=== PATIENT | female | born 1970 | race Caucasian/White ===

== ENCOUNTER 2022-03-24 10:03 | Inpatient (IN) ==
[2022-03-24] MEDS ORDERED: VANCOMYCIN 1,000 MG in 0.9 % SODIUM CHLORIDE 250 ML IV ONE (10:34)
[2022-03-24] MEDS ORDERED: 0.9 % SODIUM CHLORIDE 1,000 ML IV ONE ×3 (10:34→16:10)
--- NOTE | 2022-03-24 10:44 | Emergency Department Note ---
Skin/Abscess/FB HPI General Chief complaint: Skin/Abscess/Rash Stated complaint: Right Hand Swelling Time Seen by Provider: 03/24/22 10:27 Source: patient Mode of arrival: wheelchair Limitations: no limitations History of Present Illness HPI Narrative: Narrative: 51-year-old female presents chief complaint of redness swelling and pain to her right hand that may have started yesterday may have started before that patient did states she did hit her right hand yesterday but now has redness swelling starts in her right hand and goes up into her left forearm and elbow. Patient denies any history of IV drug abuse. Denies any fevers or chills. Patient does have a history of anxiety and does admit to palpitations and chest pain. Patient states she was taken off Klonopin over a month ago which she was on for years. Patient is very fidgety in the room. Denies any trauma to her elbow. The pain and swelling is diffuse in her right hand is worse whenever she moves it. Related Data Home Medications Medication Instructions Recorded Confirmed benztropine 1 mg tablet 1 mg PO BID 11/04/20 03/04/22 hydroxyzine pamoate 50 mg capsule 50 mg PO TID PRN 03/03/22 03/03/22 naproxen 500 mg tablet 1 tab PO BID 03/03/22 03/03/22 levetiracetam 500 mg tablet See Rx Instructions .ROUTE .COMPLEX 03/04/22 03/04/22 venlafaxine 75 mg tablet 75 mg PO TID 03/04/22 03/04/22 ziprasidone HCl 80 mg capsule 2 cap PO HS 03/04/22 03/04/22 Previous Rx's Medication Instructions Recorded clonazepam 0.5 mg tablet (Klonopin) 0.5 mg PO BID PRN #10 tab 03/09/22 Allergies Allergy/AdvReac Type Severity Reaction Status Date / Time Sulfa (Sulfonamide Allergy Mild Rash Verified 03/07/22 07:59 Antibiotics) carbamazepine Allergy Unknown unknown Verified 03/07/22 07:59 Review of Systems ROS ROS Narrative: Narrative: All systems ED: reviewed and negative except as stated. Constitutional: Denies fever, chills or sweats Eyes: Denies vision change ENT ED: Denies throat pain or congestion Cardiovascular: Reports as per HPI, chest pain and palpitations Respiratory: Denies shortness of breath or cough Gastrointestinal: Denies abdominal pain, vomiting or diarrhea Musculoskeletal: Reports as per HPI Integumentary: Reports as per HPI Neurological: Denies headache or dizziness Psychiatric: Reports anxiety; Denies suicidal thoughts or homicidal thoughts Endocrine: Denies polydipsia or polyuria Hematological/Lymphatic: Denies easy bleeding or easy bruising REPLACED BY [facility] Narrative Patient History Narrative: Narrative: Medical/Surgical/Family History All Active Problems (Updated 03/24/22 @ 13:55 by Jim Riley MD) Seizures (Chronic) Mental health disorder (Chronic) Auditory hallucinations (Chronic) Tobacco dependence in remission (Chronic) History of intravenous drug use in remission (Chronic) Chronic left shoulder pain (Chronic) Metatarsal stress fracture of left foot (Chronic) Contusion of arm, left (Acute) Cervical strain, acute (Acute) Closed fracture nasal bone (Acute) Polysubstance (excluding opioids) dependence (Acute) Alcohol intoxication (Acute) Acute hypokalemia (Acute) Acute dehydration (Acute) Hypothermia (Acute) Head injury (Acute) Contusion of elbow, right (Acute) Sepsis (Acute) Cellulitis of neck (Acute) Cellulitis of finger of right hand (Acute) Severe sepsis with septic shock (Acute) Hypokalemia (Acute) History of incarceration (Chronic) Poor historian (Acute) Medical History Auditory hallucinations Chronic left shoulder pain History of incarceration ~7 years History of intravenous drug use in remission Patient endorses cessation around 2007 Mental health disorder Unspecified, ?Schizophrenia Metatarsal stress fracture of left foot Poor historian Seizures Tobacco dependence in remission Quit 02/2021, 1 pack/day Surgical History History of bladder surgery Bladder sling History of nasal surgery x 2 History of shoulder surgery History of surgery on wrist Both wrists Family History Uncle Cancer Aunt Cancer Social History Smoking Status: Current some day smoker Alcohol Intake Frequency: former alcohol drinker Substance Use: former substance user Exam Narrative Narrative: Narrative: Vital Signs reviewed. Constitutional: Patient is awake alert fidgeting Head: Normocephalic, atraumatic Eyes: PERRLA, EOMI, no conjunctivitis Ear: Normal canals and TM's Oropharynx: moist oral mucosa, no edema, no erythema, no exudate Neck: Supple, no lymphadenopathy, no JVD Lungs: Breathing unlabored, lungs clear Cardiac: Tachycardic, regular rhythm normal distal pulses, GI: Soft nontender nondistended no guarding no rebound Musculoskeletal: The right hand is diffusely swollen erythematous warm to the touch on the dorsum of the hand, there is erythema that extends proximally up into the right forearm at the proximal right elbow, she also has 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 Back: no CVA or midline tenderness Neuro: Awake alert, cranial nerves II through XII grossly intact, no focal motor or sensory deficits Psychiatric: Appears anxious Skin: Warm dry no rash, cap refill less than 2 seconds General Limitations: no limitations Course Reevaluation(s) Reevaluation #1: Sepsis exam done after bolus of IV fluids and IV antibiotics. All ED findings discussed with patient including plan for and recommendation for admission. Time: 13:23 Vital Signs Vital signs: Vital Signs Temperature 96.1 F L 03/24/22 10:04 Pulse Rate 155 H 03/24/22 10:04 Respiratory Rate 22 03/24/22 10:04 Blood Pressure 142/70 03/24/22 10:04 Pulse Oximetry (%) 95 03/24/22 10:04 Temperature 103 F H 03/24/22 12:46 Pulse Rate 132 H 03/24/22 13:32 Respiratory Rate 16 03/24/22 13:32 Blood Pressure 97/59 03/24/22 13:32 Pulse Oximetry (%) 95 03/24/22 13:32 [facility] MDM Narrative Medical decision making narrative: Narrative: 51-year-old female presents with pain swelling redness to right hand and right elbow. Patient recalled some trauma with her right hand yesterday but states the redness and swelling may have been there previous to the injury. Patient is tachycardic tachypneic. SIRS present and sepsis alert triggered. Lactic acid blood cultures obtained. Patient given empiric IV vancomycin for cellulitis. Patient is also very anxious patient does have a history of IV drug abuse denies any recent drug abuse. Patient is very fidgety. Patient also states she has been taken off her Klonopin over a month ago and has not been on it since then. Differential Diagnosis Differential Diagnosis: Cellulitis, traumatic injury, sepsis, Lab Data Result diagrams: 03/24/22 11:10 03/24/22 11:10 Labs: Lab Results 03/24/22 03/24/22 03/24/22 Range/Units 11:10 11:10 11:10 WBC 2.0 L (4.5-11.0) K/mcL RBC 3.65 (3.59-5.38) M/mcL Hgb 11.7 (11.2-15.7) g/dL Hct 33.7 L (34.1-44.9) % MCV 92.3 (80.0-100.0) fL MCH 32.1 (26.0-34.0) pg MCHC 34.7 (31.0-36.0) g/dL RDW 15.1 H (11.5-14.5) % Plt Count 50 L (140-440) K/mcL MPV 10.7 H (7.4-10.4) fL Seg Neutrophils % 55 (38-78) % Band Neutrophils % 29 H (0-10) % Lymphocytes % 8 L (15-49) % Monocytes % (Manual) 7 (1-12) % Metamyelocytes % 1 % Nucleated RBCs 6 H (0-0) % WBC Morphology Abnormal A (Normal) Dohle Bodies Few A (None Seen) Platelet Estimate Markedly decreased A (Normal) RBC Morphology Abnormal A (Normal) Polychromasia 1+ A (None Seen) Anisocytosis 1+ A (None Seen) ESR 51 H (0-30) mm/hr VBG Lactic Acid 5.3 H* (0.5-2.0) mmol/L Sodium 130 L (133-145) mmol/L Potassium 2.6 L* (3.3-5.1) mmol/L Chloride 96 (96-108) mmol/L Carbon Dioxide 19 L (22-30) mmol/L Anion Gap 15.0 (8.0-16.0) BUN 10 (6-20) mg/dL Creatinine 0.8 (0.6-1.1) mg/dL GFR Calculation 86 Glucose 124 H (70-105) mg/dL Calcium 8.8 (8.6-10.4) mg/dL Total Bilirubin 2.0 H (0.1-1.0) mg/dL AST 84 H (<32) U/L ALT 41 H (<40) U/L Alkaline Phosphatase 173 H (39-117) U/L Troponin T < 0.01 (<0.03) ng/mL C-Reactive Protein 14.40 H (0.03-0.80) mg/dL Total Protein 7.6 (5.9-8.4) gm/dL Albumin 2.9 L (3.2-5.2) gm/dL Globulin 4.7 H (2.2-3.7) gm/dL Albumin/Globulin Ratio 0.6 L (1.0-2.3) Ethyl Alcohol (<0.010) gm/dL 03/24/22 Range/Units 11:20 WBC (4.5-11.0) K/mcL RBC (3.59-5.38) M/mcL Hgb (11.2-15.7) g/dL Hct (34.1-44.9) % MCV (80.0-100.0) fL MCH (26.0-34.0) pg MCHC (31.0-36.0) g/dL RDW (11.5-14.5) % Plt Count (140-440) K/mcL MPV (7.4-10.4) fL Seg Neutrophils % (38-78) % Band Neutrophils % (0-10) % Lymphocytes % (15-49) % Monocytes % (Manual) (1-12) % Metamyelocytes % % Nucleated RBCs (0-0) % WBC Morphology (Normal) Dohle Bodies (None Seen) Platelet Estimate (Normal) RBC Morphology (Normal) Polychromasia (None Seen) Anisocytosis (None Seen) ESR (0-30) mm/hr VBG Lactic Acid (0.5-2.0) mmol/L Sodium (133-145) mmol/L Potassium (3.3-5.1) mmol/L Chloride (96-108) mmol/L Carbon Dioxide (22-30) mmol/L Anion Gap (8.0-16.0) BUN (6-20) mg/dL Creatinine (0.6-1.1) mg/dL GFR Calculation Glucose (70-105) mg/dL Calcium (8.6-10.4) mg/dL Total Bilirubin (0.1-1.0) mg/dL AST (<32) U/L ALT (<40) U/L Alkaline Phosphatase (39-117) U/L Troponin T (<0.03) ng/mL C-Reactive Protein (0.03-0.80) mg/dL Total Protein (5.9-8.4) gm/dL Albumin (3.2-5.2) gm/dL Globulin (2.2-3.7) gm/dL Albumin/Globulin Ratio (1.0-2.3) Ethyl Alcohol < 0.010 (<0.010) gm/dL EKG Data EKG #1: EKG attestation: Yes I reviewed and interpreted this EKG. and Yes There are no EKG findings of acute coronary syndrome EKG results narrative: EKG performed at 1044 shows sinus tachycardia rate of 141 with significant baseline artifact this patient has tremors, normal axis infrequent PVC no acute ST changes CC TIME Critical Care Time Critical Care Time: Yes Total Critical Care Time: 35 Attestation: 35 minutes critical care performed including history physical evaluation and review of results imaging initiating therapy IV antibiotics fluids and discuss ing case with the mental hygiene consultant. Discharge Plan Patient/Caregiver Discharge Instructions Pt seen by SANDWICH COUNTER ATTENDANT/PA only: No Clinical Impression: Cellulitis of finger of right hand, Severe sepsis with septic shock, Hypokalemia Patient Disposition: Xfer As Inpt ([facility]) Condition: Fair Follow up with: Sascha Castrejon ARNP [Primary Care Provider] - Prescriptions: No Action benztropine 1 mg tablet 1 mg PO BID 0RF hydroxyzine pamoate 50 mg Capsule 50 mg PO TID PRN (Reason: Anxiety) 0RF naproxen 500 mg tablet 1 tab PO BID 0RF venlafaxine 75 mg Tablet 75 mg PO TID 0RF levetiracetam 500 mg Tablet See Rx Instructions .ROUTE .COMPLEX 0RF Rx Instructions: take 1 tablet PO QAM, 1.5 tablets po HS ziprasidone HCl 80 mg capsule 2 cap PO HS 0RF clonazepam [Klonopin] 0.5 mg tablet 0.5 mg PO BID PRN (Reason: anxiety) Qty: 10 0RF
[2022-03-24] MEDS ORDERED: ACETAMINOPHEN 500 MG TABLET PO ONE (11:23)
--- NOTE | 2022-03-24 11:26 | XRay Report ---
HISTORY: Pain and swelling FINDINGS: The lungs are clear and normally expanded. The heart size, mediastinum and alonzo are normal. There are couple old healed posterolateral rib fractures in the mid thorax bilaterally. In the left axilla there are multiple high attenuation well-circumscribed nodules measuring up to 3.2 cm in size. These were present on the recent chest CT performed on 03/05/22 and appeared to be located within the joint capsule IMPRESSION: No acute abnormality Interpreted and Authenticated by: Freedom Medina 03/24/22
--- NOTE | 2022-03-24 11:27 | XRay Report ---
HISTORY: Pain, erythema and swelling in the right hand FINDINGS: There is moderate soft tissue swelling dorsal to the metacarpals. There is no gas or foreign body in the soft tissues. The underlying bones are normal without evidence of osteomyelitis. There is no fracture or dislocation. Impression: soft tissue swelling along the dorsal side of the hand which is probably due to cellulitis Interpreted and Authenticated by: Freedom Medina 03/24/22
--- NOTE | 2022-03-24 11:28 | XRay Report ---
HISTORY: Right elbow pain and swelling FINDINGS: No fracture, dislocation or inflammatory change are present. Joint spaces are normal in width. There is no spur formation or joint effusion. No foreign body is present. There has been no change since 10/29/21. IMPRESSION: Normal exam Interpreted and Authenticated by: Freedom Medina 03/24/22
[2022-03-24 12:20] LABS: Hematocrit 33.7 % (34.1-44.9); Hemoglobin 11.7 g/dL (11.2-15.7); Mean Cell Volume 92.3 fL (80.0-100.0); Mean Corpuscular HGB Conc 34.7 g/dL (31.0-36.0); Mean Platelet Volume 10.7 fL (7.4-10.4); Platelet Count 50 K/mcL (140-440); RBC 3.65 M/mcL (3.59-5.38); Red Cell Distribution Width 15.1 % (11.5-14.5)
[2022-03-24 12:23] LABS: Alcohol, Blood < 10.0 mg/dL; Alcohol,Blood < 0.010 gm/dL (<0.010)
[2022-03-24] MEDS ORDERED: 0.9 % SODIUM CHLORIDE 1,915 ML IV ONE (12:35)
[2022-03-24] MEDS ORDERED: 0.9 % SODIUM CHLORIDE 500 ML IV ONE (12:39)
[2022-03-24 12:40] LABS: ALT/SGPT 41 U/L (<40); AST/SGOT 84 U/L (<32); Albumin 2.9 gm/dL (3.2-5.2); Albumin/Globulin Ratio 0.6 (1.0-2.3); Alkaline Phosphatase 173 U/L (39-117); Blood Urea Nitrogen 10 mg/dL (6-20); Calcium 8.8 mg/dL (8.6-10.4); Carbon Dioxide 19 mmol/L (22-30); Chloride 96 mmol/L (96-108); Globulin 4.7 gm/dL (2.2-3.7); Glomerular Filtration Rate 86; Glucose 124 mg/dL (70-105)
[2022-03-24] MEDS ORDERED: POTASSIUM CHLORIDE 20 MEQ TABLET PO ONE (12:47)
[2022-03-24] MEDS ORDERED: LORazepam 2 MG/ML VIAL IV ONE (12:48)
[2022-03-24 13:00] LABS: Erythrocyte Sedimentation Rate 51 mm/hr (0-30)
[2022-03-24] MEDS ORDERED: ONDANSETRON 4 MG/2 ML VIAL IV ONE (13:01)
[2022-03-24 13:44] LABS: Anisocytosis 1+ (None Seen); Band Neutrophils % 29 % (0-10); Dohle Bodies FEW (None Seen); Lymphocytes % 8 % (15-49); Metamyelocytes % 1 %; Monocytes % (Manual) 7 % (1-12); Nucleated Red Blood Cells 6 % (0-0); Platelet Estimate MARKEDLY DECREASED (Normal); Polychromasia 1+ (None Seen); RBC Morphology ABNORMAL (Normal); Segmented Neutrophils % 55 % (38-78)
[2022-03-24] MEDS ORDERED: KETOROLAC 30 MG/ML VIAL IV ONE (14:02)
--- NOTE | 2022-03-24 14:12 | Internal Med History&Physical ---
HPI History of Present Illness Patient information: Note initiated : 03/24/22 at 1:59 pm Service Date, if different from initiated Date: [] Patient: Anay Ramírez a 51 y/o F admitted on for Right Hand Swelling. Chief Complaint: [] History of present illness: Ms. Ramírez is a 51 year old F Presents the ED with right hand swelling redness and tenderness. She says she hit her hand on a countertop last night and that it has gotten increasingly red swollen and tender since then. Patient has a history of methamphetamine use she says she smokes it and denies IV use. She was here in early February for cellulitis of the left neck and had to some alcohol withdrawal symptoms at that time found to have cirrhosis with sequelae of thrombocytopenia and leukopenia. She says since she was discharged she has not used any methamphetamine but when I pressed her in regards to her use explaining how important was that I know what she used and when, then she finally stated she last used on Sunday. I suspect she is used more recently given her current presentation. She seems a bit agitated and is extremely fidgety. She has bloodshot eyes. Also of note I impressed upon her the need to stop alcohol upon last admission but she says she still using it in the form of beers 2-4 a day but she denies using it every day. She has not followed up with gastroenterology yet given the referral placed for cirrhosis. And has not seen Dr. Jones yet for substance abuse. she has headache and has some nausea but no vomiting. Denies fever chills chest pain stomach pain. Says she has a little bit of diarrhea this morning. In the ED she was tachycardic although she is has baseline tachycardia but it was elevated above baseline. She had a fever 103. Lactate of 5 and elevated CRP. She had AST to ALT ratio of 2:1. Leukopenia but better than last admission. She had a hand and elbow x-rays that show cellulitis of the dorsum of the right hand but no evidence of abscess. Blood cultures obtained. She received 30 mils per cake of IV fluid bolusing for sepsis presentation. Vancomycin ordered in the ED. Review of Systems: Pertinent positives as above. Denies fever/chills/vomiting/chest or abdominal pain/cough/dyspnea. 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 remission (Chronic) Chronic left shoulder pain (Chronic) Metatarsal stress fracture of left foot (Chronic) Contusion of arm, left (Acute) Cervical strain, acute (Acute) Closed fracture nasal bone (Acute) Polysubstance (excluding opioids) dependence (Acute) Alcohol intoxication (Acute) Acute hypokalemia (Acute) Acute dehydration (Acute) Hypothermia (Acute) Head injury (Acute) Contusion of elbow, right (Acute) Sepsis (Acute) Cellulitis of neck (Acute) Cellulitis of finger of right hand (Acute) Severe sepsis with septic shock (Acute) Hypokalemia (Acute) History of incarceration (Chronic) Poor historian (Acute) Medical History Auditory hallucinations Chronic left shoulder pain History of incarceration ~7 years History of intravenous drug use in remission Patient endorses cessation around 2007 Mental health disorder Unspecified, ?Schizophrenia Metatarsal stress fracture of left foot Poor historian Seizures Tobacco dependence in remission Quit 02/2021, 1 pack/day Surgical History History of bladder surgery Bladder sling History of nasal surgery x 2 History of shoulder surgery History of surgery on wrist Both wrists Family History Uncle Cancer Aunt Cancer Social History (Updated 03/31/21 @ 11:04 by Pinky Hasnen RN) marital status: single smoking status: Former smoker quit date: 02/28/21 alcohol intake frequency: former alcohol drinker substance use type: former substance user MEDS/ALLERGIES Home Medications and Allergies Home Medications Medication Instructions Recorded Confirmed Type benztropine 1 mg tablet 1 mg PO BID 11/04/20 03/24/22 History levetiracetam 500 mg tablet See Rx Instructions .ROUTE .COMPLEX 03/04/22 03/24/22 History venlafaxine 75 mg tablet 75 mg PO TID 03/04/22 03/24/22 History ziprasidone HCl 80 mg capsule 2 cap PO HS 03/04/22 03/24/22 History clonazepam 0.5 mg tablet (Klonopin) 1 mg PO DAILY PRN 03/24/22 03/24/22 History lactulose 10 gram/15 mL oral 15 ml PO TID 03/24/22 03/24/22 History solution meloxicam 15 mg tablet 15 mg PO QDAY 03/24/22 03/24/22 History spironolactone 100 mg tablet 100 mg PO QAM 03/24/22 03/24/22 History Allergies Allergy/AdvReac Type Severity Reaction Status Date / Time Sulfa (Sulfonamide Allergy Mild Rash Verified 03/07/22 07:59 Antibiotics) carbamazepine Allergy Unknown unknown Verified 03/07/22 07:59 EXAM Constitutional Vitals: Temp Pulse Resp BP Pulse Ox 103 F H 132 H 25 H 100/56 94 03/24/22 12:46 03/24/22 13:46 03/24/22 13:46 03/24/22 13:46 03/24/22 13:46 Exam: General: Alert, agitated and fidgety Eyes/N/T: EOMI, PERRL, dryMM Head/Neck: neck supple, normocephalic atraumatic CV: Tacky but regular, No murmurs, normal s1/s2 Pulm: Clear b/l, no wheezing/rhonchi/rales Abd: soft, nontender, +BS x4 Ext: no clubbing/cyanosis/edema of LE. Right hand dorsum erythematous/tender to touch/edematous, exends past wrist Neuro: Alert, no focal deficits, moves all extremities, CN 2-12 grossly intact, sensations intact b/l upper/lower Skin: warm/dry DATA Data Completed and Pending Labs: Labs from last 24 hours 03/24/22 03/24/22 03/24/22 11:20 11:10 11:10 WBC RBC Hgb Hct MCV MCH MCHC RDW Plt Count MPV Seg Neutrophils % Band Neutrophils % Lymphocytes % Monocytes % (Manual) Metamyelocytes % Nucleated RBCs WBC Morphology Dohle Bodies Platelet Estimate RBC Morphology Polychromasia Anisocytosis ESR VBG Lactic Acid 5.3 H* Sodium 130 L Potassium 2.6 L* Chloride 96 Carbon Dioxide 19 L Anion Gap 15.0 BUN 10 Creatinine 0.8 GFR Calculation 86 Glucose 124 H Calcium 8.8 Total Bilirubin 2.0 H AST 84 H ALT 41 H Alkaline Phosphatase 173 H Troponin T < 0.01 C-Reactive Protein 14.40 H Total Protein 7.6 Albumin 2.9 L Globulin 4.7 H Albumin/Globulin Ratio 0.6 L Ethyl Alcohol < 0.010 03/24/22 11:10 WBC 2.0 L RBC 3.65 Hgb 11.7 Hct 33.7 L MCV 92.3 MCH 32.1 MCHC 34.7 RDW 15.1 H Plt Count 50 L MPV 10.7 H Seg Neutrophils % 55 Band Neutrophils % 29 H Lymphocytes % 8 L Monocytes % (Manual) 7 Metamyelocytes % 1 Nucleated RBCs 6 H WBC Morphology Abnormal A Dohle Bodies Few A Platelet Estimate Markedly decreased A RBC Morphology Abnormal A Polychromasia 1+ A Anisocytosis 1+ A ESR 51 H VBG Lactic Acid Sodium Potassium Chloride Carbon Dioxide Anion Gap BUN Creatinine GFR Calculation Glucose Calcium Total Bilirubin AST ALT Alkaline Phosphatase Troponin T C-Reactive Protein Total Protein Albumin Globulin Albumin/Globulin Ratio Ethyl Alcohol A/P Narrative A/P Narrative: A: #Sepsis: 2/2 Right hand/wrist cellulitis - #Right Hand/Wrist Cellulitis: no abscess noted on xray #Alcohol abuse: #Cirrhosis, etoh related: based on imaging and labs and etoh history, has not followed up yet with GI #Thrombocytopenia, Acute on chronic /hyperbilirubinemia /hypoalbuminemia: 2/2 above #Leukopenia: 2/2 above -ANC #Alcoholic hepatitis: #Anemia, Chronic normocytic: #h/o Schizophrenia & Anxiety: on klonopin #h/o Seizure disorder: #h/o substance use disorder with Methamphetamine: denies IV, state she smokes it -suspect recent use given behavior on presentation #Hypokalemia/hypomagnesemia/Hyponatremia: replace #Hep C Ab(+) but quant RNA negative: no current infection #Transaminitis: Plan: -Vanc/Rocephin, pending BC, mrsa screen -IVF, f/u lactate -monitor cbc/ANC -CIWA, vitamins, benzo -Replace electrolytes as needed -obtain pt/inr for Discr fxn score -Home medication reconciliation -Continue home Keppra, ziprasidone, venlafaxine -f/u with GI for cirrhosis -Alcohol cessation counseling, referral to see Dr. Jones -ppx: SCD for thrombocytopenia, may use chemical if plts stable >50k Time Spent With Patient Time: Total time spent is greater than 50% in coordination of care (as documented) at patient's floor/unit and/or counseling patient: Total time spent with greater than 50% in coordination of care (as documented) at patient's floor/unit and/or counseling patient:: 50 - 70 minutes
[2022-03-24] MEDS ORDERED: 0.9 % SODIUM CHLORIDE 1,000 ML IV SCH (14:45)
[2022-03-24] MEDS: MAGNESIUM SULFATE 24.36 MEQ in DEXTROSE 5% IN WATER 50 ML IV ONE ×3 (15:43→17:30)
[2022-03-24 15:44] LABS: INR 1.7 (0.9-1.1); Prothrombin Time 20.3 sec (11.9-14.5)
[2022-03-24] MEDS ORDERED: VANCOMYCIN PER PHARMACY IV SCH (16:10)
[2022-03-24] MEDS ORDERED: METOCLOPRAMIDE 10 MG/2 ML VIAL IV PRN (16:10)
[2022-03-24] MEDS ORDERED: POTASSIUM CHLORIDE 40 MEQ in DEXTROSE 5% IN WATER 500 ML IV PRN (16:10)
[2022-03-24] MEDS ORDERED: chlordiazePOXIDE 25 MG CAPSULE PO PRN (16:10)
[2022-03-24] MEDS ORDERED: ONDANSETRON 4 MG/2 ML VIAL IV PRN (16:10)
[2022-03-24] MEDS ORDERED: POTASSIUM CHLORIDE 20 MEQ TABLET PO PRN ×2 (16:10)
[2022-03-24] MEDS ORDERED: IPRATROPIUM/ALBUTEROL 3 ML AMPUL.NEB NEB PRN (16:10)
[2022-03-24] MEDS ORDERED: THIAMINE 100 MG TABLET PO SCH (16:10)
[2022-03-24] MEDS ORDERED: POTASSIUM CHLORIDE 40 MEQ in DEXTROSE 5% IN WATER 500 ML IV ONE (16:10)
[2022-03-24] MEDS ORDERED: SENNOSIDES 1 TABLET PO PRN (16:10)
[2022-03-24] MEDS ORDERED: POLYETHYLENE GLYCOL 3350 17 GM PACKET PO PRN (16:10)
[2022-03-24] MEDS: FOLIC ACID 1 MG TABLET PO SCH (16:35)
[2022-03-24] MEDS: MULTIVIT,THER IRON,CA,FA & MIN 1 TABLET PO SCH (16:35)
[2022-03-24 16:42] LABS: Amphetamine Screen,Urine Suspect positive; Appearance,Urine HAZY (Clear); Barbiturate Screen,Urine Suspect positive; Benzodiazepines Screen,Urine None detected; Bilirubin,Urine Negative (Negative); Cannabinoid Screen,Urine None detected; Cocaine Screen,Urine None detected; Color,Urine AMBER; Culture Indicated,Urine yes; Glucose,Urine (UA) Negative (Negative); Ketones,Urine Negative (Negative); Leukocyte Esterase,Urine Negative /uL (Negative); Mucus,Urine FEW /hpf; Nitrate,Urine Negative (Negative); Opiate Screen,Urine None detected; Oxycodone, Urine Screen None detected; Phencyclidine Screen,Urine None detected; Protein,Urine 100 mg/dL (Negative); Specific Gravity,Urine 1.016 (1.000-1.035); Urine Blood >=1.0 mg/dL (Negative); Urine RBC > 182 /hpf (0-1); Urine Squamous Epithelial Cell 2 /hpf (0-4); Urine WBC 17 /hpf (0-4)
[2022-03-24] MEDS: prednisoLONE 15 MG/5 ML ORAL SOL PO SCH (16:46)
[2022-03-24] MEDS ORDERED: LACTATED RINGERS 1,000 ML IV ONE (16:53)
[2022-03-24] MEDS: cefTRIAXone 2 GM in DEXTROSE 5% IN WATER 50 ML IV SCH (16:55)
[2022-03-24] MEDS: LORazepam 2 MG/ML VIAL IV PRN ×3 (18:40→23:10)
[2022-03-24] MEDS: VANCOMYCIN 1,250 MG in 0.9 % SODIUM CHLORIDE 500 ML IV SCH (20:22)
[2022-03-24] MEDS: clonazePAM 0.5 MG TABLET PO PRN (20:36)
[2022-03-24] MEDS: DOCUSATE SODIUM 100 MG CAPSULE PO SCH (20:36)
[2022-03-24] MEDS: VENLAFAXINE 75 MG TABLET PO SCH (20:36)
[2022-03-24] MEDS: LACTULOSE 20 GM/30 ML ORAL.SOL PO SCH (20:37)
[2022-03-24] MEDS: 0.9 % SODIUM CHLORIDE 10 ML SYRINGE IV SCH ×2 (20:37→22:14)
[2022-03-24] MEDS ORDERED: levETIRAcetam 500 MG TABLET PO SCH (21:00)
[2022-03-24] MEDS ORDERED: BENZTROPINE 1 MG TABLET PO SCH (21:00)
[2022-03-24] MEDS ORDERED: LACTATED RINGERS 1,000 ML IV SCH (21:15)
[2022-03-25] MEDS: LORazepam 2 MG/ML VIAL IV PRN ×5 (01:13→22:00)
[2022-03-25] MEDS: ACETAMINOPHEN 650 MG/65 ML BAG IV PRN ×2 (04:00→15:32)
[2022-03-25] MEDS ORDERED: ACETAMINOPHEN 1,000 MG/100 ML BAG IV ONE (04:04)
[2022-03-25] MEDS: 0.9 % SODIUM CHLORIDE 10 ML SYRINGE IV SCH ×7 (04:54→22:01)
[2022-03-25 06:53] LABS: Hematocrit 34.1 % (34.1-44.9); Hemoglobin 10.9 g/dL (11.2-15.7); Mean Cell Volume 100.6 fL (80.0-100.0); Mean Platelet Volume 10.4 fL (7.4-10.4); Platelet Count 35 K/mcL (140-440); RBC 3.39 M/mcL (3.59-5.38); Red Cell Distribution Width 16.5 % (11.5-14.5); WBC 2.9 K/mcL (4.5-11.0)
[2022-03-25 07:36] LABS: Anisocytosis 1+ (None Seen); Band Neutrophils % 24 % (0-10); Lymphocytes % 3 % (15-49); Metamyelocytes % 2 %; Platelet Estimate MARKEDLY DECREASED (Normal); RBC Morphology ABNORMAL (Normal); Segmented Neutrophils % 71 % (38-78)
--- NOTE | 2022-03-25 07:38 | Internal Med Progress Note ---
SUBJECTIVE Subjective Patient information: Note initiated : 03/25/22 at 7:29 am Service Date, if different from initiated Date: [] Patient: Anay Ramírez a 51 y/o F admitted on 03/24/22 for Right Hand Swelling. Chief Complaint: [] Interval history: History of present illness: Ms. Ramírez is a 51 year old F Presents the ED with right hand swelling redness and tenderness. She says she hit her hand on a countertop last night and that it has gotten increasingly red swollen and tender since then. Patient has a history of methamphetamine use she says she smokes it and denies IV use. She was here in early February for cellulitis of the left neck and had to some alcohol withdrawal symptoms at that time found to have cirrhosis with sequelae of thrombocytopenia and leukopenia. She says since she was discharged she has not used any methamphetamine but when I pressed her in regards to her use explaining how important was that I know what she used and when, then she finally stated she last used on Sunday. I suspect she is used more recently given her current presentation. She seems a bit agitated and is extremely fidgety. She has bloodshot eyes. Also of note I impressed upon her the need to stop alcohol upon last admission but she says she still using it in the form of beers 2-4 a day but she denies using it every day. She has not followed up with gastroenterology yet given the referral placed for cirrhosis. And has not seen Dr. Jones yet for substance abuse. she has headache and has some nausea but no vomiting. Denies fever chills chest pain stomach pain. Says she has a little bit of diarrhea this morning. In the ED she was tachycardic although she is has baseline tachycardia but it was elevated above baseline. She had a fever 103. Lactate of 5 and elevated CRP. She had AST to ALT ratio of 2:1. Leukopenia but better than last admission. She had a hand and elbow x-rays that show cellulitis of the dorsum of the right hand but no evidence of abscess. Blood cultures obtained. She received 30 mils per cake of IV fluid bolusing for sepsis presentation. Vancomycin ordered in the ED. Severe alcoholic hepatitis as defined by increased hepatitis discriminant function score greater than 32. prednisolone 40mg daily started for 28 days followed by 16-day taper. Severe alcoholic hepatitis as defined by increased hepatitis discriminant function score greater than 32. prednisolone 40mg daily started for 28 days followed by 16-day taper. 03/25 Patient condition worsen increased altered mental status and vitals including tachycardia and fever. Suspected to be in alcohol withdrawal delirium tremens. Increased oxygen needs and tachypnea, suspect aspiration althought pt did receive fluid resuscitation on presentation. Initially concern for likely methamphetamine intoxication. Transferred to ICU on monitor vitals closely. Monitor urine output closely. Follow-up lactates still elevated and secondary to liver failure. Has cough. Required heavy doses of Ativan last night. 4 out of 4 blood culture bottles with gram-positive cocci in chains. Platelets low. Review of Systems: Unable to gather given patient's altered mental status Constitutional Vitals: Vital Signs Temp Pulse Resp BP Pulse Ox 100.2 F H 113 H 22 106/79 89 L 03/25/22 06:01 03/25/22 06:01 03/25/22 06:01 03/25/22 06:01 03/25/22 06:01 Period Temp Pulse Resp BP Sys/Villa Pulse Ox Last 24 Hr 96.1 F-103 F 110-155 14-39 84-142/50-98 86-99 Intake and Output 03/24/22 03/25/22 03/25/22 21:59 05:59 13:59 Intake Total 1050 3096 Output Total 300 700 Balance 750 2396 Weight 79.379 kg Intake & Output: Intake & Output 03/24/22 03/25/22 03/25/22 21:59 05:59 13:59 Intake Total 1050 3096 Output Total 300 700 Balance 750 2396 Weight 79.379 kg Intake: IV 1050 3076 Sodium Chloride 0.9% 1,000 ml @ 2000 100 mls/hr IV .Q10H ONE Rx#: [id number] Lactated Ringers 1,000 ml @ 300 1000 500 mls/hr IV .Q3H20M [facility] Rx#: [id number] Magnesium Sulfate 24.36 Meq In 56 Dextrose 5% in Water 50 ml @ 28 mls/hr IV ONCE ONE Rx#: [id number] Potassium Chloride 40 Meq In 520 Dextrose 5% in Water 500 ml @ 130 mls/hr IV ONCE ONE Rx#: [id number] Rocephin 2 gm In Dextrose 5% in 50 Water 50 ml @ 100 mls/hr IV DAILY [facility] Rx#:[id number] Oral 20 Output: Urine Catheter Amount 300 700 Other: Urine Appearance Clear Clear Uretheral ([place]) Clear Clear Urine Color Dark Heide Dark Yellow Blood Tinged Uretheral ([place]) Dark Heide Dark Heide Blood Tinged Exam: General: drowsy, restless Eyes/N/T: EOMI, Head/Neck: neck supple, CV: Tacky but regular, No murmurs, Pulm: expiratory rhonchi b/l, no wheezing/rhonchi/rales Abd: soft, nontender, +BS x4 Ext: no clubbing/cyanosis/edema of LE. Right hand dorsum erythematous/tender to touch/edematous, exends past wrist Neuro: Drowsy partially awakens, seems to attempt to verbalize to questions but unable to understand, no focal deficits, moves all extremities, Skin: warm/dry OBJ DATA Labs CBC & Chem 7: 03/25/22 05:28 03/25/22 08:09 Labs: Abnormal Lab Results 03/25/22 03/25/22 03/24/22 05:28 05:28 19:54 WBC 2.9 L RBC 3.39 L Hgb 10.9 L Hct MCV 100.6 H RDW 16.5 H Plt Count 35 L* MPV Band Neutrophils % Lymphocytes % Nucleated RBCs WBC Morphology Dohle Bodies Platelet Estimate RBC Morphology Polychromasia Anisocytosis ESR PT INR VBG Lactic Acid 3.9 H* 4.5 H* Sodium Potassium Carbon Dioxide Glucose Magnesium Total Bilirubin AST ALT Alkaline Phosphatase C-Reactive Protein Albumin Globulin Albumin/Globulin Ratio Procalcitonin Urine Appearance Urine Protein Urine Occult Blood Urine Urobilinogen Urine RBC Urine WBC Urine Mucus Ur Barbiturates Screen Ur Amphetamines Screen 03/24/22 03/24/22 03/24/22 15:34 15:34 14:40 WBC RBC Hgb Hct MCV RDW Plt Count MPV Band Neutrophils % Lymphocytes % Nucleated RBCs WBC Morphology Dohle Bodies Platelet Estimate RBC Morphology Polychromasia Anisocytosis ESR PT INR VBG Lactic Acid 4.1 H* Sodium Potassium Carbon Dioxide Glucose Magnesium Total Bilirubin AST ALT Alkaline Phosphatase C-Reactive Protein Albumin Globulin Albumin/Globulin Ratio Procalcitonin Urine Appearance Hazy A Urine Protein 100 A Urine Occult Blood >=1.0 A Urine Urobilinogen 4.0 A Urine RBC > 182 H Urine WBC 17 H Urine Mucus Few A Ur Barbiturates Screen Suspect positive A Ur Amphetamines Screen Suspect positive A 03/24/22 03/24/22 03/24/22 11:10 11:10 11:10 WBC RBC Hgb Hct MCV RDW Plt Count MPV Band Neutrophils % Lymphocytes % Nucleated RBCs WBC Morphology Dohle Bodies Platelet Estimate RBC Morphology Polychromasia Anisocytosis ESR PT 20.3 H INR 1.7 H VBG Lactic Acid Sodium Potassium Carbon Dioxide Glucose Magnesium 1.2 L Total Bilirubin AST ALT Alkaline Phosphatase C-Reactive Protein Albumin Globulin Albumin/Globulin Ratio Procalcitonin 1.37 H Urine Appearance Urine Protein Urine Occult Blood Urine Urobilinogen Urine RBC Urine WBC Urine Mucus Ur Barbiturates Screen Ur Amphetamines Screen 03/24/22 03/24/22 11:10 11:10 WBC 2.0 L RBC Hgb Hct 33.7 L MCV RDW 15.1 H Plt Count 50 L MPV 10.7 H Band Neutrophils % 29 H Lymphocytes % 8 L Nucleated RBCs 6 H WBC Morphology Abnormal A Dohle Bodies Few A Platelet Estimate Markedly decreased A RBC Morphology Abnormal A Polychromasia 1+ A Anisocytosis 1+ A ESR 51 H PT INR VBG Lactic Acid 5.3 H* Sodium 130 L Potassium 2.6 L* Carbon Dioxide 19 L Glucose 124 H Magnesium Total Bilirubin 2.0 H AST 84 H ALT 41 H Alkaline Phosphatase 173 H C-Reactive Protein 14.40 H Albumin 2.9 L Globulin 4.7 H Albumin/Globulin Ratio 0.6 L Procalcitonin Urine Appearance Urine Protein Urine Occult Blood Urine Urobilinogen Urine RBC Urine WBC Urine Mucus Ur Barbiturates Screen Ur Amphetamines Screen Meds: Medications Acetaminophen (Acetaminophen 325 Mg Tablet) 650 mg PO Q6HP PRN; Protocol PRN Reason: Per Pain Protocol/Fever > 101 Hydrocodone Bitart/Acetaminophen (Hydrocodone/Apap 5/325mg Tablet) 1 tab PO Q4HP PRN PRN Reason: PAIN LEVEL 3-6 Albuterol/Ipratropium (Ipratropium/Albuterol 3 Ml Ampul.Neb) 3 ml NEB Q4HP PRN PRN Reason: Shortness Of Breath Benztropine Mesylate (Benztropine 1 Mg Tablet) 1 mg PO BID KHUSHBU Last Admin: 03/24/22 20:35 Dose: 1 mg Documented by: Chlordiazepoxide HCl (Chlordiazepoxide 25 Mg Capsule) 50 mg PO Q4HP PRN PRN Reason: Alcohol Withdrawal Clonazepam (Clonazepam 0.5 Mg Tablet) 1 mg PO DAILYP PRN PRN Reason: Anxiety Last Admin: 03/24/22 20:36 Dose: 1 mg Documented by: Docusate Sodium (Docusate Sodium 100 Mg Capsule) 100 mg PO BID KHUSHBU Last Admin: 03/24/22 20:36 Dose: 100 mg Documented by: Folic Acid (Folic Acid 1 Mg Tablet) 1 mg PO DAILY [facility] Last Admin: 03/24/22 16:35 Dose: 1 mg Documented by: Potassium Chloride 40 meq/ (Dextrose) 520 mls @ 130 mls/hr IV UD PRN PRN Reason: Potassium < 3 Magnesium Sulfate (Magnesium Sulfate) 2 gm in 50 mls @ 50 mls/hr IV UD PRN PRN Reason: Magnesium </= 1.6 Ceftriaxone Sodium 2 gm/ (Dextrose) 50 mls @ 100 mls/hr IV DAILY [facility]; Protocol Last Infusion: 03/24/22 17:25 Dose: Infused Documented by: Vancomycin HCl 1,250 mg/ (Sodium Chloride) 500 mls @ 333.3 mls/hr IV Q12H KHUSHBU Last Admin: 03/24/22 20:22 Dose: 250 mls/hr Documented by: Acetaminophen (Ofirmev) 650 mg in 65 mls @ 130 mls/hr IV Q6HP PRN; Protocol PRN Reason: PAIN/FEVER > 101 Last Admin: 03/25/22 04:00 Dose: 130 mls/hr Documented by: Iron Carb/Multivit/[place]/Folic Acid (Multivit,Ther Iron,Ca,Fa & Min 1 Tablet) 1 tab PO DAILY [facility] Last Admin: 03/24/22 16:35 Dose: 1 tab Documented by: Lactulose (Lactulose 20 Gm/30 Ml Oral.Lilia) 10 gm PO TID [facility] Last Admin: 03/24/22 20:37 Dose: 10 gm Documented by: Levetiracetam (Levetiracetam 500 Mg Tablet) 500 mg PO DAILY [facility] Levetiracetam (Levetiracetam 500 Mg Tablet) 750 mg PO HS [facility] Last Admin: 03/24/22 20:36 Dose: 750 mg Documented by: Lorazepam (Lorazepam 2 Mg/Ml Vial) 0.5 mg IV Q2-4HP PRN PRN Reason: ANXIETY/SEDATION Lorazepam (Lorazepam 2 Mg/Ml Vial) 0 mg IV Q4HP PRN; Protocol PRN Reason: Alcohol Withdrawal Last Admin: 03/25/22 04:52 Dose: 2 mg Documented by: Metoclopramide HCl (Metoclopramide 10 Mg/2 Ml Vial) 10 mg IV Q6HP PRN PRN Reason: Nausea And Vomiting Ziprasidone Hcl 80 (Mg Capsule) 1 dose PO HS [facility] Last Admin: 03/24/22 20:36 Dose: 1 dose Documented by: Non-Formulary Medication (Benztropine) 1 tab PO BID K[facility]BU Ondansetron HCl (Ondansetron 4 Mg/2 Ml Vial) 4 mg IV Q4HP PRN PRN Reason: Nausea And Vomiting Polyethylene Glycol (Polyethylene Glycol 3350 17 Gm Packet) 17 gm PO DAILYP PRN PRN Reason: Constipation Potassium Chloride (Potassium Chloride 20 Meq Tablet) 40 meq PO UD PRN PRN Reason: Potssium is 3-3.5 Potassium Chloride (Potassium Chloride 20 Meq Tablet) 40 meq PO UD PRN PRN Reason: Potassium < 3 Prednisone (Prednisolone 15 Mg/5 Ml Oral Lilia) 40 mg PO DAILY [facility] Last Admin: 03/24/22 16:46 Dose: 40 mg Documented by: Senna (Sennosides 1 Tablet) 2 tab PO DAILYP PRN PRN Reason: Constipation Sodium Chloride (0.9 % Sodium Chloride 10 Ml Syringe) 10 ml IV Q8 [facility] Last Admin: 03/25/22 04:54 Dose: 10 ml Documented by: Sodium Chloride (0.9 % Sodium Chloride 10 Ml Syringe) 10 ml IV Q8 [facility] Last Admin: 03/25/22 04:54 Dose: Not Given Documented by: Thiamine HCl (Thiamine 100 Mg Tablet) 100 mg PO QDAY [facility] Last Admin: 03/24/22 16:35 Dose: 100 mg Documented by: Vancomycin HCl (Vancomycin Per Pharmacy) 1 order IV UD [facility]; Protocol Venlafaxine HCl (Venlafaxine 75 Mg Tablet) 75 mg PO TID [facility] Last Admin: 03/24/22 20:36 Dose: 75 mg Documented by: A/P Narrative A/P Narrative: A: #Severe Sepsis: 2/2 Right hand/wrist cellulitis -elevated lactic acidosis persistent compounded by liver failure #Right Hand/Wrist Cellulitis: no abscess noted on xray #Bacteremia(Sterp Pyogenes 4/4 bottles): -echo #UTI: #Alcohol abuse withdrawal DT's: #Acute hypoxic respiratory failure: 2/2 aspiration or possible volume overload from initial fluid resuscitation, suspect aspiration -On 2-3L NC #Cirrhosis, etoh related: based on imaging and labs and etoh history, has not fo llowed up yet with GI #Coagulopathy: 2/2 above #Thrombocytopenia, Acute on chronic /hyperbilirubinemia /hypoalbuminemia: 2/2 above #Leukopenia: 2/2 above -ANC 2755 #Severe Alcoholic hepatitis: hepatitis discriminant function score greater than 32 #Anemia, Chronic normocytic: #h/o Schizophrenia & Anxiety: on klonopin #h/o Seizure disorder: on keppra #h/o substance use disorder with Methamphetamine: denies IV, state she smokes it -suspect recent use given behavior on presentation and UDS (+) for Amphetamine #Hypokalemia/hypomagnesemia/Hyponatremia: improved, replace prn #Critically Ill/guarded prognonsis: -ANVIK II = , est mortality % Plan: -transfer to ICU -CT to r/o nec fasc given strep pyogenes and lactic acidosis and clinial status -Vanc/Rocephin/start clinda, pending serial BC's, mrsa screen -IVF, f/u lactate -monitor cbc/ANC -cxr and echo pending -CIWA, vitamins, benzo -Replace electrolytes -prednisolone 40mg daily started for 28 days followed by 16-day taper -Continue home Keppra, ziprasidone, venlafaxine, hold benztropine for AE profile in current setting -f/u with GI for cirrhosis -Alcohol/substance use cessation counseling, referral to see Dr. Jones -ppx: SCD for thrombocytopenia, may use chemical if plts stable >50k Time Spent With Patient Time: Total time spent is greater than 50% in coordination of care (as documented) at patient's floor/unit and/or counseling patient: Total time spent with greater than 50% in coordination of care (as documented) at patient's floor/unit and/or counseling patient:: 35 - 50 minutes Critical Care Time: Yes Total Critical Care Time: 30
[2022-03-25] MEDS ORDERED: levETIRAcetam 500 MG TABLET PO SCH (09:00)
[2022-03-25] MEDS ORDERED: BENZTROPINE 1 MG TABLET PO SCH (09:00)
[2022-03-25] MEDS: THIAMINE 100 MG in 0.9 % SODIUM CHLORIDE 50 ML IV SCH (09:01)
[2022-03-25] MEDS: cefTRIAXone 2 GM in DEXTROSE 5% IN WATER 50 ML IV SCH (09:01)
--- NOTE | 2022-03-25 09:07 | XRay Report ---
HISTORY: Hypoxia FINDINGS: Severe diffuse alveolar infiltrates have developed in both lungs. This is a new finding since 03/24/22. There is no pleural effusion. The heart size remains normal. The mediastinum and alonzo are obscured by the consolidated lung parenchyma. There is relative sparing of the periphery. IMPRESSION: Severe bilateral alveolar infiltrates which could be due to edema, pneumonia, drug reaction or aspiration Interpreted and Authenticated by: Freedom Medina 03/25/22
[2022-03-25] MEDS: MULTIVIT,THER IRON,CA,FA & MIN 1 TABLET PO SCH (09:10)
[2022-03-25] MEDS: VENLAFAXINE 75 MG TABLET PO SCH ×3 (09:10→20:22)
[2022-03-25] MEDS: DOCUSATE SODIUM 100 MG CAPSULE PO SCH ×2 (09:10→20:22)
[2022-03-25] MEDS: prednisoLONE 15 MG/5 ML ORAL SOL PO SCH (09:10)
[2022-03-25] MEDS: FOLIC ACID 1 MG TABLET PO SCH (09:10)
[2022-03-25] MEDS: LACTULOSE 20 GM/30 ML ORAL.SOL PO SCH ×3 (09:10→20:23)
[2022-03-25 09:48] LABS: ALT/SGPT 43 U/L (<40); AST/SGOT 140 U/L (<32); Albumin 2.1 gm/dL (3.2-5.2); Albumin/Globulin Ratio 0.5 (1.0-2.3); Alkaline Phosphatase 72 U/L (39-117); Bilirubin,Direct 1.7 mg/dL (<0.3); Bilirubin,Total 2.1 mg/dL (0.1-1.0); Blood Urea Nitrogen 13 mg/dL (6-20); Calcium 7.8 mg/dL (8.6-10.4); Carbon Dioxide 16 mmol/L (22-30); Chloride 106 mmol/L (96-108); Globulin 4.3 gm/dL (2.2-3.7); Glomerular Filtration Rate 101; Glucose 76 mg/dL (70-105); Lactate Dehydrogenase 514 U/L (135-225); Phosphorous 2.4 mg/dL (2.5-4.5); Triglycerides 107 mg/dL (<150); Uric Acid 3.2 mg/dL (2.5-8.0)
[2022-03-25] MEDS: VANCOMYCIN 1,250 MG in 0.9 % SODIUM CHLORIDE 500 ML IV SCH ×2 (10:12→20:25)
[2022-03-25] MEDS: methylPREDNISolone SOD SUCC 40 MG/ML VIAL IV SCH (12:18)
[2022-03-25] MEDS ORDERED: ONDANSETRON 4 MG/2 ML VIAL IV ONE (13:20)
[2022-03-25] MEDS ORDERED: fentaNYL 100 MCG/2 ML VIAL IV ONE (13:23)
[2022-03-25] MEDS ORDERED: MIDAZOLAM 2 MG/2 ML VIAL IV ONE ×4 (13:34→13:40)
[2022-03-25] MEDS: 0.9 % SODIUM CHLORIDE 250 ML IV SCH ×2 (13:46→19:36)
[2022-03-25] MEDS ORDERED: ROCURONIUM 10 MG/ML ML IV ONE ×2 (13:46→14:27)
[2022-03-25] MEDS: PROPOFOL 1,000 MG in PREMIX 1 BAG IV SCH (13:46)
[2022-03-25] MEDS ORDERED: PROPOFOL 1,000 MG in PREMIX 1 BAG IV SCH (14:00)
[2022-03-25] MEDS ORDERED: MIDAZOLAM 5 MG/5 ML VIAL IV ONE (14:27)
--- NOTE | 2022-03-25 14:32 | Event Note ---
Event Note Event Note: I was called by the ICU nurse to the patient bedside has appeared that she was not protecting her airway and had increased oxygenation needs. Altered mental state given alcohol withdrawal and required sedation to suppress. ABG with extremely low PaO2. Given the inability to protect airway patient necessitated to endotracheal intubation. Extra critical care time in excess of 30 minutes not counting time required for intubation and central line placement.
[2022-03-25] MEDS: levETIRAcetam 500 MG in 0.9 % SODIUM CHLORIDE 100 ML IV SCH (14:37)
--- NOTE | 2022-03-25 14:42 | Procedure Note ---
PROC Intubation Time out performed: Yes Date of Procedure: 03/25/22 Sedative: other ETT: ETCO2 Laryngoscope: 3 Assist device used: glide ET tube size: 7.5 Tube secured location: teeth Tube placement confirmation: visualized tube passing through cords # of Attempts: 1 Additional comments: patient did become agitated after successful intubation and did bite tongue or lip.
[2022-03-25] MEDS: CLINDAMYCIN 600 MG in DEXTROSE 5% IN WATER 50 ML IV SCH ×2 (15:10→21:13)
--- NOTE | 2022-03-25 15:50 | XRay Report ---
HISTORY: History intubated, central line placement FINDINGS: An endotracheal tube is been inserted. The tip is at the top of the head of the clavicles, 5.7 cm above the slim. There is no widening in the mediastinum. A right internal jugular catheter has been inserted with the tip in the superior vena cava, above the right atrium. No pneumothorax or widening of the mediastinum are present. There are severe infiltrates throughout both lungs. There is increasing consolidation in the lung bases compared with the prior exam done at 8:12 AM on the same date. The heart size is normal. IMPRESSION: No complication following intubation and central line placement. Worsening infiltrates in both lungs ICU nurse was called with the results Interpreted and Authenticated by: Freedom Median 03/25/22
[2022-03-25] MEDS ORDERED: IOPAMIDOL 100 ML BOTTLE IV ONE (16:36)
--- NOTE | 2022-03-25 16:50 | Cat Scan Report ---
History: Drug abuser with cellulitis in the left forearm, evaluate for ectopic using fasciitis TECHNIQUE: Following injection of intravenous nonionic contrast the patient was imaged during the arterial phase from the distal humerus to the fingers. Sagittal coronal and axial images were created. The radiation exposure was limited using dose reduction technology. FINDINGS: There is cellulitis in the forearm, predominantly involving the distal half. There is no abscess or myositis. There is no gas or foreign body in the soft tissues. The radius and ulna are normal. There is no osteomyelitis. No fracture is present. The elbow and wrist appear normal without evidence of a septic joint. IMPRESSION: Cellulitis and no evidence of necrotizing fasciitis Interpreted and Authenticated by: Freedom Medina 03/25/22
--- NOTE | 2022-03-25 17:38 | XRay Report ---
HISTORY: Oral gastric tube insertion FINDINGS: The orogastric tube is in the proximal antrum of the stomach pointing towards the pylorus. The stomach is largely decompressed. There is dense consolidation in the left lower lobe with air bronchograms behind the left heart border. There are clips in the gallbladder fossa. IMPRESSION: oral gastric tube in the antrum of the stomach. ICU nursing was called with the results Interpreted and Authenticated by: Freedom Medina 03/25/22
[2022-03-25] MEDS: NOREPINEPHRINE BITARTRATE 8 MG in 0.9 % SODIUM CHLORIDE 242 ML IV SCH (19:33)
[2022-03-25] MEDS ORDERED: 0.9 % SODIUM CHLORIDE 10 ML SYRINGE IV PRN (19:38)
[2022-03-25] MEDS: fentaNYL 100 MCG/2 ML VIAL IV PRN (20:04)
[2022-03-25] MEDS: levETIRAcetam 750 MG in 0.9 % SODIUM CHLORIDE 100 ML IV SCH (20:25)
[2022-03-25] MEDS: CHLORHEXIDINE GLUCONATE 1 ML ORAL.SOL SWABMOUTH SCH (20:26)
[2022-03-25] MEDS: FAMOTIDINE/PF 20 MG/2 ML VIAL IV SCH (20:26)
[2022-03-25] MEDS ORDERED: CHLORHEXIDINE GLUCONATE 1 ML ORAL.SOL SWABMOUTH SCH (21:00)
--- NOTE | 2022-03-25 21:08 | Procedure Note ---
PROC Central Line Placement Right IJ: Consent obtained: verbal consent Date of Procedure: 03/25/22 Time out performed: Yes Patient placed on monitor/pulse ox: Yes MD prep: mask, sterile gown, sterile gloves and cap Central line prep: 2% Chlorhexidine scrub and large sterile drapes applied Ultrasound used for placement: Yes Central line lumen inserted: quad and 16 cm Post procedure: sutured in place, good blood return, all ports aspirated, flushed, capped and sterile dressing applied Post procedure x-ray: tip of catheter in good position Patient tolerated procedure: well Complications: none
[2022-03-25] MEDS ORDERED: POTASSIUM CHLORIDE 20 MEQ in 0.9 % SODIUM CHLORIDE 1,000 ML IV SCH (21:15)
--- NOTE | 2022-03-25 21:50 | EKG ---
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 Measurements Intervals [place] Rate: 141 P: 22 CA: 113 QRS: 46 QRSD: 97 T: 49 QT: 280 QTc: 429 Interpretive Statements SINUS OR ECTOPIC ATRIAL TACHYCARDIA Severe baseline artifact Electronically Signed On 03-25-2022 21:49:41 PDT by Inessa Becerar D.O. /store/[email or web address]/[id number]
[2022-03-25] MEDS: NACL 0.9% W/KCL 20MEQ 1,000 ML IV SCH (21:54)
[2022-03-26] MEDS: fentaNYL 100 MCG/2 ML VIAL IV PRN ×5 (03:45→19:31)
[2022-03-26] MEDS: 0.9 % SODIUM CHLORIDE 250 ML IV SCH ×4 (04:18→21:20)
[2022-03-26] MEDS: CLINDAMYCIN 600 MG in DEXTROSE 5% IN WATER 50 ML IV SCH ×3 (05:45→22:42)
[2022-03-26] MEDS: 0.9 % SODIUM CHLORIDE 10 ML SYRINGE IV SCH ×6 (05:45→21:27)
[2022-03-26 06:33] LABS: INR 1.7 (0.9-1.1); Prothrombin Time 20.3 sec (11.9-14.5)
[2022-03-26] MEDS: NOREPINEPHRINE BITARTRATE 8 MG in 0.9 % SODIUM CHLORIDE 242 ML IV SCH ×2 (06:40→18:36)
[2022-03-26 06:41] LABS: ALT/SGPT 52 U/L (<40); AST/SGOT 168 U/L (<32); Albumin 2.2 gm/dL (3.2-5.2); Albumin/Globulin Ratio 0.5 (1.0-2.3); Alkaline Phosphatase 79 U/L (39-117); Bilirubin,Direct 1.6 mg/dL (<0.3); Bilirubin,Total 2.6 mg/dL (0.1-1.0); Blood Urea Nitrogen 18 mg/dL (6-20); Calcium 7.9 mg/dL (8.6-10.4); Carbon Dioxide 17 mmol/L (22-30); Chloride 109 mmol/L (96-108); Globulin 4.1 gm/dL (2.2-3.7); Glomerular Filtration Rate 101; Glucose 95 mg/dL (70-105); Lactate Dehydrogenase 631 U/L (135-225); Triglycerides 214 mg/dL (<150); Uric Acid 3.3 mg/dL (2.5-8.0)
[2022-03-26 07:10] LABS: Hematocrit 37.1 % (34.1-44.9); Hemoglobin 12.7 g/dL (11.2-15.7); Mean Cell Volume 93.9 fL (80.0-100.0); Mean Corpuscular HGB Conc 34.2 g/dL (31.0-36.0); Platelet Count 25 K/mcL (140-440); RBC 3.95 M/mcL (3.59-5.38); Red Cell Distribution Width 16.7 % (11.5-14.5); WBC 3.1 K/mcL (4.5-11.0)
[2022-03-26] MEDS: LORazepam 2 MG/ML VIAL IV PRN ×2 (07:25→21:17)
[2022-03-26 07:28] LABS: Band Neutrophils % 22 % (0-10); Lymphocytes % 10 % (15-49); Monocytes % (Manual) 8 % (1-12); Platelet Estimate MARKEDLY DECREASED (Normal); RBC Morphology NORMAL (Normal); Segmented Neutrophils % 60 % (38-78)
[2022-03-26] MEDS: MULTIVIT,THER IRON,CA,FA & MIN 1 TABLET PO SCH (08:05)
[2022-03-26] MEDS: VENLAFAXINE 75 MG TABLET PO SCH ×3 (08:05→21:26)
[2022-03-26] MEDS: FOLIC ACID 1 MG TABLET PO SCH (08:05)
[2022-03-26] MEDS: LACTULOSE 20 GM/30 ML ORAL.SOL PO SCH ×3 (08:05→20:02)
[2022-03-26] MEDS: DOCUSATE SODIUM 100 MG CAPSULE PO SCH ×2 (08:05→21:25)
[2022-03-26] MEDS ORDERED: POTASSIUM PHOSPHATE 40 MEQ in DEXTROSE 5% IN WATER 500 ML IV ONE (08:27)
--- NOTE | 2022-03-26 08:32 | Internal Med Progress Note ---
SUBJECTIVE Subjective Patient information: Note initiated : 03/26/22 at 8:16 am Service Date, if different from initiated Date: [] Patient: Anay Ramírez a 51 y/o F admitted on 03/24/22 for Right Hand Swelling. Chief Complaint: [] Interval history: History of present illness: Ms. Ramírez is a 51 year old F Presents the ED with right hand swelling redness and tenderness. She says she hit her hand on a countertop last night and that it has gotten increasingly red swollen and tender since then. Patient has a history of methamphetamine use she says she smokes it and denies IV use. She was here in early February for cellulitis of the left neck and had to some alcohol withdrawal symptoms at that time found to have cirrhosis with sequelae of thrombocytopenia and leukopenia. She says since she was discharged she has not used any methamphetamine but when I pressed her in regards to her use explaining how important was that I know what she used and when, then she finally stated she last used on Sunday. I suspect she is used more recently given her current presentation. She seems a bit agitated and is extremely fidgety. She has bloodshot eyes. Also of note I impressed upon her the need to stop alcohol upon last admission but she says she still using it in the form of beers 2-4 a day but she denies using it every day. She has not followed up with gastroenterology yet given the referral placed for cirrhosis. And has not seen Dr. Jones yet for substance abuse. she has headache and has some nausea but no vomiting. Denies fever chills chest pain stomach pain. Says she has a little bit of diarrhea this morning. In the ED she was tachycardic although she is has baseline tachycardia but it was elevated above baseline. She had a fever 103. Lactate of 5 and elevated CRP. She had AST to ALT ratio of 2:1. Leukopenia but better than last admission. She had a hand and elbow x-rays that show cellulitis of the dorsum of the right hand but no evidence of abscess. Blood cultures obtained. She received 30 mils per cake of IV fluid bolusing for sepsis presentation. Vancomycin ordered in the ED. Severe alcoholic hepatitis as defined by increased hepatitis discriminant function score greater than 32. prednisolone 40mg daily started for 28 days followed by 16-day taper. Severe alcoholic hepatitis as defined by increased hepatitis discriminant function score greater than 32. prednisolone 40mg daily started for 28 days followed by 16-day taper. 03/25 Patient condition worsen increased altered mental status and vitals including tachycardia and fever. Suspected to be in alcohol withdrawal delirium tremens. Increased oxygen needs and tachypnea, suspect aspiration althought pt did receive fluid resuscitation on presentation. Initially concern for likely methamphetamine intoxication. Transferred to ICU on monitor vitals closely. Monitor urine output closely. Follow-up lactates still elevated and secondary to liver failure. Has cough. Required heavy doses of Ativan last night. 4 out of 4 blood culture bottles with gram-positive cocci in chains. Platelets low. Event Note: I was called by the ICU nurse to the patient bedside has appeared that she was not protecting her airway and had increased oxygenation needs. Altered mental state given alcohol withdrawal and required sedation to suppress. ABG with extremely low PaO2. Given the inability to protect airway patient necessitated to endotracheal intubation. 03/26 Patient required Levophed placement last night. Shock either related to sepsis or medications or likely both. Decreased vasopressor need this morning. Will obtain CVP monitoring. Compliance improved today. FiO2 requirement better. Patient still quite agitated and pulling at lines if sedation is weaned and peak pressures increase. Platelets low continue SCDs for DVT prophylaxis. INR 1.7. Lactic acidosis resolved. Phos is low. Transaminitis mildly worsened secondary to the events of yesterday and hypotension. Urine output fluctuating between d/c and poor. Not tachycardic anymore. NG output and hypoactive bowel sounds patient likely ileus. Review of Systems: Unable to gather as patient is sedated on the vent. Constitutional Vitals: Vital Signs Temp Pulse Resp BP Pulse Ox 99.0 F 73 24 H 109/82 97 03/26/22 08:01 03/26/22 08:01 03/26/22 08:01 03/26/22 08:01 03/26/22 08:01 Period Temp Pulse Resp BP Sys/Villa Pulse Ox Last 24 Hr 98.7 F-101.2 F 51-143 13-30 83-168/53-92 90-100 Intake and Output 03/25/22 03/26/22 03/26/22 21:59 05:59 13:59 Intake Total 897.5 235 387 Output Total 665 610 144 Balance 232.5 -375 243 Weight 83.189 kg Intake & Output: Intake & Output 03/25/22 03/26/22 03/26/22 21:59 05:59 13:59 Intake Total 897.5 235 387 Output Total 665 610 144 Balance 232.5 -375 243 Weight 83.189 kg Intake: IV 897.5 235 387 Sodium Chloride 0.9% 250 ml @ 235 246 20 mls/hr IV .[id number] [facility] Rx#: [id number] Cleocin 600 mg In Dextrose 5% 108 54 in Water 50 ml @ 100 mls/hr IV Q8H [facility] Rx#:[id number] Levophed 8 mg In Sodium 12 44 Chloride 0.9% 242 ml @ 10 MCG/ MIN 18.75 mls/hr IV Q14H [facility] Rx #:[id number] Diprivan 1,000 mg In Premix 1 43 Bag @ 5 MCG/KG/MIN 2.381 mls/hr IV .Q24H [facility] Rx#:[id number] Vancomycin 1,250 mg In Sodium 500 Chloride 0.9% 500 ml @ 333.3 mls/hr IV Q12H [facility] Rx#: [id number] Keppra 750 mg In Sodium 212.5 Chloride 0.9% 100 ml @ 200 mls/ hr IV QHS [facility] Rx#:[id number] Oral 0 Tube Feeding 0 0 Output: Gastric Drainage 100 Oral NG/OG 100 Urine Catheter Amount 665 510 144 Other: Urine Appearance Clear Clear Clear Uretheral ([place]) Clear Clear Urine Color Dark Yellow Light Heide Dark Yellow Uretheral ([place]) Dark [place] Dark Yellow Urine Odor Normal Normal Normal Exam: General: sedated on the vent, NAD Eyes/N/T: PERRL, Head/Neck: neck supple, CV: RRR, No murmurs, Pulm: minimal rhonchi b/l, no wheezing/rhonchi/rales Abd: soft, nontender, +BS x4 Ext: no clubbing/cyanosis/edema of LE. Right hand dorsum erythematous/tender to touch/edematous, exends past wrist Neuro: Unable to thoroughly evaluate given sedation and intubated. But patient does move extremities spontaneously. Does respond to touch and PERRL. Skin: warm/dry OBJ DATA Labs CBC & Chem 7: 03/26/22 05:08 03/26/22 05:08 Labs: Abnormal Lab Results 03/26/22 03/26/22 03/26/22 08:08 05:08 05:08 WBC RBC Hgb Hct MCV RDW Plt Count MPV Band Neutrophils % Lymphocytes % Nucleated RBCs WBC Morphology Dohle Bodies Platelet Estimate RBC Morphology Polychromasia Anisocytosis ESR PT INR POC pH 7.47 H POC pCO2 24.7 L POC pO2 79 L POC HCO3 18.0 L POC Total CO2 19.0 L POC ABG Base Excess -6.0 L VBG Lactic Acid Hgb O2 Saturation Sodium Potassium Chloride 109 H Carbon Dioxide 17 L Glucose Calcium 7.9 L Phosphorus 2.0 L Magnesium Total Bilirubin 2.6 H Direct Bilirubin 1.6 H GGT 136 H AST 168 H ALT 52 H Alkaline Phosphatase Lactate Dehydrogenase 631 H C-Reactive Protein NT-Pro-B Natriuret Pep 1783.0 H Albumin 2.2 L Globulin 4.1 H Albumin/Globulin Ratio 0.5 L Triglycerides 214 H Procalcitonin Urine Appearance Urine Protein Urine Occult Blood Urine Urobilinogen Urine RBC Urine WBC Urine Mucus Ur Barbiturates Screen Ur Amphetamines Screen 03/26/22 03/26/22 03/26/22 05:08 05:08 05:08 WBC 3.1 L RBC Hgb Hct MCV RDW 16.7 H Plt Count 25 L* MPV 13.0 H Band Neutrophils % 22 H Lymphocytes % 10 L Nucleated RBCs WBC Morphology Dohle Bodies Platelet Estimate Markedly decreased A RBC Morphology Polychromasia Anisocytosis ESR PT 20.3 H INR 1.7 H POC pH POC pCO2 POC pO2 POC HCO3 POC Total CO2 POC ABG Base Excess VBG Lactic Acid Hgb O2 Saturation Sodium Potassium Chloride Carbon Dioxide Glucose Calcium Phosphorus Magnesium Total Bilirubin Direct Bilirubin GGT AST ALT Alkaline Phosphatase Lactate Dehydrogenase C-Reactive Protein NT-Pro-B Natriuret Pep Albumin Globulin Albumin/Globulin Ratio Triglycerides Procalcitonin 2.73 H Urine Appearance Urine Protein Urine Occult Blood Urine Urobilinogen Urine RBC Urine WBC Urine Mucus Ur Barbiturates Screen Ur Amphetamines Screen 03/25/22 03/25/22 03/25/22 15:15 13:07 12:38 WBC RBC Hgb Hct MCV RDW Plt Count MPV Band Neutrophils % Lymphocytes % Nucleated RBCs WBC Morphology Dohle Bodies Platelet Estimate RBC Morphology Polychromasia Anisocytosis ESR PT INR POC pH 7.25 L POC pCO2 49.6 H 28.6 L POC pO2 107 H 43 L* POC HCO3 21.8 L 19.0 L POC Total CO2 20.0 L POC ABG Base Excess -5.0 L -5.0 L VBG Lactic Acid Hgb O2 Saturation 81.0 L Sodium Potassium Chloride Carbon Dioxide Glucose Calcium Phosphorus Magnesium Total Bilirubin Direct Bilirubin GGT AST ALT Alkaline Phosphatase Lactate Dehydrogenase C-Reactive Protein NT-Pro-B Natriuret Pep 4214.0 H Albumin Globulin Albumin/Globulin Ratio Triglycerides Procalcitonin Urine Appearance Urine Protein Urine Occult Blood Urine Urobilinogen Urine RBC Urine WBC Urine Mucus Ur Barbiturates Screen Ur Amphetamines Screen 03/25/22 03/25/22 03/25/22 08:09 08:09 05:28 WBC RBC Hgb Hct MCV RDW Plt Count MPV Band Neutrophils % Lymphocytes % Nucleated RBCs WBC Morphology Dohle Bodies Platelet Estimate RBC Morphology Polychromasia Anisocytosis ESR PT INR POC pH POC pCO2 POC pO2 POC HCO3 POC Total CO2 POC ABG Base Excess VBG Lactic Acid 3.9 H* Hgb O2 Saturation Sodium Potassium Chloride Carbon Dioxide 16 L Glucose Calcium 7.8 L Phosphorus 2.4 L Magnesium Total Bilirubin 2.1 H Direct Bilirubin 1.7 H GGT 124 H AST 140 H ALT 43 H Alkaline Phosphatase Lactate Dehydrogenase 514 H C-Reactive Protein NT-Pro-B Natriuret Pep Albumin 2.1 L Globulin 4.3 H Albumin/Globulin Ratio 0.5 L Triglycerides Procalcitonin 4.44 H Urine Appearance Urine Protein Urine Occult Blood Urine Urobilinogen Urine RBC Urine WBC Urine Mucus Ur Barbiturates Screen Ur Amphetamines Screen 03/25/22 03/24/22 03/24/22 05:28 19:54 15:34 WBC 2.9 L RBC 3.39 L Hgb 10.9 L Hct MCV 100.6 H RDW 16.5 H Plt Count 35 L* MPV Band Neutrophils % 24 H Lymphocytes % 3 L Nucleated RBCs WBC Morphology Dohle Bodies Platelet Estimate Markedly decreased A RBC Morphology Abnormal A Polychromasia Anisocytosis 1+ A ESR PT INR POC pH POC pCO2 POC pO2 POC HCO3 POC Total CO2 POC ABG Base Excess VBG Lactic Acid 4.5 H* Hgb O2 Saturation Sodium Potassium Chloride Carbon Dioxide Glucose Calcium Phosphorus Magnesium Total Bilirubin Direct Bilirubin GGT AST ALT Alkaline Phosphatase Lactate Dehydrogenase C-Reactive Protein NT-Pro-B Natriuret Pep Albumin Globulin Albumin/Globulin Ratio Triglycerides Procalcitonin Urine Appearance Hazy A Urine Protein 100 A Urine Occult Blood >=1.0 A Urine Urobilinogen 4.0 A Urine RBC > 182 H Urine WBC 17 H Urine Mucus Few A Ur Barbiturates Screen Ur Amphetamines Screen 03/24/22 03/24/22 03/24/22 15:34 14:40 11:10 WBC RBC Hgb Hct MCV RDW Plt Count MPV Band Neutrophils % Lymphocytes % Nucleated RBCs WBC Morphology Dohle Bodies Platelet Estimate RBC Morphology Polychromasia Anisocytosis ESR PT INR POC pH POC pCO2 POC pO2 POC HCO3 POC Total CO2 POC ABG Base Excess VBG Lactic Acid 4.1 H* Hgb O2 Saturation Sodium Potassium Chloride Carbon Dioxide Glucose Calcium Phosphorus Magnesium Total Bilirubin Direct Bilirubin GGT AST ALT Alkaline Phosphatase Lactate Dehydrogenase C-Reactive Protein NT-Pro-B Natriuret Pep Albumin Globulin Albumin/Globulin Ratio Triglycerides Procalcitonin 1.37 H Urine Appearance Urine Protein Urine Occult Blood Urine Urobilinogen Urine RBC Urine WBC Urine Mucus Ur Barbiturates Screen Suspect positive A Ur Amphetamines Screen Suspect positive A 03/24/22 03/24/22 03/24/22 11:10 11:10 11:10 WBC RBC Hgb Hct MCV RDW Plt Count MPV Band Neutrophils % Lymphocytes % Nucleated RBCs WBC Morphology Dohle Bodies Platelet Estimate RBC Morphology Polychromasia Anisocytosis ESR PT 20.3 H INR 1.7 H POC pH POC pCO2 POC pO2 POC HCO3 POC Total CO2 POC ABG Base Excess VBG Lactic Acid 5.3 H* Hgb O2 Saturation Sodium 130 L Potassium 2.6 L* Chloride Carbon Dioxide 19 L Glucose 124 H Calcium Phosphorus Magnesium 1.2 L Total Bilirubin 2.0 H Direct Bilirubin GGT AST 84 H ALT 41 H Alkaline Phosphatase 173 H Lactate Dehydrogenase C-Reactive Protein 14.40 H NT-Pro-B Natriuret Pep Albumin 2.9 L Globulin 4.7 H Albumin/Globulin Ratio 0.6 L Triglycerides Procalcitonin Urine Appearance Urine Protein Urine Occult Blood Urine Urobilinogen Urine RBC Urine WBC Urine Mucus Ur Barbiturates Screen Ur Amphetamines Screen 03/24/22 11:10 WBC 2.0 L RBC Hgb Hct 33.7 L MCV RDW 15.1 H Plt Count 50 L MPV 10.7 H Band Neutrophils % 29 H Lymphocytes % 8 L Nucleated RBCs 6 H WBC Morphology Abnormal A Dohle Bodies Few A Platelet Estimate Markedly decreased A RBC Morphology Abnormal A Polychromasia 1+ A Anisocytosis 1+ A ESR 51 H PT INR POC pH POC pCO2 POC pO2 POC HCO3 POC Total CO2 POC ABG Base Excess VBG Lactic Acid Hgb O2 Saturation Sodium Potassium Chloride Carbon Dioxide Glucose Calcium Phosphorus Magnesium Total Bilirubin Direct Bilirubin GGT AST ALT Alkaline Phosphatase Lactate Dehydrogenase C-Reactive Protein NT-Pro-B Natriuret Pep Albumin Globulin Albumin/Globulin Ratio Triglycerides Procalcitonin Urine Appearance Urine Protein Urine Occult Blood Urine Urobilinogen Urine RBC Urine WBC Urine Mucus Ur Barbiturates Screen Ur Amphetamines Screen Meds: Medications Acetaminophen (Acetaminophen 325 Mg Tablet) 650 mg PO Q6HP PRN; Protocol PRN Reason: Per Pain Protocol/Fever > 101 Hydrocodone Bitart/Acetaminophen (Hydrocodone/Apap 5/325mg Tablet) 1 tab PO Q4HP PRN PRN Reason: PAIN LEVEL 3-6 Albuterol/Ipratropium (Ipratropium/Albuterol 3 Ml Ampul.Neb) 3 ml NEB Q4HP PRN PRN Reason: Shortness Of Breath Chlordiazepoxide HCl (Chlordiazepoxide 25 Mg Capsule) 50 mg PO Q4HP PRN PRN Reason: Alcohol Withdrawal Chlorhexidine Gluconate (Chlorhexidine Gluconate 1 Ml Oral.Lilia) 15 ml SWABMOUTH BID [facility] Last Admin: 03/25/22 20:26 Dose: 15 ml Documented by: Clonazepam (Clonazepam 0.5 Mg Tablet) 1 mg PO DAILYP PRN PRN Reason: Anxiety Last Admin: 03/24/22 20:36 Dose: 1 mg Documented by: Docusate Sodium (Docusate Sodium 100 Mg Capsule) 100 mg PO BID [facility] Last Admin: 03/26/22 08:05 Dose: Not Given Documented by: Famotidine (Famotidine/Pf 20 Mg/2 Ml Vial) 20 mg IV Q12 [facility] Last Admin: 03/25/22 20:26 Dose: 20 mg Documented by: Fentanyl (Fentanyl 100 Mcg/2 Ml Vial) 25 mcg IV Q1HP PRN; Protocol PRN Reason: Per Pain Protocol Last Admin: 03/26/22 06:02 Dose: 25 mcg Documented by: Folic Acid (Folic Acid 1 Mg Tablet) 1 mg PO DAILY [facility] Last Admin: 03/26/22 08:05 Dose: Not Given Documented by: Potassium Chloride 40 meq/ (Dextrose) 520 mls @ 130 mls/hr IV UD PRN PRN Reason: Potassium < 3 Magnesium Sulfate (Magnesium Sulfate) 2 gm in 50 mls @ 50 mls/hr IV UD PRN PRN Reason: Magnesium </= 1.6 Ceftriaxone Sodium 2 gm/ (Dextrose) 50 mls @ 100 mls/hr IV DAILY [facility]; Protocol Last Infusion: 03/25/22 09:31 Dose: Infused Documented by: Vancomycin HCl 1,250 mg/ (Sodium Chloride) 500 mls @ 333.3 mls/hr IV Q12H [facility] Last Infusion: 03/25/22 21:58 Dose: Infused Documented by: Acetaminophen (Ofirmev) 650 mg in 65 mls @ 130 mls/hr IV Q6HP PRN; Protocol PRN Reason: PAIN/FEVER > 101 Last Infusion: 03/25/22 16:58 Dose: Infused Documented by: Thiamine HCl 100 mg/ Sodium (Chloride) 51 mls @ 50 mls/hr IV DAILY [facility] Stop: 03/27/22 10:02 Last Infusion: 03/25/22 10:03 Dose: Infused Documented by: Clindamycin Phosphate 600 mg/ (Dextrose) 54 mls @ 100 mls/hr IV Q8H [facility]; Protocol Last Infusion: 03/26/22 06:18 Dose: Infused Documented by: Levetiracetam 500 mg/ Sodium (Chloride) 105 mls @ 200 mls/hr IV DAILY [facility] Last Infusion: 03/25/22 15:09 Dose: Infused Documented by: Levetiracetam 750 mg/ Sodium (Chloride) 107.5 mls @ 200 mls/hr IV QHS [facility] Last Infusion: 03/25/22 21:58 Dose: Infused Documented by: Propofol 1,000 mg/ Premix 100 mls @ 2.381 mls/hr IV .Q24H [facility]; Protocol Last Titration: 03/26/22 07:26 Dose: 20 mcg/kg/min, 9.525 mls/hr Documented by: Norepinephrine Bitartrate 8 mg (/ Sodium Chloride) 250 mls @ 18.75 mls/hr IV Q14H [facility]; Protocol Last Titration: 03/26/22 07:56 Dose: 1.6 mcg/min, 3 mls/hr Documented by: Sodium Chloride (Sodium Chloride 0.9%) 250 mls @ 20 mls/hr IV .[id number] [facility] Last Admin: 03/26/22 04:18 Dose: 20 mls/hr Documented by: Sodium Chloride (Sodium Chloride 0.9%) 250 mls @ 20 mls/hr IV .[id number] [facility] Last Admin: 03/26/22 07:55 Dose: 20 mls/hr Documented by: Potassium Chloride/Sodium Chloride (Nacl 0.9% W/Kcl 20meq 1000ml) 1,000 mls @ 30 mls/hr IV .Q24H [facility] Last Admin: 03/25/22 21:54 Dose: 30 mls/hr Documented by: Iron Carb/Multivit/[place]/Folic Acid (Multivit,Ther Iron,Ca,Fa & Min 1 Tablet) 1 tab PO DAILY [facility] Last Admin: 03/26/22 08:05 Dose: Not Given Documented by: Lactulose (Lactulose 20 Gm/30 Ml Oral.Lilia) 10 gm PO TID [facility] Last Admin: 03/26/22 08:05 Dose: Not Given Documented by: Lorazepam (Lorazepam 2 Mg/Ml Vial) 0.5 mg IV Q2-4HP PRN PRN Reason: ANXIETY/SEDATION Last Admin: 03/26/22 07:25 Dose: 0.5 mg Documented by: Lorazepam (Lorazepam 2 Mg/Ml Vial) 0 mg IV Q4HP PRN; Protocol PRN Reason: Alcohol Withdrawal Last Admin: 03/25/22 12:10 Dose: 2 mg Documented by: Methylprednisolone Sodium Succinate (Methylprednisolone Sod Succ 40 Mg/Ml Vial) 40 mg IV DAILY [facility] Last Admin: 03/25/22 12:18 Dose: 40 mg Documented by: Metoclopramide HCl (Metoclopramide 10 Mg/2 Ml Vial) 10 mg IV Q6HP PRN PRN Reason: Nausea And Vomiting Ziprasidone Hcl 80 (Mg Capsule) 1 dose PO HS [facility] Last Admin: 03/25/22 20:22 Dose: Not Given Documented by: Ondansetron HCl (Ondansetron 4 Mg/2 Ml Vial) 4 mg IV Q4HP PRN PRN Reason: Nausea And Vomiting Polyethylene Glycol (Polyethylene Glycol 3350 17 Gm Packet) 17 gm PO DAILYP PRN PRN Reason: Constipation Potassium Chloride (Potassium Chloride 20 Meq Tablet) 40 meq PO UD PRN PRN Reason: Potssium is 3-3.5 Potassium Chloride (Potassium Chloride 20 Meq Tablet) 40 meq PO UD PRN PRN Reason: Potassium < 3 Senna (Sennosides 1 Tablet) 2 tab PO DAILYP PRN PRN Reason: Constipation Sodium Chloride (0.9 % Sodium Chloride 10 Ml Syringe) 10 ml IV Q8 [facility] Last Admin: 03/26/22 05:45 Dose: Not Given Documented by: Sodium Chloride (0.9 % Sodium Chloride 10 Ml Syringe) 10 ml IV Q12 [facility] Last Admin: 03/25/22 20:26 Dose: 10 ml Documented by: Sodium Chloride (0.9 % Sodium Chloride 10 Ml Syringe) 10 ml IV Q12 PRN PRN Reason: PRN Vancomycin HCl (Vancomycin Per Pharmacy) 1 order IV UD [facility]; Protocol Venlafaxine HCl (Venlafaxine 75 Mg Tablet) 75 mg PO TID [facility] Last Admin: 03/26/22 08:05 Dose: Not Given Documented by: A/P Narrative A/P Narrative: A: #Severe Sepsis: 2/2 Right hand/wrist cellulitis -lactic acidosis persistent compounded by liver failure now resolved #Right Hand/Wrist Cellulitis: no abscess noted on xray -No evidence of necrotizing fasciitis on further imaging #Bacteremia(Sterp Pyogenes 02/27 bottles): -echo no vegetations, good EF #UTI( ): #Shock: 2/2 sepsis vs medications, likely both -required levophed last night #Alcohol abuse withdrawal DT's: #Acute hypoxic respiratory failure: 2/2 aspiration or possible volume overload from initial fluid resuscitation, likely both -Mechanical Ventilation management, Intubated 03/25 #Possible Aspiration: -SC #Volume Overload: 2/2 fluid resuscitation on admit #Cirrhosis, etoh related: based on imaging and labs and etoh history, has not followed up yet with GI #Coagulopathy: 2/2 above #Thrombocytopenia, Acute on chronic /hyperbilirubinemia /hypoalbuminemia: 2/2 above #Leukopenia: 2/2 above, stable for now -ANC 2755 (03/25) #Severe Alcoholic hepatitis: hepatitis discriminant function score greater than 32 #Anemia, Chronic normocytic: #h/o Schizophrenia & Anxiety: on klonopin #h/o Seizure disorder: on keppra #h/o substance use disorder with Methamphetamine: denies IV, state she smokes it -suspect recent use given behavior on presentation and UDS (+) for Amphetamine #Hypokalemia/hypomagnesemia/Hyponatremia: improved, replace prn #Ileus: #Critically Ill/guarded prognonsis: -LOWER ELWHA II =24(03/25)= est mortality 40% Plan: -high [place] score -ICU -wean off vasopressors, trial albumin -monitor cvp -Vanc/Rocephin/started clinda for toxin inhibition, pending serial BC's, mrsa screen -IVF, meds via OGT -monitor cbc/ANC -cxr and echo pending -CIWA, vitamins, benzo -Replace electrolytes -prednisolone 40mg daily started for 28 days followed by 16-day taper -Continue home Keppra, ziprasidone, venlafaxine, hold benztropine for AE profile in current setting -TF's started -f/u with GI for cirrhosis -Alcohol/substance use cessation counseling, referral to see Dr. Jones -ppx: SCD for thrombocytopenia, may use chemical if plts stable >50k full code Time Spent With Patient Time: Total time spent is greater than 50% in coordination of care (as documented) at patient's floor/unit and/or counseling patient: Total time spent with greater than 50% in coordination of care (as documented) at patient's floor/unit and/or counseling patient:: 35 - 50 minutes Critical Care Time: Yes Total Critical Care Time: 30
[2022-03-26] MEDS: levETIRAcetam 500 MG in 0.9 % SODIUM CHLORIDE 100 ML IV SCH (09:06)
[2022-03-26] MEDS: cefTRIAXone 2 GM in DEXTROSE 5% IN WATER 50 ML IV SCH (09:06)
--- NOTE | 2022-03-26 09:17 | XRay Report ---
HISTORY: Intubated, follow-up pulmonary infiltrates FINDINGS: Severe infiltrates are present throughout both lungs. The greatest consolidation is in the left lower lobe. There may be a superimposed small left-sided pleural effusion. The heart size is within normal limits. Endotracheal tube, nasogastric tube and right internal jugular lines remain well-positioned. There is no pneumothorax. IMPRESSION: Severe infiltrates throughout both lungs, becoming worse in the left lower lobe Interpreted and Authenticated by: Freedom Medina 03/26/22
[2022-03-26] MEDS: methylPREDNISolone SOD SUCC 40 MG/ML VIAL IV SCH (09:20)
[2022-03-26] MEDS: FAMOTIDINE/PF 20 MG/2 ML VIAL IV SCH ×2 (09:20→21:17)
[2022-03-26] MEDS: CHLORHEXIDINE GLUCONATE 1 ML ORAL.SOL SWABMOUTH SCH ×2 (09:40→21:26)
[2022-03-26] MEDS: VANCOMYCIN 1,250 MG in 0.9 % SODIUM CHLORIDE 500 ML IV SCH ×2 (09:56→21:19)
[2022-03-26] MEDS ORDERED: ALBUMIN HUMAN 12.5 GM/50 ML BAG IV ONE (11:19)
[2022-03-26] MEDS: PROPOFOL 1,000 MG in PREMIX 1 BAG IV SCH ×2 (13:25→22:34)
[2022-03-26] MEDS ORDERED: FUROSEMIDE 40 MG/4 ML VIAL IV ONE (13:53)
[2022-03-26] MEDS: THIAMINE 100 MG in 0.9 % SODIUM CHLORIDE 50 ML IV SCH (13:55)
[2022-03-26] MEDS: levETIRAcetam 750 MG in 0.9 % SODIUM CHLORIDE 100 ML IV SCH (20:02)
[2022-03-26] MEDS: NACL 0.9% W/KCL 20MEQ 1,000 ML IV SCH (21:27)
[2022-03-26] MEDS: ACETAMINOPHEN 650 MG/65 ML BAG IV PRN (22:13)
[2022-03-27] MEDS: 0.9 % SODIUM CHLORIDE 250 ML IV SCH ×3 (02:47→16:31)
[2022-03-27] MEDS: NOREPINEPHRINE BITARTRATE 8 MG in 0.9 % SODIUM CHLORIDE 242 ML IV SCH ×3 (02:49→21:24)
[2022-03-27] MEDS: CLINDAMYCIN 600 MG in DEXTROSE 5% IN WATER 50 ML IV SCH ×3 (05:11→20:32)
[2022-03-27] MEDS: NACL 0.9% W/KCL 20MEQ 1,000 ML IV SCH (05:31)
[2022-03-27] MEDS: PROPOFOL 1,000 MG in PREMIX 1 BAG IV SCH (05:35)
[2022-03-27] MEDS: 0.9 % SODIUM CHLORIDE 10 ML SYRINGE IV SCH ×5 (06:04→20:34)
[2022-03-27 07:02] LABS: ALT/SGPT 46 U/L (<40); AST/SGOT 131 U/L (<32); Albumin 2.2 gm/dL (3.2-5.2); Albumin/Globulin Ratio 0.6 (1.0-2.3); Alkaline Phosphatase 122 U/L (39-117); Bilirubin,Direct 1.7 mg/dL (<0.3); Bilirubin,Total 2.1 mg/dL (0.1-1.0); Blood Urea Nitrogen 25 mg/dL (6-20); Calcium 8.5 mg/dL (8.6-10.4); Carbon Dioxide 18 mmol/L (22-30); Chloride 116 mmol/L (96-108); Globulin 3.8 gm/dL (2.2-3.7); Glomerular Filtration Rate 101; Glucose 125 mg/dL (70-105); Lactate Dehydrogenase 441 U/L (135-225); Phosphorous 1.5 mg/dL (2.5-4.5); Triglycerides 254 mg/dL (<150)
[2022-03-27] MEDS ORDERED: POTASSIUM PHOSPHATE 40 MEQ in DEXTROSE 5% IN WATER 500 ML IV ONE (07:55)
[2022-03-27] MEDS ORDERED: ALBUMIN HUMAN 12.5 GM/50 ML BAG IV ONE (07:56)
[2022-03-27] MEDS ORDERED: FUROSEMIDE 40 MG/4 ML VIAL IV ONE (07:56)
--- NOTE | 2022-03-27 08:00 | Internal Med Progress Note ---
SUBJECTIVE Subjective Patient information: Note initiated : 03/27/22 at 7:49 am Service Date, if different from initiated Date: [] Patient: Anay Ramírez a 51 y/o F admitted on 03/24/22 for Right Hand Swelling. Chief Complaint: [] Interval history: History of present illness: Ms. Ramírez is a 51 year old F Presents the ED with right hand swelling redness and tenderness. She says she hit her hand on a countertop last night and that it has gotten increasingly red swollen and tender since then. Patient has a history of methamphetamine use she says she smokes it and denies IV use. She was here in early February for cellulitis of the left neck and had to some alcohol withdrawal symptoms at that time found to have cirrhosis with sequelae of thrombocytopenia and leukopenia. She says since she was discharged she has not used any methamphetamine but when I pressed her in regards to her use explaining how important was that I know what she used and when, then she finally stated she last used on Sunday. I suspect she is used more recently given her current presentation. She seems a bit agitated and is extremely fidgety. She has bloodshot eyes. Also of note I impressed upon her the need to stop alcohol upon last admission but she says she still using it in the form of beers 2-4 a day but she denies using it every day. She has not followed up with gastroenterology yet given the referral placed for cirrhosis. And has not seen Dr. Jones yet for substance abuse. she has headache and has some nausea but no vomiting. Denies fever chills chest pain stomach pain. Says she has a little bit of diarrhea this morning. In the ED she was tachycardic although she is has baseline tachycardia but it was elevated above baseline. She had a fever 103. Lactate of 5 and elevated CRP. She had AST to ALT ratio of 2:1. Leukopenia but better than last admission. She had a hand and elbow x-rays that show cellulitis of the dorsum of the right hand but no evidence of abscess. Blood cultures obtained. She received 30 mils per cake of IV fluid bolusing for sepsis presentation. Vancomycin ordered in the ED. Severe alcoholic hepatitis as defined by increased hepatitis discriminant function score greater than 32. prednisolone 40mg daily started for 28 days followed by 16-day taper. Severe alcoholic hepatitis as defined by increased hepatitis discriminant function score greater than 32. prednisolone 40mg daily started for 28 days followed by 16-day taper. 03/25 Patient condition worsen increased altered mental status and vitals including tachycardia and fever. Suspected to be in alcohol withdrawal delirium tremens. Increased oxygen needs and tachypnea, suspect aspiration althought pt did receive fluid resuscitation on presentation. Initially concern for likely methamphetamine intoxication. Transferred to ICU on monitor vitals closely. Monitor urine output closely. Follow-up lactates still elevated and secondary to liver failure. Has cough. Required heavy doses of Ativan last night. 4 out of 4 blood culture bottles with gram-positive cocci in chains. Platelets low. Event Note: I was called by the ICU nurse to the patient bedside has appeared that she was not protecting her airway and had increased oxygenation needs. Altered mental state given alcohol withdrawal and required sedation to suppress. ABG with extremely low PaO2. Given the inability to protect airway patient necessitated to endotracheal intubation. 03/26 Patient required Levophed placement last night. Shock either related to sepsis or medications or likely both. Decreased vasopressor need this morning. Will obtain CVP monitoring. Compliance improved today. FiO2 requirement better. Patient still quite agitated and pulling at lines if sedation is weaned and peak pressures increase. Platelets low continue SCDs for DVT prophylaxis. INR 1.7. Lactic acidosis resolved. Phos is low. Transaminitis mildly worsened secondary to the events of yesterday and hypotension. Urine output fluctuating between d/c and poor. Not tachycardic anymore. NG output and hypoactive bowel sounds patient likely ileus. 03/27 Patient did not require any Levophed since yesterday. Patient on weaning events trial this moment. IV diuresis for volume overload. Elevated CVP. Reviewed other labs.. ABG with adequate parameters. Decreasing FiO2 requirement. Increased chloride likely from NS IV fluid, adjust. Hypophosphatemia replete. Tube feedings in place. Review of Systems: Unable to gather as patient is sedated on the vent. Constitutional Vitals: Vital Signs Temp Pulse Resp BP Pulse Ox 99.3 F H 76 23 H 112/76 95 03/27/22 07:00 03/26/22 21:21 03/27/22 07:00 03/27/22 07:00 03/27/22 07:00 Period Temp Pulse Resp BP Sys/Villa Pulse Ox Last 24 Hr 98.9 F-99.5 F 72-78 16-31 86-115/61-82 94-97 Intake and Output 03/26/22 03/27/22 03/27/22 21:59 05:59 13:59 Intake Total 529.5 2306 68 Output Total 1901 255 135 Balance -1371.5 2050 Weight 82.69 kg Intake & Output: Intake & Output 03/26/22 03/27/22 03/27/22 21:59 05:59 13:59 Intake Total 529.5 2306 68 Output Total 1901 255 135 Balance -1371.5 2050 Weight 82.69 kg Intake: IV 412.5 2052 68 Sodium Chloride 0.9% 250 ml @ 200 250 20 mls/hr IV .[id number] [facility] Rx#: [id number] Cleocin 600 mg In Dextrose 5% 54 54 54 in Water 50 ml @ 100 mls/hr IV Q8H [facility] Rx#:[id number] NaCl 0.9% W/KCl 20Meq 1000ML 1, 1000 000 ml @ 30 mls/hr IV .Q24H [facility] Rx#:[id number] Levophed 8 mg In Sodium 0 Chloride 0.9% 242 ml @ 10 MCG/ MIN 18.75 mls/hr IV Q14H [facility] Rx #:[id number] Diprivan 1,000 mg In Premix 1 184 14 Bag @ 5 MCG/KG/MIN 2.381 mls/hr IV .Q24H [facility] Rx#:[id number] Vitamin B1 100 mg In Sodium 51 Chloride 0.9% 50 ml @ 50 mls/hr IV DAILY [facility] Rx#:[id number] Vancomycin 1,250 mg In Sodium 500 Chloride 0.9% 500 ml @ 333.3 mls/hr IV Q12H [facility] Rx#: [id number] Keppra 750 mg In Sodium 107.5 Chloride 0.9% 100 ml @ 200 mls/ hr IV QHS [facility] Rx#:[id number] Tube Feeding 87 193 GI Tube Flush 30 60 Output: Urine Catheter Amount 1901 255 135 Other: Urine Appearance Clear Clear Uretheral ([place]) Clear Urine Color Dark Yellow Dark Yellow Uretheral ([place]) Bright Yellow Dark Yellow Urine Odor Normal Exam: General: sedated on the vent, NAD Eyes/N/T: PERRL, Head/Neck: neck supple, CV: RRR, No murmurs, Pulm: Mild rhonchi b/l, no wheezing/rhonchi/rales Abd: soft, nontender, +BS x4 Ext: no clubbing/cyanosis/edema of LE. Right hand dorsum erythematous/tender to touch/edematous, exends past wrist. Decreasing erythema Neuro: Unable to thoroughly evaluate given sedation and intubated. But patient does move extremities spontaneously. Does respond to touch and PERRL. Skin: warm/dry OBJ DATA Labs CBC & Chem 7: 03/26/22 05:08 03/27/22 05:28 Labs: Abnormal Lab Results 03/27/22 03/27/22 03/26/22 05:28 05:20 08:08 WBC RBC Hgb Hct MCV RDW Plt Count MPV Band Neutrophils % Lymphocytes % Nucleated RBCs WBC Morphology Dohle Bodies Platelet Estimate RBC Morphology Polychromasia Anisocytosis ESR PT INR POC pH 7.47 H POC pCO2 24.7 L POC pO2 79 L POC HCO3 18.0 L POC Total CO2 19.0 L POC ABG Base Excess -6.0 L VBG Lactic Acid Hgb O2 Saturation Sodium Potassium 3.2 L Chloride 116 H Carbon Dioxide 18 L BUN 25 H Glucose 125 H Calcium 8.5 L Phosphorus 1.5 L Magnesium 2.8 H Total Bilirubin 2.1 H Direct Bilirubin 1.7 H GGT 149 H AST 131 H ALT 46 H Alkaline Phosphatase 122 H Lactate Dehydrogenase 441 H C-Reactive Protein NT-Pro-B Natriuret Pep Albumin 2.2 L Globulin 3.8 H Albumin/Globulin Ratio 0.6 L Triglycerides 254 H Procalcitonin 2.14 H Urine Appearance Urine Protein Urine Occult Blood Urine Urobilinogen Urine RBC Urine WBC Urine Mucus Ur Barbiturates Screen Ur Amphetamines Screen 03/26/22 03/26/22 03/26/22 05:08 05:08 05:08 WBC RBC Hgb Hct MCV RDW Plt Count MPV Band Neutrophils % Lymphocytes % Nucleated RBCs WBC Morphology Dohle Bodies Platelet Estimate RBC Morphology Polychromasia Anisocytosis ESR PT INR POC pH POC pCO2 POC pO2 POC HCO3 POC Total CO2 POC ABG Base Excess VBG Lactic Acid Hgb O2 Saturation Sodium Potassium Chloride 109 H Carbon Dioxide 17 L BUN Glucose Calcium 7.9 L Phosphorus 2.0 L Magnesium Total Bilirubin 2.6 H Direct Bilirubin 1.6 H GGT 136 H AST 168 H ALT 52 H Alkaline Phosphatase Lactate Dehydrogenase 631 H C-Reactive Protein NT-Pro-B Natriuret Pep 1783.0 H Albumin 2.2 L Globulin 4.1 H Albumin/Globulin Ratio 0.5 L Triglycerides 214 H Procalcitonin 2.73 H Urine Appearance Urine Protein Urine Occult Blood Urine Urobilinogen Urine RBC Urine WBC Urine Mucus Ur Barbiturates Screen Ur Amphetamines Screen 03/26/22 03/26/22 03/25/22 05:08 05:08 15:15 WBC 3.1 L RBC Hgb Hct MCV RDW 16.7 H Plt Count 25 L* MPV 13.0 H Band Neutrophils % 22 H Lymphocytes % 10 L Nucleated RBCs WBC Morphology Dohle Bodies Platelet Estimate Markedly decreased A RBC Morphology Polychromasia Anisocytosis ESR PT 20.3 H INR 1.7 H POC pH 7.25 L POC pCO2 49.6 H POC pO2 107 H POC HCO3 21.8 L POC Total CO2 POC ABG Base Excess -5.0 L VBG Lactic Acid Hgb O2 Saturation Sodium Potassium Chloride Carbon Dioxide BUN Glucose Calcium Phosphorus Magnesium Total Bilirubin Direct Bilirubin GGT AST ALT Alkaline Phosphatase Lactate Dehydrogenase C-Reactive Protein NT-Pro-B Natriuret Pep Albumin Globulin Albumin/Globulin Ratio Triglycerides Procalcitonin Urine Appearance Urine Protein Urine Occult Blood Urine Urobilinogen Urine RBC Urine WBC Urine Mucus Ur Barbiturates Screen Ur Amphetamines Screen 03/25/22 03/25/22 03/25/22 13:07 12:38 08:09 WBC RBC Hgb Hct MCV RDW Plt Count MPV Band Neutrophils % Lymphocytes % Nucleated RBCs WBC Morphology Dohle Bodies Platelet Estimate RBC Morphology Polychromasia Anisocytosis ESR PT INR POC pH POC pCO2 28.6 L POC pO2 43 L* POC HCO3 19.0 L POC Total CO2 20.0 L POC ABG Base Excess -5.0 L VBG Lactic Acid Hgb O2 Saturation 81.0 L Sodium Potassium Chloride Carbon Dioxide BUN Glucose Calcium Phosphorus Magnesium Total Bilirubin Direct Bilirubin GGT AST ALT Alkaline Phosphatase Lactate Dehydrogenase C-Reactive Protein NT-Pro-B Natriuret Pep 4214.0 H Albumin Globulin Albumin/Globulin Ratio Triglycerides Procalcitonin 4.44 H Urine Appearance Urine Protein Urine Occult Blood Urine Urobilinogen Urine RBC Urine WBC Urine Mucus Ur Barbiturates Screen Ur Amphetamines Screen 03/25/22 03/25/22 03/25/22 08:09 05:28 05:28 WBC 2.9 L RBC 3.39 L Hgb 10.9 L Hct MCV 100.6 H RDW 16.5 H Plt Count 35 L* MPV Band Neutrophils % 24 H Lymphocytes % 3 L Nucleated RBCs WBC Morphology Dohle Bodies Platelet Estimate Markedly decreased A RBC Morphology Abnormal A Polychromasia Anisocytosis 1+ A ESR PT INR POC pH POC pCO2 POC pO2 POC HCO3 POC Total CO2 POC ABG Base Excess VBG Lactic Acid 3.9 H* Hgb O2 Saturation Sodium Potassium Chloride Carbon Dioxide 16 L BUN Glucose Calcium 7.8 L Phosphorus 2.4 L Magnesium Total Bilirubin 2.1 H Direct Bilirubin 1.7 H GGT 124 H AST 140 H ALT 43 H Alkaline Phosphatase Lactate Dehydrogenase 514 H C-Reactive Protein NT-Pro-B Natriuret Pep Albumin 2.1 L Globulin 4.3 H Albumin/Globulin Ratio 0.5 L Triglycerides Procalcitonin Urine Appearance Urine Protein Urine Occult Blood Urine Urobilinogen Urine RBC Urine WBC Urine Mucus Ur Barbiturates Screen Ur Amphetamines Screen 03/24/22 03/24/22 03/24/22 19:54 15:34 15:34 WBC RBC Hgb Hct MCV RDW Plt Count MPV Band Neutrophils % Lymphocytes % Nucleated RBCs WBC Morphology Dohle Bodies Platelet Estimate RBC Morphology Polychromasia Anisocytosis ESR PT INR POC pH POC pCO2 POC pO2 POC HCO3 POC Total CO2 POC ABG Base Excess VBG Lactic Acid 4.5 H* Hgb O2 Saturation Sodium Potassium Chloride Carbon Dioxide BUN Glucose Calcium Phosphorus Magnesium Total Bilirubin Direct Bilirubin GGT AST ALT Alkaline Phosphatase Lactate Dehydrogenase C-Reactive Protein NT-Pro-B Natriuret Pep Albumin Globulin Albumin/Globulin Ratio Triglycerides Procalcitonin Urine Appearance Hazy A Urine Protein 100 A Urine Occult Blood >=1.0 A Urine Urobilinogen 4.0 A Urine RBC > 182 H Urine WBC 17 H Urine Mucus Few A Ur Barbiturates Screen Suspect positive A Ur Amphetamines Screen Suspect positive A 03/24/22 03/24/22 03/24/22 14:40 11:10 11:10 WBC RBC Hgb Hct MCV RDW Plt Count MPV Band Neutrophils % Lymphocytes % Nucleated RBCs WBC Morphology Dohle Bodies Platelet Estimate RBC Morphology Polychromasia Anisocytosis ESR PT INR POC pH POC pCO2 POC pO2 POC HCO3 POC Total CO2 POC ABG Base Excess VBG Lactic Acid 4.1 H* Hgb O2 Saturation Sodium Potassium Chloride Carbon Dioxide BUN Glucose Calcium Phosphorus Magnesium 1.2 L Total Bilirubin Direct Bilirubin GGT AST ALT Alkaline Phosphatase Lactate Dehydrogenase C-Reactive Protein NT-Pro-B Natriuret Pep Albumin Globulin Albumin/Globulin Ratio Triglycerides Procalcitonin 1.37 H Urine Appearance Urine Protein Urine Occult Blood Urine Urobilinogen Urine RBC Urine WBC Urine Mucus Ur Barbiturates Screen Ur Amphetamines Screen 03/24/22 03/24/22 03/24/22 11:10 11:10 11:10 WBC 2.0 L RBC Hgb Hct 33.7 L MCV RDW 15.1 H Plt Count 50 L MPV 10.7 H Band Neutrophils % 29 H Lymphocytes % 8 L Nucleated RBCs 6 H WBC Morphology Abnormal A Dohle Bodies Few A Platelet Estimate Markedly decreased A RBC Morphology Abnormal A Polychromasia 1+ A Anisocytosis 1+ A ESR 51 H PT 20.3 H INR 1.7 H POC pH POC pCO2 POC pO2 POC HCO3 POC Total CO2 POC ABG Base Excess VBG Lactic Acid 5.3 H* Hgb O2 Saturation Sodium 130 L Potassium 2.6 L* Chloride Carbon Dioxide 19 L BUN Glucose 124 H Calcium Phosphorus Magnesium Total Bilirubin 2.0 H Direct Bilirubin GGT AST 84 H ALT 41 H Alkaline Phosphatase 173 H Lactate Dehydrogenase C-Reactive Protein 14.40 H NT-Pro-B Natriuret Pep Albumin 2.9 L Globulin 4.7 H Albumin/Globulin Ratio 0.6 L Triglycerides Procalcitonin Urine Appearance Urine Protein Urine Occult Blood Urine Urobilinogen Urine RBC Urine WBC Urine Mucus Ur Barbiturates Screen Ur Amphetamines Screen Meds: Medications Acetaminophen (Acetaminophen 325 Mg Tablet) 650 mg PO Q6HP PRN; Protocol PRN Reason: Per Pain Protocol/Fever > 101 Hydrocodone Bitart/Acetaminophen (Hydrocodone/Apap 5/325mg Tablet) 1 tab PO Q4HP PRN PRN Reason: PAIN LEVEL 3-6 Albuterol/Ipratropium (Ipratropium/Albuterol 3 Ml Ampul.Neb) 3 ml NEB Q4HP PRN PRN Reason: Shortness Of Breath Chlordiazepoxide HCl (Chlordiazepoxide 25 Mg Capsule) 50 mg PO Q4HP PRN PRN Reason: Alcohol Withdrawal Chlorhexidine Gluconate (Chlorhexidine Gluconate 1 Ml Oral.Lilia) 15 ml SWABMOUTH BID [facility] Last Admin: 03/26/22 21:26 Dose: 15 ml Documented by: Clonazepam (Clonazepam 0.5 Mg Tablet) 1 mg PO DAILYP PRN PRN Reason: Anxiety Last Admin: 03/24/22 20:36 Dose: 1 mg Documented by: Docusate Sodium (Docusate Sodium 100 Mg Capsule) 100 mg PO BID [facility] Last Admin: 03/26/22 21:25 Dose: Not Given Documented by: Famotidine (Famotidine/Pf 20 Mg/2 Ml Vial) 20 mg IV Q12 [facility] Last Admin: 03/26/22 21:17 Dose: 20 mg Documented by: Fentanyl (Fentanyl 100 Mcg/2 Ml Vial) 25 mcg IV Q1HP PRN; Protocol PRN Reason: Per Pain Protocol Last Admin: 03/26/22 19:31 Dose: 25 mcg Documented by: Folic Acid (Folic Acid 1 Mg Tablet) 1 mg PO DAILY [facility] Last Admin: 03/26/22 08:05 Dose: Not Given Documented by: Potassium Chloride 40 meq/ (Dextrose) 520 mls @ 130 mls/hr IV UD PRN PRN Reason: Potassium < 3 Magnesium Sulfate (Magnesium Sulfate) 2 gm in 50 mls @ 50 mls/hr IV UD PRN PRN Reason: Magnesium </= 1.6 Ceftriaxone Sodium 2 gm/ (Dextrose) 50 mls @ 100 mls/hr IV DAILY [facility]; Protocol Last Infusion: 03/26/22 09:36 Dose: Infused Documented by: Vancomycin HCl 1,250 mg/ (Sodium Chloride) 500 mls @ 333.3 mls/hr IV Q12H [facility] Last Infusion: 03/26/22 23:21 Dose: Infused Documented by: Acetaminophen (Ofirmev) 650 mg in 65 mls @ 130 mls/hr IV Q6HP PRN; Protocol PRN Reason: PAIN/FEVER > 101 Last Infusion: 03/26/22 22:59 Dose: Infused Documented by: Thiamine HCl 100 mg/ Sodium (Chloride) 51 mls @ 50 mls/hr IV DAILY [facility] Stop: 03/27/22 10:02 Last Infusion: 03/26/22 15:12 Dose: Infused Documented by: Clindamycin Phosphate 600 mg/ (Dextrose) 54 mls @ 100 mls/hr IV Q8H [facility]; Protocol Last Infusion: 03/27/22 06:03 Dose: Infused Documented by: Levetiracetam 500 mg/ Sodium (Chloride) 105 mls @ 200 mls/hr IV DAILY [facility] Last Infusion: 03/26/22 09:38 Dose: Infused Documented by: Levetiracetam 750 mg/ Sodium (Chloride) 107.5 mls @ 200 mls/hr IV QHS [facility] Last Infusion: 03/26/22 20:35 Dose: Infused Documented by: Propofol 1,000 mg/ Premix 100 mls @ 2.381 mls/hr IV .Q24H [facility]; Protocol Last Titration: 03/27/22 07:10 Dose: 10 mcg/kg/min, 4.763 mls/hr Documented by: Norepinephrine Bitartrate 8 mg (/ Sodium Chloride) 250 mls @ 18.75 mls/hr IV Q14H [facility]; Protocol Last Admin: 03/27/22 07:22 Dose: Not Given Documented by: Sodium Chloride (Sodium Chloride 0.9%) 250 mls @ 20 mls/hr IV .[id number] [facility] Last Admin: 03/27/22 02:47 Dose: 20 mls/hr Documented by: Sodium Chloride (Sodium Chloride 0.9%) 250 mls @ 20 mls/hr IV .[id number] [facility] Last Infusion: 03/26/22 22:36 Dose: Infused Documented by: Potassium Chloride/Sodium Chloride (Nacl 0.9% W/Kcl 20meq 1000ml) 1,000 mls @ 30 mls/hr IV .Q24H [facility] Last Admin: 03/27/22 05:31 Dose: 30 mls/hr Documented by: Iron Carb/Multivit/[place]/Folic Acid (Multivit,Ther Iron,Ca,Fa & Min 1 Tablet) 1 tab PO DAILY [facility] Last Admin: 03/26/22 08:05 Dose: Not Given Documented by: Lactulose (Lactulose 20 Gm/30 Ml Oral.Lilia) 10 gm PO TID [facility] Last Admin: 03/26/22 20:02 Dose: Not Given Documented by: Lorazepam (Lorazepam 2 Mg/Ml Vial) 0.5 mg IV Q2-4HP PRN PRN Reason: ANXIETY/SEDATION Last Admin: 03/26/22 21:17 Dose: 0.5 mg Documented by: Lorazepam (Lorazepam 2 Mg/Ml Vial) 0 mg IV Q4HP PRN; Protocol PRN Reason: Alcohol Withdrawal Last Admin: 03/25/22 12:10 Dose: 2 mg Documented by: Methylprednisolone Sodium Succinate (Methylprednisolone Sod Succ 40 Mg/Ml Vial) 40 mg IV DAILY [facility] Last Admin: 03/26/22 09:20 Dose: 40 mg Documented by: Metoclopramide HCl (Metoclopramide 10 Mg/2 Ml Vial) 10 mg IV Q6HP PRN PRN Reason: Nausea And Vomiting Ziprasidone Hcl 80 (Mg Capsule) 1 dose PO HS [facility] Last Admin: 03/26/22 21:26 Dose: Not Given Documented by: Ondansetron HCl (Ondansetron 4 Mg/2 Ml Vial) 4 mg IV Q4HP PRN PRN Reason: Nausea And Vomiting Polyethylene Glycol (Polyethylene Glycol 3350 17 Gm Packet) 17 gm PO DAILYP PRN PRN Reason: Constipation Potassium Chloride (Potassium Chloride 20 Meq Tablet) 40 meq PO UD PRN PRN Reason: Potssium is 3-3.5 Potassium Chloride (Potassium Chloride 20 Meq Tablet) 40 meq PO UD PRN PRN Reason: Potassium < 3 Senna (Sennosides 1 Tablet) 2 tab PO DAILYP PRN PRN Reason: Constipation Sodium Chloride (0.9 % Sodium Chloride 10 Ml Syringe) 10 ml IV Q8 [facility] Last Admin: 03/27/22 06:04 Dose: 10 ml Documented by: Sodium Chloride (0.9 % Sodium Chloride 10 Ml Syringe) 10 ml IV Q12 [facility] Last Admin: 03/26/22 21:27 Dose: Not Given Documented by: Sodium Chloride (0.9 % Sodium Chloride 10 Ml Syringe) 10 ml IV Q12 PRN PRN Reason: PRN Vancomycin HCl (Vancomycin Per Pharmacy) 1 order IV UD [facility]; Protocol Venlafaxine HCl (Venlafaxine 75 Mg Tablet) 75 mg PO TID [facility] Last Admin: 03/26/22 21:26 Dose: Not Given Documented by: A/P Narrative A/P Narrative: A: #Severe Sepsis: 2/2 Right hand/wrist cellulitis -lactic acidosis initially persistent compounded by liver failure now resolved, afebrile now #Right Hand/Wrist Cellulitis: no abscess noted on xray -No evidence of necrotizing fasciitis on further imaging #Bacteremia(Sterp Pyogenes 4/4 bottles): -echo no vegetations, good EF -f/u BC neg #Shock: 2/2 sepsis vs medications, likely both -off levophed yesterday #Alcohol abuse withdrawal DT's: #Acute hypoxic respiratory failure: 2/2 aspiration or possible volume overload from initial fluid resuscitation, likely both -Mechanical Ventilation management, Intubated 03/25 #Possible Aspiration: -SC #Volume Overload: 2/2 fluid resuscitation on admit #Cirrhosis, etoh related: based on imaging and labs and etoh history, has not followed up yet with GI #Coagulopathy: 2/2 above #Thrombocytopenia, Acute on chronic /hyperbilirubinemia /hypoalbuminemia: 2/2 above #Leukopenia: 2/2 above, stable for now -ANC 2755 (03/25) #Hepatitis Alcoholic, severe: hepatitis discriminant function score greater than 32 #Anemia, Chronic normocytic: #h/o Schizophrenia & Anxiety: on klonopin #h/o Seizure disorder: on keppra #h/o substance use disorder with Methamphetamine: denies IV, state she smokes it -suspect recent use given behavior on presentation and UDS (+) for Amphetamine #Electrolyte d/o (hypokalemia/hypomagnesemia/Hyponatremia): replace prn #Ileus: #Critically Ill/guarded prognonsis: -SPOKANE II =24(03/25)= est mortality 40% Plan: -high [place] score -ICU -sedations vacations and weaning vent trials, hopefull to extubate today -monitor cvp, prn IV lasix for volume overload -Vanc(d/c)/Rocephin to PCN/clinda (for 48-72hrs) for toxin inhibition and until pt stable, mrsa screen neg -Will need 14-days of Abx, may consider finishing with oral Abx -monitor cbc/cmp -f/u cxr -CIWA, vitamins, benzo -Replace electrolytes -prednisolone 40mg daily started for 28 days followed by 16-day taper -Continue home Keppra, ziprasidone, venlafaxine, hold benztropine for AE profile in current setting -TF's started -f/u with GI for cirrhosis -Alcohol/substance use cessation counseling, referral to see Dr. Jones -ppx: SCD for thrombocytopenia, may use chemical if plts stable >50k full code Time Spent With Patient Time: Total time spent is greater than 50% in coordination of care (as documented) at patient's floor/unit and/or counseling patient: Total time spent with greater than 50% in coordination of care (as documented) at patient's floor/unit and/or counseling patient:: 35 - 50 minutes Total Critical Care Time: 30
[2022-03-27 08:19] LABS: INR 1.4 (0.9-1.1); Prothrombin Time 17.9 sec (11.9-14.5)
--- NOTE | 2022-03-27 08:57 | XRay Report ---
CLINICAL INFORMATION: ET and NG tube placement COMPARISON: 03/26/2022 TECHNIQUE: PA and Lateral views FINDINGS: Right IJ central line is stable satisfactory position. Endotracheal tip is 6 cm above the slim. NG tip is properly positioned in the gastric body. The heart size, mediastinum and pulmonary vessels are unremarkable. Moderate patchy infiltrates are seen diffusely throughout both lungs with small bilateral pleural effusions. IMPRESSION: Moderate patchy infiltrates throughout both lungs with small bilateral pleural effusions-no change. Endotracheal tip 6 cm above the slim. Consider advancing the tube 2 cm. NG tube in satisfactory position Interpreted and Authenticated by: Lionel Ellington 03/27/22
--- NOTE | 2022-03-27 09:00 | XRay Report ---
CLINICAL INFORMATION: Follow-up infiltrates COMPARISON: 03/26/2022 TECHNIQUE: Portable FINDINGS: The heart size, mediastinum and pulmonary vessels are unremarkable. Lines and tubes are stable satisfactory position. Moderate patchy infiltrates throughout both lungs showing modest improvement in the upper lung regions since yesterday's exam. Small bilateral pleural effusions noted. IMPRESSION: Diffuse bilateral infiltrates. Slight improvement in bilateral upper lobe components since yesterday. Interpreted and Authenticated by: Lionel Ellington 03/27/22
[2022-03-27] MEDS: cefTRIAXone 2 GM in DEXTROSE 5% IN WATER 50 ML IV SCH (10:02)
[2022-03-27] MEDS: levETIRAcetam 500 MG in 0.9 % SODIUM CHLORIDE 100 ML IV SCH (10:02)
[2022-03-27] MEDS: PENICILLIN G POTASSIUM 4,000,000 UNIT in 0.9 % SODIUM CHLORIDE 50 ML IV SCH ×4 (10:03→20:25)
[2022-03-27] MEDS: FAMOTIDINE/PF 20 MG/2 ML VIAL IV SCH ×2 (10:04→20:33)
[2022-03-27] MEDS: ACETAMINOPHEN 650 MG/65 ML BAG IV PRN ×2 (10:14→17:14)
[2022-03-27] MEDS: methylPREDNISolone SOD SUCC 40 MG/ML VIAL IV SCH (10:34)
[2022-03-27] MEDS: DOCUSATE SODIUM 100 MG CAPSULE PO SCH ×3 (10:37→21:21)
[2022-03-27] MEDS: THIAMINE 100 MG in 0.9 % SODIUM CHLORIDE 50 ML IV SCH (10:37)
[2022-03-27] MEDS: FOLIC ACID 1 MG TABLET PO SCH (10:38)
[2022-03-27] MEDS: VENLAFAXINE 75 MG TABLET PO SCH ×3 (10:38→20:50)
[2022-03-27] MEDS: LACTULOSE 20 GM/30 ML ORAL.SOL PO SCH ×4 (10:39→21:21)
[2022-03-27] MEDS: MULTIVIT,THER IRON,CA,FA & MIN 1 TABLET PO SCH (10:39)
[2022-03-27] MEDS: CHLORHEXIDINE GLUCONATE 1 ML ORAL.SOL SWABMOUTH SCH ×2 (10:44→20:34)
[2022-03-27 11:01] LABS: Basophils # (Auto) 0.02 K/mcL (0.00-0.30); Basophils % (Auto) 0.6 % (0.0-2.0); Eosinophils # (Auto) 0 K/mcL (0.00-0.70); Eosinophils % (Auto) 0 % (0.0-7.0); Hematocrit 30.3 % (34.1-44.9); Hemoglobin 10.1 g/dL (11.2-15.7); Lymphocytes # (Auto) 0.88 K/mcL (1.50-4.80); Mean Cell Volume 97.4 fL (80.0-100.0); Mean Corpuscular HGB Conc 33.3 g/dL (31.0-36.0); Mean Platelet Volume 10.8 fL (7.4-10.4); Monocytes # (Auto) 0.27 K/mcL (0.10-0.90); Monocytes % (Auto) 8.3 % (1.0-12.0); Neutrophils % (Auto) 64.1 % (38.0-78.0); Platelet Count 30 K/mcL (140-440); RBC 3.11 M/mcL (3.59-5.38); Red Cell Distribution Width 16.8 % (11.5-14.5); WBC 3.3 K/mcL (4.5-11.0)
[2022-03-27] MEDS: levETIRAcetam 750 MG in 0.9 % SODIUM CHLORIDE 100 ML IV SCH (20:32)
[2022-03-27] MEDS: HYDROcodone/APAP 5/325MG TABLET PO PRN (20:33)
[2022-03-27] MEDS: fentaNYL 100 MCG/2 ML VIAL IV PRN (21:05)
[2022-03-28] MEDS: PENICILLIN G POTASSIUM 4,000,000 UNIT in 0.9 % SODIUM CHLORIDE 50 ML IV SCH ×6 (00:10→20:08)
[2022-03-28] MEDS: CLINDAMYCIN 600 MG in DEXTROSE 5% IN WATER 50 ML IV SCH ×3 (05:36→21:00)
[2022-03-28] MEDS: 0.9 % SODIUM CHLORIDE 10 ML SYRINGE IV SCH ×5 (05:36→22:00)
[2022-03-28] MEDS: 0.9 % SODIUM CHLORIDE 10 ML SYRINGE IV PRN (05:36)
[2022-03-28 06:59] LABS: Basophils # (Auto) 0.02 K/mcL (0.00-0.30); Basophils % (Auto) 0.5 % (0.0-2.0); Eosinophils # (Auto) 0.01 K/mcL (0.00-0.70); Eosinophils % (Auto) 0.3 % (0.0-7.0); Hematocrit 30.4 % (34.1-44.9); Hemoglobin 10.2 g/dL (11.2-15.7); Lymphocytes # (Auto) 1.48 K/mcL (1.50-4.80); Lymphocytes % (Auto) 38.9 % (15.5-49.0); Mean Cell Volume 94.4 fL (80.0-100.0); Mean Corpuscular HGB Conc 33.6 g/dL (31.0-36.0); Mean Platelet Volume 11.5 fL (7.4-10.4); Monocytes # (Auto) 0.28 K/mcL (0.10-0.90); Monocytes % (Auto) 7.4 % (1.0-12.0); Neutrophils % (Auto) 52.9 % (38.0-78.0); Platelet Count 26 K/mcL (140-440); RBC 3.22 M/mcL (3.59-5.38); WBC 3.8 K/mcL (4.5-11.0)
[2022-03-28 07:17] LABS: ALT/SGPT 47 U/L (<40); AST/SGOT 106 U/L (<32); Albumin 2.2 gm/dL (3.2-5.2); Albumin/Globulin Ratio 0.6 (1.0-2.3); Alkaline Phosphatase 134 U/L (39-117); Bilirubin,Direct 1.8 mg/dL (<0.3); Bilirubin,Total 2.3 mg/dL (0.1-1.0); Blood Urea Nitrogen 19 mg/dL (6-20); Carbon Dioxide 22 mmol/L (22-30); Chloride 107 mmol/L (96-108); Glomerular Filtration Rate 107; Glucose 69 mg/dL (70-105); Lactate Dehydrogenase 426 U/L (135-225); Phosphorous 2.4 mg/dL (2.5-4.5); Triglycerides 138 mg/dL (<150); Uric Acid 2.7 mg/dL (2.5-8.0)
--- NOTE | 2022-03-28 08:00 | Internal Med Progress Note ---
SUBJECTIVE Subjective Patient information: Note initiated : 03/28/22 at 7:57 am Service Date, if different from initiated Date: [] Patient: Anay Ramírez a 51 y/o F admitted on 03/24/22 for Right Hand Swelling. Chief Complaint: [] Interval history: History of present illness: Ms. Ramírez is a 51 year old F Presents the ED with right hand swelling redness and tenderness. She says she hit her hand on a countertop last night and that it has gotten increasingly red swollen and tender since then. Patient has a history of methamphetamine use she says she smokes it and denies IV use. She was here in early February for cellulitis of the left neck and had to some alcohol withdrawal symptoms at that time found to have cirrhosis with sequelae of thrombocytopenia and leukopenia. She says since she was discharged she has not used any methamphetamine but when I pressed her in regards to her use explaining how important was that I know what she used and when, then she finally stated she last used on Sunday. I suspect she is used more recently given her current presentation. She seems a bit agitated and is extremely fidgety. She has bloodshot eyes. Also of note I impressed upon her the need to stop alcohol upon last admission but she says she still using it in the form of beers 2-4 a day but she denies using it every day. She has not followed up with gastroenterology yet given the referral placed for cirrhosis. And has not seen Dr. Jones yet for substance abuse. she has headache and has some nausea but no vomiting. Denies fever chills chest pain stomach pain. Says she has a little bit of diarrhea this morning. In the ED she was tachycardic although she is has baseline tachycardia but it was elevated above baseline. She had a fever 103. Lactate of 5 and elevated CRP. She had AST to ALT ratio of 2:1. Leukopenia but better than last admission. She had a hand and elbow x-rays that show cellulitis of the dorsum of the right hand but no evidence of abscess. Blood cultures obtained. She received 30 mils per cake of IV fluid bolusing for sepsis presentation. Vancomycin ordered in the ED. Severe alcoholic hepatitis as defined by increased hepatitis discriminant function score greater than 32. prednisolone 40mg daily started for 28 days followed by 16-day taper. Severe alcoholic hepatitis as defined by increased hepatitis discriminant function score greater than 32. prednisolone 40mg daily started for 28 days followed by 16-day taper. 03/25 Patient condition worsen increased altered mental status and vitals including tachycardia and fever. Suspected to be in alcohol withdrawal delirium tremens. Increased oxygen needs and tachypnea, suspect aspiration althought pt did receive fluid resuscitation on presentation. Initially concern for likely methamphetamine intoxication. Transferred to ICU on monitor vitals closely. Monitor urine output closely. Follow-up lactates still elevated and secondary to liver failure. Has cough. Required heavy doses of Ativan last night. 4 out of 4 blood culture bottles with gram-positive cocci in chains. Platelets low. Event Note: I was called by the ICU nurse to the patient bedside has appeared that she was not protecting her airway and had increased oxygenation needs. Altered mental state given alcohol withdrawal and required sedation to suppress. ABG with extremely low PaO2. Given the inability to protect airway patient necessitated to endotracheal intubation. 03/26 Patient required Levophed placement last night. Shock either related to sepsis or medications or likely both. Decreased vasopressor need this morning. Will obtain CVP monitoring. Compliance improved today. FiO2 requirement better. Patient still quite agitated and pulling at lines if sedation is weaned and peak pressures increase. Platelets low continue SCDs for DVT prophylaxis. INR 1.7. Lactic acidosis resolved. Phos is low. Transaminitis mildly worsened secondary to the events of yesterday and hypotension. Urine output fluctuating between d/c and poor. Not tachycardic anymore. NG output and hypoactive bowel sounds patient likely ileus. 03/27 Patient did not require any Levophed since yesterday. Patient on weaning events trial this moment. IV diuresis for volume overload. Elevated CVP. Reviewed other labs.. ABG with adequate parameters. Decreasing FiO2 requirement. Increased chloride likely from NS IV fluid, adjust. Hypophosphatemia replete. Tube feedings in place. 03/28 Urine more clear. Patient still edematous. On several liters of oxygen. Patient feels extremely weak. She has headaches occasional fevers some nausea but no vomiting. No bowel movements. Chest x-ray shows some mild clearing. Reviewed labs. Review of Systems: Unable to gather as patient is sedated on the vent. Constitutional Vitals: Vital Signs Temp Pulse Resp BP Pulse Ox 99.0 F 90 16 127/74 94 05/03/22 07:00 03/27/22 23:21 03/28/22 07:00 03/28/22 07:00 03/28/22 07:00 Period Temp Pulse Resp BP Sys/Villa Pulse Ox Last 24 Hr 98.7 F-99.6 F 80-90 16-37 107-137/67-105 87-99 Intake and Output 03/27/22 03/28/22 03/28/22 21:59 05:59 13:59 Intake Total 856.0909 165.5 112 Output Total 705 785 32 Balance 151.0909 -619.5 80 Weight 79.605 kg Intake & Output: Intake & Output 03/27/22 03/28/22 03/28/22 21:59 05:59 13:59 Intake Total 856.0909 165.5 112 Output Total 705 785 32 Balance 151.0909 -619.5 80 Weight 79.605 kg Intake: IV 856.0909 165.5 112 Sodium Chloride 0.9% 250 ml @ 0 20 mls/hr IV .[id number] [facility] Rx#: [id number] Cleocin 600 mg In Dextrose 5% 108 54 in Water 50 ml @ 100 mls/hr IV Q8H [facility] Rx#:[id number] Pfizerpen 4,000,000 Unit In 174 58 58 Sodium Chloride 0.9% 50 ml @ 100 mls/hr IV Q4H [facility] Rx#: [id number] Potassium Phosphate 40 Meq In 509.0909 Dextrose 5% in Water 500 ml @ 127.273 mls/hr IV ONCE ONE Rx#: [id number] Keppra 750 mg In Sodium 107.5 Chloride 0.9% 100 ml @ 200 mls/ hr IV QHS [facility] Rx#:[id number] Oral 0 Output: Urine Catheter Amount 405 785 32 Void Amount 300 Other: Urine Appearance Clear Clear Uretheral ([place]) Clear Clear Clear Urine Color Dark Yellow Dark Yellow Uretheral ([place]) Dark Yellow Dark Yellow Dark Yellow Urine Odor Normal Exam: General: Awake and appears extremely weak, NAD Eyes/N/T: EOMI Head/Neck: neck supple, CV: RRR, No murmurs, Pulm: Mild rhonchi b/l, no wheezing/rhonchi/rales Abd: soft, nontender, +BS x4 Ext: no clubbing/cyanosis, mild b/l LE edema, b/l UE edema as well. Right hand dorsum erythematous/tender to touch/edematous that extends pas wrist - improving Neuro: Lethargic, moves all extremities, follows commands. No focal deficits Skin: warm/dry OBJ DATA Labs CBC & Chem 7: 03/28/22 05:33 03/28/22 05:33 Labs: Abnormal Lab Results 03/28/22 03/28/22 03/27/22 05:33 05:33 10:02 WBC 3.8 L RBC 3.22 L Hgb 10.2 L Hct 30.4 L RDW 16.0 H Plt Count 26 L* MPV 11.5 H Lymph # (Auto) 1.48 L Band Neutrophils % Lymphocytes % Platelet Estimate PT INR POC pH 7.51 H POC pCO2 25.0 L POC pO2 63 L POC HCO3 19.7 L POC Total CO2 20.0 L POC ABG Base Excess -3.0 L Hgb O2 Saturation Potassium Chloride Carbon Dioxide BUN Glucose 69 L Calcium 8.0 L Phosphorus 2.4 L Magnesium 1.4 L Total Bilirubin 2.3 H Direct Bilirubin 1.8 H GGT 166 H AST 106 H ALT 47 H Alkaline Phosphatase 134 H Lactate Dehydrogenase 426 H NT-Pro-B Natriuret Pep Albumin 2.2 L Globulin 4.0 H Albumin/Globulin Ratio 0.6 L Triglycerides Procalcitonin 03/27/22 03/27/22 03/27/22 05:28 05:20 05:20 WBC RBC Hgb Hct RDW Plt Count MPV Lymph # (Auto) Band Neutrophils % Lymphocytes % Platelet Estimate PT 17.9 H INR 1.4 H POC pH POC pCO2 POC pO2 POC HCO3 POC Total CO2 POC ABG Base Excess Hgb O2 Saturation Potassium 3.2 L Chloride 116 H Carbon Dioxide 18 L BUN 25 H Glucose 125 H Calcium 8.5 L Phosphorus 1.5 L Magnesium 2.8 H Total Bilirubin 2.1 H Direct Bilirubin 1.7 H GGT 149 H AST 131 H ALT 46 H Alkaline Phosphatase 122 H Lactate Dehydrogenase 441 H NT-Pro-B Natriuret Pep Albumin 2.2 L Globulin 3.8 H Albumin/Globulin Ratio 0.6 L Triglycerides 254 H Procalcitonin 2.14 H 03/27/22 03/26/22 03/26/22 05:20 08:08 05:08 WBC 3.3 L RBC 3.11 L Hgb 10.1 L Hct 30.3 L RDW 16.8 H Plt Count 30 L* MPV 10.8 H Lymph # (Auto) 0.88 L Band Neutrophils % Lymphocytes % Platelet Estimate PT INR POC pH 7.47 H POC pCO2 24.7 L POC pO2 79 L POC HCO3 18.0 L POC Total CO2 19.0 L POC ABG Base Excess -6.0 L Hgb O2 Saturation Potassium Chloride Carbon Dioxide BUN Glucose Calcium Phosphorus Magnesium Total Bilirubin Direct Bilirubin GGT AST ALT Alkaline Phosphatase Lactate Dehydrogenase NT-Pro-B Natriuret Pep 1783.0 H Albumin Globulin Albumin/Globulin Ratio Triglycerides Procalcitonin 03/26/22 03/26/22 03/26/22 05:08 05:08 05:08 WBC RBC Hgb Hct RDW Plt Count MPV Lymph # (Auto) Band Neutrophils % Lymphocytes % Platelet Estimate PT 20.3 H INR 1.7 H POC pH POC pCO2 POC pO2 POC HCO3 POC Total CO2 POC ABG Base Excess Hgb O2 Saturation Potassium Chloride 109 H Carbon Dioxide 17 L BUN Glucose Calcium 7.9 L Phosphorus 2.0 L Magnesium Total Bilirubin 2.6 H Direct Bilirubin 1.6 H GGT 136 H AST 168 H ALT 52 H Alkaline Phosphatase Lactate Dehydrogenase 631 H NT-Pro-B Natriuret Pep Albumin 2.2 L Globulin 4.1 H Albumin/Globulin Ratio 0.5 L Triglycerides 214 H Procalcitonin 2.73 H 03/26/22 03/25/22 03/25/22 05:08 15:15 13:07 WBC 3.1 L RBC Hgb Hct RDW 16.7 H Plt Count 25 L* MPV 13.0 H Lymph # (Auto) Band Neutrophils % 22 H Lymphocytes % 10 L Platelet Estimate Markedly decreased A PT INR POC pH 7.25 L POC pCO2 49.6 H 28.6 L POC pO2 107 H 43 L* POC HCO3 21.8 L 19.0 L POC Total CO2 20.0 L POC ABG Base Excess -5.0 L -5.0 L Hgb O2 Saturation 81.0 L Potassium Chloride Carbon Dioxide BUN Glucose Calcium Phosphorus Magnesium Total Bilirubin Direct Bilirubin GGT AST ALT Alkaline Phosphatase Lactate Dehydrogenase NT-Pro-B Natriuret Pep Albumin Globulin Albumin/Globulin Ratio Triglycerides Procalcitonin 03/25/22 03/25/22 03/25/22 12:38 08:09 08:09 WBC RBC Hgb Hct RDW Plt Count MPV Lymph # (Auto) Band Neutrophils % Lymphocytes % Platelet Estimate PT INR POC pH POC pCO2 POC pO2 POC HCO3 POC Total CO2 POC ABG Base Excess Hgb O2 Saturation Potassium Chloride Carbon Dioxide 16 L BUN Glucose Calcium 7.8 L Phosphorus 2.4 L Magnesium Total Bilirubin 2.1 H Direct Bilirubin 1.7 H GGT 124 H AST 140 H ALT 43 H Alkaline Phosphatase Lactate Dehydrogenase 514 H NT-Pro-B Natriuret Pep 4214.0 H Albumin 2.1 L Globulin 4.3 H Albumin/Globulin Ratio 0.5 L Triglycerides Procalcitonin 4.44 H Meds: Medications Acetaminophen (Acetaminophen 325 Mg Tablet) 650 mg PO Q6HP PRN; Protocol PRN Reason: Per Pain Protocol/Fever > 101 Hydrocodone Bitart/Acetaminophen (Hydrocodone/Apap 5/325mg Tablet) 1 tab PO Q4HP PRN PRN Reason: PAIN LEVEL 3-6 Albuterol/Ipratropium (Ipratropium/Albuterol 3 Ml Ampul.Neb) 3 ml NEB Q4HP PRN PRN Reason: Shortness Of Breath Last Admin: 03/27/22 11:07 Dose: 3 ml Documented by: Chlordiazepoxide HCl (Chlordiazepoxide 25 Mg Capsule) 50 mg PO Q4HP PRN PRN Reason: Alcohol Withdrawal Chlorhexidine Gluconate (Chlorhexidine Gluconate 1 Ml Oral.Lilia) 15 ml SWABMOUTH BID [facility] Last Admin: 03/27/22 20:34 Dose: 15 ml Documented by: Clonazepam (Clonazepam 0.5 Mg Tablet) 1 mg PO DAILYP PRN PRN Reason: Anxiety Last Admin: 03/24/22 20:36 Dose: 1 mg Documented by: Docusate Sodium (Docusate Sodium 100 Mg Capsule) 100 mg PO BID [facility] Last Admin: 03/27/22 21:21 Dose: Not Given Documented by: Famotidine (Famotidine/Pf 20 Mg/2 Ml Vial) 20 mg IV Q12 [facility] Last Admin: 03/27/22 20:33 Dose: 20 mg Documented by: Fentanyl (Fentanyl 100 Mcg/2 Ml Vial) 25 mcg IV Q1HP PRN; Protocol PRN Reason: Per Pain Protocol Last Admin: 03/27/22 21:05 Dose: 25 mcg Documented by: Folic Acid (Folic Acid 1 Mg Tablet) 1 mg PO DAILY KHUSHBU Last Admin: 03/27/22 10:38 Dose: Not Given Documented by: Potassium Chloride 40 meq/ (Dextrose) 520 mls @ 130 mls/hr IV UD PRN PRN Reason: Potassium < 3 Magnesium Sulfate (Magnesium Sulfate) 2 gm in 50 mls @ 50 mls/hr IV UD PRN PRN Reason: Magnesium </= 1.6 Acetaminophen (Ofirmev) 650 mg in 65 mls @ 130 mls/hr IV Q6HP PRN; Protocol PRN Reason: PAIN/FEVER > 101 Last Infusion: 03/27/22 18:11 Dose: Infused Documented by: Clindamycin Phosphate 600 mg/ (Dextrose) 54 mls @ 100 mls/hr IV Q8H KHUSHBU; Protocol Last Infusion: 03/28/22 06:37 Dose: Infused Documented by: Levetiracetam 500 mg/ Sodium (Chloride) 105 mls @ 200 mls/hr IV DAILY KHUSHBU Last Infusion: 03/27/22 10:36 Dose: Infused Documented by: Levetiracetam 750 mg/ Sodium (Chloride) 107.5 mls @ 200 mls/hr IV QHS KHUSHBU Last Infusion: 03/28/22 01:14 Dose: Infused Documented by: Norepinephrine Bitartrate 8 mg (/ Sodium Chloride) 250 mls @ 18.75 mls/hr IV Q14H KHUSHBU; Protocol Last Admin: 03/27/22 21:24 Dose: Not Given Documented by: Penicillin G Potassium 4,000, (000 unit/ Sodium Chloride) 58 mls @ 100 mls/hr I V Q4H KHUSHBU; Protocol Last Admin: 03/28/22 07:41 Dose: 100 mls/hr Documented by: Iron Carb/Multivit/[place]/Folic Acid (Multivit,Ther Iron,Ca,Fa & Min 1 Tablet) 1 tab PO DAILY KHUSHBU Last Admin: 03/27/22 10:39 Dose: Not Given Documented by: Lactulose (Lactulose 20 Gm/30 Ml Oral.Lilia) 10 gm PO TID KHUSHBU Last Admin: 03/27/22 21:21 Dose: Not Given Documented by: Lorazepam (Lorazepam 2 Mg/Ml Vial) 0.5 mg IV Q2-4HP PRN PRN Reason: ANXIETY/SEDATION Last Admin: 03/26/22 21:17 Dose: 0.5 mg Documented by: Lorazepam (Lorazepam 2 Mg/Ml Vial) 0 mg IV Q4HP PRN; Protocol PRN Reason: Alcohol Withdrawal Last Admin: 03/25/22 12:10 Dose: 2 mg Documented by: Methylprednisolone Sodium Succinate (Methylprednisolone Sod Succ 40 Mg/Ml Vial) 40 mg IV DAILY [facility] Last Admin: 03/27/22 10:34 Dose: 40 mg Documented by: Metoclopramide HCl (Metoclopramide 10 Mg/2 Ml Vial) 10 mg IV Q6HP PRN PRN Reason: Nausea And Vomiting Ziprasidone Hcl 80 (Mg Capsule) 1 dose PO HS [facility] Last Admin: 03/27/22 21:23 Dose: Not Given Documented by: Ondansetron HCl (Ondansetron 4 Mg/2 Ml Vial) 4 mg IV Q4HP PRN PRN Reason: Nausea And Vomiting Polyethylene Glycol (Polyethylene Glycol 3350 17 Gm Packet) 17 gm PO DAILYP PRN PRN Reason: Constipation Potassium Chloride (Potassium Chloride 20 Meq Tablet) 40 meq PO UD PRN PRN Reason: Potssium is 3-3.5 Potassium Chloride (Potassium Chloride 20 Meq Tablet) 40 meq PO UD PRN PRN Reason: Potassium < 3 Senna (Sennosides 1 Tablet) 2 tab PO DAILYP PRN PRN Reason: Constipation Sodium Chloride (0.9 % Sodium Chloride 10 Ml Syringe) 10 ml IV Q8 [facility] Last Admin: 03/28/22 05:36 Dose: 10 ml Documented by: Sodium Chloride (0.9 % Sodium Chloride 10 Ml Syringe) 10 ml IV Q12 [facility] Last Admin: 03/27/22 20:34 Dose: 10 ml Documented by: Sodium Chloride (0.9 % Sodium Chloride 10 Ml Syringe) 10 ml IV Q12 PRN PRN Reason: PRN Last Admin: 03/28/22 05:36 Dose: 10 ml Documented by: Venlafaxine HCl (Venlafaxine 75 Mg Tablet) 75 mg PO TID [facility] Last Admin: 03/27/22 20:50 Dose: 75 mg Documented by: A/P Narrative A/P Narrative: A: #Severe Sepsis: 2/2 Right hand/wrist cellulitis -lactic acidosis initially persistent compounded by liver failure now resolved, afebrile now #Right Hand/Wrist Cellulitis: no abscess noted on xray, improving -No evidence of necrotizing fasciitis on further imaging #Bacteremia(Sterp Pyogenes 02/27 bottles): -echo no vegetations, good EF -f/u BC neg #Shock: 2/2 sepsis vs medications, likely both -resolved #Alcohol abuse withdrawal DT's: #Acute hypoxic respiratory failure: 2/2 aspiration or possible volume overload from initial fluid resuscitation, likely both -Mechanical Ventilation management, Intubated 03/25 & Extubated 03/27 -now on 2L NC #Likely Aspiration: -SC #Volume Overload: 2/2 fluid resuscitation on admit #Cirrhosis, etoh related: based on imaging and labs and etoh history, has not followed up yet with GI #Coagulopathy: 2/2 above #Thrombocytopenia, Acute on chronic /hyperbilirubinemia /hypoalbuminemia: 2/2 above #Leukopenia: 2/2 above, stable - #Hepatitis Alcoholic, severe: hepatitis discriminant function score greater than 32 #Anemia, Chronic normocytic: #h/o Schizophrenia & Anxiety: on klonopin #h/o Seizure disorder: on keppra #h/o substance use disorder with Methamphetamine: denies IV, state she smokes it -suspect recent use given behavior on presentation and UDS (+) for Amphetamine #Electrolyte d/o (hypokalemia/hypomagnesemia/Hyponatremia): replace prn #Ileus: #Critical care myopathy: #Critically Ill/guarded prognosis: -[place] =24(03/25)= est mortality 40% Plan: -[place] score -Wean O2 as able, IS/Acapella, prn nebs, RT -monitor cvp, IV lasix for volume overload -PCN, Clinda (for 72hrs), mrsa screen neg -Will need 14-days of Abx, may consider finishing with oral Abx -monitor cbc/cmp -f/u cxr -CIWA, vitamins/minerals, benzo -Replace electrolytes -prednisolone 40mg daily started for 28 days followed by 16-day taper -cont lactulose -Continue home Keppra, ziprasidone, venlafaxine, hold benztropine for AE profile in current setting -TF's wean as oral intake increases(started clears), ST eval -PT/OT -f/u with GI for cirrhosis -Alcohol/substance use cessation counseling, referral to see Dr. Jones -ppx: SCD for thrombocytopenia, may use chemical if plts stable >50k full code Time Spent With Patient Time: Total time spent is greater than 50% in coordination of care (as documented) at patient's floor/unit and/or counseling patient: Total time spent with greater than 50% in coordination of care (as documented) at patient's floor/unit and/or counseling patient:: 35 - 50 minutes
[2022-03-28] MEDS ORDERED: MAGNESIUM SULFATE 2 GM/50 ML BAG IV ONE (08:02)
[2022-03-28] MEDS ORDERED: NEUTRA PHOS 1 PACKET PO ONE (08:02)
[2022-03-28] MEDS ORDERED: PHOSPHORUS 250 MG TABLET PO ONE (08:02)
[2022-03-28] MEDS: levETIRAcetam 500 MG in 0.9 % SODIUM CHLORIDE 100 ML IV SCH (08:19)
[2022-03-28] MEDS: FAMOTIDINE/PF 20 MG/2 ML VIAL IV SCH ×2 (08:25→20:19)
[2022-03-28] MEDS: methylPREDNISolone SOD SUCC 40 MG/ML VIAL IV SCH (08:25)
[2022-03-28] MEDS: CHLORHEXIDINE GLUCONATE 1 ML ORAL.SOL SWABMOUTH SCH ×2 (08:25→20:32)
[2022-03-28] MEDS: LACTULOSE 20 GM/30 ML ORAL.SOL PO SCH ×3 (08:44→20:16)
[2022-03-28] MEDS ORDERED: ALBUMIN HUMAN 12.5 GM/50 ML BAG IV ONE (09:08)
[2022-03-28] MEDS ORDERED: FUROSEMIDE 40 MG/4 ML VIAL IV ONE (09:08)
[2022-03-28] MEDS: ACETAMINOPHEN 650 MG/65 ML BAG IV PRN ×2 (09:13→15:43)
[2022-03-28] MEDS: THIAMINE 100 MG TABLET PO SCH (09:20)
[2022-03-28] MEDS: VENLAFAXINE 75 MG TABLET PO SCH (09:31)
[2022-03-28] MEDS: FOLIC ACID 1 MG TABLET PO SCH (09:40)
[2022-03-28] MEDS: MULTIVIT,THER IRON,CA,FA & MIN 1 TABLET PO SCH (09:41)
[2022-03-28] MEDS: DOCUSATE SODIUM 100 MG CAPSULE PO SCH ×2 (09:41→20:49)
--- NOTE | 2022-03-28 09:46 | XRay Report ---
CLINICAL INFORMATION: Follow-up infiltrates COMPARISON: 03/27/2022 TECHNIQUE: Portable FINDINGS: The heart size, mediastinum and pulmonary vessels are unremarkable. Improved aeration in the bibasilar infiltrative component since yesterday's exam. Moderate patchy infiltrate remains in the left upper and right lower lung with small patchy infiltrate left lower lung. No effusions. Right IJ line in satisfactory position. IMPRESSION: Bilateral infiltrates. Interpreted and Authenticated by: Lionel Ellington 03/28/22
[2022-03-28] MEDS: NOREPINEPHRINE BITARTRATE 8 MG in 0.9 % SODIUM CHLORIDE 242 ML IV SCH (11:44)
[2022-03-28] MEDS ORDERED: NOREPINEPHRINE BITARTRATE 8 MG in 0.9 % SODIUM CHLORIDE 242 ML IV PRN (11:45)
[2022-03-28] MEDS: NICOTINE 21 MG PATCH TOPICAL SCH (13:26)
[2022-03-28] MEDS: VENLAFAXINE 75 MG CAP.XL.24H PO SCH (15:23)
[2022-03-28] MEDS: HYDROcodone/APAP 5/325MG TABLET PO PRN (20:16)
[2022-03-28] MEDS: levETIRAcetam 750 MG in 0.9 % SODIUM CHLORIDE 100 ML IV SCH (20:17)
[2022-03-28] MEDS: LORazepam 2 MG/ML VIAL IV PRN (20:55)
[2022-03-29] MEDS: PENICILLIN G POTASSIUM 4,000,000 UNIT in 0.9 % SODIUM CHLORIDE 50 ML IV SCH ×6 (01:05→20:30)
[2022-03-29] MEDS: HYDROcodone/APAP 5/325MG TABLET PO PRN ×3 (04:02→20:31)
[2022-03-29] MEDS: CLINDAMYCIN 600 MG in DEXTROSE 5% IN WATER 50 ML IV SCH (04:48)
[2022-03-29] MEDS: 0.9 % SODIUM CHLORIDE 10 ML SYRINGE IV SCH ×5 (05:37→20:52)
[2022-03-29 07:04] LABS: ALT/SGPT 47 U/L (<40); AST/SGOT 86 U/L (<32); Albumin 2.2 gm/dL (3.2-5.2); Albumin/Globulin Ratio 0.5 (1.0-2.3); Alkaline Phosphatase 140 U/L (39-117); Basophils # (Auto) 0.01 K/mcL (0.00-0.30); Basophils % (Auto) 0.2 % (0.0-2.0); Bilirubin,Direct 1.4 mg/dL (<0.3); Bilirubin,Total 2.2 mg/dL (0.1-1.0); Blood Urea Nitrogen 11 mg/dL (6-20); Calcium 7.6 mg/dL (8.6-10.4); Carbon Dioxide 23 mmol/L (22-30); Chloride 100 mmol/L (96-108); Eosinophils # (Auto) 0.06 K/mcL (0.00-0.70); Eosinophils % (Auto) 1.4 % (0.0-7.0); Globulin 4.1 gm/dL (2.2-3.7); Glomerular Filtration Rate 113; Glucose 96 mg/dL (70-105); Hematocrit 29.5 % (34.1-44.9); Hemoglobin 10.1 g/dL (11.2-15.7); Lactate Dehydrogenase 352 U/L (135-225); Mean Cell Volume 92.8 fL (80.0-100.0); Mean Corpuscular HGB Conc 34.2 g/dL (31.0-36.0); Mean Platelet Volume 12.3 fL (7.4-10.4); Monocytes # (Auto) 0.22 K/mcL (0.10-0.90); Monocytes % (Auto) 5.2 % (1.0-12.0); Neutrophils % (Auto) 53.2 % (38.0-78.0); Phosphorous 2.6 mg/dL (2.5-4.5); RBC 3.18 M/mcL (3.59-5.38); Red Cell Distribution Width 15.5 % (11.5-14.5); Triglycerides 107 mg/dL (<150); Uric Acid 2.4 mg/dL (2.5-8.0); WBC 4.3 K/mcL (4.5-11.0)
[2022-03-29] MEDS: ACETAMINOPHEN 325 MG TABLET PO PRN (07:21)
[2022-03-29] MEDS ORDERED: MAGNESIUM SULFATE 2 GM/50 ML BAG IV ONE (07:43)
--- NOTE | 2022-03-29 07:44 | Internal Med Progress Note ---
SUBJECTIVE Subjective Patient information: Note initiated : 03/29/22 at 7:40 am Service Date, if different from initiated Date: [] Patient: Anay Ramírez a 51 y/o F admitted on 03/24/22 for Right Hand Swelling. Chief Complaint: [] Interval history: History of present illness: Ms. Ramírez is a 51 year old F Presents the ED with right hand swelling redness and tenderness. She says she hit her hand on a countertop last night and that it has gotten increasingly red swollen and tender since then. Patient has a history of methamphetamine use she says she smokes it and denies IV use. She was here in early February for cellulitis of the left neck and had to some alcohol withdrawal symptoms at that time found to have cirrhosis with sequelae of thrombocytopenia and leukopenia. She says since she was discharged she has not used any methamphetamine but when I pressed her in regards to her use explaining how important was that I know what she used and when, then she finally stated she last used on Sunday. I suspect she is used more recently given her current presentation. She seems a bit agitated and is extremely fidgety. She has bloodshot eyes. Also of note I impressed upon her the need to stop alcohol upon last admission but she says she still using it in the form of beers 2-4 a day but she denies using it every day. She has not followed up with gastroenterology yet given the referral placed for cirrhosis. And has not seen Dr. Jones yet for substance abuse. she has headache and has some nausea but no vomiting. Denies fever chills chest pain stomach pain. Says she has a little bit of diarrhea this morning. In the ED she was tachycardic although she is has baseline tachycardia but it was elevated above baseline. She had a fever 103. Lactate of 5 and elevated CRP. She had AST to ALT ratio of 2:1. Leukopenia but better than last admission. She had a hand and elbow x-rays that show cellulitis of the dorsum of the right hand but no evidence of abscess. Blood cultures obtained. She received 30 mils per cake of IV fluid bolusing for sepsis presentation. Vancomycin ordered in the ED. Severe alcoholic hepatitis as defined by increased hepatitis discriminant function score greater than 32. prednisolone 40mg daily started for 28 days followed by 16-day taper. Severe alcoholic hepatitis as defined by increased hepatitis discriminant function score greater than 32. prednisolone 40mg daily started for 28 days followed by 16-day taper. 03/25 Patient condition worsen increased altered mental status and vitals including tachycardia and fever. Suspected to be in alcohol withdrawal delirium tremens. Increased oxygen needs and tachypnea, suspect aspiration althought pt did receive fluid resuscitation on presentation. Initially concern for likely methamphetamine intoxication. Transferred to ICU on monitor vitals closely. Monitor urine output closely. Follow-up lactates still elevated and secondary to liver failure. Has cough. Required heavy doses of Ativan last night. 4 out of 4 blood culture bottles with gram-positive cocci in chains. Platelets low. Event Note: I was called by the ICU nurse to the patient bedside has appeared that she was not protecting her airway and had increased oxygenation needs. Altered mental state given alcohol withdrawal and required sedation to suppress. ABG with extremely low PaO2. Given the inability to protect airway patient necessitated to endotracheal intubation. 03/26 Patient required Levophed placement last night. Shock either related to sepsis or medications or likely both. Decreased vasopressor need this morning. Will obtain CVP monitoring. Compliance improved today. FiO2 requirement better. Patient still quite agitated and pulling at lines if sedation is weaned and peak pressures increase. Platelets low continue SCDs for DVT prophylaxis. INR 1.7. Lactic acidosis resolved. Phos is low. Transaminitis mildly worsened secondary to the events of yesterday and hypotension. Urine output fluctuating between d/c and poor. Not tachycardic anymore. NG output and hypoactive bowel sounds patient likely ileus. 03/27 Patient did not require any Levophed since yesterday. Patient on weaning events trial this moment. IV diuresis for volume overload. Elevated CVP. Reviewed other labs.. ABG with adequate parameters. Decreasing FiO2 requirement. Increased chloride likely from NS IV fluid, adjust. Hypophosphatemia replete. Tube feedings in place. 03/28 Urine more clear. Patient still edematous. On several liters of oxygen. Patient feels extremely weak. She has headaches occasional fevers some nausea but no vomiting. No bowel movements. Chest x-ray shows some mild clearing. Reviewed labs. 03/29 Patient still extremely weak but able to participate little bit more with physical therapy. Eitel signs stable. Good urine output. Hypokalemia. Hypomagnesemia. Liver enzymes slowly and proving. Mentation much better. Review of Systems: Unable to gather as patient is sedated on the vent. Constitutional Vitals: Vital Signs Temp Pulse Resp BP Pulse Ox 98.2 F 90 20 126/88 96 03/29/22 07:00 03/27/22 23:21 03/29/22 07:00 03/29/22 07:00 03/29/22 07:00 Period Temp Pulse Resp BP Sys/Villa Pulse Ox Last 24 Hr 96.7 F-99.3 F 14 105-133/62-99 89-96 Intake and Output 03/28/22 03/29/22 03/29/22 21:59 05:59 13:59 Intake Total 1236.5 386 54 Output Total 420 1370 300 Balance 816.5 -984 -246 Weight 78.608 kg Intake & Output: Intake & Output 03/28/22 03/29/22 03/29/22 21:59 05:59 13:59 Intake Total 1236.5 386 54 Output Total 420 1370 300 Balance 816.5 -984 -246 Weight 78.608 kg Intake: IV 396.5 116 54 Cleocin 600 mg In Dextrose 5% 108 54 in Water 50 ml @ 100 mls/hr IV Q8H [facility] Rx#:[id number] Pfizerpen 4,000,000 Unit In 116 116 Sodium Chloride 0.9% 50 ml @ 100 mls/hr IV Q4H [facility] Rx#: [id number] Keppra 750 mg In Sodium 107.5 Chloride 0.9% 100 ml @ 200 mls/ hr IV QHS [facility] Rx#:[id number] Oral 840 270 Output: Urine Catheter Amount 420 1370 300 Other: Urine Appearance Clear Uretheral ([place]) Clear Clear Urine Color Bright Yellow Uretheral ([place]) Straw Straw Stool Size Moderate Stool Color Brown Stool Consistency Liquid # of times incontinent of 2 Bowels Exam: General: Awake and weak, NAD Eyes/N/T: EOMI Head/Neck: neck supple, CV: RRR, No murmurs, Pulm: minimal rhonchi b/l, no wheezing/rhonchi/rales Abd: soft, nontender, +BS x4 Ext: no clubbing/cyanosis, mild b/l LE edema improving, b/l UE edema improving. Right hand dorsum erythematous/tender to touch/edematous that extends pas wrist - greatly improved Neuro: alert,quite fatigued, moves all extremities, follows commands. No focal deficits Skin: warm/dry OBJ DATA Labs CBC & Chem 7: 03/29/22 05:35 03/29/22 05:35 Labs: Abnormal Lab Results 03/29/22 03/29/22 03/28/22 05:35 05:35 05:33 WBC 4.3 L 3.8 L RBC 3.18 L 3.22 L Hgb 10.1 L 10.2 L Hct 29.5 L 30.4 L RDW 15.5 H 16.0 H Plt Count 28 L* 26 L* MPV 12.3 H 11.5 H Lymph # (Auto) 1.48 L PT INR POC pH POC pCO2 POC pO2 POC HCO3 POC Total CO2 POC ABG Base Excess Potassium 2.5 L* Chloride Carbon Dioxide BUN Creatinine 0.5 L Glucose Uric Acid 2.4 L Calcium 7.6 L Phosphorus Magnesium 1.3 L Total Bilirubin 2.2 H Direct Bilirubin 1.4 H GGT 163 H AST 86 H ALT 47 H Alkaline Phosphatase 140 H Lactate Dehydrogenase 352 H Albumin 2.2 L Globulin 4.1 H Albumin/Globulin Ratio 0.5 L Triglycerides Procalcitonin 03/28/22 03/27/22 03/27/22 05:33 10:02 05:28 WBC RBC Hgb Hct RDW Plt Count MPV Lymph # (Auto) PT INR POC pH 7.51 H POC pCO2 25.0 L POC pO2 63 L POC HCO3 19.7 L POC Total CO2 20.0 L POC ABG Base Excess -3.0 L Potassium 3.2 L Chloride 116 H Carbon Dioxide 18 L BUN 25 H Creatinine Glucose 69 L 125 H Uric Acid Calcium 8.0 L 8.5 L Phosphorus 2.4 L 1.5 L Magnesium 1.4 L 2.8 H Total Bilirubin 2.3 H 2.1 H Direct Bilirubin 1.8 H 1.7 H GGT 166 H 149 H AST 106 H 131 H ALT 47 H 46 H Alkaline Phosphatase 134 H 122 H Lactate Dehydrogenase 426 H 441 H Albumin 2.2 L 2.2 L Globulin 4.0 H 3.8 H Albumin/Globulin Ratio 0.6 L 0.6 L Triglycerides 254 H Procalcitonin 03/27/22 03/27/22 03/27/22 05:20 05:20 05:20 WBC 3.3 L RBC 3.11 L Hgb 10.1 L Hct 30.3 L RDW 16.8 H Plt Count 30 L* MPV 10.8 H Lymph # (Auto) 0.88 L PT 17.9 H INR 1.4 H POC pH POC pCO2 POC pO2 POC HCO3 POC Total CO2 POC ABG Base Excess Potassium Chloride Carbon Dioxide BUN Creatinine Glucose Uric Acid Calcium Phosphorus Magnesium Total Bilirubin Direct Bilirubin GGT AST ALT Alkaline Phosphatase Lactate Dehydrogenase Albumin Globulin Albumin/Globulin Ratio Triglycerides Procalcitonin 2.14 H 03/26/22 08:08 WBC RBC Hgb Hct RDW Plt Count MPV Lymph # (Auto) PT INR POC pH 7.47 H POC pCO2 24.7 L POC pO2 79 L POC HCO3 18.0 L POC Total CO2 19.0 L POC ABG Base Excess -6.0 L Potassium Chloride Carbon Dioxide BUN Creatinine Glucose Uric Acid Calcium Phosphorus Magnesium Total Bilirubin Direct Bilirubin GGT AST ALT Alkaline Phosphatase Lactate Dehydrogenase Albumin Globulin Albumin/Globulin Ratio Triglycerides Procalcitonin Meds: Medications Acetaminophen (Acetaminophen 325 Mg Tablet) 650 mg PO Q6HP PRN; Protocol PRN Reason: Per Pain Protocol/Fever > 101 Last Admin: 03/29/22 07:21 Dose: 650 mg Documented by: Hydrocodone Bitart/Acetaminophen (Hydrocodone/Apap 5/325mg Tablet) 1 tab PO Q4HP PRN PRN Reason: PAIN LEVEL 3-6 Last Admin: 03/29/22 04:02 Dose: 1 tab Documented by: Albuterol/Ipratropium (Ipratropium/Albuterol 3 Ml Ampul.Neb) 3 ml NEB Q4HP PRN PRN Reason: Shortness Of Breath Last Admin: 03/27/22 11:07 Dose: 3 ml Documented by: Chlordiazepoxide HCl (Chlordiazepoxide 25 Mg Capsule) 50 mg PO Q4HP PRN PRN Reason: Alcohol Withdrawal Chlorhexidine Gluconate (Chlorhexidine Gluconate 1 Ml Oral.Lilia) 15 ml SWABMOUTH BID [facility] Last Admin: 03/28/22 20:32 Dose: 15 ml Documented by: Clonazepam (Clonazepam 0.5 Mg Tablet) 1 mg PO DAILYP PRN PRN Reason: Anxiety Last Admin: 03/24/22 20:36 Dose: 1 mg Documented by: Docusate Sodium (Docusate Sodium 100 Mg Capsule) 100 mg PO BID [facility] Last Admin: 03/28/22 20:49 Dose: 100 mg Documented by: Famotidine (Famotidine/Pf 20 Mg/2 Ml Vial) 20 mg IV Q12 [facility] Last Admin: 03/28/22 20:19 Dose: 20 mg Documented by: Fentanyl (Fentanyl 100 Mcg/2 Ml Vial) 25 mcg IV Q1HP PRN; Protocol PRN Reason: Per Pain Protocol Last Admin: 03/27/22 21:05 Dose: 25 mcg Documented by: Folic Acid (Folic Acid 1 Mg Tablet) 1 mg PO DAILY [facility] Last Admin: 03/28/22 09:40 Dose: 1 mg Documented by: Potassium Chloride 40 meq/ (Dextrose) 520 mls @ 130 mls/hr IV UD PRN PRN Reason: Potassium < 3 Magnesium Sulfate (Magnesium Sulfate) 2 gm in 50 mls @ 50 mls/hr IV UD PRN PRN Reason: Magnesium </= 1.6 Acetaminophen (Ofirmev) 650 mg in 65 mls @ 130 mls/hr IV Q6HP PRN; Protocol PRN Reason: PAIN/FEVER > 101 Last Infusion: 03/28/22 16:37 Dose: Infused Documented by: Clindamycin Phosphate 600 mg/ (Dextrose) 54 mls @ 100 mls/hr IV Q8H [facility]; Protocol Last Infusion: 03/29/22 06:00 Dose: Infused Documented by: Levetiracetam 500 mg/ Sodium (Chloride) 105 mls @ 200 mls/hr IV DAILY [facility] Last Infusion: 03/28/22 09:41 Dose: Infused Documented by: Levetiracetam 750 mg/ Sodium (Chloride) 107.5 mls @ 200 mls/hr IV QHS [facility] Last Infusion: 03/28/22 21:32 Dose: Infused Documented by: Penicillin G Potassium 4,000, (000 unit/ Sodium Chloride) 58 mls @ 100 mls/hr IV Q4H [facility]; Protocol Last Admin: 03/29/22 07:22 Dose: 100 mls/hr Documented by: Norepinephrine Bitartrate 8 mg (/ Sodium Chloride) 250 mls @ 18.75 mls/hr IV Q14H PRN; Protocol PRN Reason: TITRATE TO KEEP MAP > 65 Iron Carb/Multivit/Riddle/Folic Acid (Multivit,Ther Iron,Ca,Fa & Min 1 Tablet) 1 tab PO DAILY [facility] Last Admin: 03/28/22 09:41 Dose: 1 tab Documented by: Lactulose (Lactulose 20 Gm/30 Ml Oral.Lilia) 10 gm PO TID [facility] Last Admin: 03/28/22 20:16 Dose: 10 gm Documented by: Lorazepam (Lorazepam 2 Mg/Ml Vial) 0.5 mg IV Q2-4HP PRN PRN Reason: ANXIETY/SEDATION Last Admin: 03/28/22 20:55 Dose: 0.5 mg Documented by: Lorazepam (Lorazepam 2 Mg/Ml Vial) 0 mg IV Q4HP PRN; Protocol PRN Reason: Alcohol Withdrawal Last Admin: 03/25/22 12:10 Dose: 2 mg Documented by: Methylprednisolone Sodium Succinate (Methylprednisolone Sod Succ 40 Mg/Ml Vial) 40 mg IV DAILY [facility] Last Admin: 03/28/22 08:25 Dose: 40 mg Documented by: Metoclopramide HCl (Metoclopramide 10 Mg/2 Ml Vial) 10 mg IV Q6HP PRN PRN Reason: Nausea And Vomiting Nicotine (Nicotine 21 Mg Patch) 21 mg TOPICAL DAILY@1000 [facility] Last Admin: 03/28/22 13:26 Dose: 21 mg Documented by: Ziprasidone Hcl 80 (Mg Capsule) 1 dose PO HS [facility] Last Admin: 03/28/22 20:18 Dose: 1 dose Documented by: Ondansetron HCl (Ondansetron 4 Mg/2 Ml Vial) 4 mg IV Q4HP PRN PRN Reason: Nausea And Vomiting Last Admin: 03/28/22 19:11 Dose: 4 mg Documented by: Polyethylene Glycol (Polyethylene Glycol 3350 17 Gm Packet) 17 gm PO DAILYP PRN PRN Reason: Constipation Potassium Chloride (Potassium Chloride 20 Meq Tablet) 40 meq PO UD PRN PRN Reason: Potssium is 3-3.5 Potassium Chloride (Potassium Chloride 20 Meq Tablet) 40 meq PO UD PRN PRN Reason: Potassium < 3 Potassium Chloride (Potassium Chloride 20 Meq Tablet) 40 meq PO ONCE ONE Stop: 03/29/22 12:01 Senna (Sennosides 1 Tablet) 2 tab PO DAILYP PRN PRN Reason: Constipation Sodium Chloride (0.9 % Sodium Chloride 10 Ml Syringe) 10 ml IV Q8 [facility] Last Admin: 03/29/22 05:37 Dose: 10 ml Documented by: Sodium Chloride (0.9 % Sodium Chloride 10 Ml Syringe) 10 ml IV Q12 [facility] Last Admin: 03/28/22 21:00 Dose: 10 ml Documented by: Sodium Chloride (0.9 % Sodium Chloride 10 Ml Syringe) 10 ml IV Q12 PRN PRN Reason: PRN Last Admin: 03/28/22 05:36 Dose: 10 ml Documented by: Thiamine HCl (Thiamine 100 Mg Tablet) 100 mg PO DAILY [facility] Last Admin: 03/28/22 09:20 Dose: 100 mg Documented by: Venlafaxine HCl (Venlafaxine 75 Mg Cap.Xl.24h) 75 mg PO DAILY [facility] Last Admin: 03/28/22 15:23 Dose: 75 mg Documented by: A/P Narrative A/P Narrative: A: #Severe Sepsis: 2/2 Right hand/wrist cellulitis, improving -lactic acidosis initially persistent compounded by liver failure now resolved, afebrile now #Right Hand/Wrist Cellulitis: no abscess noted on xray, improving -No evidence of necrotizing fasciitis on further imaging #Bacteremia(Sterp Pyogenes 02/27 bottles): -echo no vegetations, good EF -f/u BC neg #Shock: 2/2 sepsis vs medications, likely both -resolved #Alcohol abuse withdrawal DT's: improved #Acute hypoxic respiratory failure: 2/2 aspiration or possible volume overload from initial fluid resuscitation, likely both -Mechanical Ventilation management, Intubated 03/25 & Extubated 03/27 -now on room air #Likely Aspiration PNA: - #Volume Overload: 2/2 fluid resuscitation on admit , improving #Cirrhosis, etoh related: based on imaging and labs and etoh history, has not followed up yet with GI #Coagulopathy: 2/2 above #Thrombocytopenia, Acute on chronic /hyperbilirubinemia /hypoalbuminemia: 2/2 above #Leukopenia: 2/2 above, stable -stable #Hepatitis Alcoholic, severe: hepatitis discriminant function score greater than 32 #Anemia, Chronic normocytic: #h/o Schizophrenia & Anxiety: on klonopin #h/o Seizure disorder: on keppra #Tobacco abuse: #h/o substance use disorder with Methamphetamine: denies IV, state she smokes it -suspect recent use given behavior on presentation and UDS (+) for Amphetamine #Electrolyte d/o (hypokalemia/hypomagnesemia/Hyponatremia): replace prn #Ileus: improved #Critical care myopathy: #Critically Ill/guarded prognosis: -[place] II =24(03/25)= est mortality 40% Plan: -high [place] score, pt making progress now -Wean O2 as able, IS/Acapella, prn nebs, RT -prn IV lasix for volume overload -PCN, Clinda d/c today, mrsa screen neg -Will need 14-days of Abx, may consider finishing with oral Abx -CIWA, vitamins/minerals, benzo -Replace electrolytes -prednisolone 40mg daily started for 28 days followed by 16-day taper -cont lactulose -Continue home Keppra, ziprasidone, venlafaxine, hold benztropine for AE profile in current setting -full liquid, advance as tolerated, ST eval -PT/OT -Smoking cessation counseling > 3 minutes -f/u with GI for cirrhosis -Alcohol/substance use cessation counseling, referral to see Dr. Jones -ppx: SCD for thrombocytopenia, may use chemical if plts stable >50k full code Time Spent With Patient Time: Total time spent is greater than 50% in coordination of care (as documented) at patient's floor/unit and/or counseling patient: Total time spent with greater than 50% in coordination of care (as documented) at patient's floor/unit and/or counseling patient:: 35 - 50 minutes
[2022-03-29 07:52] LABS: Platelet Count 28 K/mcL (140-440)
[2022-03-29] MEDS: MAGNESIUM SULFATE 2 GM/50 ML BAG IV PRN (07:55)
[2022-03-29] MEDS: CHLORHEXIDINE GLUCONATE 1 ML ORAL.SOL SWABMOUTH SCH ×2 (08:13→20:33)
[2022-03-29] MEDS: THIAMINE 100 MG TABLET PO SCH (08:13)
[2022-03-29] MEDS: MULTIVIT,THER IRON,CA,FA & MIN 1 TABLET PO SCH (08:13)
[2022-03-29] MEDS: VENLAFAXINE 75 MG CAP.XL.24H PO SCH (08:13)
[2022-03-29] MEDS: FOLIC ACID 1 MG TABLET PO SCH (08:13)
[2022-03-29] MEDS: FAMOTIDINE/PF 20 MG/2 ML VIAL IV SCH ×2 (08:13→20:31)
[2022-03-29] MEDS: DOCUSATE SODIUM 100 MG CAPSULE PO SCH ×3 (08:13→22:12)
[2022-03-29] MEDS: LACTULOSE 20 GM/30 ML ORAL.SOL PO SCH ×3 (08:13→20:31)
[2022-03-29] MEDS: methylPREDNISolone SOD SUCC 40 MG/ML VIAL IV SCH (08:15)
[2022-03-29] MEDS: NICOTINE 21 MG PATCH TOPICAL SCH (08:28)
[2022-03-29] MEDS: levETIRAcetam 500 MG in 0.9 % SODIUM CHLORIDE 100 ML IV SCH (08:30)
[2022-03-29] MEDS ORDERED: POTASSIUM CHLORIDE 20 MEQ TABLET PO ONE ×2 (12:00→18:00)
--- NOTE | 2022-03-29 12:18 | Internal Med Progress Note ---
SUBJECTIVE Subjective Patient information: Note initiated : 03/29/22 at 12:16 pm Service Date, if different from initiated Date: [] Patient: Anay Ramírez a 51 y/o F admitted on 03/24/22 for Right Hand Swelling. Chief Complaint: [] Interval history: History of present illness: Ms. Ramírez is a 51 year old F Presents the ED with right hand swelling redness and tenderness. She says she hit her hand on a countertop last night and that it has gotten increasingly red swollen and tender since then. Patient has a history of methamphetamine use she says she smokes it and denies IV use. She was here in early February for cellulitis of the left neck and had to some alcohol withdrawal symptoms at that time found to have cirrhosis with sequelae of thrombocytopenia and leukopenia. She says since she was discharged she has not used any methamphetamine but when I pressed her in regards to her use explaining how important was that I know what she used and when, then she finally stated she last used on Sunday. I suspect she is used more recently given her current presentation. She seems a bit agitated and is extremely fidgety. She has bloodshot eyes. Also of note I impressed upon her the need to stop alcohol upon last admission but she says she still using it in the form of beers 2-4 a day but she denies using it every day. She has not followed up with gastroenterology yet given the referral placed for cirrhosis. And has not seen Dr. Jones yet for substance abuse. she has headache and has some nausea but no vomiting. Denies fever chills chest pain stomach pain. Says she has a little bit of diarrhea this morning. In the ED she was tachycardic although she is has baseline tachycardia but it was elevated above baseline. She had a fever 103. Lactate of 5 and elevated CRP. She had AST to ALT ratio of 2:1. Leukopenia but better than last admission. She had a hand and elbow x-rays that show cellulitis of the dorsum of the right hand but no evidence of abscess. Blood cultures obtained. She received 30 mils per cake of IV fluid bolusing for sepsis presentation. Vancomycin ordered in the ED. Severe alcoholic hepatitis as defined by increased hepatitis discriminant function score greater than 32. prednisolone 40mg daily started for 28 days followed by 16-day taper. Severe alcoholic hepatitis as defined by increased hepatitis discriminant function score greater than 32. prednisolone 40mg daily started for 28 days followed by 16-day taper. 03/25 Patient condition worsen increased altered mental status and vitals including tachycardia and fever. Suspected to be in alcohol withdrawal delirium tremens. Increased oxygen needs and tachypnea, suspect aspiration althought pt did receive fluid resuscitation on presentation. Initially concern for likely methamphetamine intoxication. Transferred to ICU on monitor vitals closely. Monitor urine output closely. Follow-up lactates still elevated and secondary to liver failure. Has cough. Required heavy doses of Ativan last night. 4 out of 4 blood culture bottles with gram-positive cocci in chains. Platelets low. Event Note: I was called by the ICU nurse to the patient bedside has appeared that she was not protecting her airway and had increased oxygenation needs. Altered mental state given alcohol withdrawal and required sedation to suppress. ABG with extremely low PaO2. Given the inability to protect airway patient necessitated to endotracheal intubation. 03/26 Patient required Levophed placement last night. Shock either related to sepsis or medications or likely both. Decreased vasopressor need this morning. Will obtain CVP monitoring. Compliance improved today. FiO2 requirement better. Patient still quite agitated and pulling at lines if sedation is weaned and peak pressures increase. Platelets low continue SCDs for DVT prophylaxis. INR 1.7. Lactic acidosis resolved. Phos is low. Transaminitis mildly worsened secondary to the events of yesterday and hypotension. Urine output fluctuating between d/c and poor. Not tachycardic anymore. NG output and hypoactive bowel sounds patient likely ileus. 03/27 Patient did not require any Levophed since yesterday. Patient on weaning events trial this moment. IV diuresis for volume overload. Elevated CVP. Reviewed other labs.. ABG with adequate parameters. Decreasing FiO2 requirement. Increased chloride likely from NS IV fluid, adjust. Hypophosphatemia replete. Tube feedings in place. 03/28 Urine more clear. Patient still edematous. On several liters of oxygen. Patient feels extremely weak. She has headaches occasional fevers some nausea but no vomiting. No bowel movements. Chest x-ray shows some mild clearing. Reviewed labs. 03/29 Patient still extremely weak but able to participate little bit more with physical therapy. Vital signs stable. Good urine output. Hypokalemia. Hypomagnesemia. Liver enzymes slowly and proving. Mentation much better. 5/5 Afebrile overnight, patient is complaining of severe lower back pain this morning, MRI of the lumbar and thoracic spine did not reveal any evidence of discitis osteomyelitis. Continues on penicillin IV for cellulitis complicated by Streptococcus pyogenes bacteremia. Stable pancytopenia. Stable LFTs. Physical exam Head: Atraumatic, normal inspection. Eyes: normal appearance, no scleral icterus. Neck: full ROM Respiratory: no respiratory distress. Cardiovascular: normal rate and rhythm, S1, S2. GI/Abdominal: soft, nontender, no guarding. Extremities: Lower back tenderness, full range of motion Neurological: CN II-XII intact, intact motor, intact sensation. Psychiatric: normal mood. Skin: warm, normal color Constitutional Vitals: Vital Signs Temp Pulse Resp BP Pulse Ox 98.0 F 90 18 98/66 90 03/29/22 10:00 03/27/22 23:21 03/29/22 10:00 03/29/22 10:00 03/29/22 10:00 Period Temp Pulse Resp BP Sys/Villa Pulse Ox Last 24 Hr 96.7 F-99.1 F 17-29 98-130/66-89 89-96 Intake and Output 03/28/22 03/29/22 03/29/22 21:59 05:59 13:59 Intake Total 1236.5 386 267 Output Total 420 1370 460 Balance 816.5 -984 -193 Weight 78.608 kg Intake & Output: Intake & Output 03/28/22 03/29/22 03/29/22 21:59 05:59 13:59 Intake Total 1236.5 386 267 Output Total 420 1370 460 Balance 816.5 -984 -193 Weight 78.608 kg Intake: IV 396.5 116 267 Cleocin 600 mg In Dextrose 5% 108 54 in Water 50 ml @ 100 mls/hr IV Q8H [facility] Rx#:[id number] Pfizerpen 4,000,000 Unit In 116 116 58 Sodium Chloride 0.9% 50 ml @ 100 mls/hr IV Q4H [facility] Rx#: [id number] Keppra 500 mg In Sodium 107.5 105 Chloride 0.9% 100 ml @ 200 mls/ hr IV DAILY [facility] Rx#:[id number] Oral 840 270 Output: Urine Catheter Amount 420 1370 460 Other: Urine Appearance Clear Uretheral ([place]) Clear Clear Clear Urine Color Bright Yellow Uretheral ([place]) Straw Straw Bright Yellow Stool Size Moderate Stool Color Brown Stool Consistency Liquid # of times incontinent of 2 Bowels OBJ DATA Labs CBC & Chem 7: 03/30/22 05:28 03/30/22 05:28 Labs: Abnormal Lab Results 03/29/22 03/29/22 03/28/22 05:35 05:35 05:33 WBC 4.3 L 3.8 L RBC 3.18 L 3.22 L Hgb 10.1 L 10.2 L Hct 29.5 L 30.4 L RDW 15.5 H 16.0 H Plt Count 28 L* 26 L* MPV 12.3 H 11.5 H Lymph # (Auto) 1.48 L PT INR POC pH POC pCO2 POC pO2 POC HCO3 POC Total CO2 POC ABG Base Excess Potassium 2.5 L* Chloride Carbon Dioxide BUN Creatinine 0.5 L Glucose Uric Acid 2.4 L Calcium 7.6 L Phosphorus Magnesium 1.3 L Total Bilirubin 2.2 H Direct Bilirubin 1.4 H GGT 163 H AST 86 H ALT 47 H Alkaline Phosphatase 140 H Lactate Dehydrogenase 352 H Albumin 2.2 L Globulin 4.1 H Albumin/Globulin Ratio 0.5 L Triglycerides Procalcitonin 03/28/22 03/27/22 03/27/22 05:33 10:02 05:28 WBC RBC Hgb Hct RDW Plt Count MPV Lymph # (Auto) PT INR POC pH 7.51 H POC pCO2 25.0 L POC pO2 63 L POC HCO3 19.7 L POC Total CO2 20.0 L POC ABG Base Excess -3.0 L Potassium 3.2 L Chloride 116 H Carbon Dioxide 18 L BUN 25 H Creatinine Glucose 69 L 125 H Uric Acid Calcium 8.0 L 8.5 L Phosphorus 2.4 L 1.5 L Magnesium 1.4 L 2.8 H Total Bilirubin 2.3 H 2.1 H Direct Bilirubin 1.8 H 1.7 H GGT 166 H 149 H AST 106 H 131 H ALT 47 H 46 H Alkaline Phosphatase 134 H 122 H Lactate Dehydrogenase 426 H 441 H Albumin 2.2 L 2.2 L Globulin 4.0 H 3.8 H Albumin/Globulin Ratio 0.6 L 0.6 L Triglycerides 254 H Procalcitonin 03/27/22 03/27/22 03/27/22 05:20 05:20 05:20 WBC 3.3 L RBC 3.11 L Hgb 10.1 L Hct 30.3 L RDW 16.8 H Plt Count 30 L* MPV 10.8 H Lymph # (Auto) 0.88 L PT 17.9 H INR 1.4 H POC pH POC pCO2 POC pO2 POC HCO3 POC Total CO2 POC ABG Base Excess Potassium Chloride Carbon Dioxide BUN Creatinine Glucose Uric Acid Calcium Phosphorus Magnesium Total Bilirubin Direct Bilirubin GGT AST ALT Alkaline Phosphatase Lactate Dehydrogenase Albumin Globulin Albumin/Globulin Ratio Triglycerides Procalcitonin 2.14 H Meds: Medications Acetaminophen (Acetaminophen 325 Mg Tablet) 650 mg PO Q6HP PRN; Protocol PRN Reason: Per Pain Protocol/Fever > 101 Last Admin: 03/29/22 07:21 Dose: 650 mg Documented by: Hydrocodone Bitart/Acetaminophen (Hydrocodone/Apap 5/325mg Tablet) 1 tab PO Q4HP PRN PRN Reason: PAIN LEVEL 3-6 Last Admin: 03/29/22 08:45 Dose: 1 tab Documented by: Albuterol/Ipratropium (Ipratropium/Albuterol 3 Ml Ampul.Neb) 3 ml NEB Q4HP PRN PRN Reason: Shortness Of Breath Last Admin: 03/27/22 11:07 Dose: 3 ml Documented by: Chlordiazepoxide HCl (Chlordiazepoxide 25 Mg Capsule) 50 mg PO Q4HP PRN PRN Reason: Alcohol Withdrawal Chlorhexidine Gluconate (Chlorhexidine Gluconate 1 Ml Oral.Lilia) 15 ml SWABMOUTH BID [facility] Last Admin: 03/29/22 08:13 Dose: 15 ml Documented by: Clonazepam (Clonazepam 0.5 Mg Tablet) 1 mg PO DAILYP PRN PRN Reason: Anxiety Last Admin: 03/24/22 20:36 Dose: 1 mg Documented by: Docusate Sodium (Docusate Sodium 100 Mg Capsule) 100 mg PO BID [facility] Last Admin: 03/29/22 08:32 Dose: Not Given Documented by: Famotidine (Famotidine/Pf 20 Mg/2 Ml Vial) 20 mg IV Q12 [facility] Last Admin: 03/29/22 08:13 Dose: 20 mg Documented by: Fentanyl (Fentanyl 100 Mcg/2 Ml Vial) 25 mcg IV Q1HP PRN; Protocol PRN Reason: Per Pain Protocol Last Admin: 03/27/22 21:05 Dose: 25 mcg Documented by: Folic Acid (Folic Acid 1 Mg Tablet) 1 mg PO DAILY [facility] Last Admin: 03/29/22 08:13 Dose: 1 mg Documented by: Potassium Chloride 40 meq/ (Dextrose) 520 mls @ 130 mls/hr IV UD PRN PRN Reason: Potassium < 3 Last Admin: 03/29/22 07:55 Dose: 130 mls/hr Documented by: Magnesium Sulfate (Magnesium Sulfate) 2 gm in 50 mls @ 50 mls/hr IV UD PRN PRN Reason: Magnesium </= 1.6 Last Infusion: 03/29/22 08:57 Dose: Infused Documented by: Acetaminophen (Ofirmev) 650 mg in 65 mls @ 130 mls/hr IV Q6HP PRN; Protocol PRN Reason: PAIN/FEVER > 101 Last Infusion: 03/28/22 16:37 Dose: Infused Documented by: Levetiracetam 500 mg/ Sodium (Chloride) 105 mls @ 200 mls/hr IV DAILY [facility] Last Infusion: 03/29/22 09:05 Dose: Infused Documented by: Levetiracetam 750 mg/ Sodium (Chloride) 107.5 mls @ 200 mls/hr IV QHS [facility] Last Infusion: 03/28/22 21:32 Dose: Infused Documented by: Penicillin G Potassium 4,000, (000 unit/ Sodium Chloride) 58 mls @ 100 mls/hr IV Q4H [facility]; Protocol Last Admin: 03/29/22 11:52 Dose: 100 mls/hr Documented by: Norepinephrine Bitartrate 8 mg (/ Sodium Chloride) 250 mls @ 18.75 mls/hr IV Q14H PRN; Protocol PRN Reason: TITRATE TO KEEP MAP > 65 Iron Carb/Multivit/Creek/Folic Acid (Multivit,Ther Iron,Ca,Fa & Min 1 Tablet) 1 tab PO DAILY [facility] Last Admin: 03/29/22 08:13 Dose: 1 tab Documented by: Lactulose (Lactulose 20 Gm/30 Ml Oral.Lilia) 10 gm PO TID [facility] Last Admin: 03/29/22 08:13 Dose: 10 gm Documented by: Lorazepam (Lorazepam 2 Mg/Ml Vial) 0.5 mg IV Q2-4HP PRN PRN Reason: ANXIETY/SEDATION Last Admin: 03/28/22 20:55 Dose: 0.5 mg Documented by: Lorazepam (Lorazepam 2 Mg/Ml Vial) 0 mg IV Q4HP PRN; Protocol PRN Reason: Alcohol Withdrawal Last Admin: 03/25/22 12:10 Dose: 2 mg Documented by: Methylprednisolone Sodium Succinate (Methylprednisolone Sod Succ 40 Mg/Ml Vial) 32 mg IV DAILY [facility] Last Admin: 03/29/22 08:15 Dose: 32 mg Documented by: Metoclopramide HCl (Metoclopramide 10 Mg/2 Ml Vial) 10 mg IV Q6HP PRN PRN Reason: Nausea And Vomiting Nicotine (Nicotine 21 Mg Patch) 21 mg TOPICAL DAILY@1000 [facility] Last Admin: 03/29/22 08:28 Dose: 21 mg Documented by: Ziprasidone Hcl 80 (Mg Capsule) 1 dose PO HS [facility] Last Admin: 03/28/22 20:18 Dose: 1 dose Documented by: Ondansetron HCl (Ondansetron 4 Mg/2 Ml Vial) 4 mg IV Q4HP PRN PRN Reason: Nausea And Vomiting Last Admin: 03/28/22 19:11 Dose: 4 mg Documented by: Polyethylene Glycol (Polyethylene Glycol 3350 17 Gm Packet) 17 gm PO DAILYP PRN PRN Reason: Constipation Potassium Chloride (Potassium Chloride 20 Meq Tablet) 40 meq PO UD PRN PRN Reason: Potssium is 3-3.5 Potassium Chloride (Potassium Chloride 20 Meq Tablet) 40 meq PO UD PRN PRN Reason: Potassium < 3 Last Admin: 03/29/22 08:28 Dose: 40 meq Documented by: Potassium Chloride (Potassium Chloride 20 Meq Tablet) 40 meq PO ONCE ONE Stop: 03/29/22 18:01 Senna (Sennosides 1 Tablet) 2 tab PO DAILYP PRN PRN Reason: Constipation Sodium Chloride (0.9 % Sodium Chloride 10 Ml Syringe) 10 ml IV Q8 [facility] Last Admin: 03/29/22 05:37 Dose: 10 ml Documented by: Sodium Chloride (0.9 % Sodium Chloride 10 Ml Syringe) 10 ml IV Q12 [facility] Last Admin: 03/29/22 08:20 Dose: 10 ml Documented by: Sodium Chloride (0.9 % Sodium Chloride 10 Ml Syringe) 10 ml IV Q12 PRN PRN Reason: PRN Last Admin: 05/03/22 05:36 Dose: 10 ml Documented by: Thiamine HCl (Thiamine 100 Mg Tablet) 100 mg PO DAILY [facility] Last Admin: 03/29/22 08:13 Dose: 100 mg Documented by: Venlafaxine HCl (Venlafaxine 75 Mg Cap.Xl.24h) 75 mg PO DAILY [facility] Last Admin: 03/29/22 08:13 Dose: 75 mg Documented by: A/P Narrative A/P Narrative: A: #Resolving severe Sepsis: 2/2 Right hand/wrist cellulitis, improving #Right Hand/Wrist Cellulitis: no abscess noted on xray, improving -No evidence of necrotizing fasciitis on further imaging #Bacteremia(Sterp Pyogenes 02/27 bottles): -echo no vegetations, good EF -f/u BC neg #Resolved shock 2/2 sepsis vs medications, likely both #Resolved alcohol withdrawal #Resolved acute hypoxic hypoxic respiratory failure: 2/2 aspiration or possible volume overload from initial fluid resuscitation, likely both -Mechanical Ventilation management, Intubated 03/25 & Extubated 03/27 #Likely Aspiration PNA: #Volume Overload: 2/2 fluid resuscitation on admit , improving #Cirrhosis, etoh related: based on imaging and labs and etoh history, has not followed up yet with GI #Coagulopathy: 2/2 above #Thrombocytopenia, Acute on chronic /hyperbilirubinemia /hypoalbuminemia: 2/2 above #Leukopenia: 2/2 above, stable -stable #Hepatitis Alcoholic, severe: hepatitis discriminant function score greater than 32 #Anemia, Chronic normocytic: #h/o Schizophrenia & Anxiety: on klonopin #h/o Seizure disorder: on keppra #Tobacco abuse: #h/o substance use disorder with Methamphetamine: denies IV, state she smokes it -suspect recent use given behavior on presentation and UDS (+) for Amphetamine #Electrolyte d/o (hypokalemia/hypomagnesemia/Hyponatremia): replace prn #Ileus: improved #Critical care myopathy: #Critically Ill/guarded prognosis: -OSAGE II =24(03/25)= est mortality 40% Plan: -Wean O2 as able, IS/Acapella, prn nebs, RT -prn IV lasix for volume overload -Penicillin IV for cellulitis and bacteremia due to Streptococcus pyogenes -Will need 14-days of Abx, may consider finishing with oral Abx -CIWA, vitamins/minerals, benzo -Replace electrolytes as needed -prednisolone 40mg daily started for 28 days followed by 16-day taper -cont lactulose -Continue home Keppra, ziprasidone, venlafaxine, hold benztropine for AE profile in current setting -Diet per speech, currently dysphagia level 5 -PT/OT -f/u with GI for cirrhosis -Alcohol/substance use cessation counseling, referral to see Dr. Jones -Referral to hematology for pancytopenia at discharge. -ppx: SCD for thrombocytopenia, may use chemical if plts stable >50k full code Time Spent With Patient Time: Total time spent is greater than 50% in coordination of care (as documented) at patient's floor/unit and/or counseling patient:
[2022-03-29] MEDS: clonazePAM 0.5 MG TABLET PO PRN (14:50)
[2022-03-29] MEDS: levETIRAcetam 750 MG in 0.9 % SODIUM CHLORIDE 100 ML IV SCH (20:30)
[2022-03-29] MEDS: LORazepam 2 MG/ML VIAL IV PRN (22:12)
[2022-03-30] MEDS: PENICILLIN G POTASSIUM 4,000,000 UNIT in 0.9 % SODIUM CHLORIDE 50 ML IV SCH ×7 (00:07→23:41)
[2022-03-30] MEDS: 0.9 % SODIUM CHLORIDE 10 ML SYRINGE IV SCH ×5 (05:24→20:43)
[2022-03-30 07:16] LABS: ALT/SGPT 49 U/L (<40); AST/SGOT 74 U/L (<32); Albumin 2.4 gm/dL (3.2-5.2); Albumin/Globulin Ratio 0.6 (1.0-2.3); Alkaline Phosphatase 167 U/L (39-117); Bilirubin,Direct 1.2 mg/dL (<0.3); Blood Urea Nitrogen 8 mg/dL (6-20); Calcium 8.3 mg/dL (8.6-10.4); Carbon Dioxide 20 mmol/L (22-30); Chloride 106 mmol/L (96-108); Globulin 4.3 gm/dL (2.2-3.7); Glomerular Filtration Rate 122; Glucose 78 mg/dL (70-105); Lactate Dehydrogenase 374 U/L (135-225); Phosphorous 2.6 mg/dL (2.5-4.5); Triglycerides 90 mg/dL (<150); Uric Acid 2.6 mg/dL (2.5-8.0)
[2022-03-30 07:40] LABS: Basophils # (Auto) 0 K/mcL (0.00-0.30); Basophils % (Auto) 0 % (0.0-2.0); Eosinophils # (Auto) 0.05 K/mcL (0.00-0.70); Eosinophils % (Auto) 1.2 % (0.0-7.0); Hematocrit 30.5 % (34.1-44.9); Hemoglobin 10.3 g/dL (11.2-15.7); Lymphocytes # (Auto) 1.74 K/mcL (1.50-4.80); Lymphocytes % (Auto) 41.3 % (15.5-49.0); Mean Cell Volume 96.8 fL (80.0-100.0); Mean Corpuscular HGB Conc 33.8 g/dL (31.0-36.0); Mean Platelet Volume 12.6 fL (7.4-10.4); Monocytes # (Auto) 0.15 K/mcL (0.10-0.90); Monocytes % (Auto) 3.6 % (1.0-12.0); Neutrophils % (Auto) 53.9 % (38.0-78.0); Platelet Count 38 K/mcL (140-440); RBC 3.15 M/mcL (3.59-5.38); Red Cell Distribution Width 16.3 % (11.5-14.5); WBC 4.2 K/mcL (4.5-11.0)
[2022-03-30] MEDS: HYDROcodone/APAP 5/325MG TABLET PO PRN ×3 (07:55→20:43)
[2022-03-30] MEDS: 0.9 % SODIUM CHLORIDE 10 ML SYRINGE IV PRN (08:30)
[2022-03-30] MEDS: levETIRAcetam 500 MG in 0.9 % SODIUM CHLORIDE 100 ML IV SCH (09:15)
[2022-03-30] MEDS: MAGNESIUM SULFATE 2 GM/50 ML BAG IV PRN (09:16)
[2022-03-30] MEDS: THIAMINE 100 MG TABLET PO SCH (09:16)
[2022-03-30] MEDS: FAMOTIDINE/PF 20 MG/2 ML VIAL IV SCH (09:16)
[2022-03-30] MEDS: FOLIC ACID 1 MG TABLET PO SCH (09:16)
[2022-03-30] MEDS: MULTIVIT,THER IRON,CA,FA & MIN 1 TABLET PO SCH (09:16)
[2022-03-30] MEDS: methylPREDNISolone SOD SUCC 40 MG/ML VIAL IV SCH (09:17)
[2022-03-30] MEDS: VENLAFAXINE 75 MG CAP.XL.24H PO SCH (09:17)
[2022-03-30] MEDS: LACTULOSE 20 GM/30 ML ORAL.SOL PO SCH ×3 (09:18→20:39)
[2022-03-30] MEDS: CHLORHEXIDINE GLUCONATE 1 ML ORAL.SOL SWABMOUTH SCH ×2 (09:18→20:36)
[2022-03-30] MEDS: DOCUSATE SODIUM 100 MG CAPSULE PO SCH ×2 (10:39→20:41)
[2022-03-30] MEDS: clonazePAM 0.5 MG TABLET PO PRN (10:53)
[2022-03-30] MEDS: NICOTINE 21 MG PATCH TOPICAL SCH (12:21)
[2022-03-30] MEDS ORDERED: GADOBENATE DIMEGLUMINE 20 ML/VIAL IV ONE (12:23)
--- NOTE | 2022-03-30 12:47 | Magnetic Resonance Report ---
CLINICAL INFORMATION: Back pain. Elevated blood cell count. Than evaluate for osteomyelitis discitis COMPARISON: None. TECHNIQUE: Sagittal T1 FLAIR, T1 FLAIR post Magnevist saturation STIR, fast spin echo T2, axial T2 axial T1 post Magnevist fat saturation weighted images were acquired of the thoracic spine. FINDINGS: The thoracic spine is anatomically aligned and marrow signal is normal. Thoracic cord is normal in contour and caliber without focal signal abnormality. The discs are all well hydrated and show no evidence of extrusion or protrusion. The central canal, lateral recesses and IV foramen are normal width at each level. No soft tissue abnormalities. IMPRESSION: Normal thoracic spine. No evidence of discitis or osteomyelitis. Interpreted and Authenticated by: Lionel Ellington 03/30/22
--- NOTE | 2022-03-30 12:56 | Magnetic Resonance Report ---
CLINICAL INFORMATION: COMPARISON: None. TECHNIQUE: Sagittal T1 FLAIR, STIR, fast spin echo T2, axial T2 weighted images were acquired. FINDINGS: The lumbar spine is normal in curvature and alignment without significant marrow signal abnormality. Conus medullaris ends at T12 homogeneous signal. Cauda equina roots are normal. No soft tissue abnormalities. The T11-T12 through L3-4 disc levels are unremarkable. At L4-5, moderate broad disc protrusion with left-sided asymmetry and bilateral facet arthropathy result in moderate central canal, left lateral recess and bilateral IV foramen narrowing. There is mild impingement of both exiting L4 and descending left L5 nerve roots. Small amount of excess fluid seen within the facet joints. At L5-S1 mild broad disc protrusion with left-sided asymmetry and mild facet arthropathy result in moderate left IV foraminal narrowing. There is mild impingement of the exiting left L5 nerve root.. IMPRESSION: No evidence of discitis/osteomyelitis. L4-5 and L5-S1 degeneration-as described Interpreted and Authenticated by: Lionel Ellington 03/30/22
[2022-03-30] MEDS: levETIRAcetam 500 MG TABLET PO SCH (20:38)
[2022-03-31] MEDS: LORazepam 2 MG/ML VIAL IV PRN ×2 (00:21→16:07)
[2022-03-31] MEDS: 0.9 % SODIUM CHLORIDE 10 ML SYRINGE IV PRN ×3 (00:22→21:17)
[2022-03-31] MEDS: PENICILLIN G POTASSIUM 4,000,000 UNIT in 0.9 % SODIUM CHLORIDE 50 ML IV SCH ×5 (03:48→20:01)
[2022-03-31] MEDS: 0.9 % SODIUM CHLORIDE 10 ML SYRINGE IV SCH ×5 (05:47→21:18)
[2022-03-31 07:03] LABS: ALT/SGPT 49 U/L (<40); AST/SGOT 66 U/L (<32); Albumin 2.2 gm/dL (3.2-5.2); Albumin/Globulin Ratio 0.5 (1.0-2.3); Alkaline Phosphatase 160 U/L (39-117); Bilirubin,Direct 1.1 mg/dL (<0.3); Bilirubin,Total 1.9 mg/dL (0.1-1.0); Blood Urea Nitrogen 6 mg/dL (6-20); Calcium 8.2 mg/dL (8.6-10.4); Carbon Dioxide 21 mmol/L (22-30); Chloride 103 mmol/L (96-108); Globulin 4.7 gm/dL (2.2-3.7); Glomerular Filtration Rate 122; Glucose 104 mg/dL (70-105); Lactate Dehydrogenase 300 U/L (135-225); Phosphorous 3.3 mg/dL (2.5-4.5); Triglycerides 80 mg/dL (<150); Uric Acid 3.1 mg/dL (2.5-8.0)
[2022-03-31] MEDS: MAGNESIUM SULFATE 2 GM/50 ML BAG IV PRN (07:31)
[2022-03-31] MEDS: HYDROcodone/APAP 5/325MG TABLET PO PRN ×2 (08:16→21:15)
[2022-03-31] MEDS: LACTULOSE 20 GM/30 ML ORAL.SOL PO SCH ×3 (09:46→21:12)
[2022-03-31] MEDS: CHLORHEXIDINE GLUCONATE 1 ML ORAL.SOL SWABMOUTH SCH (09:46)
[2022-03-31] MEDS: prednisoLONE 15 MG/5 ML ORAL SOL PO SCH (09:46)
[2022-03-31] MEDS: NICOTINE 21 MG PATCH TOPICAL SCH (09:47)
[2022-03-31] MEDS: VENLAFAXINE 75 MG CAP.XL.24H PO SCH (09:47)
[2022-03-31] MEDS: THIAMINE 100 MG TABLET PO SCH (09:47)
[2022-03-31 09:48] LABS: Basophils # (Auto) 0.01 K/mcL (0.00-0.30); Basophils % (Auto) 0.3 % (0.0-2.0); Eosinophils # (Auto) 0.02 K/mcL (0.00-0.70); Eosinophils % (Auto) 0.5 % (0.0-7.0); Hematocrit 28.3 % (34.1-44.9); Hemoglobin 9.3 g/dL (11.2-15.7); Lymphocytes # (Auto) 1.43 K/mcL (1.50-4.80); Lymphocytes % (Auto) 36.7 % (15.5-49.0); Mean Cell Volume 97.3 fL (80.0-100.0); Mean Corpuscular HGB Conc 32.9 g/dL (31.0-36.0); Mean Platelet Volume 12.1 fL (7.4-10.4); Monocytes # (Auto) 0.19 K/mcL (0.10-0.90); Monocytes % (Auto) 4.9 % (1.0-12.0); Neutrophils % (Auto) 57.6 % (38.0-78.0); Platelet Count 42 K/mcL (140-440); RBC 2.91 M/mcL (3.59-5.38); WBC 3.9 K/mcL (4.5-11.0)
[2022-03-31] MEDS: levETIRAcetam 500 MG TABLET PO SCH ×2 (09:48→21:13)
[2022-03-31] MEDS: FOLIC ACID 1 MG TABLET PO SCH (09:48)
[2022-03-31] MEDS: MULTIVIT,THER IRON,CA,FA & MIN 1 TABLET PO SCH (09:48)
[2022-03-31] MEDS: DOCUSATE SODIUM 100 MG CAPSULE PO SCH ×2 (11:14→21:06)
--- NOTE | 2022-03-31 12:48 | Internal Med Progress Note ---
SUBJECTIVE Subjective Patient information: Note initiated : 03/31/22 at 12:42 pm Service Date, if different from initiated Date: [] Patient: Anay Ramírez a 51 y/o F admitted on 03/24/22 for Right Hand Swelling. Chief Complaint: [] Interval history: History of present illness: Ms. Ramírez is a 51 year old F Presents the ED with right hand swelling redness and tenderness. She says she hit her hand on a countertop last night and that it has gotten increasingly red swollen and tender since then. Patient has a history of methamphetamine use she says she smokes it and denies IV use. She was here in early February for cellulitis of the left neck and had to some alcohol withdrawal symptoms at that time found to have cirrhosis with sequelae of thrombocytopenia and leukopenia. She says since she was discharged she has not used any methamphetamine but when I pressed her in regards to her use explaining how important was that I know what she used and when, then she finally stated she last used on Sunday. I suspect she is used more recently given her current presentation. She seems a bit agitated and is extremely fidgety. She has bloodshot eyes. Also of note I impressed upon her the need to stop alcohol upon last admission but she says she still using it in the form of beers 2-4 a day but she denies using it every day. She has not followed up with gastroenterology yet given the referral placed for cirrhosis. And has not seen Dr. Jones yet for substance abuse. she has headache and has some nausea but no vomiting. Denies fever chills chest pain stomach pain. Says she has a little bit of diarrhea this morning. In the ED she was tachycardic although she is has baseline tachycardia but it was elevated above baseline. She had a fever 103. Lactate of 5 and elevated CRP. She had AST to ALT ratio of 2:1. Leukopenia but better than last admission. She had a hand and elbow x-rays that show cellulitis of the dorsum of the right hand but no evidence of abscess. Blood cultures obtained. She received 30 mils per cake of IV fluid bolusing for sepsis presentation. Vancomycin ordered in the ED. Severe alcoholic hepatitis as defined by increased hepatitis discriminant function score greater than 32. prednisolone 40mg daily started for 28 days followed by 16-day taper. Severe alcoholic hepatitis as defined by increased hepatitis discriminant function score greater than 32. prednisolone 40mg daily started for 28 days followed by 16-day taper. 03/25 Patient condition worsen increased altered mental status and vitals including tachycardia and fever. Suspected to be in alcohol withdrawal delirium tremens. Increased oxygen needs and tachypnea, suspect aspiration althought pt did receive fluid resuscitation on presentation. Initially concern for likely methamphetamine intoxication. Transferred to ICU on monitor vitals closely. Monitor urine output closely. Follow-up lactates still elevated and secondary to liver failure. Has cough. Required heavy doses of Ativan last night. 4 out of 4 blood culture bottles with gram-positive cocci in chains. Platelets low. Event Note: I was called by the ICU nurse to the patient bedside has appeared that she was not protecting her airway and had increased oxygenation needs. Altered mental state given alcohol withdrawal and required sedation to suppress. ABG with extremely low PaO2. Given the inability to protect airway patient necessitated to endotracheal intubation. 03/26 Patient required Levophed placement last night. Shock either related to sepsis or medications or likely both. Decreased vasopressor need this morning. Will obtain CVP monitoring. Compliance improved today. FiO2 requirement better. Patient still quite agitated and pulling at lines if sedation is weaned and peak pressures increase. Platelets low continue SCDs for DVT prophylaxis. INR 1.7. Lactic acidosis resolved. Phos is low. Transaminitis mildly worsened secondary to the events of yesterday and hypotension. Urine output fluctuating between d/c and poor. Not tachycardic anymore. NG output and hypoactive bowel sounds patient likely ileus. 03/27 Patient did not require any Levophed since yesterday. Patient on weaning events trial this moment. IV diuresis for volume overload. Elevated CVP. Reviewed other labs.. ABG with adequate parameters. Decreasing FiO2 requirement. Increased chloride likely from NS IV fluid, adjust. Hypophosphatemia replete. Tube feedings in place. 03/28 Urine more clear. Patient still edematous. On several liters of oxygen. Patient feels extremely weak. She has headaches occasional fevers some nausea but no vomiting. No bowel movements. Chest x-ray shows some mild clearing. Reviewed labs. 03/29 Patient still extremely weak but able to participate little bit more with physical therapy. Vital signs stable. Good urine output. Hypokalemia. Hypomagnesemia. Liver enzymes slowly and proving. Mentation much better. 5/5 Afebrile overnight, patient is complaining of severe lower back pain this morning, MRI of the lumbar and thoracic spine did not reveal any evidence of discitis osteomyelitis. Continues on penicillin IV for cellulitis complicated by Streptococcus pyogenes bacteremia. Stable pancytopenia. Stable LFTs. 5/6 Afebrile overnight, repeat blood cultures have not grown any organisms. Cellulitis of right upper extremity continues to improve, the patient does have edema in her right upper extremity secondary to cellulitis. Morning labs show stable pancytopenia, electrolytes similar to yesterday. The patient is having intermittent confusion and visual hallucinations, likely delirium related to recent critical illness. She complains of bilateral pain in her inner thighs and groin region, examination of the painful areas was fairly unremarkable. Physical exam Head: Atraumatic, normal inspection. Eyes: normal appearance, no scleral icterus. Neck: full ROM Respiratory: no respiratory distress. Cardiovascular: normal rate and rhythm, S1, S2. GI/Abdominal: soft, nontender, no guarding. Extremities: Right upper extremity edema, left shoulder surgical scar. Neurological: CN II-XII intact, intact motor, intact sensation. Psychiatric: normal mood. Skin: Resolving cellulitis of right upper extremity Constitutional Vitals: Vital Signs Temp Pulse Resp BP Pulse Ox 98 F 104 H 20 136/88 96 03/31/22 12:06 03/31/22 12:06 03/31/22 12:06 03/31/22 12:03/31/22 12:06 Period Temp Pulse Resp BP Sys/Villa Pulse Ox Last 24 Hr 97.2 F-98.6 F 85-104 18-20 108-136/65-88 93-97 Intake and Output 03/30/22 03/31/22 03/31/22 21:59 05:59 13:59 Intake Total 735 1054 108 Output Total 2300 1850 1025 Balance -1565 -796 -237 Weight 75.495 kg Intake & Output: Intake & Output 03/30/22 03/31/22 03/31/22 21:59 05:59 13:59 Intake Total 735 1054 108 Output Total 2300 1850 1025 Balance -1565 -796 -917 Weight 75.495 kg Intake: Nourishment/Supplement quantity 100 (ml) IV 58 174 108 Pfizerpen 4,000,000 Unit In 58 174 58 Sodium Chloride 0.9% 50 ml @ 100 mls/hr IV Q4H [facility] Rx#: [id number] Oral 577 880 Output: Void Amount 1600 1850 1025 Urine/Stool Mix 700 Other: Meal Snack Percent of Meal Consumed 25% Feeding Ability Independent Nourishment/Supplement name Magic Cup Urine Appearance Clear Clear Urine Color Bright Yellow Bright Yellow Bright Yellow OBJ DATA Labs CBC & Chem 7: 03/31/22 05:27 03/31/22 05:27 Labs: Abnormal Lab Results 03/31/22 03/31/22 03/30/22 05:27 05:27 05:28 WBC 3.9 L 4.2 L RBC 2.91 L 3.15 L Hgb 9.3 L 10.3 L Hct 28.3 L 30.5 L RDW 16.0 H 16.3 H Plt Count 42 L* 38 L* MPV 12.1 H 12.6 H Lymph # (Auto) 1.43 L Potassium Carbon Dioxide 21 L Creatinine 0.4 L Uric Acid Calcium 8.2 L Magnesium Total Bilirubin 1.9 H Direct Bilirubin 1.1 H GGT 152 H AST 66 H ALT 49 H Alkaline Phosphatase 160 H Lactate Dehydrogenase 300 H Albumin 2.2 L Globulin 4.7 H Albumin/Globulin Ratio 0.5 L 03/30/22 03/29/22 03/29/22 05:28 05:35 05:35 WBC 4.3 L RBC 3.18 L Hgb 10.1 L Hct 29.5 L RDW 15.5 H Plt Count 28 L* MPV 12.3 H Lymph # (Auto) Potassium 2.5 L* Carbon Dioxide 20 L Creatinine 0.4 L 0.5 L Uric Acid 2.4 L Calcium 8.3 L 7.6 L Magnesium 1.3 L Total Bilirubin 2.0 H 2.2 H Direct Bilirubin 1.2 H 1.4 H GGT 159 H 163 H AST 74 H 86 H ALT 49 H 47 H Alkaline Phosphatase 167 H 140 H Lactate Dehydrogenase 374 H 352 H Albumin 2.4 L 2.2 L Globulin 4.3 H 4.1 H Albumin/Globulin Ratio 0.6 L 0.5 L Meds: Medications Acetaminophen (Acetaminophen 325 Mg Tablet) 650 mg PO Q6HP PRN; Protocol PRN Reason: Per Pain Protocol/Fever > 101 Last Admin: 03/29/22 07:21 Dose: 650 mg Documented by: Hydrocodone Bitart/Acetaminophen (Hydrocodone/Apap 5/325mg Tablet) 1 tab PO Q4HP PRN PRN Reason: PAIN LEVEL 3-6 Last Admin: 03/31/22 08:16 Dose: 1 tab Documented by: Albuterol/Ipratropium (Ipratropium/Albuterol 3 Ml Ampul.Neb) 3 ml NEB Q4HP PRN PRN Reason: Shortness Of Breath Last Admin: 03/27/22 11:07 Dose: 3 ml Documented by: Clonazepam (Clonazepam 0.5 Mg Tablet) 1 mg PO DAILYP PRN PRN Reason: Anxiety Last Admin: 03/30/22 10:53 Dose: 1 mg Documented by: Docusate Sodium (Docusate Sodium 100 Mg Capsule) 100 mg PO BID [facility] Last Admin: 03/31/22 11:14 Dose: Not Given Documented by: Folic Acid (Folic Acid 1 Mg Tablet) 1 mg PO DAILY [facility] Last Admin: 03/31/22 09:48 Dose: 1 mg Documented by: Potassium Chloride 40 meq/ (Dextrose) 520 mls @ 130 mls/hr IV UD PRN PRN Reason: Potassium < 3 Last Infusion: 03/29/22 12:00 Dose: Infused Documented by: Magnesium Sulfate (Magnesium Sulfate) 2 gm in 50 mls @ 50 mls/hr IV UD PRN PRN Reason: Magnesium </= 1.6 Last Infusion: 03/31/22 08:31 Dose: Infused Documented by: Acetaminophen (Ofirmev) 650 mg in 65 mls @ 130 mls/hr IV Q6HP PRN; Protocol PRN Reason: PAIN/FEVER > 101 Last Infusion: 03/28/22 16:37 Dose: Infused Documented by: Penicillin G Potassium 4,000, (000 unit/ Sodium Chloride) 58 mls @ 100 mls/hr IV Q4H [facility]; Protocol Last Admin: 03/31/22 12:14 Dose: 100 mls/hr Documented by: Iron Carb/Multivit/Pasteurizer Helper/Folic Acid (Multivit,Ther Iron,Ca,Fa & Min 1 Tablet) 1 tab PO DAILY [facility] Last Admin: 03/31/22 09:48 Dose: 1 tab Documented by: Lactulose (Lactulose 20 Gm/30 Ml Oral.Illia) 10 gm PO TID [facility] Last Admin: 03/31/22 09:46 Dose: 10 gm Documented by: Levetiracetam (Levetiracetam 500 Mg Tablet) 500 mg PO QAM [facility] Last Admin: 03/31/22 09:48 Dose: 500 mg Documented by: Levetiracetam (Levetiracetam 500 Mg Tablet) 750 mg PO [facility] Last Admin: 03/30/22 20:38 Dose: 750 mg Documented by: Lorazepam (Lorazepam 2 Mg/Ml Vial) 0.5 mg IV Q2-4HP PRN PRN Reason: ANXIETY/SEDATION Last Admin: 03/31/22 00:21 Dose: 0.5 mg Documented by: Metoclopramide HCl (Metoclopramide 10 Mg/2 Ml Vial) 10 mg IV Q6HP PRN PRN Reason: Nausea And Vomiting Nicotine (Nicotine 21 Mg Patch) 21 mg TOPICAL DAILY@1000 [facility] Last Admin: 03/31/22 09:47 Dose: 21 mg Documented by: Ziprasidone Hcl 80 (Mg Capsule) 1 dose PO [facility] Last Admin: 03/30/22 20:38 Dose: 1 dose Documented by: Ondansetron HCl (Ondansetron 4 Mg/2 Ml Vial) 4 mg IV Q4HP PRN PRN Reason: Nausea And Vomiting Last Admin: 03/28/22 19:11 Dose: 4 mg Documented by: Polyethylene Glycol (Polyethylene Glycol 3350 17 Gm Packet) 17 gm PO DAILYP PRN PRN Reason: Constipation Potassium Chloride (Potassium Chloride 20 Meq Tablet) 40 meq PO UD PRN PRN Reason: Potssium is 3-3.5 Last Admin: 03/31/22 08:16 Dose: 40 meq Documented by: Potassium Chloride (Potassium Chloride 20 Meq Tablet) 40 meq PO UD PRN PRN Reason: Potassium < 3 Last Admin: 03/29/22 08:28 Dose: 40 meq Documented by: Prednisone (Prednisolone 15 Mg/5 Ml Oral Lilia) 40 mg PO DAILY [facility] Last Admin: 03/31/22 09:46 Dose: 40 mg Documented by: Senna (Sennosides 1 Tablet) 2 tab PO DAILYP PRN PRN Reason: Constipation Sodium Chloride (0.9 % Sodium Chloride 10 Ml Syringe) 10 ml IV Q8 [facility] Last Admin: 05/06/22 05:47 Dose: 10 ml Documented by: Sodium Chloride (0.9 % Sodium Chloride 10 Ml Syringe) 10 ml IV Q12 [facility] Last Admin: 03/31/22 08:30 Dose: 10 ml Documented by: Sodium Chloride (0.9 % Sodium Chloride 10 Ml Syringe) 10 ml IV Q12 PRN PRN Reason: PRN Last Admin: 03/31/22 00:22 Dose: 10 ml Documented by: Thiamine HCl (Thiamine 100 Mg Tablet) 100 mg PO DAILY [facility] Last Admin: 03/31/22 09:47 Dose: 100 mg Documented by: Venlafaxine HCl (Venlafaxine 75 Mg Cap.Xl.24h) 75 mg PO DAILY [facility] Last Admin: 03/31/22 09:47 Dose: 75 mg Documented by: A/P Narrative A/P Narrative: A: #Resolved severe Sepsis: 2/2 Right hand/wrist cellulitis, improving #Right Hand/Wrist Cellulitis: improving -No evidence of necrotizing fasciitis on further imaging #Streptococcus pyogenous bacteremia -echo no vegetations, good EF -f/u BC neg #Encephalopathy/delirium likely secondary to recent critical illness #Resolved shock 2/2 sepsis vs medications, likely both #Resolved alcohol withdrawal #Resolved acute hypoxic hypoxic respiratory failure: 2/2 aspiration or possible volume overload from initial fluid resuscitation, likely both -Mechanical Ventilation management, Intubated 03/25 & Extubated 03/27 #Likely Aspiration PNA: Completed treatment #Cirrhosis, etoh related: based on imaging and labs and etoh history, has not followed up yet with GI #Coagulopathy: 2/2 above #Thrombocytopenia, Acute on chronic /hyperbilirubinemia /hypoalbuminemia: 2/2 above #Leukopenia: 2/2 above, stable -stable #Hepatitis Alcoholic, severe: hepatitis discriminant function score greater than 32 #Anemia, Chronic normocytic: #h/o Schizophrenia & Anxiety: on klonopin #h/o Seizure disorder: on keppra #Tobacco abuse: #h/o substance use disorder with Methamphetamine: denies IV, state she smokes it -suspect recent use given behavior on presentation and UDS (+) for Amphetamine Plan: -Penicillin IV for cellulitis and bacteremia due to Streptococcus pyogenes -Will need 14-days of Abx, may consider finishing with oral Abx -Replace electrolytes as needed -prednisolone 40mg daily for 28 days followed by 16-day taper -cont lactulose -Continue [place] Thompsonrasidone, venlafaxine, hold benztropine for AE profile in current setting -Diet per speech, currently dysphagia level 5 -PT/OT -f/u with GI for cirrhosis -Alcohol/substance use cessation counseling, referral to see Dr. Jones -Referral to hematology for pancytopenia at discharge. -ppx: SCD for thrombocytopenia, may use chemical if plts stable >50k full code Time Spent With Patient Time: Total time spent is greater than 50% in coordination of care (as documented) at patient's floor/unit and/or counseling patient:
[2022-04-01] MEDS: PENICILLIN G POTASSIUM 4,000,000 UNIT in 0.9 % SODIUM CHLORIDE 50 ML IV SCH ×7 (00:05→23:25)
[2022-04-01] MEDS: 0.9 % SODIUM CHLORIDE 10 ML SYRINGE IV SCH ×5 (04:04→22:15)
--- NOTE | 2022-04-01 04:18 | Ultrasound Report ---
CLINICAL INFORMATION: Vaginal pain COMPARISON: None. FINDINGS: The uterus is surgically absent. Right ovary is normal: 2.4 x 1.9 cm. Left ovary slightly atrophic 1.7 x 1.1 cm. It contains a 1 cm simple cyst. Small amount of free fluid noted. Urinary bladder unremarkable. IMPRESSION: Hysterectomy changes. 1.1 cm simple cyst left ovary Small amount of free fluid in the true pelvis Interpreted and Authenticated by: Lionel Ellington 04/01/22
[2022-04-01 06:19] LABS: Basophils # (Auto) 0.01 K/mcL (0.00-0.30); Basophils % (Auto) 0.3 % (0.0-2.0); Eosinophils # (Auto) 0.02 K/mcL (0.00-0.70); Eosinophils % (Auto) 0.5 % (0.0-7.0); Hemoglobin 9.4 g/dL (11.2-15.7); Lymphocytes # (Auto) 1.22 K/mcL (1.50-4.80); Lymphocytes % (Auto) 30.9 % (15.5-49.0); Mean Corpuscular HGB Conc 32.4 g/dL (31.0-36.0); Mean Platelet Volume 11.5 fL (7.4-10.4); Monocytes % (Auto) 5.1 % (1.0-12.0); Neutrophils % (Auto) 63.2 % (38.0-78.0); Platelet Count 56 K/mcL (140-440); RBC 2.93 M/mcL (3.59-5.38); Red Cell Distribution Width 16.1 % (11.5-14.5)
[2022-04-01 06:33] LABS: ALT/SGPT 57 U/L (<40); AST/SGOT 76 U/L (<32); Albumin 2.4 gm/dL (3.2-5.2); Albumin/Globulin Ratio 0.5 (1.0-2.3); Alkaline Phosphatase 185 U/L (39-117); Bilirubin,Direct 0.9 mg/dL (<0.3); Bilirubin,Total 1.7 mg/dL (0.1-1.0); Blood Urea Nitrogen 6 mg/dL (6-20); Calcium 8.5 mg/dL (8.6-10.4); Carbon Dioxide 22 mmol/L (22-30); Chloride 103 mmol/L (96-108); Globulin 5.1 gm/dL (2.2-3.7); Glomerular Filtration Rate 122; Glucose 95 mg/dL (70-105); Lactate Dehydrogenase 274 U/L (135-225); Phosphorous 3.7 mg/dL (2.5-4.5); Triglycerides 68 mg/dL (<150); Uric Acid 3.1 mg/dL (2.5-8.0)
[2022-04-01] MEDS: HYDROcodone/APAP 5/325MG TABLET PO PRN ×3 (09:20→21:23)
[2022-04-01] MEDS: prednisoLONE 15 MG/5 ML ORAL SOL PO SCH (09:21)
[2022-04-01] MEDS: LACTULOSE 20 GM/30 ML ORAL.SOL PO SCH ×3 (09:21→20:19)
[2022-04-01] MEDS: THIAMINE 100 MG TABLET PO SCH (09:21)
[2022-04-01] MEDS: FOLIC ACID 1 MG TABLET PO SCH (09:21)
[2022-04-01] MEDS: levETIRAcetam 500 MG TABLET PO SCH ×2 (09:21→20:19)
[2022-04-01] MEDS: VENLAFAXINE 75 MG CAP.XL.24H PO SCH (09:21)
[2022-04-01] MEDS: MULTIVIT,THER IRON,CA,FA & MIN 1 TABLET PO SCH (09:21)
[2022-04-01] MEDS: NICOTINE 21 MG PATCH TOPICAL SCH (09:23)
[2022-04-01] MEDS: DOCUSATE SODIUM 100 MG CAPSULE PO SCH ×2 (09:51→20:20)
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
[2022-04-01] MEDS: LORazepam 2 MG/ML VIAL IV PRN ×2 (12:16→20:20)
[2022-04-01] MEDS ORDERED: IOPAMIDOL 100 ML BOTTLE IV ONE (14:05)
--- NOTE | 2022-04-01 14:55 | Cat Scan Report ---
CLINICAL INFORMATION: Pelvic pain COMPARISON: None. TECHNIQUE: 0.625 mm helical slices were obtained from the mid L4 through the subtrochanteric regions. Following reconstruction, 2.5 mm sagittal, coronal and axial reformations were processed. The exam was reviewed in bone and soft tissue windows. The exam was performed using radiation dose optimization techniques including, but not limited to, automated exposure control, adjustment of mA and/or kV according to patient size and use of iterative reconstruction technique. FINDINGS: Bone windows show a nondisplaced vertically oriented fracture through the lateral left sacral ala with patchy sclerosis in the adjacent trabeculae. Findings compatible with a osteoporotic insufficiency fracture. No other osseous abnormalities. The SI joints are normal with alignment without arthritic change. Visualized small and large bowel are normal. Urinary bladder is unremarkable. Hysterectomy changes noted. The left ovary is normal 2.2 x 9 cm it contains a 8 mm follicle. Right ovary is not visualized and may be surgically absent or atrophic. There is no free air, free fluid no adenopathy. The inferior portion of the spleen is included on the spleen is moderately enlarged estimated be 15 cm in vertical dimension. Perisplenic varices are evident. The visualized kidneys are grossly normal in size. There is a 4 mm nonobstructing stone in the inferior calyx of the left kidney. A 2.2 cm cyst or fluid collection is seen in the left inguinal region IMPRESSION: 1. Nondisplaced vertically oriented fracture the lateral left sacral ala. In women of this age age, these typically represent osteoporotic insufficiency fractures usually treated nonsurgically. Suggest DEXA scan for formal bone mineral density measurement. The patient may benefit from medical therapy for future fracture prevention. 2. 2.2 cm cyst or fluid collection left inguinal region. This is likely insignificant unless there is pain in this region. 3. Moderate splenomegaly-stable 4. 4 mm nonobstructing stone inferior calyx left kidney. Interpreted and Authenticated by: Lionel Ellington 04/01/22
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
[2022-04-01] MEDS ORDERED: ZIPRASIDONE 80MG PO SCH (17:00)
[2022-04-01] MEDS ORDERED: MELATONIN 3 MG TABLET PO PRN (17:29)
[2022-04-02] MEDS: PENICILLIN G POTASSIUM 4,000,000 UNIT in 0.9 % SODIUM CHLORIDE 50 ML IV SCH ×6 (03:51→23:44)
[2022-04-02] MEDS: HYDROcodone/APAP 5/325MG TABLET PO PRN (04:52)
[2022-04-02] MEDS: 0.9 % SODIUM CHLORIDE 10 ML SYRINGE IV SCH ×4 (04:54→20:01)
[2022-04-02 07:58] LABS: Basophils # (Auto) 0.01 K/mcL (0.00-0.30); Basophils % (Auto) 0.2 % (0.0-2.0); Eosinophils # (Auto) 0.01 K/mcL (0.00-0.70); Eosinophils % (Auto) 0.2 % (0.0-7.0); Hematocrit 30.1 % (34.1-44.9); Hemoglobin 9.8 g/dL (11.2-15.7); Lymphocytes # (Auto) 1.08 K/mcL (1.50-4.80); Lymphocytes % (Auto) 25.4 % (15.5-49.0); Mean Corpuscular HGB Conc 32.6 g/dL (31.0-36.0); Mean Platelet Volume 11.5 fL (7.4-10.4); Monocytes # (Auto) 0.26 K/mcL (0.10-0.90); Monocytes % (Auto) 6.1 % (1.0-12.0); Neutrophils % (Auto) 68.1 % (38.0-78.0); Platelet Count 66 K/mcL (140-440); RBC 2.98 M/mcL (3.59-5.38); WBC 4.3 K/mcL (4.5-11.0)
[2022-04-02 08:12] LABS: ALT/SGPT 81 U/L (<40); AST/SGOT 96 U/L (<32); Albumin 2.7 gm/dL (3.2-5.2); Albumin/Globulin Ratio 0.6 (1.0-2.3); Alkaline Phosphatase 197 U/L (39-117); Bilirubin,Total 1.8 mg/dL (0.1-1.0); Blood Urea Nitrogen 6 mg/dL (6-20); Calcium 8.4 mg/dL (8.6-10.4); Carbon Dioxide 20 mmol/L (22-30); Chloride 102 mmol/L (96-108); Globulin 4.9 gm/dL (2.2-3.7); Glomerular Filtration Rate 122; Glucose 136 mg/dL (70-105); Lactate Dehydrogenase 279 U/L (135-225); Phosphorous 3.3 mg/dL (2.5-4.5); Triglycerides 60 mg/dL (<150); Uric Acid 3.1 mg/dL (2.5-8.0)
[2022-04-02] MEDS: MULTIVIT,THER IRON,CA,FA & MIN 1 TABLET PO SCH (08:44)
[2022-04-02] MEDS: LACTULOSE 20 GM/30 ML ORAL.SOL PO SCH ×3 (08:44→20:00)
[2022-04-02] MEDS: DOCUSATE SODIUM 100 MG CAPSULE PO SCH ×2 (08:44→20:00)
[2022-04-02] MEDS: levETIRAcetam 500 MG TABLET PO SCH ×2 (08:44→20:00)
[2022-04-02] MEDS: FOLIC ACID 1 MG TABLET PO SCH (08:44)
[2022-04-02] MEDS: VENLAFAXINE 150 MG CAP.XL.24H PO SCH (08:44)
[2022-04-02] MEDS: THIAMINE 100 MG TABLET PO SCH (08:44)
[2022-04-02] MEDS: oxyCODONE HCL 5 MG TABLET PO PRN ×3 (08:54→23:42)
[2022-04-02] MEDS: prednisoLONE 15 MG/5 ML ORAL SOL PO SCH (08:58)
[2022-04-02] MEDS: NICOTINE 21 MG PATCH TOPICAL SCH (11:03)
[2022-04-02] MEDS: ACETAMINOPHEN 325 MG TABLET PO PRN (12:49)
[2022-04-02] MEDS: LORazepam 1 MG TABLET PO PRN ×2 (14:51→20:03)
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
[2022-04-03] MEDS: ACETAMINOPHEN 325 MG TABLET PO PRN (04:01)
[2022-04-03] MEDS: PENICILLIN G POTASSIUM 4,000,000 UNIT in 0.9 % SODIUM CHLORIDE 50 ML IV SCH ×3 (04:03→13:46)
[2022-04-03] MEDS: 0.9 % SODIUM CHLORIDE 10 ML SYRINGE IV SCH ×2 (04:03→13:47)
[2022-04-03] MEDS: oxyCODONE HCL 5 MG TABLET PO PRN ×3 (04:43→15:19)
[2022-04-03 07:17] LABS: ALT/SGPT 73 U/L (<40); AST/SGOT 69 U/L (<32); Albumin 2.7 gm/dL (3.2-5.2); Albumin/Globulin Ratio 0.6 (1.0-2.3); Alkaline Phosphatase 199 U/L (39-117); Bilirubin,Direct 0.7 mg/dL (<0.3); Bilirubin,Total 1.2 mg/dL (0.1-1.0); Blood Urea Nitrogen 5 mg/dL (6-20); Calcium 8.2 mg/dL (8.6-10.4); Carbon Dioxide 21 mmol/L (22-30); Chloride 99 mmol/L (96-108); Globulin 4.4 gm/dL (2.2-3.7); Glomerular Filtration Rate 122; Glucose 108 mg/dL (70-105); Lactate Dehydrogenase 233 U/L (135-225); Phosphorous 3.2 mg/dL (2.5-4.5); Triglycerides 49 mg/dL (<150); Uric Acid 2.9 mg/dL (2.5-8.0)
[2022-04-03 07:18] LABS: Basophils # (Auto) 0.01 K/mcL (0.00-0.30); Basophils % (Auto) 0.3 % (0.0-2.0); Eosinophils # (Auto) 0.01 K/mcL (0.00-0.70); Eosinophils % (Auto) 0.3 % (0.0-7.0); Hematocrit 28.1 % (34.1-44.9); Hemoglobin 8.8 g/dL (11.2-15.7); Lymphocytes # (Auto) 1.03 K/mcL (1.50-4.80); Lymphocytes % (Auto) 26.6 % (15.5-49.0); Mean Cell Volume 102.6 fL (80.0-100.0); Mean Corpuscular HGB Conc 31.3 g/dL (31.0-36.0); Mean Platelet Volume 10.8 fL (7.4-10.4); Monocytes # (Auto) 0.32 K/mcL (0.10-0.90); Monocytes % (Auto) 8.3 % (1.0-12.0); Neutrophils % (Auto) 64.5 % (38.0-78.0); Platelet Count 76 K/mcL (140-440); RBC 2.74 M/mcL (3.59-5.38); Red Cell Distribution Width 15.9 % (11.5-14.5); WBC 3.9 K/mcL (4.5-11.0)
[2022-04-03] MEDS: MULTIVIT,THER IRON,CA,FA & MIN 1 TABLET PO SCH (09:19)
[2022-04-03] MEDS: levETIRAcetam 500 MG TABLET PO SCH (09:19)
[2022-04-03] MEDS: prednisoLONE 15 MG/5 ML ORAL SOL PO SCH (09:19)
[2022-04-03] MEDS: DOCUSATE SODIUM 100 MG CAPSULE PO SCH (09:19)
[2022-04-03] MEDS: THIAMINE 100 MG TABLET PO SCH (09:19)
[2022-04-03] MEDS: VENLAFAXINE 150 MG CAP.XL.24H PO SCH (09:19)
[2022-04-03] MEDS: FOLIC ACID 1 MG TABLET PO SCH (09:19)
[2022-04-03] MEDS: LACTULOSE 20 GM/30 ML ORAL.SOL PO SCH ×2 (09:19→15:19)
[2022-04-03] MEDS: NICOTINE 21 MG PATCH TOPICAL SCH (09:22)
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
[2022-04-03] MEDS: LORazepam 1 MG TABLET PO PRN (13:46)
== END 2022-04-03 15:40 | disposition home health service (06) | DRG 871 ==
LOC: ED 10:03 → ICU 15:49 → MEDSUR 04-01 17:48
PROVIDERS: ADMIT Internal Medicine; ATTEND Internal Medicine

== ENCOUNTER 2022-04-12 17:40 | Inpatient (IN) ==
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
[2022-04-12] MEDS ORDERED: 0.9 % SODIUM CHLORIDE 1,000 ML IV ONE ×3 (17:56→19:11)
[2022-04-12 18:06] LABS: POC Calcium, Ionized 1.16 (1.16-1.32); POC Creatinine 0.6 (0.6-1.2); POC Potassium 3.2 (3.3-5.1)
--- NOTE | 2022-04-12 18:18 | XRay Report ---
CLINICAL INFORMATION: Hypoxia COMPARISON: None. TECHNIQUE: PA and Lateral views FINDINGS: The heart size, mediastinum and pulmonary vessels are normal for technique. Mild bibasilar airspace disease is improved from the previous exam likely representing residual infiltrate or atelectasis. There are no effusions. Other free air is noted under the right diaphragm-suspect recent abdominal surgery. There are no effusions. The bones and soft tissues are within normal limits. IMPRESSION: Mild bibasilar airspace disease likely residual infiltrate Or free air under the right diaphragm. Suspect recent abdominal surgery. Interpreted and Authenticated by: Lionel Ellington 04/12/22
[2022-04-12] MEDS ORDERED: diphenhydrAMINE 50 MG/ML VIAL IV ONE ×2 (18:21→22:47)
[2022-04-12] MEDS ORDERED: LORazepam 2 MG/ML VIAL IV ONE ×2 (18:22→22:47)
[2022-04-12] MEDS ORDERED: 0.9 % SODIUM CHLORIDE 1,710 ML IV ONE (18:28)
[2022-04-12] MEDS ORDERED: PIPERACILLIN SODIUM/TAZOBACTAM 3.375 GM in DEXTROSE 5% IN WATER 50 ML IV ONE (18:30)
[2022-04-12] MEDS ORDERED: VANCOMYCIN 1,000 MG in 0.9 % SODIUM CHLORIDE 250 ML IV ONE (18:30)
[2022-04-12 18:51] LABS: Basophils # (Auto) 0.02 K/mcL (0.00-0.30); Basophils % (Auto) 0.3 % (0.0-2.0); Eosinophils # (Auto) 0.02 K/mcL (0.00-0.70); Eosinophils % (Auto) 0.3 % (0.0-7.0); Hematocrit 37.4 % (34.1-44.9); Hemoglobin 12.4 g/dL (11.2-15.7); Lymphocytes # (Auto) 0.85 K/mcL (1.50-4.80); Lymphocytes % (Auto) 11.3 % (15.5-49.0); Mean Corpuscular HGB Conc 33.2 g/dL (31.0-36.0); Mean Platelet Volume 9.3 fL (7.4-10.4); Monocytes # (Auto) 0.17 K/mcL (0.10-0.90); Monocytes % (Auto) 2.3 % (1.0-12.0); Neutrophils % (Auto) 85.8 % (38.0-78.0); Platelet Count 113 K/mcL (140-440); RBC 3.74 M/mcL (3.59-5.38); WBC 7.5 K/mcL (4.5-11.0)
[2022-04-12 19:12] LABS: ALT/SGPT 64 U/L (<40); AST/SGOT 58 U/L (<32); Albumin 3.4 gm/dL (3.2-5.2); Albumin/Globulin Ratio 0.7 (1.0-2.3); Alkaline Phosphatase 184 U/L (39-117); Blood Urea Nitrogen 8 mg/dL (6-20); Calcium 8.9 mg/dL (8.6-10.4); Carbon Dioxide 17 mmol/L (22-30); Chloride 103 mmol/L (96-108); Globulin 5.2 gm/dL (2.2-3.7); Glomerular Filtration Rate 101; Glucose 138 mg/dL (70-105)
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
[2022-04-12 20:44] LABS: Amphetamine Screen,Urine Suspect positive; Barbiturate Screen,Urine Suspect positive; Benzodiazepines Screen,Urine None detected; Cannabinoid Screen,Urine None detected; Cocaine Screen,Urine None detected; Opiate Screen,Urine None detected; Oxycodone, Urine Screen None detected; Phencyclidine Screen,Urine None detected
[2022-04-12 20:44] LABS: Alcohol, Blood < 10.0 mg/dL; Alcohol,Blood < 0.010 gm/dL (<0.010)
[2022-04-12 20:54] LABS: C-Reactive Protein 2.2 mg/dL (0.03-0.80)
[2022-04-12 21:00] LABS: INR 1.3 (0.9-1.1); Prothrombin Time 16.5 sec (11.9-14.5)
[2022-04-12 21:25] LABS: Anisocytosis 1+ (None Seen); Band Neutrophils % 14 % (0-10); Eosinophils % (Manual) 1 % (0-7); Lymphocytes % 7 % (15-49); Macrocytosis 1+ (None Seen); Monocytes % (Manual) 1 % (1-12); Platelet Estimate DECREASED (Normal); RBC Morphology ABNORMAL (Normal); Segmented Neutrophils % 77 % (38-78)
[2022-04-13] MEDS ORDERED: POTASSIUM CHLORIDE 40 MEQ in DEXTROSE 5% IN WATER 500 ML IV PRN (00:22)
[2022-04-13] MEDS ORDERED: IPRATROPIUM/ALBUTEROL 3 ML AMPUL.NEB NEB PRN (00:22)
[2022-04-13] MEDS ORDERED: LACTULOSE 20 GM/30 ML ORAL.SOL PO PRN (00:22)
[2022-04-13] MEDS ORDERED: ONDANSETRON 4 MG/2 ML VIAL IV PRN (00:22)
[2022-04-13] MEDS ORDERED: MAGNESIUM SULFATE 2 GM/50 ML BAG IV ONE ×2 (00:22→01:39)
[2022-04-13] MEDS ORDERED: METOCLOPRAMIDE 10 MG/2 ML VIAL IV PRN (00:22)
[2022-04-13] MEDS ORDERED: HALOPERIDOL LACTATE 5 MG/ML VIAL IM PRN (00:22)
[2022-04-13] MEDS ORDERED: POTASSIUM CHLORIDE 20 MEQ TABLET PO PRN (00:22)
[2022-04-13] MEDS ORDERED: MAGNESIUM SULFATE 2 GM/50 ML BAG IV PRN (00:22)
[2022-04-13] MEDS ORDERED: VANCOMYCIN PER PHARMACY IV ONE (00:22)
[2022-04-13] MEDS ORDERED: HALOPERIDOL LACTATE 5 MG/ML VIAL ONE (00:35)
[2022-04-13] MEDS ORDERED: LORazepam 2 MG/ML VIAL ONE ×2 (00:56→03:38)
[2022-04-13] MEDS: LORazepam 2 MG/ML VIAL IV PRN ×5 (01:00→17:47)
[2022-04-13] MEDS: FAMOTIDINE 20 MG TABLET PO SCH ×3 (01:28→21:38)
[2022-04-13] MEDS ORDERED: cefTRIAXone 2 GM VIAL ONE (02:10)
[2022-04-13] MEDS ORDERED: CLINDAMYCIN 600 MG/4 ML VIAL ONE (02:10)
[2022-04-13] MEDS: cefTRIAXone 2 GM in DEXTROSE 5% IN WATER 50 ML IV SCH ×2 (02:20→16:54)
[2022-04-13] MEDS: 0.9 % SODIUM CHLORIDE 10 ML SYRINGE IV SCH ×8 (02:48→21:40)
[2022-04-13] MEDS: CLINDAMYCIN 600 MG in DEXTROSE 5% IN WATER 50 ML IV SCH ×3 (02:58→21:39)
[2022-04-13] MEDS: THIAMINE 100 MG in 0.9 % SODIUM CHLORIDE 50 ML IV SCH ×2 (04:48→13:02)
[2022-04-13 07:29] LABS: Basophils # (Auto) 0 K/mcL (0.00-0.30); Basophils % (Auto) 0 % (0.0-2.0); Eosinophils # (Auto) 0.02 K/mcL (0.00-0.70); Eosinophils % (Auto) 0.8 % (0.0-7.0); Hematocrit 27.4 % (34.1-44.9); Hemoglobin 9.1 g/dL (11.2-15.7); Lymphocytes # (Auto) 0.98 K/mcL (1.50-4.80); Lymphocytes % (Auto) 39.5 % (15.5-49.0); Mean Corpuscular HGB Conc 33.2 g/dL (31.0-36.0); Mean Platelet Volume 9.7 fL (7.4-10.4); Monocytes # (Auto) 0.18 K/mcL (0.10-0.90); Monocytes % (Auto) 7.3 % (1.0-12.0); Neutrophils % (Auto) 52.4 % (38.0-78.0); Platelet Count 54 K/mcL (140-440); RBC 2.74 M/mcL (3.59-5.38); Red Cell Distribution Width 15.6 % (11.5-14.5); WBC 2.5 K/mcL (4.5-11.0)
[2022-04-13 07:41] LABS: ALT/SGPT 41 U/L (<40); AST/SGOT 35 U/L (<32); Albumin 2.4 gm/dL (3.2-5.2); Albumin/Globulin Ratio 0.7 (1.0-2.3); Alkaline Phosphatase 119 U/L (39-117); Bilirubin,Direct 0.6 mg/dL (<0.3); Bilirubin,Total 1.1 mg/dL (0.1-1.0); Blood Urea Nitrogen 8 mg/dL (6-20); Carbon Dioxide 22 mmol/L (22-30); Chloride 107 mmol/L (96-108); Globulin 3.6 gm/dL (2.2-3.7); Glomerular Filtration Rate 122; Glucose 79 mg/dL (70-105); Lactate Dehydrogenase 278 U/L (135-225); Triglycerides 41 mg/dL (<150); Uric Acid 4.3 mg/dL (2.5-8.0)
--- NOTE | 2022-04-13 08:04 | Internal Med Progress Note ---
SUBJECTIVE Subjective Patient information: Note initiated : 04/13/22 at 7:59 am Service Date, if different from initiated Date: [] Patient: Anay Ramírez a 51 y/o F admitted on 04/12/22 for anxiety,shaking, tearful. Chief Complaint: [] Interval history: History of present illness: Ms. Ramírez is a 51 year old F Presents to the ED because she was having panic attacks she had chest pressure shortness of breath. In her her right hand was hurting and swollen in the back. Patient has been admitted twice since the beginning of February both for cellulitis and positive for methamphetamine use and then alcohol withdrawal. Patient denied methamphetamine use both admits but eventually during admits admitted to methamphetamine use. She first had neck cellulitis in the next admission right hand cellulitis where she went through severe alcohol withdrawal requiring intubation. Her first admission she was admitted for a week. Second admission she was admitted for 7 days. During that time she also had a telepsych consult. Refused to go to SNF and went home with her daughter. Today in the ED she was evaluated and found to be tachycardic hypertensive tachypneic. She was had a metabolic acidosis and mild hyperkalemia. Very mild transaminitis. And most notably a lactate of 3.8. Cultures were obtained and antibiotics given. Lactate elevation likely secondary to methamphetamine intoxication. However she likely has a developing right hand cellulitis. She is admitted to last using methamphetamine today and alcohol as well. Says she wants to get better and does not want her family to have to see your deteriorate and . She seemed more willing for help at this time. She asked me why would you want to help me. She does have headaches fevers chills nausea but no vomiting. She did complain of some chest pressure and shortness of breath during her panic attack. 04/13 Patient complains of headache some nausea fevers. Required several IV doses of Ativan last night. Leukopenia noted again and thrombocytopenia. Hypokalemia. Elevated procalcitonin. Replete electrolytes. Right third toe concern for osteoget imaging and follow-up the abnormal abdominal x-ray. Review of Systems: denies headache/fever/chills/nausea/vomiting/chest or abdominal pain/cough/dyspnea/diarrhea. Otherwise see above. Constitutional Vitals: Vital Signs Temp Pulse Resp BP Pulse Ox 97.6 F 83 21 110/60 96 04/13/22 07:17 04/13/22 07:17 04/13/22 07:17 04/13/22 07:17 04/13/22 07:17 Period Temp Pulse Resp BP Sys/Villa Pulse Ox Last 24 Hr 97.3 F-98.9 F 78-134 13-39 102-183/60-111 93-99 Intake and Output 04/12/22 04/13/22 04/13/22 21:59 05:59 13:59 Intake Total 1300 1151 54 Output Total 0 Balance 1300 1151 54 Weight 80.286 kg 73.482 kg Intake & Output: Intake & Output 04/12/22 04/13/22 04/13/22 21:59 05:59 13:59 Intake Total 1300 1151 54 Output Total 0 Balance 1300 1151 54 Weight 80.286 kg 73.482 kg Intake: IV 1300 1151 54 Sodium Chloride 0.9% 1,000 ml @ 1000 1000 Wide Open IV BOLUS ONE Rx#: [id number] Cleocin 600 mg In Dextrose 5% 54 in Water 50 ml @ 100 mls/hr IV Q8H [facility] Rx#:[id number] Zosyn 3.375 gm In Dextrose 5% 50 in Water 50 ml @ 100 mls/hr IV ONCE ONE Rx#:[id number] Vitamin B1 100 mg In Sodium 51 Chloride 0.9% 50 ml @ 50 mls/hr IV DAILY [facility] Rx#:[id number] Vancomycin 1,000 mg In Sodium 250 Chloride 0.9% 250 ml @ 250 mls/ hr IV ONCE ONE Rx#:[id number] Rocephin 2 gm In Dextrose 5% in 50 Water 50 ml @ 100 mls/hr IV Q24H [facility] Rx#:[id number] Oral 0 Output: Void Amount 0 # of times incontinent of urine 0 Exam: General: Awake, mild distress/agitation Eyes/N/T: EOMI, Head/Neck: neck supple, CV: RRR, No murmurs, Pulm: Clear b/l, no wheezing/rhonchi/rales Abd: soft, nontender, +BS x4 Ext: no clubbing/cyanosis/edema of LE. Right hand dorsum edema, improved mild erythema, mild TTP, right 3rd toe erythema/edema Neuro: Alert, no focal deficits, moves all extremities, Skin: warm/dry OBJ DATA Labs CBC & Chem 7: 04/13/22 05:57 04/13/22 05:57 Labs: Abnormal Lab Results 04/13/22 04/13/22 04/12/22 05:57 05:57 19:40 WBC 2.5 L RBC 2.74 L Hgb 9.1 L Hct 27.4 L RDW 15.6 H Plt Count 54 L Neut % (Auto) Lymph % (Auto) Lymph # (Auto) 0.98 L Band Neutrophils % Lymphocytes % Absolute Neutrophils 1.30 L Platelet Estimate RBC Morphology Anisocytosis Macrocytosis PT INR POC VBG pCO2 at Temp POC VBG pO2 POC VBG HCO3 POC VBG Total CO2 POC Venous O2 Sat POC VBG Base Excess VBG Lactic Acid POC Potassium Potassium 2.9 L* Carbon Dioxide POC Total CO2 Anion Gap Creatinine 0.4 L Glucose POC Glucose POC Venous Lactate Calcium 8.0 L Magnesium Total Bilirubin 1.1 H Direct Bilirubin 0.6 H GGT 120 H AST 35 H ALT 41 H Alkaline Phosphatase 119 H Lactate Dehydrogenase 278 H C-Reactive Protein Total Protein Albumin 2.4 L Globulin Albumin/Globulin Ratio 0.7 L Procalcitonin Ur Barbiturates Screen Suspect positive A Ur Amphetamines Screen Suspect positive A 04/12/22 04/12/22 04/12/22 18:57 18:12 18:02 WBC RBC Hgb Hct RDW Plt Count Neut % (Auto) Lymph % (Auto) Lymph # (Auto) Band Neutrophils % 14 H Lymphocytes % 7 L Absolute Neutrophils Platelet Estimate Decreased A RBC Morphology Abnormal A Anisocytosis 1+ A Macrocytosis 1+ A PT INR POC VBG pCO2 at Temp 32.4 L POC VBG pO2 55 H POC VBG HCO3 18.5 L POC VBG Total CO2 19.0 L POC Venous O2 Sat 87.0 H POC VBG Base Excess -7.0 L VBG Lactic Acid 3.8 H POC Potassium Potassium Carbon Dioxide POC Total CO2 Anion Gap Creatinine Glucose POC Glucose POC Venous Lactate 5.0 H* Calcium Magnesium Total Bilirubin Direct Bilirubin GGT AST ALT Alkaline Phosphatase Lactate Dehydrogenase C-Reactive Protein Total Protein Albumin Globulin Albumin/Globulin Ratio Procalcitonin Ur Barbiturates Screen Ur Amphetamines Screen 04/12/22 04/12/22 04/12/22 18:02 17:57 17:57 WBC RBC Hgb Hct RDW Plt Count Neut % (Auto) Lymph % (Auto) Lymph # (Auto) Band Neutrophils % Lymphocytes % Absolute Neutrophils Platelet Estimate RBC Morphology Anisocytosis Macrocytosis PT INR POC VBG pCO2 at Temp POC VBG pO2 POC VBG HCO3 POC VBG Total CO2 POC Venous O2 Sat POC VBG Base Excess VBG Lactic Acid POC Potassium 3.2 L Potassium Carbon Dioxide POC Total CO2 19.0 L Anion Gap Creatinine Glucose POC Glucose 147 H POC Venous Lactate Calcium Magnesium 1.5 L Total Bilirubin Direct Bilirubin GGT AST ALT Alkaline Phosphatase Lactate Dehydrogenase C-Reactive Protein 2.20 H Total Protein Albumin Globulin Albumin/Globulin Ratio Procalcitonin 0.30 H Ur Barbiturates Screen Ur Amphetamines Screen 04/12/22 04/12/22 04/12/22 17:57 17:57 17:57 WBC RBC Hgb Hct RDW 16.0 H Plt Count 113 L Neut % (Auto) 85.8 H Lymph % (Auto) 11.3 L Lymph # (Auto) 0.85 L Band Neutrophils % Lymphocytes % Absolute Neutrophils Platelet Estimate RBC Morphology Anisocytosis Macrocytosis PT 16.5 H INR 1.3 H POC VBG pCO2 at Temp POC VBG pO2 POC VBG HCO3 POC VBG Total CO2 POC Venous O2 Sat POC VBG Base Excess VBG Lactic Acid POC Potassium Potassium 3.2 L Carbon Dioxide 17 L POC Total CO2 Anion Gap 17.0 H Creatinine Glucose 138 H POC Glucose POC Venous Lactate Calcium Magnesium Total Bilirubin 2.0 H Direct Bilirubin GGT AST 58 H ALT 64 H Alkaline Phosphatase 184 H Lactate Dehydrogenase C-Reactive Protein Total Protein 8.6 H Albumin Globulin 5.2 H Albumin/Globulin Ratio 0.7 L Procalcitonin Ur Barbiturates Screen Ur Amphetamines Screen Meds: Medications Albuterol/Ipratropium (Ipratropium/Albuterol 3 Ml Ampul.Neb) 3 ml NEB Q4HP PRN PRN Reason: Shortness Of Breath Chlordiazepoxide HCl (Chlordiazepoxide 25 Mg Capsule) 25 mg PO Q4HP PRN PRN Reason: Alcohol Withdrawal Enoxaparin Sodium (Enoxaparin 40 Mg/0.4 Ml Syringe) 40 mg SQ DAILY [facility] Famotidine (Famotidine 20 Mg Tablet) 20 mg PO BID [facility] Last Admin: 04/13/22 01:28 Dose: Not Given Documented by: Folic Acid (Folic Acid 1 Mg Tablet) 1 mg PO DAILY [facility] Haloperidol Lactate (Haloperidol Lactate 5 Mg/Ml Vial) 0.5 mg IM Q2HP PRN PRN Reason: Alcohol Withdrawal Last Admin: 04/13/22 00:42 Dose: 0.5 mg Documented by: Potassium Chloride 40 meq/ (Dextrose) 520 mls @ 130 mls/hr IV UD PRN PRN Reason: Potassium < 3 Magnesium Sulfate (Magnesium Sulfate) 2 gm in 50 mls @ 50 mls/hr IV UD PRN PRN Reason: Magnesium </= 1.6 Ceftriaxone Sodium 2 gm/ (Dextrose) 50 mls @ 100 mls/hr IV Q24H [facility]; Protocol Last Infusion: 04/13/22 02:50 Dose: Infused Documented by: Thiamine HCl 100 mg/ Sodium (Chloride) 51 mls @ 50 mls/hr IV DAILY [facility] Last Infusion: 04/13/22 05:50 Dose: Infused Documented by: Clindamycin Phosphate 600 mg/ (Dextrose) 54 mls @ 100 mls/hr IV Q8H [facility]; Protocol Stop: 04/13/22 22:33 Last Infusion: 04/13/22 06:28 Dose: Infused Documented by: Iron Carb/Multivit/Dairy Powder Mixer Operator/Folic Acid (Multivit,Ther Iron,Ca,Fa & Min 1 Tablet) 1 tab PO DAILY [facility] Lactulose (Lactulose 20 Gm/30 Ml Oral.Lilia) 20 gm PO DAILYP PRN PRN Reason: Constipation Lorazepam (Lorazepam 2 Mg/Ml Vial) 0 mg IV Q4HP PRN; Protocol PRN Reason: Alcohol Withdrawal Last Admin: 04/13/22 03:34 Dose: 3 mg Documented by: Metoclopramide HCl (Metoclopramide 10 Mg/2 Ml Vial) 10 mg IV Q6HP PRN PRN Reason: Nausea And Vomiting Morphine Sulfate (Morphine 4 Mg/Ml Vial) 0 mg IV Q3HP PRN PRN Reason: Pain Ondansetron HCl (Ondansetron 4 Mg/2 Ml Vial) 4 mg IV Q4HP PRN PRN Reason: Nausea And Vomiting Potassium Chloride (Potassium Chloride 20 Meq Tablet) 40 meq PO UD PRN PRN Reason: Potssium is 3-3.5 Potassium Chloride (Potassium Chloride 20 Meq Tablet) 40 meq PO UD PRN PRN Reason: Potassium < 3 Sodium Chloride (0.9 % Sodium Chloride 10 Ml Syringe) 10 ml IV Q8 [facility] Last Admin: 04/13/22 07:50 Dose: 10 ml Documented by: Sodium Chloride (0.9 % Sodium Chloride 10 Ml Syringe) 10 ml IV Q8 [facility] Last Admin: 04/13/22 07:51 Dose: Not Given Documented by: Vancomycin HCl (Vancomycin Per Pharmacy) 1 order IV ONCE ONE; Protocol Stop: 04/13/22 00:23 Last Admin: 04/13/22 02:50 Dose: Not Given Documented by: A/P Narrative A/P Narrative: A: *Methamphetamine intoxication (Substance abuse with methamphetamine), acute: -improving *Metabolic acidosis from lactic acidosis: 2/2 above, improved *Right hand cellulitis & ?Right Third Toe Osteo: *h/o Bipolar/PTSD: on geodon/venlafaxine per psych *h/o alcoholic hepatitis: Currently in middle of a course of prednisolone *Alcohol abuse: *Cirrhosis, etoh related: based on imaging and labs and etoh history, has not followed up yet with GI -w/Thrombocytopenia/hyperbilirubinemia/hypoalbuminemia *Coagulopathy: 2/2 above *Leukopenia/Anemia: 2/2 above *h/o Seizure disorder: on keppra *Tobacco abuse: *Electrolyte d/o (hypokalemia/hypomagnesemia/): P: -s/p IVF -Abx, mrsa screen, pending BC, pct -image foot -prn Benzo -CIWA, vitamins/minerals -cont psych meds and Keppra -cont prednisolone -cont lactulose -Home medication reconciliation -Smoking cessation counseling > 3 minutes -f/u with GI for cirrhosis -Alcohol/substance use cessation counseling, referral to see Dr. Jones -ppx: lovenox (as long as plts>50k) Time Spent With Patient Time: Total time spent is greater than 50% in coordination of care (as documented) at patient's floor/unit and/or counseling patient: Total time spent with greater than 50% in coordination of care (as documented) at patient's floor/unit and/or counseling patient:: 35 - 50 minutes QUALITY VTE Deep Vein Thrombosis/Pulmonary Embolism Present on Admission: No
[2022-04-13 08:08] LABS: INR 1.4 (0.9-1.1); Prothrombin Time 17.7 sec (11.9-14.5)
[2022-04-13] MEDS ORDERED: VANCOMYCIN PER PHARMACY IV SCH (08:15)
[2022-04-13] MEDS ORDERED: VANCOMYCIN 1,000 MG in 0.9 % SODIUM CHLORIDE 250 ML IV SCH (09:00)
[2022-04-13 09:29] LABS: Appearance,Urine HAZY (Clear); Bilirubin,Urine Negative (Negative); Color,Urine YELLOW; Culture Indicated,Urine No; Glucose,Urine (UA) Negative (Negative); Ketones,Urine Negative (Negative); Leukocyte Esterase,Urine Negative /uL (Negative); Mucus,Urine FEW /hpf; Nitrate,Urine Negative (Negative); Protein,Urine 30 mg/dL (Negative); Specific Gravity,Urine 1.019 (1.000-1.035); Urine Blood >=1.0 mg/dL (Negative); Urine Hyaline Cast 3 /lph (0-2); Urine RBC > 182 /hpf (0-1); Urine Squamous Epithelial Cell 20 /hpf (0-4); Urine Transitional Epi Cells < 1 /hpf (0-2); Urine WBC 29 /hpf (0-4); Urobilinogen,Urine Negative
--- NOTE | 2022-04-13 09:44 | XRay Report ---
CLINICAL INFORMATION: f/u ?free air image, no significant abd pain COMPARISON: 03/25/2022. FINDINGS: Colon is borderline dilated to the rectal level. Stomach and small bowel are normal.. There is no free air, soft tissue mass, organomegaly or pathologic calcification. IMPRESSION: Findings most compatible with mild ileus. No free air to suggest GI tract perforation Interpreted and Authenticated by: Lionel Ellington 04/13/22
[2022-04-13] MEDS: chlordiazePOXIDE 25 MG CAPSULE PO PRN ×2 (10:41→17:47)
[2022-04-13] MEDS: POTASSIUM CHLORIDE 20 MEQ TABLET PO PRN (10:41)
[2022-04-13] MEDS: FOLIC ACID 1 MG TABLET PO SCH (10:41)
[2022-04-13] MEDS: methylPREDNISolone SOD SUCC 40 MG/ML VIAL IV SCH (10:42)
[2022-04-13] MEDS: ENOXAPARIN 40 MG/0.4 ML SYRINGE SQ SCH (10:42)
[2022-04-13] MEDS: MULTIVIT,THER IRON,CA,FA & MIN 1 TABLET PO SCH (10:51)
--- NOTE | 2022-04-13 11:51 | EKG ---
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 Measurements Intervals Robson Rate: 80 P: 67 ID: [id number] QRS: 51 QRSD: 101 T: 54 QT: 402 QTc: 464 Interpretive Statements Sinus rhythm Electronically Signed On 04-13-2022 11:51:15 PDT by Lionel Medina M.D. /store/[email or web address]/[id number]
--- NOTE | 2022-04-13 13:46 | Magnetic Resonance Report ---
CLINICAL INFORMATION: Third toe pain. Evaluate for osteomyelitis COMPARISON: None. TECHNIQUE: Coronal proton density sagittal hypodensity T1 axial T2 and T1 images are obtained the right foot. FINDINGS: Motion artifact moderately degrading the image quality. Severe hallux valgus, metatarsus abductus and pes planus noted. There also hammertoe deformities of the second through fifth digits. 10 mm erosion in the medial first metatarsal head is likely degenerative. There is no evidence of osteomyelitis. Moderate cellulitis in the parapharyngeal soft tissues of the third digit. There is also mild increased signal in the deep fascia throughout the midfoot and forefoot. This could indicate fasciitis-no abscess appreciated. Moderate degenerative change of the first MTP mild degenerative change in the second through fifth interphalangeal joints. Tendons and sheaths are normal. IMPRESSION: No evidence of osteomyelitis. Cellulitis in the parapharyngeal region of the third digit. There is also mild fasciitis in the midfoot and forefoot. Moderate hallux valgus, metatarsus abductus, pes planus and hammertoe deformities second through fifth digit Multilevel degeneration Interpreted and Authenticated by: Lionel Ellington 04/13/22
[2022-04-13] MEDS: VENLAFAXINE 150 MG CAP.XL.24H PO SCH (13:53)
[2022-04-13] MEDS: levETIRAcetam 500 MG TABLET PO SCH ×2 (13:53→21:38)
[2022-04-13] MEDS: NICOTINE 21 MG PATCH TOPICAL SCH (13:54)
[2022-04-13] MEDS: LACTULOSE 20 GM/30 ML ORAL.SOL PO SCH ×2 (15:34→21:39)
[2022-04-13] MEDS: morphine 4 MG/ML VIAL IV PRN (17:23)
[2022-04-13] MEDS: MELATONIN 3 MG TABLET PO SCH (21:38)
[2022-04-13] MEDS: BENZTROPINE 1 MG TABLET PO SCH (21:38)
[2022-04-14] MEDS: morphine 4 MG/ML VIAL IV PRN (00:28)
[2022-04-14] MEDS: 0.9 % SODIUM CHLORIDE 10 ML SYRINGE IV SCH ×5 (05:35→20:07)
[2022-04-14 06:56] LABS: Hematocrit 31.2 % (34.1-44.9); Hemoglobin 9.9 g/dL (11.2-15.7); Mean Cell Volume 103.3 fL (80.0-100.0); Mean Corpuscular HGB Conc 31.7 g/dL (31.0-36.0); Mean Platelet Volume 9.3 fL (7.4-10.4); Platelet Count 71 K/mcL (140-440); RBC 3.02 M/mcL (3.59-5.38); Red Cell Distribution Width 15.9 % (11.5-14.5)
[2022-04-14 07:17] LABS: ALT/SGPT 41 U/L (<40); AST/SGOT 35 U/L (<32); Albumin 2.6 gm/dL (3.2-5.2); Albumin/Globulin Ratio 0.6 (1.0-2.3); Alkaline Phosphatase 144 U/L (39-117); Bilirubin,Direct 0.4 mg/dL (<0.3); Bilirubin,Total 0.8 mg/dL (0.1-1.0); Blood Urea Nitrogen 6 mg/dL (6-20); Calcium 8.1 mg/dL (8.6-10.4); Carbon Dioxide 22 mmol/L (22-30); Chloride 105 mmol/L (96-108); Globulin 4.3 gm/dL (2.2-3.7); Glomerular Filtration Rate 107; Glucose 89 mg/dL (70-105); Lactate Dehydrogenase 255 U/L (135-225); Phosphorous 2.8 mg/dL (2.5-4.5); Triglycerides 59 mg/dL (<150); Uric Acid 5.9 mg/dL (2.5-8.0)
[2022-04-14] MEDS ORDERED: POTASSIUM CHLORIDE 20 MEQ TABLET PO ONE (07:44)
[2022-04-14] MEDS ORDERED: MAGNESIUM SULFATE 8.12 MEQ in DEXTROSE 5% IN WATER 50 ML IV ONE (07:44)
--- NOTE | 2022-04-14 07:47 | Internal Med Progress Note ---
SUBJECTIVE Subjective Patient information: Note initiated : 04/14/22 at 7:43 am Service Date, if different from initiated Date: [] Patient: Anay Ramírez a 51 y/o F admitted on 04/12/22 for anxiety, shaking, tearful. Chief Complaint: [] Interval history: History of present illness: Ms. Ramírez is a 51 year old F Presents to the ED because she was having panic attacks she had chest pressure shortness of breath. In her her right hand was hurting and swollen in the back. Patient has been admitted twice since the beginning of February both for cellulitis and positive for methamphetamine use and then alcohol withdrawal. Patient denied methamphetamine use both admits but eventually during admits admitted to methamphetamine use. She first had neck cellulitis in the next admission right hand cellulitis where she went through severe alcohol withdrawal requiring intubation. Her first admission she was admitted for a week. Second admission she was admitted for 7 days. During that time she also had a telepsych consult. Refused to go to SNF and went home with her daughter. Today in the ED she was evaluated and found to be tachycardic hypertensive tachypneic. She was had a metabolic acidosis and mild hyperkalemia. Very mild transaminitis. And most notably a lactate of 3.8. Cultures were obtained and antibiotics given. Lactate elevation likely secondary to methamphetamine intoxication. However she likely has a developing right hand cellulitis. She is admitted to last using methamphetamine today and alcohol as well. Says she wants to get better and does not want her family to have to see your deteriorate and . She seemed more willing for help at this time. She asked me why would you want to help me. She does have headaches fevers chills nausea but no vomiting. She did complain of some chest pressure and shortness of breath during her panic attack. 04/13 Patient complains of headache some nausea fevers. Required several IV doses of Ativan last night. Leukopenia noted again and thrombocytopenia. Hypokalemia. Elevated procalcitonin. Replete electrolytes. Right third toe concern for osteoget imaging and follow-up the abnormal abdominal x-ray. 04/14 Patient required some Ativan at the end of yesterday's shift in the early evening. Did require low-dose this morning. Patient did well overnight. Potassium low and will replete. Review of Systems: denies headache/fever/chills/nausea/vomiting/chest or abdominal pain/cough/dyspnea/diarrhea. Otherwise see above. Constitutional Vitals: Vital Signs Temp Pulse Resp BP Pulse Ox 97.3 F 62 17 122/69 96 04/14/22 00:00 04/14/22 06:01 04/14/22 06:01 04/14/22 06:01 04/14/22 06:01 Period Temp Pulse Resp BP Sys/Villa Pulse Ox Last 24 Hr 97.2 F-98.4 F 62-95 12-28 101-136/54-116 94-100 Intake and Output 04/13/22 04/14/22 04/14/22 21:59 05:59 13:59 Intake Total 2395 694 Output Total 1525 1850 600 Balance 870 -1156 -600 Weight 74.389 kg Intake & Output: Intake & Output 04/13/22 04/14/22 04/14/22 21:59 05:59 13:59 Intake Total 2395 694 Output Total 1525 1850 600 Balance 870 -1156 -600 Weight 74.389 kg Intake: IV 155 54 Cleocin 600 mg In Dextrose 5% 54 54 in Water 50 ml @ 100 mls/hr IV Q8H [facility] Rx#:[id number] Vitamin B1 100 mg In Sodium 51 Chloride 0.9% 50 ml @ 50 mls/hr IV DAILY [facility] Rx#:[id number] Rocephin 2 gm In Dextrose 5% in 50 Water 50 ml @ 100 mls/hr IV Q24H [facility] Rx#:[id number] Oral 2240 640 Output: Void Amount 1525 1850 600 Other: Meal Dinner snacks Percent of Meal Consumed 25% 100% Feeding Ability Assist with Tray Set Up Independent Urine Appearance Clear Clear Urine Color Pale Pale Straw Urine Odor Strong Exam: General: Awake, no acute distress Eyes/N/T: EOMI, Head/Neck: neck supple, CV: RRR, No murmurs, Pulm: Clear b/l, no wheezing/rhonchi/rales Abd: soft, nontender, +BS x4 Ext: no clubbing/cyanosis/edema of LE. Right hand dorsum edema, no more erythema, mild TTP, right 3rd toe mild erythema/edema Neuro: Alert, no focal deficits, moves all extremities, Skin: warm/dry OBJ DATA Labs CBC & Chem 7: 04/14/22 05:21 04/14/22 05:22 Labs: Abnormal Lab Results 04/14/22 04/14/22 04/14/22 05:22 05:22 05:21 WBC 3.0 L RBC 3.02 L Hgb 9.9 L Hct 31.2 L MCV 103.3 H RDW 15.9 H Plt Count 71 L Neut % (Auto) Lymph % (Auto) Lymph # (Auto) Band Neutrophils % Lymphocytes % Absolute Neutrophils Platelet Estimate RBC Morphology Anisocytosis Macrocytosis PT INR POC VBG pCO2 at Temp POC VBG pO2 POC VBG HCO3 POC VBG Total CO2 POC Venous O2 Sat POC VBG Base Excess VBG Lactic Acid POC Potassium Potassium 3.1 L Carbon Dioxide POC Total CO2 Anion Gap Creatinine Glucose POC Glucose POC Venous Lactate Calcium 8.1 L Magnesium Total Bilirubin Direct Bilirubin 0.4 H GGT 140 H AST 35 H ALT 41 H Alkaline Phosphatase 144 H Lactate Dehydrogenase 255 H C-Reactive Protein 2.20 H Total Protein Albumin 2.6 L Globulin 4.3 H Albumin/Globulin Ratio 0.6 L Procalcitonin 0.22 H Urine Appearance Urine Protein Urine Occult Blood Urine RBC Urine WBC Ur Squamous Epith Cells Hyaline Casts Urine Mucus Ur Barbiturates Screen Ur Amphetamines Screen 04/13/22 04/13/22 04/13/22 05:57 05:57 05:56 WBC 2.5 L RBC 2.74 L Hgb 9.1 L Hct 27.4 L MCV RDW 15.6 H Plt Count 54 L Neut % (Auto) Lymph % (Auto) Lymph # (Auto) 0.98 L Band Neutrophils % Lymphocytes % Absolute Neutrophils 1.30 L Platelet Estimate RBC Morphology Anisocytosis Macrocytosis PT 17.7 H INR 1.4 H POC VBG pCO2 at Temp POC VBG pO2 POC VBG HCO3 POC VBG Total CO2 POC Venous O2 Sat POC VBG Base Excess VBG Lactic Acid POC Potassium Potassium 2.9 L* Carbon Dioxide POC Total CO2 Anion Gap Creatinine 0.4 L Glucose POC Glucose POC Venous Lactate Calcium 8.0 L Magnesium Total Bilirubin 1.1 H Direct Bilirubin 0.6 H GGT 120 H AST 35 H ALT 41 H Alkaline Phosphatase 119 H Lactate Dehydrogenase 278 H C-Reactive Protein Total Protein Albumin 2.4 L Globulin Albumin/Globulin Ratio 0.7 L Procalcitonin Urine Appearance Urine Protein Urine Occult Blood Urine RBC Urine WBC Ur Squamous Epith Cells Hyaline Casts Urine Mucus Ur Barbiturates Screen Ur Amphetamines Screen 04/12/22 04/12/22 04/12/22 19:40 19:40 18:57 WBC RBC Hgb Hct MCV RDW Plt Count Neut % (Auto) Lymph % (Auto) Lymph # (Auto) Band Neutrophils % 14 H Lymphocytes % 7 L Absolute Neutrophils Platelet Estimate Decreased A RBC Morphology Abnormal A Anisocytosis 1+ A Macrocytosis 1+ A PT INR POC VBG pCO2 at Temp POC VBG pO2 POC VBG HCO3 POC VBG Total CO2 POC Venous O2 Sat POC VBG Base Excess VBG Lactic Acid POC Potassium Potassium Carbon Dioxide POC Total CO2 Anion Gap Creatinine Glucose POC Glucose POC Venous Lactate Calcium Magnesium Total Bilirubin Direct Bilirubin GGT AST ALT Alkaline Phosphatase Lactate Dehydrogenase C-Reactive Protein Total Protein Albumin Globulin Albumin/Globulin Ratio Procalcitonin Urine Appearance Hazy A Urine Protein 30 A Urine Occult Blood >=1.0 A Urine RBC > 182 H Urine WBC 29 H Ur Squamous Epith Cells 20 H Hyaline Casts 3 H Urine Mucus Few A Ur Barbiturates Screen Suspect positive A Ur Amphetamines Screen Suspect positive A 04/12/22 04/12/22 04/12/22 18:12 18:02 18:02 WBC RBC Hgb Hct MCV RDW Plt Count Neut % (Auto) Lymph % (Auto) Lymph # (Auto) Band Neutrophils % Lymphocytes % Absolute Neutrophils Platelet Estimate RBC Morphology Anisocytosis Macrocytosis PT INR POC VBG pCO2 at Temp 32.4 L POC VBG pO2 55 H POC VBG HCO3 18.5 L POC VBG Total CO2 19.0 L POC Venous O2 Sat 87.0 H POC VBG Base Excess -7.0 L VBG Lactic Acid 3.8 H POC Potassium 3.2 L Potassium Carbon Dioxide POC Total CO2 19.0 L Anion Gap Creatinine Glucose POC Glucose 147 H POC Venous Lactate 5.0 H* Calcium Magnesium Total Bilirubin Direct Bilirubin GGT AST ALT Alkaline Phosphatase Lactate Dehydrogenase C-Reactive Protein Total Protein Albumin Globulin Albumin/Globulin Ratio Procalcitonin Urine Appearance Urine Protein Urine Occult Blood Urine RBC Urine WBC Ur Squamous Epith Cells Hyaline Casts Urine Mucus Ur Barbiturates Screen Ur Amphetamines Screen 04/12/22 04/12/22 04/12/22 17:57 17:57 17:57 WBC RBC Hgb Hct MCV RDW Plt Count Neut % (Auto) Lymph % (Auto) Lymph # (Auto) Band Neutrophils % Lymphocytes % Absolute Neutrophils Platelet Estimate RBC Morphology Anisocytosis Macrocytosis PT 16.5 H INR 1.3 H POC VBG pCO2 at Temp POC VBG pO2 POC VBG HCO3 POC VBG Total CO2 POC Venous O2 Sat POC VBG Base Excess VBG Lactic Acid POC Potassium Potassium Carbon Dioxide POC Total CO2 Anion Gap Creatinine Glucose POC Glucose POC Venous Lactate Calcium Magnesium 1.5 L Total Bilirubin Direct Bilirubin GGT AST ALT Alkaline Phosphatase Lactate Dehydrogenase C-Reactive Protein 2.20 H Total Protein Albumin Globulin Albumin/Globulin Ratio Procalcitonin 0.30 H Urine Appearance Urine Protein Urine Occult Blood Urine RBC Urine WBC Ur Squamous Epith Cells Hyaline Casts Urine Mucus Ur Barbiturates Screen Ur Amphetamines Screen 04/12/22 04/12/22 17:57 17:57 WBC RBC Hgb Hct MCV RDW 16.0 H Plt Count 113 L Neut % (Auto) 85.8 H Lymph % (Auto) 11.3 L Lymph # (Auto) 0.85 L Band Neutrophils % Lymphocytes % Absolute Neutrophils Platelet Estimate RBC Morphology Anisocytosis Macrocytosis PT INR POC VBG pCO2 at Temp POC VBG pO2 POC VBG HCO3 POC VBG Total CO2 POC Venous O2 Sat POC VBG Base Excess VBG Lactic Acid POC Potassium Potassium 3.2 L Carbon Dioxide 17 L POC Total CO2 Anion Gap 17.0 H Creatinine Glucose 138 H POC Glucose POC Venous Lactate Calcium Magnesium Total Bilirubin 2.0 H Direct Bilirubin GGT AST 58 H ALT 64 H Alkaline Phosphatase 184 H Lactate Dehydrogenase C-Reactive Protein Total Protein 8.6 H Albumin Globulin 5.2 H Albumin/Globulin Ratio 0.7 L Procalcitonin Urine Appearance Urine Protein Urine Occult Blood Urine RBC Urine WBC Ur Squamous Epith Cells Hyaline Casts Urine Mucus Ur Barbiturates Screen Ur Amphetamines Screen Meds: Medications Albuterol/Ipratropium (Ipratropium/Albuterol 3 Ml Ampul.Neb) 3 ml NEB Q4HP PRN PRN Reason: Shortness Of Breath Benztropine Mesylate (Benztropine 1 Mg Tablet) 0.5 mg PO BID [facility] Last Admin: 04/13/22 21:38 Dose: 0.5 mg Documented by: Chlordiazepoxide HCl (Chlordiazepoxide 25 Mg Capsule) 25 mg PO Q4HP PRN PRN Reason: Alcohol Withdrawal Last Admin: 04/13/22 17:47 Dose: 25 mg Documented by: Enoxaparin Sodium (Enoxaparin 40 Mg/0.4 Ml Syringe) 40 mg SQ DAILY [facility] Last Admin: 04/13/22 10:42 Dose: 40 mg Documented by: Famotidine (Famotidine 20 Mg Tablet) 20 mg PO BID [facility] Last Admin: 04/13/22 21:38 Dose: 20 mg Documented by: Folic Acid (Folic Acid 1 Mg Tablet) 1 mg PO DAILY [facility] Last Admin: 04/13/22 10:41 Dose: 1 mg Documented by: Haloperidol Lactate (Haloperidol Lactate 5 Mg/Ml Vial) 0.5 mg IM Q2HP PRN PRN Reason: Alcohol Withdrawal Last Admin: 04/13/22 00:42 Dose: 0.5 mg Documented by: Potassium Chloride 40 meq/ (Dextrose) 520 mls @ 130 mls/hr IV UD PRN PRN Reason: Potassium < 3 Last Infusion: 04/13/22 13:24 Dose: Infused Documented by: Magnesium Sulfate (Magnesium Sulfate) 2 gm in 50 mls @ 50 mls/hr IV UD PRN PRN Reason: Magnesium </= 1.6 Ceftriaxone Sodium 2 gm/ (Dextrose) 50 mls @ 100 mls/hr IV Q24H [facility]; Protocol Last Infusion: 04/13/22 17:47 Dose: Infused Documented by: Thiamine HCl 100 mg/ Sodium (Chloride) 51 mls @ 50 mls/hr IV DAILY [facility] Last Infusion: 04/13/22 14:12 Dose: Infused Documented by: Iron Carb/Multivit/Snow Shoveler/Folic Acid (Multivit,Ther Iron,Ca,Fa & Min 1 Tablet) 1 tab PO DAILY [facility] Last Admin: 04/13/22 10:51 Dose: 1 tab Documented by: Lactulose (Lactulose 20 Gm/30 Ml Oral.Lilia) 20 gm PO DAILYP PRN PRN Reason: Constipation Lactulose (Lactulose 20 Gm/30 Ml Oral.Lilia) 10 gm PO TID [facility] Last Admin: 04/13/22 21:39 Dose: 10 gm Documented by: Levetiracetam (Levetiracetam 500 Mg Tablet) 500 mg PO DAILY [facility] Last Admin: 04/13/22 13:53 Dose: 500 mg Documented by: Levetiracetam (Levetiracetam 500 Mg Tablet) 750 mg PO HS [facility] Last Admin: 04/13/22 21:38 Dose: 750 mg Documented by: Lorazepam (Lorazepam 2 Mg/Ml Vial) 0 mg IV Q4HP PRN; Protocol PRN Reason: Alcohol Withdrawal Last Admin: 04/13/22 17:47 Dose: 2 mg Documented by: Melatonin (Melatonin 3 Mg Tablet) 9 mg PO QHS [facility] Last Admin: 04/13/22 21:38 Dose: 9 mg Documented by: Methylprednisolone Sodium Succinate (Methylprednisolone Sod Succ 40 Mg/Ml Vial) 32 mg IV DAILY [facility] Last Admin: 04/13/22 10:42 Dose: 32 mg Documented by: Metoclopramide HCl (Metoclopramide 10 Mg/2 Ml Vial) 10 mg IV Q6HP PRN PRN Reason: Nausea And Vomiting Last Admin: 04/13/22 10:42 Dose: 10 mg Documented by: Morphine Sulfate (Morphine 4 Mg/Ml Vial) 0 mg IV Q3HP PRN PRN Reason: Pain Last Admin: 04/14/22 00:28 Dose: 2 mg Documented by: Nicotine (Nicotine 21 Mg Patch) 21 mg TOPICAL QDAY [facility] Last Admin: 04/13/22 13:54 Dose: 21 mg Documented by: Ondansetron HCl (Ondansetron 4 Mg/2 Ml Vial) 4 mg IV Q4HP PRN PRN Reason: Nausea And Vomiting Ziprasidone Hcl 80 (Mg Capsule) 2 dose PO HS [facility] Last Admin: 04/13/22 21:39 Dose: Not Given Documented by: Potassium Chloride (Potassium Chloride 20 Meq Tablet) 40 meq PO UD PRN PRN Reason: Potssium is 3-3.5 Last Admin: 04/13/22 10:41 Dose: 40 meq Documented by: Potassium Chloride (Potassium Chloride 20 Meq Tablet) 40 meq PO UD PRN PRN Reason: Potassium < 3 Sodium Chloride (0.9 % Sodium Chloride 10 Ml Syringe) 10 ml IV Q8 [facility] Last Admin: 04/14/22 05:35 Dose: 10 ml Documented by: Sodium Chloride (0.9 % Sodium Chloride 10 Ml Syringe) 10 ml IV Q8 [facility] Last Admin: 04/14/22 05:35 Dose: 10 ml Documented by: Venlafaxine HCl (Venlafaxine 150 Mg Cap.Xl.24h) 150 mg PO DAILY [facility] Last Admin: 04/13/22 13:53 Dose: 150 mg Documented by: A/P Narrative A/P Narrative: A: *Methamphetamine intoxication (Substance abuse with methamphetamine), acute: -improving *Metabolic acidosis from lactic acidosis: 2/2 above, improved *Right hand cellulitis & Right Third cellulitis no osteo: *h/o Bipolar/PTSD: on geodon/venlafaxine per psych *h/o alcoholic hepatitis: Currently in middle of a course of prednisolone *Alcohol abuse: *Cirrhosis, etoh related: based on imaging and labs and etoh history, has not followed up yet with GI -w/Thrombocytopenia/hyperbilirubinemia/hypoalbuminemia *Coagulopathy: 2/2 above *Leukopenia/Anemia: 2/2 above *h/o Seizure disorder: on keppra *Tobacco abuse: *Electrolyte d/o (hypokalemia/hypomagnesemia/): P: -Abx, mrsa screen neg, pending BC, pct -prn Benzo -CIWA, vitamins/minerals -cont psych meds and Keppra -cont prednisolone -cont lactulose -Smoking cessation counseling -f/u with GI for cirrhosis -Alcohol/substance use cessation counseling, referral to see Dr. Jones - for SNF placement -ppx: lovenox (as long as plts>50k) Time Spent With Patient Time: Total time spent is greater than 50% in coordination of care (as documented) at patient's floor/unit and/or counseling patient: Total time spent with greater than 50% in coordination of care (as documented) at patient's floor/unit and/or counseling patient:: 25 - 35 minutes QUALITY VTE Deep Vein Thrombosis/Pulmonary Embolism Present on Admission: No
[2022-04-14] MEDS: BENZTROPINE 1 MG TABLET PO SCH ×2 (08:03→20:06)
[2022-04-14] MEDS: VENLAFAXINE 150 MG CAP.XL.24H PO SCH (08:05)
[2022-04-14] MEDS: FAMOTIDINE 20 MG TABLET PO SCH ×2 (08:05→20:06)
[2022-04-14] MEDS: levETIRAcetam 500 MG TABLET PO SCH ×2 (08:06→20:06)
[2022-04-14] MEDS: FOLIC ACID 1 MG TABLET PO SCH (08:07)
[2022-04-14] MEDS: MULTIVIT,THER IRON,CA,FA & MIN 1 TABLET PO SCH (08:08)
[2022-04-14] MEDS: ENOXAPARIN 40 MG/0.4 ML SYRINGE SQ SCH (08:08)
[2022-04-14] MEDS: LACTULOSE 20 GM/30 ML ORAL.SOL PO SCH ×3 (08:09→20:06)
[2022-04-14] MEDS: cefTRIAXone 2 GM in DEXTROSE 5% IN WATER 50 ML IV SCH (08:10)
[2022-04-14] MEDS: methylPREDNISolone SOD SUCC 40 MG/ML VIAL IV SCH (08:10)
[2022-04-14] MEDS: NICOTINE 21 MG PATCH TOPICAL SCH (08:11)
[2022-04-14 08:38] LABS: Anisocytosis 1+ (None Seen); Band Neutrophils % 1 % (0-10); Eosinophils % (Manual) 2 % (0-7); Lymphocytes % 35 % (15-49); Macrocytosis 1+ (None Seen); Monocytes % (Manual) 5 % (1-12); Platelet Estimate DECREASED (Normal); RBC Morphology ABNORMAL (Normal); Segmented Neutrophils % 57 % (38-78)
[2022-04-14] MEDS: LORazepam 2 MG/ML VIAL IV PRN ×2 (08:45→13:25)
--- NOTE | 2022-04-14 09:21 | Discharge Summary ---
Discharge Provider Provider Patient information: Note initiated : 04/13/22 at 3:05 pm Service Date, if different from initiated Date: [] Patient: Anay Ramírez 51 y/o F admitted on 04/12/22 for anxiety, shaking, tearful. Chief Complaint: [] Date of admission: 04/12/22 23:51 Primary care physician: GUS Streeter Consults: 04/12/22 Consult to Physician [CONS] Stat Comment: Consulting Provider: Wilson Castillo Reason For Exam: Physician to Consult Discharge Meds Discharge Medications Home Medications levetiracetam 500 mg tablet See Rx Instructions .ROUTE .COMPLEX 03/04/22 [History Confirmed 04/13/22 Last Taken Unknown] ziprasidone HCl 80 mg capsule 2 cap PO HS 03/04/22 [History Confirmed 04/13/22 Last Taken Unknown] lactulose 10 gram/15 mL oral solution 15 ml PO TID 03/24/22 [History Confirmed 04/13/22 Last Taken Unknown] folic acid 1 mg tablet 1 mg PO DAILY #60 tab 04/03/22 [Rx Confirmed 04/13/22 Last Taken Unknown] melatonin 3 mg tablet 9 mg PO HSP PRN #60 tab 04/03/22 [Rx Confirmed 04/13/22 Last Taken Unknown] multivitamin-iron 9 mg-folic acid 400 mcg-calcium and minerals tablet (Thera M Plus (ferrous fumarate)) 1 tab PO DAILY #60 tab 04/03/22 [Rx Confirmed 04/13/22 Last Taken Unknown] prednisolone 15 mg/5 mL oral solution 40 mg (13.3333 mL) PO DAILY 18 Days #480 ml 04/03/22 [Rx Confirmed 04/13/22 Last Taken Unknown] thiamine mononitrate (vit B1) 100 mg tablet 100 mg PO DAILY #60 tab 04/03/22 [Rx Confirmed 04/13/22 Last Taken Unknown] venlafaxine 150 mg capsule,extended release 24 hr 150 mg PO DAILY #60 cap 04/03/22 [Rx Confirmed 04/13/22 Last Taken Unknown] benztropine 0.5 mg tablet 1 tab PO BID 04/13/22 [History Confirmed 04/13/22 Last Taken Unknown] levofloxacin 750 mg tablet 1 tab PO QDAY 04/13/22 [History Confirmed 04/13/22 Last Taken Unknown] nicotine 21 mg/24 hr daily transdermal patch 1 patch TOPICAL QDAY 04/13/22 [History Confirmed 04/13/22 Last Taken Unknown] Lactobacillus acidophilus 1 billion cell capsule 1,000 mmu cells PO QDAY #60 cap 04/14/22 [Rx Last Taken Unknown] cefpodoxime 200 mg tablet 400 mg PO Q12H #14 tab 04/14/22 [Rx Last Taken Unknown] COURSE Hospital Course Hospital course: History of present illness: Ms. Ramírez is a 51 year old F Presents to the ED because she was having panic attacks she had chest pressure shortness of breath. In her her right hand was hurting and swollen in the back. Patient has been admitted twice since the beginning of February both for cellulitis and positive for methamphetamine use and then alcohol withdrawal. Patient denied methamphetamine use both admits but eventually during admits admitted to methamphetamine use. She first had neck cellulitis in the next admission right hand cellulitis where she went through severe alcohol withdrawal requiring intubation. Her first admission she was admitted for a week. Second admission she was admitted for 7 days. During that time she also had a telepsych consult. Refused to go to SNF and went home with her daughter. Today in the ED she was evaluated and found to be tachycardic hypertensive tachypneic. She was had a metabolic acidosis and mild hyperkalemia. Very mild transaminitis. And most notably a lactate of 3.8. Cultures were obtained and antibiotics given. Lactate elevation likely secondary to methamphetamine intoxication. However she likely has a developing right hand cellulitis. She is admitted to last using methamphetamine today and alcohol as well. Says she wants to get better and does not want her family to have to see your deteriorate and . She seemed more willing for help at this time. She asked me why would you want to help me. She does have headaches fevers chills nausea but no vomiting. She did complain of some chest pressure and shortness of breath during her panic attack. 04/13 Patient complains of headache some nausea fevers. Required several IV doses of Ativan last night. Leukopenia noted again and thrombocytopenia. Hypokalemia. Elevated procalcitonin. Replete electrolytes. Right third toe concern for osteoget imaging and follow-up the abnormal abdominal x-ray. 04/14 Patient required some Ativan at the end of yesterday's shift in the early evening. Did require low-dose this morning. Patient did well overnight. Potassium low and will replete. High risk for readmission if she does not stop using methamphetamine and alcohol A: *Methamphetamine intoxication (Substance abuse with methamphetamine), acute: *Metabolic acidosis from lactic acidosis: 2/2 above, improved *Right hand cellulitis & Right Third cellulitis no osteo: *h/o Bipolar/PTSD: on geodon/venlafaxine per psych *h/o alcoholic hepatitis: Currently in middle of a course of prednisolone *Alcohol abuse: *Cirrhosis, etoh related: based on imaging and labs and etoh history, has not followed up yet with GI -w/Thrombocytopenia/hyperbilirubinemia/hypoalbuminemia *Coagulopathy: 2/2 above *Leukopenia/Anemia: 2/2 above *h/o Seizure disorder: on keppra *Tobacco abuse: *Electrolyte d/o (hypokalemia/hypomagnesemia/): P: -Abx -f/u with GI for cirrhosis -Alcohol/substance use cessation counseling, referral to see Dr. Jones - for SNF placement Discharge diagnosis: Methamphetamine intoxication metabolic acidosis and lactic acidosis right h Secondary discharge diagnosis: Right hand and toe cellulitis bipolar disorder PTSD alcohol up otitis alcohol abuse cirrhosis coagulopathy leukopenia history of seizures tobacco abuse electrolyte disorder substance abuse Time Spent with Patient Time attestation: Total time spent providing and/or coordinating discharge services: Time spent: Greater than 30 minutes EXAM Constitutional Vitals: Temp Pulse Resp BP Pulse Ox 98.4 F 80 14 121/80 98 04/13/22 12:31 04/13/22 14:00 04/13/22 14:00 04/13/22 14:00 04/13/22 14:00 Discharge Data Data Completed and Pending Labs on day of discharge: Labs from last 24 hours 04/13/22 04/13/22 04/13/22 05:57 05:57 05:56 WBC 2.5 L RBC 2.74 L Hgb 9.1 L Hct 27.4 L POC Hct MCV 100.0 MCH 33.2 MCHC 33.2 RDW 15.6 H Plt Count 54 L MPV 9.7 Neut % (Auto) 52.4 Lymph % (Auto) 39.5 [place] % (Auto) 7.3 Eos % (Auto) 0.8 Baso % (Auto) 0 Lymph # (Auto) 0.98 L [place] # (Auto) 0.18 Eos # (Auto) 0.02 Baso # (Auto) 0 Seg Neutrophils % Band Neutrophils % Lymphocytes % Monocytes % (Manual) Eosinophils % (Manual) Absolute Neutrophils 1.30 L Platelet Estimate RBC Morphology Anisocytosis Macrocytosis PT 17.7 H INR 1.4 H POC VBG pH POC VBG pCO2 at Temp POC VBG pO2 POC VBG HCO3 POC VBG Total CO2 POC Venous O2 Sat POC VBG Base Excess VBG Lactic Acid POC Sodium Sodium 137 POC Potassium Potassium 2.9 L* POC Chloride Chloride 107 Carbon Dioxide 22 POC Total CO2 Anion Gap 8.0 POC BUN BUN 8 Creatinine 0.4 L POC Creatinine GFR Calculation 122 Glucose 79 POC Glucose POC Venous Lactate Uric Acid 4.3 Calcium 8.0 L POC WB Ioniz Calcium Phosphorus 3.0 Magnesium 2.1 Total Bilirubin 1.1 H Direct Bilirubin 0.6 H GGT 120 H AST 35 H ALT 41 H Alkaline Phosphatase 119 H Lactate Dehydrogenase 278 H Total Creatine Kinase C-Reactive Protein Total Protein 6.0 Albumin 2.4 L Globulin 3.6 Albumin/Globulin Ratio 0.7 L Triglycerides 41 Procalcitonin Urine Color Urine Appearance Urine pH Ur Specific [place] Urine Protein Urine Glucose (UA) Urine Ketones Urine Occult Blood Urine Nitrate Urine Bilirubin Urine Urobilinogen Ur Leukocyte Esterase Urine RBC Urine WBC Ur Squamous Epith Cells Ur Transition Epith Cell Urine Bacteria Hyaline Casts Urine Mucus Ur Culture Indicated? Urine Opiates Screen Ur Opiates Confirm Ur Oxycodone Screen Urine Methadone Screen Ur Methadone Confirm Ur Barbiturates Screen Ur Barbiturate Confirm Ur Phencyclidine Scrn Urine PCP Confirm Ur Amphetamines Screen U Amphetamines Confirm U Benzodiazepines Scrn Ur Benzodiazepine, Qnt Urine Cocaine Screen Urine Cocaine Confirm U Cannabinoids Confirm U Marijuana (THC) Screen Ethyl Alcohol 04/13/22 04/12/22 04/12/22 05:56 19:40 19:40 WBC RBC Hgb Hct POC Hct MCV MCH MCHC RDW Plt Count MPV Neut % (Auto) Lymph % (Auto) [place] % (Auto) Eos % (Auto) Baso % (Auto) Lymph # (Auto) [place] # (Auto) Eos # (Auto) Baso # (Auto) Seg Neutrophils % Band Neutrophils % Lymphocytes % Monocytes % (Manual) Eosinophils % (Manual) Absolute Neutrophils Platelet Estimate RBC Morphology Anisocytosis Macrocytosis PT INR POC VBG pH POC VBG pCO2 at Temp POC VBG pO2 POC VBG HCO3 POC VBG Total CO2 POC Venous O2 Sat POC VBG Base Excess VBG Lactic Acid 0.7 POC Sodium Sodium POC Potassium Potassium POC Chloride Chloride Carbon Dioxide POC Total CO2 Anion Gap POC BUN BUN Creatinine POC Creatinine GFR Calculation Glucose POC Glucose POC Venous Lactate Uric Acid Calcium POC WB Ioniz Calcium Phosphorus Magnesium Total Bilirubin Direct Bilirubin GGT AST ALT Alkaline Phosphatase Lactate Dehydrogenase Total Creatine Kinase C-Reactive Protein Total Protein Albumin Globulin Albumin/Globulin Ratio Triglycerides Procalcitonin Urine Color Yellow Urine Appearance Hazy A Urine pH 5.0 Ur Specific [place] 1.019 Urine Protein 30 A Urine Glucose (UA) Negative Urine Ketones Negative Urine Occult Blood >=1.0 A Urine Nitrate Negative Urine Bilirubin Negative Urine Urobilinogen Negative Ur Leukocyte Esterase Negative Urine RBC > 182 H Urine WBC 29 H Ur Squamous Epith Cells 20 H Ur Transition Epith Cell < 1 Urine Bacteria None Hyaline Casts 3 H Urine Mucus Few A Ur Culture Indicated? No Urine Opiates Screen None detected Ur Opiates Confirm TNP Ur Oxycodone Screen None detected Urine Methadone Screen None detected Ur Methadone Confirm TNP Ur Barbiturates Screen Suspect positive A Ur Barbiturate Confirm Pending Ur Phencyclidine Scrn None detected Urine PCP Confirm TNP Ur Amphetamines Screen Suspect positive A U Amphetamines Confirm Pending U Benzodiazepines Scrn None detected Ur Benzodiazepine, Qnt TNP Urine Cocaine Screen None detected Urine Cocaine Confirm TNP U Cannabinoids Confirm TNP U Marijuana (THC) Screen None detected Ethyl Alcohol 04/12/22 04/12/22 04/12/22 18:57 18:57 18:12 WBC RBC Hgb Hct POC Hct MCV MCH MCHC RDW Plt Count MPV Neut % (Auto) Lymph % (Auto) [place] % (Auto) Eos % (Auto) Baso % (Auto) Lymph # (Auto) [place] # (Auto) Eos # (Auto) Baso # (Auto) Seg Neutrophils % 77 Band Neutrophils % 14 H Lymphocytes % 7 L Monocytes % (Manual) 1 Eosinophils % (Manual) 1 Absolute Neutrophils Platelet Estimate Decreased A RBC Morphology Abnormal A Anisocytosis 1+ A Macrocytosis 1+ A PT INR POC VBG pH POC VBG pCO2 at Temp POC VBG pO2 POC VBG HCO3 POC VBG Total CO2 POC Venous O2 Sat POC VBG Base Excess VBG Lactic Acid 3.8 H POC Sodium Sodium POC Potassium Potassium POC Chloride Chloride Carbon Dioxide POC Total CO2 Anion Gap POC BUN BUN Creatinine POC Creatinine GFR Calculation Glucose POC Glucose POC Venous Lactate Uric Acid Calcium POC WB Ioniz Calcium Phosphorus Magnesium Total Bilirubin Direct Bilirubin GGT AST ALT Alkaline Phosphatase Lactate Dehydrogenase Total Creatine Kinase C-Reactive Protein Total Protein Albumin Globulin Albumin/Globulin Ratio Triglycerides Procalcitonin Urine Color Urine Appearance Urine pH Ur Specific [place] Urine Protein Urine Glucose (UA) Urine Ketones Urine Occult Blood Urine Nitrate Urine Bilirubin Urine Urobilinogen Ur Leukocyte Esterase Urine RBC Urine WBC Ur Squamous Epith Cells Ur Transition Epith Cell Urine Bacteria Hyaline Casts Urine Mucus Ur Culture Indicated? Urine Opiates Screen Ur Opiates Confirm Ur Oxycodone Screen Urine Methadone Screen Ur Methadone Confirm Ur Barbiturates Screen Ur Barbiturate Confirm Ur Phencyclidine Scrn Urine PCP Confirm Ur Amphetamines Screen U Amphetamines Confirm U Benzodiazepines Scrn Ur Benzodiazepine, Qnt Urine Cocaine Screen Urine Cocaine Confirm U Cannabinoids Confirm U Marijuana (THC) Screen Ethyl Alcohol < 0.010 04/12/22 04/12/22 04/12/22 18:02 18:02 17:57 WBC RBC Hgb Hct POC Hct 38.0 MCV MCH MCHC RDW Plt Count MPV Neut % (Auto) Lymph % (Auto) [place] % (Auto) Eos % (Auto) Baso % (Auto) Lymph # (Auto) [place] # (Auto) Eos # (Auto) Baso # (Auto) Seg Neutrophils % Band Neutrophils % Lymphocytes % Monocytes % (Manual) Eosinophils % (Manual) Absolute Neutrophils Platelet Estimate RBC Morphology Anisocytosis Macrocytosis PT INR POC VBG pH 7.36 POC VBG pCO2 at Temp 32.4 L POC VBG pO2 55 H POC VBG HCO3 18.5 L POC VBG Total CO2 19.0 L POC Venous O2 Sat 87.0 H POC VBG Base Excess -7.0 L VBG Lactic Acid POC Sodium 143 Sodium POC Potassium 3.2 L Potassium POC Chloride 107 Chloride Carbon Dioxide POC Total CO2 19.0 L Anion Gap POC BUN 9 BUN Creatinine POC Creatinine 0.6 GFR Calculation Glucose POC Glucose 147 H POC Venous Lactate 5.0 H* Uric Acid Calcium POC WB Ioniz Calcium 1.16 Phosphorus Magnesium Total Bilirubin Direct Bilirubin GGT AST ALT Alkaline Phosphatase Lactate Dehydrogenase Total Creatine Kinase 90 C-Reactive Protein Total Protein Albumin Globulin Albumin/Globulin Ratio Triglycerides Procalcitonin Urine Color Urine Appearance Urine pH Ur Specific [place] Urine Protein Urine Glucose (UA) Urine Ketones Urine Occult Blood Urine Nitrate Urine Bilirubin Urine Urobilinogen Ur Leukocyte Esterase Urine RBC Urine WBC Ur Squamous Epith Cells Ur Transition Epith Cell Urine Bacteria Hyaline Casts Urine Mucus Ur Culture Indicated? Urine Opiates Screen Ur Opiates Confirm Ur Oxycodone Screen Urine Methadone Screen Ur Methadone Confirm Ur Barbiturates Screen Ur Barbiturate Confirm Ur Phencyclidine Scrn Urine PCP Confirm Ur Amphetamines Screen U Amphetamines Confirm U Benzodiazepines Scrn Ur Benzodiazepine, Qnt Urine Cocaine Screen Urine Cocaine Confirm U Cannabinoids Confirm U Marijuana (THC) Screen Ethyl Alcohol 04/12/22 04/12/22 04/12/22 17:57 17:57 17:57 WBC RBC Hgb Hct POC Hct MCV MCH MCHC RDW Plt Count MPV Neut % (Auto) Lymph % (Auto) [place] % (Auto) Eos % (Auto) Baso % (Auto) Lymph # (Auto) [place] # (Auto) Eos # (Auto) Baso # (Auto) Seg Neutrophils % Band Neutrophils % Lymphocytes % Monocytes % (Manual) Eosinophils % (Manual) Absolute Neutrophils Platelet Estimate RBC Morphology Anisocytosis Macrocytosis PT 16.5 H INR 1.3 H POC VBG pH POC VBG pCO2 at Temp POC VBG pO2 POC VBG HCO3 POC VBG Total CO2 POC Venous O2 Sat POC VBG Base Excess VBG Lactic Acid POC Sodium Sodium POC Potassium Potassium POC Chloride Chloride Carbon Dioxide POC Total CO2 Anion Gap POC BUN BUN Creatinine POC Creatinine GFR Calculation Glucose POC Glucose POC Venous Lactate Uric Acid Calcium POC WB Ioniz Calcium Phosphorus Magnesium 1.5 L Total Bilirubin Direct Bilirubin GGT AST ALT Alkaline Phosphatase Lactate Dehydrogenase Total Creatine Kinase C-Reactive Protein 2.20 H Total Protein Albumin Globulin Albumin/Globulin Ratio Triglycerides Procalcitonin 0.30 H Urine Color Urine Appearance Urine pH Ur Specific [place] Urine Protein Urine Glucose (UA) Urine Ketones Urine Occult Blood Urine Nitrate Urine Bilirubin Urine Urobilinogen Ur Leukocyte Esterase Urine RBC Urine WBC Ur Squamous Epith Cells Ur Transition Epith Cell Urine Bacteria Hyaline Casts Urine Mucus Ur Culture Indicated? Urine Opiates Screen Ur Opiates Confirm Ur Oxycodone Screen Urine Methadone Screen Ur Methadone Confirm Ur Barbiturates Screen Ur Barbiturate Confirm Ur Phencyclidine Scrn Urine PCP Confirm Ur Amphetamines Screen U Amphetamines Confirm U Benzodiazepines Scrn Ur Benzodiazepine, Qnt Urine Cocaine Screen Urine Cocaine Confirm U Cannabinoids Confirm U Marijuana (THC) Screen Ethyl Alcohol 04/12/22 04/12/22 17:57 17:57 WBC 7.5 RBC 3.74 Hgb 12.4 Hct 37.4 POC Hct MCV 100.0 MCH 33.2 MCHC 33.2 RDW 16.0 H Plt Count 113 L MPV 9.3 Neut % (Auto) 85.8 H Lymph % (Auto) 11.3 L [place] % (Auto) 2.3 Eos % (Auto) 0.3 Baso % (Auto) 0.3 Lymph # (Auto) 0.85 L [place] # (Auto) 0.17 Eos # (Auto) 0.02 Baso # (Auto) 0.02 Seg Neutrophils % Band Neutrophils % Lymphocytes % Monocytes % (Manual) Eosinophils % (Manual) Absolute Neutrophils 6.48 Platelet Estimate RBC Morphology Anisocytosis Macrocytosis PT INR POC VBG pH POC VBG pCO2 at Temp POC VBG pO2 POC VBG HCO3 POC VBG Total CO2 POC Venous O2 Sat POC VBG Base Excess VBG Lactic Acid POC Sodium Sodium 137 POC Potassium Potassium 3.2 L POC Chloride Chloride 103 Carbon Dioxide 17 L POC Total CO2 Anion Gap 17.0 H POC BUN BUN 8 Creatinine 0.7 POC Creatinine GFR Calculation 101 Glucose 138 H POC Glucose POC Venous Lactate Uric Acid Calcium 8.9 POC WB Ioniz Calcium Phosphorus Magnesium Total Bilirubin 2.0 H Direct Bilirubin GGT AST 58 H ALT 64 H Alkaline Phosphatase 184 H Lactate Dehydrogenase Total Creatine Kinase C-Reactive Protein Total Protein 8.6 H Albumin 3.4 Globulin 5.2 H Albumin/Globulin Ratio 0.7 L Triglycerides Procalcitonin Urine Color Urine Appearance Urine pH Ur Specific [place] Urine Protein Urine Glucose (UA) Urine Ketones Urine Occult Blood Urine Nitrate Urine Bilirubin Urine Urobilinogen Ur Leukocyte Esterase Urine RBC Urine WBC Ur Squamous Epith Cells Ur Transition Epith Cell Urine Bacteria Hyaline Casts Urine Mucus Ur Culture Indicated? Urine Opiates Screen Ur Opiates Confirm Ur Oxycodone Screen Urine Methadone Screen Ur Methadone Confirm Ur Barbiturates Screen Ur Barbiturate Confirm Ur Phencyclidine Scrn Urine PCP Confirm Ur Amphetamines Screen U Amphetamines Confirm U Benzodiazepines Scrn Ur Benzodiazepine, Qnt Urine Cocaine Screen Urine Cocaine Confirm U Cannabinoids Confirm U Marijuana (THC) Screen Ethyl Alcohol Discharge Plan Patient/Caregiver Discharge Instructions Activity: increase activity as tolerated Diet: Regular Diet Activity Restrictions/Additional Instructions: Referral to see oil treater in 1 to 2 weeks for cirrhosis. AVOID methamphetamine use and alcohol use. Prescriptions: New Lactobacillus acidophilus 1 billion cell capsule 1,000 mmu cells PO QDAY Qty: 60 0RF cefpodoxime 200 mg tablet 400 mg PO Q12H Qty: 14 0RF Rx Instructions: must administer with a meal/food Continued levetiracetam 500 mg Tablet See Rx Instructions .ROUTE .COMPLEX 0RF Rx Instructions: take 1 tablet PO QAM, 1.5 tablets po HS ziprasidone HCl 80 mg capsule 2 cap PO HS 0RF lactulose 10 gram/15 mL solution 15 ml PO TID 0RF melatonin 3 mg Tablet 9 mg PO HSP PRN (Reason: insomnia) Qty: 60 3RF folic acid 1 mg Tablet 1 mg PO DAILY Qty: 60 2RF Thera M Plus (ferrous fumarat) 9 mg iron-400 mcg Tablet 1 tab PO DAILY Qty: 60 4RF thiamine mononitrate (vit B1) 100 mg Tablet 100 mg PO DAILY Qty: 60 4RF venlafaxine 150 mg Capsule,Extended Release 24hr 150 mg PO DAILY Qty: 60 4RF benztropine 0.5 mg tablet 1 tab PO BID 0RF levofloxacin 750 mg tablet 1 tab PO QDAY 0RF nicotine 21 mg/24 hr patch 24 hour 1 patch topical QDAY 0RF No Action prednisolone 15 mg/5 mL Solution 40 mg PO DAILY 18 Days Qty: 480 0RF Rx Instructions: Take Prednisolone 40 mg (13.3 mL) daily for 18 more day then decrease to 30 mg daily for 3 days followed by 20 mg daily for 3 days followed by 10 mg daily for 3 days followed by 5 mg daily for 3 days then discontinue. Follow Up Plan Follow up with: Sascha Castrejon ARNP [Primary Care Provider] - Yelitza Jones DO [Physician] - Patient Disposition: Xfer SNF Prognosis: Serious Rehab Potential: Fair I certify that the patient requires SNF services: Yes Overall status at discharge: patient is progressing back to baseline QUALITY VTE Deep Vein Thrombosis/Pulmonary Embolism Present on Admission: No
[2022-04-14] MEDS: THIAMINE 100 MG in 0.9 % SODIUM CHLORIDE 50 ML IV SCH (09:24)
[2022-04-14] MEDS ORDERED: VENLAFAXINE 75 MG CAP.XL.24H PO ONE (10:00)
[2022-04-14] MEDS: LACTOBACILLUS 1 CAPSULE PO SCH ×2 (10:37→20:06)
[2022-04-14] MEDS: ACETAMINOPHEN 500 MG TABLET PO PRN (10:41)
[2022-04-14] MEDS: traMADol 50 MG TABLET PO PRN (10:42)
[2022-04-14] MEDS ORDERED: diphenhydrAMINE 50 MG/ML VIAL IV ONE (18:32)
[2022-04-14] MEDS ORDERED: diphenhydrAMINE 50 MG/ML VIAL ONE (19:00)
[2022-04-14] MEDS: MELATONIN 3 MG TABLET PO SCH (20:07)
[2022-04-15] MEDS: traMADol 50 MG TABLET PO PRN ×2 (00:02→16:36)
[2022-04-15] MEDS: LORazepam 2 MG/ML VIAL IV PRN (01:59)
[2022-04-15] MEDS: 0.9 % SODIUM CHLORIDE 10 ML SYRINGE IV SCH ×3 (05:17→21:19)
[2022-04-15 06:19] LABS: ALT/SGPT 38 U/L (<40); AST/SGOT 41 U/L (<32); Albumin 2.6 gm/dL (3.2-5.2); Albumin/Globulin Ratio 0.6 (1.0-2.3); Alkaline Phosphatase 149 U/L (39-117); Bilirubin,Direct 0.4 mg/dL (<0.3); Bilirubin,Total 0.7 mg/dL (0.1-1.0); Blood Urea Nitrogen 9 mg/dL (6-20); Calcium 8.2 mg/dL (8.6-10.4); Carbon Dioxide 20 mmol/L (22-30); Chloride 105 mmol/L (96-108); Globulin 4.1 gm/dL (2.2-3.7); Glomerular Filtration Rate 113; Glucose 85 mg/dL (70-105); Lactate Dehydrogenase 238 U/L (135-225); Phosphorous 3.1 mg/dL (2.5-4.5); Triglycerides 50 mg/dL (<150); Uric Acid 5.6 mg/dL (2.5-8.0)
[2022-04-15] MEDS: POTASSIUM CHLORIDE 20 MEQ TABLET PO PRN (06:43)
[2022-04-15 06:55] LABS: Basophils # (Auto) 0 K/mcL (0.00-0.30); Basophils % (Auto) 0 % (0.0-2.0); Eosinophils # (Auto) 0.02 K/mcL (0.00-0.70); Eosinophils % (Auto) 1.1 % (0.0-7.0); Hematocrit 29.3 % (34.1-44.9); Hemoglobin 9.4 g/dL (11.2-15.7); Lymphocytes # (Auto) 0.74 K/mcL (1.50-4.80); Lymphocytes % (Auto) 41.8 % (15.5-49.0); Mean Cell Volume 104.3 fL (80.0-100.0); Mean Corpuscular HGB Conc 32.1 g/dL (31.0-36.0); Mean Platelet Volume 9.6 fL (7.4-10.4); Monocytes # (Auto) 0.12 K/mcL (0.10-0.90); Monocytes % (Auto) 6.8 % (1.0-12.0); Neutrophils % (Auto) 50.3 % (38.0-78.0); Platelet Count 62 K/mcL (140-440); RBC 2.81 M/mcL (3.59-5.38); Red Cell Distribution Width 15.8 % (11.5-14.5); WBC 1.8 K/mcL (4.5-11.0)
--- NOTE | 2022-04-15 08:01 | Internal Med Progress Note ---
SUBJECTIVE Subjective Patient information: Note initiated : 04/15/22 at 7:53 am Service Date, if different from initiated Date: [] Patient: Anay Ramírez a 51 y/o F admitted on 04/12/22 for anxiety, shaking, tearful. Chief Complaint: [] Interval history: History of present illness: Ms. Ramírez is a 51 year old F Presents to the ED because she was having panic attacks she had chest pressure shortness of breath. In her her right hand was hurting and swollen in the back. Patient has been admitted twice since the beginning of February both for cellulitis and positive for methamphetamine use and then alcohol withdrawal. Patient denied methamphetamine use both admits but eventually during admits admitted to methamphetamine use. She first had neck cellulitis in the next admission right hand cellulitis where she went through severe alcohol withdrawal requiring intubation. Her first admission she was admitted for a week. Second admission she was admitted for 7 days. During that time she also had a telepsych consult. Refused to go to SNF and went home with her daughter. Today in the ED she was evaluated and found to be tachycardic hypertensive tachypneic. She was had a metabolic acidosis and mild hyperkalemia. Very mild transaminitis. And most notably a lactate of 3.8. Cultures were obtained and antibiotics given. Lactate elevation likely secondary to methamphetamine intoxication. However she likely has a developing right hand cellulitis. She is admitted to last using methamphetamine today and alcohol as well. Says she wants to get better and does not want her family to have to see your deteriorate and . She seemed more willing for help at this time. She asked me why would you want to help me. She does have headaches fevers chills nausea but no vomiting. She did complain of some chest pressure and shortness of breath during her panic attack. 04/13 Patient complains of headache some nausea fevers. Required several IV doses of Ativan last night. Leukopenia noted again and thrombocytopenia. Hypokalemia. Elevated procalcitonin. Replete electrolytes. Right third toe concern for osteoget imaging and follow-up the abnormal abdominal x-ray. 04/14 Patient required some Ativan at the end of yesterday's shift in the early evening. Did require low-dose this morning. Patient did well overnight. Potassium low and will replete. 04/15 Patient calm this morning. Seems to be doing better. Did require low-dose Ativan last night. Leukopenia worsened. Platelets dropped little bit but relatively stable. Hypokalemia Review of Systems: denies headache/fever/chills/nausea/vomiting/chest or abdominal pain /cough/dyspnea/diarrhea. Otherwise see above. Constitutional Vitals: Vital Signs Temp Pulse Resp BP Pulse Ox 97.4 F 58 L 17 133/73 97 04/14/22 20:01 04/15/22 06:01 04/15/22 06:01 04/15/22 06:01 04/15/22 06:01 Period Temp Pulse Resp BP Sys/Villa Pulse Ox Last 24 Hr 97.4 F-98.8 F 58-94 12-23 111-143/62-94 95-98 Intake and Output 04/14/22 04/15/22 04/15/22 21:59 05:59 13:59 Output Total 400 550 Balance -400 -550 Weight 74.446 kg Intake & Output: Intake & Output 04/14/22 04/15/22 04/15/22 21:59 05:59 13:59 Output Total 400 550 Balance -400 -550 Weight 74.446 kg Output: Void Amount 400 550 Other: Meal Dinner Percent of Meal Consumed 100% Feeding Ability Independent Urine Appearance Clear Clear Urine Color Bright Yellow Dark Yellow Urine Odor Strong Strong Stool Size Moderate Stool Color Brown Stool Consistency Loose # Bowel Movements 1 Exam: General: Awake, no acute distress Eyes/N/T: EOMI, Head/Neck: neck supple, CV: RRR, No murmurs, Pulm: Clear b/l, no wheezing/rhonchi/rales Abd: soft, nontender, +BS x4 Ext: no clubbing/cyanosis/edema of LE. Right hand dorsum edema much improved, no more erythema, mild TTP, right 3rd toe mild erythema/edema Neuro: Alert, no focal deficits, moves all extremities, Skin: warm/dry OBJ DATA Labs CBC & Chem 7: 04/15/22 05:00 04/15/22 05:00 Labs: Abnormal Lab Results 04/15/22 04/15/22 04/14/22 05:00 05:00 05:22 WBC 1.8 L RBC 2.81 L Hgb 9.4 L Hct 29.3 L MCV 104.3 H RDW 15.8 H Plt Count 62 L Neut % (Auto) Lymph % (Auto) Lymph # (Auto) 0.74 L Band Neutrophils % Lymphocytes % Absolute Neutrophils 0.89 L* Platelet Estimate RBC Morphology Anisocytosis Macrocytosis PT INR POC VBG pCO2 at Temp POC VBG pO2 POC VBG HCO3 POC VBG Total CO2 POC Venous O2 Sat POC VBG Base Excess VBG Lactic Acid POC Potassium Potassium 3.2 L Carbon Dioxide 20 L POC Total CO2 Anion Gap Creatinine 0.5 L Glucose POC Glucose POC Venous Lactate Calcium 8.2 L Magnesium Total Bilirubin Direct Bilirubin 0.4 H GGT 125 H AST 41 H ALT Alkaline Phosphatase 149 H Lactate Dehydrogenase 238 H C-Reactive Protein Total Protein Albumin 2.6 L Globulin 4.1 H Albumin/Globulin Ratio 0.6 L Procalcitonin 0.22 H Urine Appearance Urine Protein Urine Occult Blood Urine RBC Urine WBC Ur Squamous Epith Cells Hyaline Casts Urine Mucus Ur Barbiturates Screen Ur Amphetamines Screen 04/14/22 04/14/22 04/13/22 05:22 05:21 05:57 WBC 3.0 L RBC 3.02 L Hgb 9.9 L Hct 31.2 L MCV 103.3 H RDW 15.9 H Plt Count 71 L Neut % (Auto) Lymph % (Auto) Lymph # (Auto) Band Neutrophils % Lymphocytes % Absolute Neutrophils Platelet Estimate Decreased A RBC Morphology Abnormal A Anisocytosis 1+ A Macrocytosis 1+ A PT INR POC VBG pCO2 at Temp POC VBG pO2 POC VBG HCO3 POC VBG Total CO2 POC Venous O2 Sat POC VBG Base Excess VBG Lactic Acid POC Potassium Potassium 3.1 L 2.9 L* Carbon Dioxide POC Total CO2 Anion Gap Creatinine 0.4 L Glucose POC Glucose POC Venous Lactate Calcium 8.1 L 8.0 L Magnesium Total Bilirubin 1.1 H Direct Bilirubin 0.4 H 0.6 H GGT 140 H 120 H AST 35 H 35 H ALT 41 H 41 H Alkaline Phosphatase 144 H 119 H Lactate Dehydrogenase 255 H 278 H C-Reactive Protein 2.20 H Total Protein Albumin 2.6 L 2.4 L Globulin 4.3 H Albumin/Globulin Ratio 0.6 L 0.7 L Procalcitonin Urine Appearance Urine Protein Urine Occult Blood Urine RBC Urine WBC Ur Squamous Epith Cells Hyaline Casts Urine Mucus Ur Barbiturates Screen Ur Amphetamines Screen 04/13/22 04/13/2222 05:57 05:56 19:40 WBC 2.5 L RBC 2.74 L Hgb 9.1 L Hct 27.4 L MCV RDW 15.6 H Plt Count 54 L Neut % (Auto) Lymph % (Auto) Lymph # (Auto) 0.98 L Band Neutrophils % Lymphocytes % Absolute Neutrophils 1.30 L Platelet Estimate RBC Morphology Anisocytosis Macrocytosis PT 17.7 H INR 1.4 H POC VBG pCO2 at Temp POC VBG pO2 POC VBG HCO3 POC VBG Total CO2 POC Venous O2 Sat POC VBG Base Excess VBG Lactic Acid POC Potassium Potassium Carbon Dioxide POC Total CO2 Anion Gap Creatinine Glucose POC Glucose POC Venous Lactate Calcium Magnesium Total Bilirubin Direct Bilirubin GGT AST ALT Alkaline Phosphatase Lactate Dehydrogenase C-Reactive Protein Total Protein Albumin Globulin Albumin/Globulin Ratio Procalcitonin Urine Appearance Hazy A Urine Protein 30 A Urine Occult Blood >=1.0 A Urine RBC > 182 H Urine WBC 29 H Ur Squamous Epith Cells 20 H Hyaline Casts 3 H Urine Mucus Few A Ur Barbiturates Screen Ur Amphetamines Screen 04/12/22 04/12/22 04/12/22 19:40 18:57 18:12 WBC RBC Hgb Hct MCV RDW Plt Count Neut % (Auto) Lymph % (Auto) Lymph # (Auto) Band Neutrophils % 14 H Lymphocytes % 7 L Absolute Neutrophils Platelet Estimate Decreased A RBC Morphology Abnormal A Anisocytosis 1+ A Macrocytosis 1+ A PT INR POC VBG pCO2 at Temp POC VBG pO2 POC VBG HCO3 POC VBG Total CO2 POC Venous O2 Sat POC VBG Base Excess VBG Lactic Acid 3.8 H POC Potassium Potassium Carbon Dioxide POC Total CO2 Anion Gap Creatinine Glucose POC Glucose POC Venous Lactate Calcium Magnesium Total Bilirubin Direct Bilirubin GGT AST ALT Alkaline Phosphatase Lactate Dehydrogenase C-Reactive Protein Total Protein Albumin Globulin Albumin/Globulin Ratio Procalcitonin Urine Appearance Urine Protein Urine Occult Blood Urine RBC Urine WBC Ur Squamous Epith Cells Hyaline Casts Urine Mucus Ur Barbiturates Screen Suspect positive A Ur Amphetamines Screen Suspect positive A 04/12/22 04/12/22 04/12/22 18:02 18:02 17:57 WBC RBC Hgb Hct MCV RDW Plt Count Neut % (Auto) Lymph % (Auto) Lymph # (Auto) Band Neutrophils % Lymphocytes % Absolute Neutrophils Platelet Estimate RBC Morphology Anisocytosis Macrocytosis PT INR POC VBG pCO2 at Temp 32.4 L POC VBG pO2 55 H POC VBG HCO3 18.5 L POC VBG Total CO2 19.0 L POC Venous O2 Sat 87.0 H POC VBG Base Excess -7.0 L VBG Lactic Acid POC Potassium 3.2 L Potassium Carbon Dioxide POC Total CO2 19.0 L Anion Gap Creatinine Glucose POC Glucose 147 H POC Venous Lactate 5.0 H* Calcium Magnesium Total Bilirubin Direct Bilirubin GGT AST ALT Alkaline Phosphatase Lactate Dehydrogenase C-Reactive Protein Total Protein Albumin Globulin Albumin/Globulin Ratio Procalcitonin 0.30 H Urine Appearance Urine Protein Urine Occult Blood Urine RBC Urine WBC Ur Squamous Epith Cells Hyaline Casts Urine Mucus Ur Barbiturates Screen Ur Amphetamines Screen 04/12/22 04/12/22 04/12/22 17:57 17:57 17:57 WBC RBC Hgb Hct MCV RDW Plt Count Neut % (Auto) Lymph % (Auto) Lymph # (Auto) Band Neutrophils % Lymphocytes % Absolute Neutrophils Platelet Estimate RBC Morphology Anisocytosis Macrocytosis PT 16.5 H INR 1.3 H POC VBG pCO2 at Temp POC VBG pO2 POC VBG HCO3 POC VBG Total CO2 POC Venous O2 Sat POC VBG Base Excess VBG Lactic Acid POC Potassium Potassium 3.2 L Carbon Dioxide 17 L POC Total CO2 Anion Gap 17.0 H Creatinine Glucose 138 H POC Glucose POC Venous Lactate Calcium Magnesium 1.5 L Total Bilirubin 2.0 H Direct Bilirubin GGT AST 58 H ALT 64 H Alkaline Phosphatase 184 H Lactate Dehydrogenase C-Reactive Protein 2.20 H Total Protein 8.6 H Albumin Globulin 5.2 H Albumin/Globulin Ratio 0.7 L Procalcitonin Urine Appearance Urine Protein Urine Occult Blood Urine RBC Urine WBC Ur Squamous Epith Cells Hyaline Casts Urine Mucus Ur Barbiturates Screen Ur Amphetamines Screen 04/12/22 17:57 WBC RBC Hgb Hct MCV RDW 16.0 H Plt Count 113 L Neut % (Auto) 85.8 H Lymph % (Auto) 11.3 L Lymph # (Auto) 0.85 L Band Neutrophils % Lymphocytes % Absolute Neutrophils Platelet Estimate RBC Morphology Anisocytosis Macrocytosis PT INR POC VBG pCO2 at Temp POC VBG pO2 POC VBG HCO3 POC VBG Total CO2 POC Venous O2 Sat POC VBG Base Excess VBG Lactic Acid POC Potassium Potassium Carbon Dioxide POC Total CO2 Anion Gap Creatinine Glucose POC Glucose POC Venous Lactate Calcium Magnesium Total Bilirubin Direct Bilirubin GGT AST ALT Alkaline Phosphatase Lactate Dehydrogenase C-Reactive Protein Total Protein Albumin Globulin Albumin/Globulin Ratio Procalcitonin Urine Appearance Urine Protein Urine Occult Blood Urine RBC Urine WBC Ur Squamous Epith Cells Hyaline Casts Urine Mucus Ur Barbiturates Screen Ur Amphetamines Screen Meds: Medications Acetaminophen (Acetaminophen 500 Mg Tablet) 500 mg PO Q8HP PRN; Protocol PRN Reason: Per Pain Protocol Last Admin: 04/14/22 10:41 Dose: 500 mg Documented by: Albuterol/Ipratropium (Ipratropium/Albuterol 3 Ml Ampul.Neb) 3 ml NEB Q4HP PRN PRN Reason: Shortness Of Breath Benztropine Mesylate (Benztropine 1 Mg Tablet) 0.5 mg PO BID [facility] Last Admin: 04/14/22 20:06 Dose: 0.5 mg Documented by: Chlordiazepoxide HCl (Chlordiazepoxide 25 Mg Capsule) 25 mg PO Q4HP PRN PRN Reason: Alcohol Withdrawal Last Admin: 04/13/22 17:47 Dose: 25 mg Documented by: Diphenhydramine HCl (Diphenhydramine 25 Mg Capsule) 25 mg PO Q6HP PRN PRN Reason: Allergic Symptoms Enoxaparin Sodium (Enoxaparin 40 Mg/0.4 Ml Syringe) 40 mg SQ DAILY [facility] Last Admin: 04/14/22 08:08 Dose: 40 mg Documented by: Famotidine (Famotidine 20 Mg Tablet) 20 mg PO BID [facility] Last Admin: 04/14/22 20:06 Dose: 20 mg Documented by: Folic Acid (Folic Acid 1 Mg Tablet) 1 mg PO DAILY [facility] Last Admin: 04/14/22 08:07 Dose: 1 mg Documented by: Haloperidol Lactate (Haloperidol Lactate 5 Mg/Ml Vial) 0.5 mg IM Q2HP PRN PRN Reason: Alcohol Withdrawal Last Admin: 04/13/22 00:42 Dose: 0.5 mg Documented by: Potassium Chloride 40 meq/ (Dextrose) 520 mls @ 130 mls/hr IV UD PRN PRN Reason: Potassium < 3 Last Infusion: 04/13/22 13:24 Dose: Infused Documented by: Magnesium Sulfate (Magnesium Sulfate) 2 gm in 50 mls @ 50 mls/hr IV UD PRN PRN Reason: Magnesium </= 1.6 Ceftriaxone Sodium 2 gm/ (Dextrose) 50 mls @ 100 mls/hr IV Q24H [facility]; Protocol Last Infusion: 04/14/22 08:40 Dose: Infused Documented by: Thiamine HCl 100 mg/ Sodium (Chloride) 51 mls @ 50 mls/hr IV DAILY [facility] Last Infusion: 04/14/22 10:26 Dose: Infused Documented by: Iron Carb/Multivit/[place]/Folic Acid (Multivit,Ther Iron,Ca,Fa & Min 1 Tablet) 1 tab PO DAILY [facility] Last Admin: 04/14/22 08:08 Dose: 1 tab Documented by: Lactobacillus Rhamnosus (Lactobacillus 1 Capsule) 1 cap PO BID [facility] Last Admin: 04/14/22 20:06 Dose: 1 cap Documented by: Lactulose (Lactulose 20 Gm/30 Ml Oral.Lilia) 20 gm PO DAILYP PRN PRN Reason: Constipation Lactulose (Lactulose 20 Gm/30 Ml Oral.Lilia) 10 gm PO TID [facility] Last Admin: 04/14/22 20:06 Dose: 10 gm Documented by: Levetiracetam (Levetiracetam 500 Mg Tablet) 500 mg PO DAILY [facility] Last Admin: 04/14/22 08:06 Dose: 500 mg Documented by: Levetiracetam (Levetiracetam 500 Mg Tablet) 750 mg PO [facility] Last Admin: 04/14/22 20:06 Dose: 750 mg Documented by: Lorazepam (Lorazepam 2 Mg/Ml Vial) 0 mg IV Q4HP PRN; Protocol PRN Reason: Alcohol Withdrawal Last Admin: 04/15/22 01:59 Dose: 1 mg Documented by: Melatonin (Melatonin 3 Mg Tablet) 9 mg PO QHS [facility] Last Admin: 04/14/22 20:07 Dose: 9 mg Documented by: Methylprednisolone Sodium Succinate (Methylprednisolone Sod Succ 40 Mg/Ml Vial) 32 mg IV DAILY [facility] Last Admin: 04/14/22 08:10 Dose: 32 mg Documented by: Metoclopramide HCl (Metoclopramide 10 Mg/2 Ml Vial) 10 mg IV Q6HP PRN PRN Reason: Nausea And Vomiting Last Admin: 04/13/22 10:42 Dose: 10 mg Documented by: Morphine Sulfate (Morphine 4 Mg/Ml Vial) 0 mg IV Q3HP PRN PRN Reason: Pain Last Admin: 04/14/22 00:28 Dose: 2 mg Documented by: Nicotine (Nicotine 21 Mg Patch) 21 mg TOPICAL QDAY [facility] Last Admin: 04/14/22 08:11 Dose: 21 mg Documented by: Ondansetron HCl (Ondansetron 4 Mg/2 Ml Vial) 4 mg IV Q4HP PRN PRN Reason: Nausea And Vomiting Ziprasidone Hcl 80 (Mg Capsule) 2 dose PO HS [facility] Last Admin: 04/14/22 22:50 Dose: Not Given Documented by: Potassium Chloride (Potassium Chloride 20 Meq Tablet) 40 meq PO UD PRN PRN Reason: Potssium is 3-3.5 Last Admin: 04/15/22 06:43 Dose: 40 meq Documented by: Potassium Chloride (Potassium Chloride 20 Meq Tablet) 40 meq PO UD PRN PRN Reason: Potassium < 3 Sodium Chloride (0.9 % Sodium Chloride 10 Ml Syringe) 10 ml IV Q8 [facility] Last Admin: 04/15/22 05:17 Dose: 10 ml Documented by: Tramadol HCl (Tramadol 50 Mg Tablet) 50 mg PO Q12HP PRN; Protocol PRN Reason: Pain Last Admin: 04/15/22 00:02 Dose: 50 mg Documented by: Venlafaxine HCl (Venlafaxine 75 Mg Cap.Xl.24h) 225 mg PO DAILY [facility] A/P Narrative A/P Narrative: A: *Methamphetamine intoxication (Substance abuse with methamphetamine), acute: -improving *Metabolic acidosis from lactic acidosis: 2/2 above, improved *Right hand cellulitis & Right Third cellulitis no osteo: *h/o Bipolar/PTSD: on geodon/venlafaxine per psych *h/o alcoholic hepatitis: Currently in middle of a course of prednisolone *Alcohol abuse: *Cirrhosis, etoh related: based on imaging and labs and etoh history, has not followed up yet with GI -w/Thrombocytopenia/hyperbilirubinemia/hypoalbuminemia *Coagulopathy: 2/2 above *Leukopenia/Anemia: 2/2 above, Worsened, abx could be contributing *h/o Seizure disorder: on keppra *Tobacco abuse: *Electrolyte d/o (hypokalemia/hypomagnesemia/): P: -switch rocephin to penicillin and monitor wbc, mrsa screen neg, pending BC, pct -monitor cbc -prn Benzo -CIWA, vitamins/minerals -cont psych meds and Keppra -cont prednisolone (start the 12-day taper portion upon d/c, as described in last discharge summary) -cont lactulose -Smoking cessation counseling -f/u with GI for cirrhosis -Alcohol/substance use cessation counseling, referral to see Dr. Jones - for SNF placement -ppx: lovenox (as long as plts>50k) Time Spent With Patient Time: Total time spent is greater than 50% in coordination of care (as documented) at patient's floor/unit and/or counseling patient: Total time spent with greater than 50% in coordination of care (as documented) at patient's floor/unit and/or counseling patient:: 25 - 35 minutes QUALITY VTE Deep Vein Thrombosis/Pulmonary Embolism Present on Admission: No
[2022-04-15] MEDS: BENZTROPINE 1 MG TABLET PO SCH ×2 (09:20→21:16)
[2022-04-15] MEDS: VENLAFAXINE 75 MG CAP.XL.24H PO SCH (09:20)
[2022-04-15] MEDS: levETIRAcetam 500 MG TABLET PO SCH ×2 (09:20→21:15)
[2022-04-15] MEDS: LACTOBACILLUS 1 CAPSULE PO SCH ×2 (09:20→21:15)
[2022-04-15] MEDS: FOLIC ACID 1 MG TABLET PO SCH (09:20)
[2022-04-15] MEDS: methylPREDNISolone SOD SUCC 40 MG/ML VIAL IV SCH (09:21)
[2022-04-15] MEDS: MULTIVIT,THER IRON,CA,FA & MIN 1 TABLET PO SCH (09:21)
[2022-04-15] MEDS: LACTULOSE 20 GM/30 ML ORAL.SOL PO SCH ×3 (09:21→21:15)
[2022-04-15] MEDS: ENOXAPARIN 40 MG/0.4 ML SYRINGE SQ SCH (09:21)
[2022-04-15] MEDS: NICOTINE 21 MG PATCH TOPICAL SCH (09:22)
[2022-04-15] MEDS: PENICILLIN POTASSIUM IV SCH ×4 (09:22→21:15)
[2022-04-15] MEDS: SODIUM CHLORIDE 0.9% IV SCH ×4 (09:22→21:15)
[2022-04-15] MEDS: THIAMINE 100 MG in 0.9 % SODIUM CHLORIDE 50 ML IV SCH (09:22)
[2022-04-15] MEDS: ACETAMINOPHEN 500 MG TABLET PO PRN (21:16)
[2022-04-15] MEDS: MELATONIN 3 MG TABLET PO SCH (21:16)
[2022-04-16] MEDS: SODIUM CHLORIDE 0.9% IV SCH ×6 (01:08→20:11)
[2022-04-16] MEDS: PENICILLIN POTASSIUM IV SCH ×6 (01:08→20:11)
[2022-04-16] MEDS: diphenhydrAMINE 25 MG CAPSULE PO PRN ×3 (03:11→18:12)
[2022-04-16] MEDS: traMADol 50 MG TABLET PO PRN ×2 (03:59→16:19)
[2022-04-16] MEDS: 0.9 % SODIUM CHLORIDE 10 ML SYRINGE IV SCH ×3 (04:00→20:11)
[2022-04-16 06:34] LABS: Hematocrit 30.9 % (34.1-44.9); Hemoglobin 10.2 g/dL (11.2-15.7); Mean Platelet Volume 9.2 fL (7.4-10.4); Platelet Count 69 K/mcL (140-440); RBC 3.06 M/mcL (3.59-5.38); Red Cell Distribution Width 15.5 % (11.5-14.5); WBC 2.4 K/mcL (4.5-11.0)
[2022-04-16 07:03] LABS: ALT/SGPT 52 U/L (<40); AST/SGOT 55 U/L (<32); Albumin 2.8 gm/dL (3.2-5.2); Albumin/Globulin Ratio 0.7 (1.0-2.3); Alkaline Phosphatase 159 U/L (39-117); Bilirubin,Direct 0.4 mg/dL (<0.3); Bilirubin,Total 0.7 mg/dL (0.1-1.0); Blood Urea Nitrogen 6 mg/dL (6-20); Calcium 8.5 mg/dL (8.6-10.4); Carbon Dioxide 23 mmol/L (22-30); Chloride 107 mmol/L (96-108); Globulin 4.1 gm/dL (2.2-3.7); Glomerular Filtration Rate 113; Glucose 84 mg/dL (70-105); Lactate Dehydrogenase 237 U/L (135-225); Phosphorous 2.7 mg/dL (2.5-4.5); Triglycerides 55 mg/dL (<150); Uric Acid 4.7 mg/dL (2.5-8.0)
[2022-04-16 07:31] LABS: Anisocytosis 1+ (None Seen); Hypochromasia OCC (None Seen); Lymphocytes % 38 % (15-49); Monocytes % (Manual) 4 % (1-12); Platelet Estimate DECREASED (Normal); Polychromasia OCC (None Seen); RBC Morphology ABNORMAL (Normal); Reactive Lymphocytes 1 % (0-2); Segmented Neutrophils % 57 % (38-78)
--- NOTE | 2022-04-16 07:45 | Internal Med Progress Note ---
SUBJECTIVE Subjective Patient information: Note initiated : 04/16/22 at 7:42 am Service Date, if different from initiated Date: [] Patient: Anay Ramírez a 51 y/o F admitted on 04/12/22 for anxiety, shaking, tearful. Chief Complaint: [] Interval history: History of present illness: Ms. Ramírez is a 51 year old F Presents to the ED because she was having panic attacks she had chest pressure shortness of breath. In her her right hand was hurting and swollen in the back. Patient has been admitted twice since the beginning of February both for cellulitis and positive for methamphetamine use and then alcohol withdrawal. Patient denied methamphetamine use both admits but eventually during admits admitted to methamphetamine use. She first had neck cellulitis in the next admission right hand cellulitis where she went through severe alcohol withdrawal requiring intubation. Her first admission she was admitted for a week. Second admission she was admitted for 7 days. During that time she also had a telepsych consult. Refused to go to SNF and went home with her daughter. Today in the ED she was evaluated and found to be tachycardic hypertensive tachypneic. She was had a metabolic acidosis and mild hyperkalemia. Very mild transaminitis. And most notably a lactate of 3.8. Cultures were obtained and antibiotics given. Lactate elevation likely secondary to methamphetamine intoxication. However she likely has a developing right hand cellulitis. She is admitted to last using methamphetamine today and alcohol as well. Says she wants to get better and does not want her family to have to see your deteriorate and . She seemed more willing for help at this time. She asked me why would you want to help me. She does have headaches fevers chills nausea but no vomiting. She did complain of some chest pressure and shortness of breath during her panic attack. 04/13 Patient complains of headache some nausea fevers. Required several IV doses of Ativan last night. Leukopenia noted again and thrombocytopenia. Hypokalemia. Elevated procalcitonin. Replete electrolytes. Right third toe concern for osteoget imaging and follow-up the abnormal abdominal x-ray. 04/14 Patient required some Ativan at the end of yesterday's shift in the early evening. Did require low-dose this morning. Patient did well overnight. Potassium low and will replete. 04/15 Patient calm this morning. Seems to be doing better. Did require low-dose Ativan last night. Leukopenia worsened. Platelets dropped little bit but relatively stable. Hypokalemia 04/16 Patient states poor sleep last night. Complains of headache and nausea. No vomiting. Leukopenia little better this morning. Switch Rocephin to penicillin yesterday. Transaminitis. Review of Systems: denies headache/fever/chills/nausea/vomiting/chest or abdominal pain/cough/dy spnea/diarrhea. Otherwise see above. Constitutional Vitals: Vital Signs Temp Pulse Resp BP Pulse Ox 98.1 F 74 16 134/82 96 04/16/22 04:02 04/16/22 04:02 04/16/22 04:02 04/16/22 04:02 04/16/22 04:02 Period Temp Pulse Resp BP Sys/Villa Pulse Ox Last 24 Hr 97 F-98.6 F 58-74 14-17 103-138/65-83 93-97 Intake and Output 04/15/22 04/16/22 04/16/22 21:59 05:59 13:59 Intake Total 740 402 Output Total 500 Balance 240 402 Weight 75.478 kg Intake & Output: Intake & Output 04/15/22 04/16/22 04/16/22 21:59 05:59 13:59 Intake Total 740 402 Output Total 500 Balance 240 402 Weight 75.478 kg Intake: IV 108 162 Pfizerpen 2,000,000 Unit In 108 162 Sodium Chloride 0.9% 50 ml @ 100 mls/hr IV Q4H [facility] Rx#: [id number] Oral 232 240 GI Tube Flush 400 Output: Urine/Stool Mix 500 Exam: General: Awake, no acute distress Eyes/N/T: EOMI, Head/Neck: neck supple, CV: RRR, No murmurs, Pulm: Clear b/l, no wheezing/rhonchi/rales Abd: soft, nontender, +BS x4 Ext: no clubbing/cyanosis/edema of LE. Right hand dorsum edema/erythema significantly better, right 3rd toe mild erythema/edema better Neuro: Alert, no focal deficits, moves all extremities, Skin: warm/dry OBJ DATA Labs CBC & Chem 7: 04/16/22 05:20 04/16/22 05:20 Labs: Abnormal Lab Results 04/16/22 04/16/22 04/15/22 05:20 05:20 05:00 WBC 2.4 L RBC 3.06 L Hgb 10.2 L Hct 30.9 L MCV 101.0 H RDW 15.5 H Plt Count 69 L Lymph # (Auto) Absolute Neutrophils Platelet Estimate Decreased A RBC Morphology Abnormal A Polychromasia Occ A Hypochromasia Occ A Anisocytosis 1+ A Macrocytosis PT INR Potassium 3.2 L Carbon Dioxide 20 L Creatinine 0.5 L 0.5 L Calcium 8.5 L 8.2 L Direct Bilirubin 0.4 H 0.4 H GGT 144 H 125 H AST 55 H 41 H ALT 52 H Alkaline Phosphatase 159 H 149 H Lactate Dehydrogenase 237 H 238 H C-Reactive Protein Albumin 2.8 L 2.6 L Globulin 4.1 H 4.1 H Albumin/Globulin Ratio 0.7 L 0.6 L Procalcitonin Urine Appearance Urine Protein Urine Occult Blood Urine RBC Urine WBC Ur Squamous Epith Cells Hyaline Casts Urine Mucus 04/15/22 04/14/22 04/14/22 05:00 05:22 05:22 WBC 1.8 L RBC 2.81 L Hgb 9.4 L Hct 29.3 L MCV 104.3 H RDW 15.8 H Plt Count 62 L Lymph # (Auto) 0.74 L Absolute Neutrophils 0.89 L* Platelet Estimate RBC Morphology Polychromasia Hypochromasia Anisocytosis Macrocytosis PT INR Potassium 3.1 L Carbon Dioxide Creatinine Calcium 8.1 L Direct Bilirubin 0.4 H GGT 140 H AST 35 H ALT 41 H Alkaline Phosphatase 144 H Lactate Dehydrogenase 255 H C-Reactive Protein 2.20 H Albumin 2.6 L Globulin 4.3 H Albumin/Globulin Ratio 0.6 L Procalcitonin 0.22 H Urine Appearance Urine Protein Urine Occult Blood Urine RBC Urine WBC Ur Squamous Epith Cells Hyaline Casts Urine Mucus 04/14/22 04/13/22 04/12/22 05:21 05:56 19:40 WBC 3.0 L RBC 3.02 L Hgb 9.9 L Hct 31.2 L MCV 103.3 H RDW 15.9 H Plt Count 71 L Lymph # (Auto) Absolute Neutrophils Platelet Estimate Decreased A RBC Morphology Abnormal A Polychromasia Hypochromasia Anisocytosis 1+ A Macrocytosis 1+ A PT 17.7 H INR 1.4 H Potassium Carbon Dioxide Creatinine Calcium Direct Bilirubin GGT AST ALT Alkaline Phosphatase Lactate Dehydrogenase C-Reactive Protein Albumin Globulin Albumin/Globulin Ratio Procalcitonin Urine Appearance Hazy A Urine Protein 30 A Urine Occult Blood >=1.0 A Urine RBC > 182 H Urine WBC 29 H Ur Squamous Epith Cells 20 H Hyaline Casts 3 H Urine Mucus Few A Meds: Medications Acetaminophen (Acetaminophen 500 Mg Tablet) 500 mg PO Q8HP PRN; Protocol PRN Reason: Per Pain Protocol Last Admin: 04/15/22 21:16 Dose: 500 mg Documented by: Albuterol/Ipratropium (Ipratropium/Albuterol 3 Ml Ampul.Neb) 3 ml NEB Q4HP PRN PRN Reason: Shortness Of Breath Benztropine Mesylate (Benztropine 1 Mg Tablet) 0.5 mg PO BID [facility] Last Admin: 04/15/22 21:16 Dose: 0.5 mg Documented by: Chlordiazepoxide HCl (Chlordiazepoxide 25 Mg Capsule) 25 mg PO Q4HP PRN PRN Reason: Alcohol Withdrawal Last Admin: 04/13/22 17:47 Dose: 25 mg Documented by: Diphenhydramine HCl (Diphenhydramine 25 Mg Capsule) 25 mg PO Q6HP PRN PRN Reason: Allergic Symptoms Last Admin: 04/16/22 03:11 Dose: 25 mg Documented by: Enoxaparin Sodium (Enoxaparin 40 Mg/0.4 Ml Syringe) 40 mg SQ DAILY [facility] Last Admin: 04/15/22 09:21 Dose: 40 mg Documented by: Folic Acid (Folic Acid 1 Mg Tablet) 1 mg PO DAILY [facility] Last Admin: 04/15/22 09:20 Dose: 1 mg Documented by: Haloperidol Lactate (Haloperidol Lactate 5 Mg/Ml Vial) 0.5 mg IM Q2HP PRN PRN Reason: Alcohol Withdrawal Last Admin: 04/13/22 00:42 Dose: 0.5 mg Documented by: Potassium Chloride 40 meq/ (Dextrose) 520 mls @ 130 mls/hr IV UD PRN PRN Reason: Potassium < 3 Last Infusion: 04/13/22 13:24 Dose: Infused Documented by: Magnesium Sulfate (Magnesium Sulfate) 2 gm in 50 mls @ 50 mls/hr IV UD PRN PRN Reason: Magnesium </= 1.6 Thiamine HCl 100 mg/ Sodium (Chloride) 51 mls @ 50 mls/hr IV DAILY [facility] Last Infusion: 04/15/22 10:49 Dose: Infused Documented by: Penicillin G Potassium 2,000, (000 unit/ Sodium Chloride) 54 mls @ 100 mls/hr IV Q4H [facility]; Protocol Last Infusion: 04/16/22 04:36 Dose: Infused Documented by: Iron Carb/Multivit/Sheldon/Folic Acid (Multivit,Ther Iron,Ca,Fa & Min 1 Tablet) 1 tab PO DAILY [facility] Last Admin: 04/15/22 09:21 Dose: 1 tab Documented by: Lactobacillus Rhamnosus (Lactobacillus 1 Capsule) 1 cap PO BID [facility] Last Admin: 04/15/22 21:15 Dose: 1 cap Documented by: Lactulose (Lactulose 20 Gm/30 Ml Oral.Lilia) 20 gm PO DAILYP PRN PRN Reason: Constipation Lactulose (Lactulose 20 Gm/30 Ml Oral.Lilia) 10 gm PO TID [facility] Last Admin: 04/15/22 21:15 Dose: 10 gm Documented by: Levetiracetam (Levetiracetam 500 Mg Tablet) 500 mg PO DAILY [facility] Last Admin: 04/15/22 09:20 Dose: 500 mg Documented by: Levetiracetam (Levetiracetam 500 Mg Tablet) 750 mg PO HS [facility] Last Admin: 04/15/22 21:15 Dose: 750 mg Documented by: Lorazepam (Lorazepam 2 Mg/Ml Vial) 0 mg IV Q4HP PRN; Protocol PRN Reason: Alcohol Withdrawal Last Admin: 04/15/22 01:59 Dose: 1 mg Documented by: Melatonin (Melatonin 3 Mg Tablet) 9 mg PO QHS [facility] Last Admin: 04/15/22 21:16 Dose: 9 mg Documented by: Methylprednisolone Sodium Succinate (Methylprednisolone Sod Succ 40 Mg/Ml Vial) 32 mg IV DAILY [facility] Last Admin: 04/15/22 09:21 Dose: 32 mg Documented by: Metoclopramide HCl (Metoclopramide 10 Mg/2 Ml Vial) 10 mg IV Q6HP PRN PRN Reason: Nausea And Vomiting Last Admin: 04/13/22 10:42 Dose: 10 mg Documented by: Morphine Sulfate (Morphine 4 Mg/Ml Vial) 0 mg IV Q3HP PRN PRN Reason: Pain Last Admin: 04/14/22 00:28 Dose: 2 mg Documented by: Nicotine (Nicotine 21 Mg Patch) 21 mg TOPICAL QDAY [facility] Last Admin: 04/15/22 09:22 Dose: 21 mg Documented by: Ondansetron HCl (Ondansetron 4 Mg/2 Ml Vial) 4 mg IV Q4HP PRN PRN Reason: Nausea And Vomiting Pantoprazole Sodium (Pantoprazole 40 Mg Packet) 40 mg PO QAMAC [facility] Ziprasidone Hcl 80 (Mg Capsule) 2 dose PO HS [facility] Last Admin: 04/15/22 21:27 Dose: Not Given Documented by: Potassium Chloride (Potassium Chloride 20 Meq Tablet) 40 meq PO UD PRN PRN Reason: Potssium is 3-3.5 Last Admin: 04/15/22 06:43 Dose: 40 meq Documented by: Potassium Chloride (Potassium Chloride 20 Meq Tablet) 40 meq PO UD PRN PRN Reason: Potassium < 3 Sodium Chloride (0.9 % Sodium Chloride 10 Ml Syringe) 10 ml IV Q8 [facility] Last Admin: 04/16/22 04:00 Dose: 10 ml Documented by: Tramadol HCl (Tramadol 50 Mg Tablet) 50 mg PO Q12HP PRN; Protocol PRN Reason: Pain Last Admin: 04/16/22 03:59 Dose: 50 mg Documented by: Venlafaxine HCl (Venlafaxine 75 Mg Cap.Xl.24h) 225 mg PO DAILY [facility] Last Admin: 04/15/22 09:20 Dose: 225 mg Documented by: A/P Narrative A/P Narrative: A: *Methamphetamine intoxication (Substance abuse with methamphetamine), acute: -improved *Metabolic acidosis from lactic acidosis: 2/2 above, improved *Right hand cellulitis & Right Third cellulitis no osteo: -BC neg *h/o Bipolar/PTSD: on geodon/venlafaxine per psych *h/o alcoholic hepatitis: Currently in middle of a course of prednisolone *Alcohol abuse: *Cirrhosis, etoh related: based on imaging and labs and etoh history, has not followed up yet with GI -w/Thrombocytopenia/hyperbilirubinemia/hypoalbuminemia *Coagulopathy: 2/2 above *Leukopenia/Anemia: 2/2 above, Worsened but now improved, abx switched *h/o Seizure disorder: on keppra *Tobacco abuse: *Electrolyte d/o (hypokalemia/hypomagnesemia/): P: -switched rocephin d/t leukopenia penicillin and monitor wbc, mrsa screen neg, -monitor cbc -prn Benzo -CIWA, vitamins/minerals -cont psych meds and Keppra -cont prednisolone (start the 12-day taper portion upon d/c, as described in last discharge summary) -cont lactulose -Smoking cessation counseling -f/u with GI for cirrhosis -Alcohol/substance use cessation counseling, referral to see Dr. Jones - for SNF placement -ppx: lovenox (as long as plts>50k) Time Spent With Patient Time: Total time spent is greater than 50% in coordination of care (as documented) at patient's floor/unit and/or counseling patient: Total time spent with greater than 50% in coordination of care (as documented) at patient's floor/unit and/or counseling patient:: 25 - 35 minutes QUALITY VTE Deep Vein Thrombosis/Pulmonary Embolism Present on Admission: No
[2022-04-16] MEDS: PANTOPRAZOLE 40 MG PACKET PO SCH (08:41)
[2022-04-16] MEDS: ENOXAPARIN 40 MG/0.4 ML SYRINGE SQ SCH (08:41)
[2022-04-16] MEDS: LACTULOSE 20 GM/30 ML ORAL.SOL PO SCH ×3 (08:41→20:10)
[2022-04-16] MEDS: LACTOBACILLUS 1 CAPSULE PO SCH ×2 (08:42→20:10)
[2022-04-16] MEDS: VENLAFAXINE 75 MG CAP.XL.24H PO SCH (08:42)
[2022-04-16] MEDS: methylPREDNISolone SOD SUCC 40 MG/ML VIAL IV SCH (08:42)
[2022-04-16] MEDS: FOLIC ACID 1 MG TABLET PO SCH (08:42)
[2022-04-16] MEDS: MULTIVIT,THER IRON,CA,FA & MIN 1 TABLET PO SCH (08:43)
[2022-04-16] MEDS: BENZTROPINE 1 MG TABLET PO SCH ×2 (08:43→20:10)
[2022-04-16] MEDS: NICOTINE 21 MG PATCH TOPICAL SCH (08:44)
[2022-04-16] MEDS: levETIRAcetam 500 MG TABLET PO SCH ×2 (08:44→20:11)
[2022-04-16] MEDS: THIAMINE 100 MG in 0.9 % SODIUM CHLORIDE 50 ML IV SCH (09:18)
[2022-04-16] MEDS: LORazepam 2 MG/ML VIAL IV PRN (12:52)
[2022-04-16] MEDS: ACETAMINOPHEN 500 MG TABLET PO PRN (18:12)
[2022-04-16] MEDS: MELATONIN 3 MG TABLET PO SCH (20:10)
[2022-04-17] MEDS: SODIUM CHLORIDE 0.9% IV SCH ×3 (01:24→09:50)
[2022-04-17] MEDS: PENICILLIN POTASSIUM IV SCH ×3 (01:24→09:50)
[2022-04-17] MEDS: diphenhydrAMINE 25 MG CAPSULE PO PRN (01:45)
[2022-04-17] MEDS: 0.9 % SODIUM CHLORIDE 10 ML SYRINGE IV SCH (04:48)
[2022-04-17] MEDS: traMADol 50 MG TABLET PO PRN (04:57)
[2022-04-17] MEDS: methylPREDNISolone SOD SUCC 40 MG/ML VIAL IV SCH (08:38)
[2022-04-17] MEDS: LACTULOSE 20 GM/30 ML ORAL.SOL PO SCH (08:38)
[2022-04-17] MEDS: ENOXAPARIN 40 MG/0.4 ML SYRINGE SQ SCH (08:38)
[2022-04-17] MEDS: PANTOPRAZOLE 40 MG PACKET PO SCH (08:39)
[2022-04-17] MEDS: levETIRAcetam 500 MG TABLET PO SCH (08:40)
[2022-04-17] MEDS: LACTOBACILLUS 1 CAPSULE PO SCH (08:40)
[2022-04-17] MEDS: VENLAFAXINE 75 MG CAP.XL.24H PO SCH (08:40)
[2022-04-17] MEDS: FOLIC ACID 1 MG TABLET PO SCH (08:40)
[2022-04-17] MEDS: MULTIVIT,THER IRON,CA,FA & MIN 1 TABLET PO SCH (08:40)
[2022-04-17] MEDS: BENZTROPINE 1 MG TABLET PO SCH (08:40)
[2022-04-17] MEDS: NICOTINE 21 MG PATCH TOPICAL SCH (08:41)
[2022-04-17] MEDS: THIAMINE 100 MG in 0.9 % SODIUM CHLORIDE 50 ML IV SCH (09:49)
--- NOTE | 2022-04-17 10:34 | Discharge Summary ---
Discharge Provider Provider IMPORTANT FOLLOW-UP INFORMATION FOR PCP: Patient information: Note initiated : 04/17/22 at 10:31 am Service Date, if different from initiated Date: [] Patient: Anay Ramírez 51 y/o F admitted on 04/12/22 for anxiety, shaking, tearful. Chief Complaint: [] Date of admission: 04/12/22 23:51 Discharge date: 04/17/22 Primary care physician: GUS Streeter Consults: 04/12/22 Consult to Physician [CONS] Stat Comment: Consulting Provider: Wilson Castillo Reason For Exam: Physician to Consult Discharge Meds Discharge Medications Home Medications levetiracetam 500 mg tablet See Rx Instructions .ROUTE .COMPLEX 03/04/22 [History Confirmed 04/13/22 Last Taken Unknown] ziprasidone HCl 80 mg capsule 2 cap PO HS 03/04/22 [History Confirmed 04/13/22 Last Taken Unknown] lactulose 10 gram/15 mL oral solution 15 ml PO TID 03/24/22 [History Confirmed 04/13/22 Last Taken Unknown] folic acid 1 mg tablet 1 mg PO DAILY #60 tab 04/03/22 [Rx Confirmed 04/13/22 Last Taken Unknown] melatonin 3 mg tablet 9 mg PO HSP PRN #60 tab 04/03/22 [Rx Confirmed 04/13/22 Last Taken Unknown] multivitamin-iron 9 mg-folic acid 400 mcg-calcium and minerals tablet (Thera M Plus (ferrous fumarate)) 1 tab PO DAILY #60 tab 04/03/22 [Rx Confirmed 04/13/22 Last Taken Unknown] prednisolone 15 mg/5 mL oral solution 40 mg (13.3333 mL) PO DAILY 18 Days #480 ml 04/03/22 [Rx Confirmed 04/13/22 Last Taken Unknown] thiamine mononitrate (vit B1) 100 mg tablet 100 mg PO DAILY #60 tab 04/03/22 [Rx Confirmed 04/13/22 Last Taken Unknown] benztropine 0.5 mg tablet 1 tab PO BID 04/13/22 [History Confirmed 04/13/22 Last Taken Unknown] nicotine 21 mg/24 hr daily transdermal patch 1 patch TOPICAL QDAY 04/13/22 [History Confirmed 04/13/22 Last Taken Unknown] Lactobacillus acidophilus 1 billion cell capsule 1,000 mmu cells PO QDAY #60 cap 04/14/22 [Rx Last Taken Unknown] venlafaxine 225 mg tablet,extended release 24 hr 225 mg PO QDAY 04/14/22 [History Confirmed 04/14/22 Last Taken Unknown] amoxicillin 875 mg-potassium clavulanate 125 mg tablet 1 tab PO BID #10 tab 04/17/22 [Rx Last Taken Unknown] COURSE Hospital Course Hospital course: Ms. Ramírez is a 51 year old F Presents to the ED because she was having panic attacks she had chest pressure shortness of breath. In her her right hand was hurting and swollen in the back. Patient has been admitted twice since the beginning of February both for cellulitis and positive for methamphetamine use and then alcohol withdrawal. Patient den ied methamphetamine use both admits but eventually during admits admitted to methamphetamine use. She first had neck cellulitis in the next admission right hand cellulitis where she went through severe alcohol withdrawal requiring intubation. Her first admission she was admitted for a week. Second admission she was admitted for 7 days. During that time she also had a telepsych consult. Refused to go to SNF and went home with her daughter. Today in the ED she was evaluated and found to be tachycardic hypertensive tachypneic. She was had a metabolic acidosis and mild hyperkalemia. Very mild transaminitis. And most notably a lactate of 3.8. Cultures were obtained and antibiotics given. Lactate elevation likely secondary to methamphetamine intoxication. However she likely has a developing right hand cellulitis. She is admitted to last using methamphetamine today and alcohol as well. Says she wants to get better and does not want her family to have to see your deteriorate and . She seemed more willing for help at this time. She asked me why would you want to help me. She does have headaches fevers chills nausea but no vomiting. She did complain of some chest pressure and shortness of breath during her panic attack. 04/13 Patient complains of headache some nausea fevers. Required several IV doses of Ativan last night. Leukopenia noted again and thrombocytopenia. Hypokalemia. Elevated procalcitonin. Replete electrolytes. Right third toe concern for osteoget imaging and follow-up the abnormal abdominal x-ray. 04/14 Patient required some Ativan at the end of yesterday's shift in the early evening. Did require low-dose this morning. Patient did well overnight. Potassium low and will replete. 04/15 Patient calm this morning. Seems to be doing better. Did require low-dose Ativan last night. Leukopenia worsened. Platelets dropped little bit but relatively stable. Hypokalemia 04/16 Patient states poor sleep last night. Complains of headache and nausea. No vomiting. Leukopenia little better this morning. Switch Rocephin to penicillin yesterday. Transaminitis. 04/17 Patient cellulitis almost disappeared CIWA score less than 8 Patient is feeling better She is ambulating independently Discussed with the patient and she can be discharged with the family Discharge diagnosis: Hand cellulitis, intoxication Time Spent with Patient Time attestation: Total time spent providing and/or coordinating discharge services: Time spent: Greater than 30 minutes EXAM Constitutional Vitals: Temp Pulse Resp BP Pulse Ox 97.9 F 57 L 20 110/70 98 04/17/22 07:28 04/17/22 07:28 04/17/22 07:28 04/17/22 07:28 04/17/22 07:28 General appearance: average body habitus and cooperative Head Head exam: Present atraumatic and normal inspection Respiratory Respiratory exam: Present normal respiratory exam Cardiovascular Cardiovascular exam: Present normal rate and rhythm GI/Abdominal GI/Abdominal exam: Present normal bowel sounds and soft Expanded Upper Extremity Exam General: Present abrasion Shoulder exam: Present erythema Psychiatric Psychiatric exam: Present anxious and depressed Discharge Data Data Completed and Pending Labs on day of discharge: Preliminary micro results at discharge 04/12/22 18:18 Blood Culture - Preliminary Blood 04/12/22 18:12 Blood Culture - Preliminary Blood Discharge Plan Patient/Caregiver Discharge Instructions Activity: increase activity as tolerated Diet: Regular Diet Activity Restrictions/Additional Instructions: Referral to see plate glass grinder in 1 to 2 weeks for cirrhosis. AVOID methamphetamine use and alcohol use. Prescriptions: New Lactobacillus acidophilus 1 billion cell capsule 1,000 mmu cells PO QDAY Qty: 60 0RF amoxicillin-pot clavulanate 875-125 mg tablet 1 tab PO BID Qty: 10 0RF Continued levetiracetam 500 mg Tablet See Rx Instructions .ROUTE .COMPLEX 0RF Rx Instructions: take 1 tablet PO QAM, 1.5 tablets po HS ziprasidone HCl 80 mg capsule 2 cap PO HS 0RF lactulose 10 gram/15 mL solution 15 ml PO TID 0RF melatonin 3 mg Tablet 9 mg PO HSP PRN (Reason: insomnia) Qty: 60 3RF folic acid 1 mg Tablet 1 mg PO DAILY Qty: 60 2RF Thera M Plus (ferrous fumarat) 9 mg iron-400 mcg Tablet 1 tab PO DAILY Qty: 60 4RF thiamine mononitrate (vit B1) 100 mg Tablet 100 mg PO DAILY Qty: 60 4RF benztropine 0.5 mg tablet 1 tab PO BID 0RF nicotine 21 mg/24 hr patch 24 hour 1 patch topical QDAY 0RF Discontinued levofloxacin 750 mg tablet 1 tab PO QDAY 0RF No Action prednisolone 15 mg/5 mL Solution 40 mg PO DAILY 18 Days Qty: 480 0RF Rx Instructions: Take Prednisolone 40 mg (13.3 mL) daily for 18 more day then decrease to 30 mg daily for 3 days followed by 20 mg daily for 3 days followed by 10 mg daily for 3 days followed by 5 mg daily for 3 days then discontinue. venlafaxine 225 mg Tablet Extended Release 24hr 225 mg PO QDAY 0RF Follow Up Plan Follow up with: Yelitza Jones DO [Physician] - Sascha Castrejon ARNP [Primary Care Provider] - Patient Disposition: Home, Self-Care Care Plan Goals: stop using alcohol and recreational drugs Prognosis: Serious Rehab Potential: Fair I certify that the patient requires SNF services: Yes Overall status at discharge: patient is progressing back to baseline Discharge Orders: Discharge Order (Routine); Ordered 04/17/22 Ordered By: Emanuel STEPHENS VTE Deep Vein Thrombosis/Pulmonary Embolism Present on Admission: No
== END 2022-04-17 12:45 | disposition home or self-care (01) | DRG 603 ==
LOC: ED 17:40 → ICU 23:51 → MEDSUR 04-15 10:17
PROVIDERS: ADMIT Internal Medicine; ATTEND Internal Medicine

== ENCOUNTER 2022-05-07 18:16 | Observation (INO) ==
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
[2022-05-07] MEDS ORDERED: HYDROmorphone 0.5 MG/0.5 ML SYRINGE IV ONE (20:12)
[2022-05-07] MEDS ORDERED: 0.9 % SODIUM CHLORIDE 1,000 ML IV ONE (20:33)
[2022-05-07 20:59] LABS: Amphetamine Screen,Urine Suspect positive; Barbiturate Screen,Urine None detected; Benzodiazepines Screen,Urine None detected; Cannabinoid Screen,Urine None detected; Cocaine Screen,Urine None detected; Opiate Screen,Urine None detected; Oxycodone, Urine Screen None detected; Phencyclidine Screen,Urine None detected
--- NOTE | 2022-05-07 21:12 | XRay Report ---
INDICATION: pain and swelling TECHNIQUE: AP and lateral femur COMPARISON: None. FINDINGS: Examination was initially interpreted by [facility] Negative left femur. No fracture. No lytic lesion. No soft tissue abnormalities IMPRESSION: Negative left femur Interpreted and Authenticated by: Lionel Garcia 05/07/22
--- NOTE | 2022-05-07 21:14 | XRay Report ---
INDICATION: pain TECHNIQUE: AP pelvis COMPARISON: Previous examination dated 04/13/2022 FINDINGS: Examination was initially interpreted by [facility]. Parasymphyseal left pubic fracture. This is mildly comminuted. There is superior subluxation of the left hemipelvis with respect to the right at the pubic symphysis. This is chronic. No other pelvic fracture. No lytic lesion. Sacrum is negative. Hips are negative. IMPRESSION: Parasymphyseal fracture of the left pubic bone Interpreted and Authenticated by: Lionel Garcia 05/07/22
[2022-05-07 21:32] LABS: Basophils # (Auto) 0.02 K/mcL (0.00-0.30); Basophils % (Auto) 0.5 % (0.0-2.0); Eosinophils # (Auto) 0.02 K/mcL (0.00-0.70); Eosinophils % (Auto) 0.5 % (0.0-7.0); Hematocrit 32.9 % (34.1-44.9); Hemoglobin 10.8 g/dL (11.2-15.7); Lymphocytes # (Auto) 1.29 K/mcL (1.50-4.80); Lymphocytes % (Auto) 31.9 % (15.5-49.0); Mean Cell Volume 99.1 fL (80.0-100.0); Mean Corpuscular HGB Conc 32.8 g/dL (31.0-36.0); Mean Platelet Volume 9.8 fL (7.4-10.4); Monocytes # (Auto) 0.31 K/mcL (0.10-0.90); Monocytes % (Auto) 7.7 % (1.0-12.0); Neutrophils % (Auto) 59.4 % (38.0-78.0); Platelet Count 81 K/mcL (140-440); RBC 3.32 M/mcL (3.59-5.38); Red Cell Distribution Width 14.6 % (11.5-14.5)
[2022-05-07 21:45] LABS: Alcohol,Blood 0.138 gm/dL (<0.010)
--- NOTE | 2022-05-07 21:47 | Cat Scan Report ---
INDICATION: Left pelvic fracture TECHNIQUE: Axial images through the pelvis. Sagittal and coronal reformatted images. COMPARISON: Previous plain film examination dated 05/07/2022. Previous CT scan dated 04/01/2022 FINDINGS: Parasymphyseal left pubic bone fracture. This is mildly comminuted. This is new since 04/01/2022. There is mild malalignment at the pubic symphysis with the left pubic bone slightly elevated. This is a chronic abnormality. No other pelvic fractures. No lytic lesions. Hips are negative and bilaterally symmetric. Again demonstrated is a left sacral insufficiency fracture with sclerosis and irregular fracture line. There is some bony resorption consistent with partial healing. This was present on 04/01/2022. Incidental note is made of a nonacute left L4 transverse process fracture. There is a soft tissue abnormality surrounding the pubic bones. Appearance is most consistent with soft tissue hematoma. No intrapelvic abnormality. There is a catheter which was placed within the urinary bladder. This catheter extends to the far right pelvic wall. The emergency room was called and this catheter is draining urine and not draining blood. This may be within a bladder diverticulum. IMPRESSION: 1. Left parasymphyseal mildly comminuted pubic bone fracture. 2. Insufficiency fracture of the left sacral wing, unchanged since 04/01/2022 3. No acute left L4 transverse process fracture Interpreted and Authenticated by: Lionel Garcia 05/07/22
[2022-05-07] MEDS ORDERED: KETOROLAC 30 MG/ML VIAL IV ONE (22:05)
[2022-05-07] MEDS ORDERED: ACETAMINOPHEN 325 MG TABLET PO ONE (22:05)
[2022-05-07] MEDS ORDERED: HYDROcodone/APAP 5/325MG TABLET PO ONE (22:05)
[2022-05-07] MEDS ORDERED: ONDANSETRON 4 MG/2 ML VIAL IV ONE (22:12)
[2022-05-07 22:16] LABS: ALT/SGPT 19 U/L (<40); AST/SGOT 26 U/L (<32); Albumin/Globulin Ratio 0.9 (1.0-2.3); Alkaline Phosphatase 225 U/L (39-117); Bilirubin,Total 0.6 mg/dL (0.1-1.0); Blood Urea Nitrogen 2 mg/dL (6-20); Calcium 8.5 mg/dL (8.6-10.4); Carbon Dioxide 19 mmol/L (22-30); Chloride 106 mmol/L (96-108); Globulin 3.4 gm/dL (2.2-3.7); Glomerular Filtration Rate 113; Glucose 100 mg/dL (70-105)
[2022-05-07] MEDS ORDERED: MAGNESIUM OXIDE 400 MG TABLET PO ONE (22:16)
[2022-05-07] MEDS ORDERED: POTASSIUM CHLORIDE 20 MEQ TABLET PO ONE (22:16)
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
[2022-05-07] MEDS ORDERED: KETOROLAC 30 MG/ML VIAL ONE (23:48)
[2022-05-07] MEDS ORDERED: HYDROmorphone 2 MG TABLET ONE (23:48)
[2022-05-08] MEDS: IBUPROFEN 600 MG TABLET PO PRN ×3 (00:30→21:41)
[2022-05-08] MEDS: 0.9 % SODIUM CHLORIDE 10 ML SYRINGE IV SCH ×4 (00:31→21:48)
[2022-05-08] MEDS ORDERED: IBUPROFEN 600 MG TABLET PO ONE (00:37)
[2022-05-08] MEDS: HYDROmorphone 2 MG TABLET PO PRN ×6 (00:41→22:51)
[2022-05-08] MEDS ORDERED: HYDROmorphone 2 MG TABLET ONE (00:48)
[2022-05-08 06:24] LABS: Blood Urea Nitrogen 5 mg/dL (6-20); Calcium 7.8 mg/dL (8.6-10.4); Carbon Dioxide 21 mmol/L (22-30); Chloride 107 mmol/L (96-108); Glomerular Filtration Rate 113; Glucose 114 mg/dL (70-105)
[2022-05-08 06:30] LABS: Basophils # (Auto) 0.01 K/mcL (0.00-0.30); Basophils % (Auto) 0.4 % (0.0-2.0); Eosinophils # (Auto) 0.01 K/mcL (0.00-0.70); Eosinophils % (Auto) 0.4 % (0.0-7.0); Hematocrit 31.2 % (34.1-44.9); Hemoglobin 9.7 g/dL (11.2-15.7); Lymphocytes # (Auto) 0.97 K/mcL (1.50-4.80); Lymphocytes % (Auto) 41.5 % (15.5-49.0); Mean Cell Volume 103.3 fL (80.0-100.0); Mean Corpuscular HGB Conc 31.1 g/dL (31.0-36.0); Mean Platelet Volume 9.4 fL (7.4-10.4); Monocytes % (Auto) 8.5 % (1.0-12.0); Neutrophils % (Auto) 49.2 % (38.0-78.0); Platelet Count 71 K/mcL (140-440); RBC 3.02 M/mcL (3.59-5.38); WBC 2.3 K/mcL (4.5-11.0)
[2022-05-08] MEDS: ACETAMINOPHEN 325 MG TABLET PO PRN ×3 (06:32→19:13)
[2022-05-08] MEDS: KETOROLAC 30 MG/ML VIAL IV PRN (06:32)
[2022-05-08] MEDS ORDERED: POTASSIUM CHLORIDE 20 MEQ TABLET PO ONE (07:54)
[2022-05-08] MEDS: DOCUSATE SODIUM 100 MG CAPSULE PO SCH ×2 (07:59→21:47)
[2022-05-08] MEDS: ENOXAPARIN 40 MG/0.4 ML SYRINGE SQ SCH (07:59)
--- NOTE | 2022-05-08 09:18 | Internal Med Progress Note ---
SUBJECTIVE Subjective Patient information: Note initiated : 05/08/22 at 8:58 am Service Date, if different from initiated Date: [] Patient: Anay Ramírez 51 y/o F admitted on 05/07/22 for back pain. Chief Complaint: [Intractable pain] Principal diagnosis: Mild pelvic fracture Interval history: The patient was pleasant, calm and cooperative this morning. There were no overnight events. She had no active complaints or concerns. Constitutional Vitals: Vital Signs Temp Pulse Resp BP Pulse Ox 97.4 F 74 18 92/60 97 05/08/22 07:06 05/08/22 07:06 05/08/22 07:06 05/08/22 07:06 05/08/22 07:06 Period Temp Pulse Resp BP Sys/[place]illa Pulse Ox Last 24 Hr 97.4 F-100.2 F 74-129 16-24 92-151/60-105 90-100 Intake and Output 05/07/22 05/08/22 05/08/22 21:59 05:59 13:59 Intake Total 1000 240 500 Output Total 1530 Balance 1000 -1290 500 Weight 87.09 kg 74.752 kg Intake & Output: Intake & Output 05/07/22 05/08/22 05/08/22 21:59 05:59 13:59 Intake Total 1000 240 500 Output Total 1530 Balance 1000 -1290 500 Weight 87.09 kg 74.752 kg Intake: IV 1000 Sodium Chloride 0.9% 1,000 ml @ 1000 Wide Open IV BOLUS ONE Rx#: [id number] Oral 240 500 Output: Urine Catheter Amount 1530 Other: Meal PB&J Breakfast Percent of Meal Consumed 100% 100% Feeding Ability Independent Independent Urine Appearance Clear Uretheral ([place]) Clear Clear Urine Color Dark [place] Uretheral ([place]) Pale Dark [place] Urine Odor Strong Uretheral ([place]) Normal Head Head exam: Present atraumatic and normal inspection Eye Eye exam: Present normal appearance ENT ENT exam: Present mucous membranes moist, normal exam and normal external ear exam Neck Neck exam: Present normal inspection Respiratory Respiratory exam: Present normal respiratory exam Cardiovascular Cardiovascular exam: Present normal rate and rhythm GI/Abdominal GI/Abdominal exam: Present normal bowel sounds Back Exam Back exam: Present normal inspection Neurological Exam Neurological exam: Present alert and oriented X3 Skin Skin exam: Present intact and warm OBJ DATA Labs CBC & Chem 7: 05/08/22 05:18 05/08/22 05:18 Labs: Abnormal Lab Results 05/08/22 05/08/22 05/07/22 05:18 05:18 20:48 WBC 2.3 L RBC 3.02 L Hgb 9.7 L Hct 31.2 L MCV 103.3 H RDW 15.0 H Plt Count 71 L Lymph # (Auto) 0.97 L Absolute Neutrophils 1.15 L Potassium 3.1 L Carbon Dioxide 21 L BUN 5 L Creatinine 0.5 L Glucose 114 H Calcium 7.8 L Alkaline Phosphatase Albumin Albumin/Globulin Ratio Ur Amphetamines Screen Ethyl Alcohol 0.138 H 05/07/22 05/07/22 05/07/22 20:48 20:48 18:55 WBC 4.0 L RBC 3.32 L Hgb 10.8 L Hct 32.9 L MCV RDW 14.6 H Plt Count 81 L Lymph # (Auto) 1.29 L Absolute Neutrophils Potassium 2.9 L* Carbon Dioxide 19 L BUN 2 L Creatinine 0.5 L Glucose Calcium 8.5 L Alkaline Phosphatase 225 H Albumin 3.0 L Albumin/Globulin Ratio 0.9 L Ur Amphetamines Screen Suspect positive A Ethyl Alcohol Meds: Medications Acetaminophen (Acetaminophen 325 Mg Tablet) 650 mg PO Q6HP PRN; Protocol PRN Reason: Per Pain Protocol/Fever > 101 Last Admin: 05/08/22 06:32 Dose: 650 mg Documented by: Docusate Sodium (Docusate Sodium 100 Mg Capsule) 100 mg PO BID [facility] Last Admin: 05/08/22 07:59 Dose: 100 mg Documented by: Enoxaparin Sodium (Enoxaparin 40 Mg/0.4 Ml Syringe) 40 mg SQ DAILY [facility] Last Admin: 05/08/22 07:59 Dose: 40 mg Documented by: Hydromorphone HCl (Hydromorphone 2 Mg Tablet) 2 mg PO Q4HP PRN; Protocol PRN Reason: Per Pain Protocol Last Admin: 05/08/22 06:31 Dose: 2 mg Documented by: Ibuprofen (Ibuprofen 600 Mg Tablet) 600 mg PO QIDP PRN; Protocol PRN Reason: Per Pain Protocol/Fever > 101 Last Admin: 05/08/22 00:30 Dose: 600 mg Documented by: Ketorolac Tromethamine (Ketorolac 30 Mg/Ml Vial) 30 mg IV Q6HP PRN; Protocol PRN Reason: Per Pain Protocol Stop: 05/09/22 22:35 Last Admin: 05/08/22 06:32 Dose: 30 mg Documented by: Ondansetron HCl (Ondansetron 4 Mg/2 Ml Vial) 4 mg IV Q6HP PRN PRN Reason: Nausea And Vomiting Senna (Sennosides 1 Tablet) 2 tab PO HS [facility] Sodium Chloride (0.9 % Sodium Chloride 10 Ml Syringe) 10 ml IV Q8 [facility] Last Admin: 05/08/22 05:08 Dose: 10 ml Documented by: A/P Assessment and plan (1) Seizures: Status: Chronic (2) Mental health disorder: Status: Chronic Comment: Unspecified, ?Schizophrenia (3) Tobacco dependence in remission: Status: Chronic Comment: Quit 02/2021, 1 pack/day (4) Pelvic pain: Status: Acute (5) Fractured pelvis: Status: Acute Qualifiers: Encounter type: initial encounter Pelvic bone location: unspecified part of pelvis Narrative Plan of Treatment: The patient will be hospitalized for pain control with a multimodal approach. She will be placed on p.o. Tylenol, ibuprofen, p.o. Dilaudid and IV Toradol as needed. Social work and case management will work on disposition. Her medication reconciliation is pending. 05/08: Pelvic precautions per orthopedic surgery. Continue pain control. Social work to discuss CD counseling. Case management will continue to work on disposition. I will review her medication reconciliation today. Time Spent With Patient Time: Total time spent is greater than 50% in coordination of care (as documented) at patient's floor/unit and/or counseling patient: Total time spent with greater than 50% in coordination of care (as documented) at patient's floor/unit and/or counseling patient:: 25 - 35 minutes QUALITY VTE Deep Vein Thrombosis/Pulmonary Embolism Present on Admission: No
[2022-05-08] MEDS: levETIRAcetam 500 MG TABLET PO SCH (09:31)
[2022-05-08] MEDS: POTASSIUM CHLORIDE 20 MEQ TABLET PO SCH (17:10)
[2022-05-08] MEDS ORDERED: SENNOSIDES 1 TABLET PO SCH (21:00)
[2022-05-08] MEDS ORDERED: levETIRAcetam 500 MG TABLET PO SCH (21:00)
[2022-05-08] MEDS: BENZTROPINE 1 MG TABLET PO SCH (21:41)
[2022-05-08] MEDS: NICOTINE 21 MG PATCH TOPICAL SCH (22:47)
[2022-05-08] MEDS ORDERED: NICOTINE 21 MG PATCH ONE (22:52)
[2022-05-09] MEDS: KETOROLAC 30 MG/ML VIAL IV PRN ×2 (02:45→14:55)
[2022-05-09] MEDS: ACETAMINOPHEN 325 MG TABLET PO PRN ×3 (02:45→12:34)
[2022-05-09] MEDS: ONDANSETRON 4 MG/2 ML VIAL IV PRN ×3 (02:54→14:55)
[2022-05-09] MEDS: HYDROmorphone 2 MG TABLET PO PRN ×4 (02:54→12:38)
[2022-05-09] MEDS: 0.9 % SODIUM CHLORIDE 10 ML SYRINGE IV SCH ×2 (07:52→14:58)
[2022-05-09] MEDS: DOCUSATE SODIUM 100 MG CAPSULE PO SCH (07:53)
[2022-05-09 07:55] LABS: ALT/SGPT 16 U/L (<40); AST/SGOT 23 U/L (<32); Albumin 2.4 gm/dL (3.2-5.2); Albumin/Globulin Ratio 0.7 (1.0-2.3); Alkaline Phosphatase 186 U/L (39-117); Bilirubin,Total 0.8 mg/dL (0.1-1.0); Blood Urea Nitrogen 6 mg/dL (6-20); Calcium 8.4 mg/dL (8.6-10.4); Carbon Dioxide 20 mmol/L (22-30); Chloride 108 mmol/L (96-108); Globulin 3.6 gm/dL (2.2-3.7); Glomerular Filtration Rate 122; Glucose 97 mg/dL (70-105)
[2022-05-09] MEDS: IBUPROFEN 600 MG TABLET PO PRN (08:00)
[2022-05-09] MEDS: POTASSIUM CHLORIDE 20 MEQ TABLET PO SCH (08:00)
[2022-05-09] MEDS: BENZTROPINE 1 MG TABLET PO SCH (08:00)
[2022-05-09] MEDS: ENOXAPARIN 40 MG/0.4 ML SYRINGE SQ SCH (08:02)
[2022-05-09] MEDS: levETIRAcetam 500 MG TABLET PO SCH (08:02)
[2022-05-09 08:06] LABS: Basophils # (Auto) 0.01 K/mcL (0.00-0.30); Basophils % (Auto) 0.5 % (0.0-2.0); Eosinophils # (Auto) 0.01 K/mcL (0.00-0.70); Eosinophils % (Auto) 0.5 % (0.0-7.0); Hematocrit 32.9 % (34.1-44.9); Hemoglobin 10.1 g/dL (11.2-15.7); Lymphocytes # (Auto) 0.72 K/mcL (1.50-4.80); Mean Cell Volume 103.8 fL (80.0-100.0); Mean Corpuscular HGB Conc 30.7 g/dL (31.0-36.0); Monocytes # (Auto) 0.13 K/mcL (0.10-0.90); Monocytes % (Auto) 6.5 % (1.0-12.0); Neutrophils % (Auto) 56.5 % (38.0-78.0); Platelet Count 70 K/mcL (140-440); RBC 3.17 M/mcL (3.59-5.38); Red Cell Distribution Width 14.5 % (11.5-14.5)
[2022-05-09] MEDS: NICOTINE 21 MG PATCH TOPICAL SCH (08:07)
[2022-05-09] MEDS ORDERED: FOLIC ACID 1 MG TABLET PO SCH (09:00)
[2022-05-09] MEDS ORDERED: VENLAFAXINE 150 MG CAP.XL.24H PO SCH (09:00)
[2022-05-09] MEDS: diphenhydrAMINE 25 MG CAPSULE PO PRN ×2 (09:19→12:44)
--- NOTE | 2022-05-09 10:19 | Discharge Summary ---
Discharge Provider Provider IMPORTANT FOLLOW-UP INFORMATION FOR PCP: Patient information: Note initiated : 05/09/22 at 10:17 am Service Date, if different from initiated Date: [] Patient: Anay Ramírez 51 y/o F admitted on 05/07/22 for back pain. Chief Complaint: [] Date of admission: 05/07/22 23:27 Discharge date: 05/09/22 Primary care physician: GUS Streeter Attending physician on admission: Adalid Sellers Consults: 05/07/22 Consult to Physician [CONS] Stat Comment: Consulting Provider: Lionel Garcia Reason For Exam: Physician to Consult Consult to Physician [CONS] Stat Comment: Consulting Provider: Adalid Sellers Reason For Exam: Physician to Consult Attending physician on discharge: Chi Aracely Pui COURSE Hospital Course Hospital course: Ms. Ramírez is a 51 year old F with a past medical history significant for polysubstance abuse, underlying psych disorder, and seizures who presents to the hospital with 2-week onset of progressive pain and failure to thrive from a was found to be mildly communicated pelvic fracture. The patient denies any trauma or fall. She is a vague historian. She has been to the hospital nearly 4 times over the last 2 months. The patient states that she was at home and her pain progressively worsened to the point where she was incapacitated and decided to come to the ER. On arrival, she was hemodynamically stable and afebrile. The hospitalist service was asked admit the patient for pain control and possible need for placement to shelter facility. Orthopedic surgery has also been consulted to assist. 05/08: The patient was pleasant, calm and cooperative this morning. There were no overnight events. She had no active complaints or concerns. 05/09: Which clinical stability, decision made to discharge patient home with continued symptoms control. Prescriptions sent. PCP follow-up appointment made for the patient's. Discharge diagnosis: mild pelvic fracture Time Spent with Patient Time attestation: Total time spent providing and/or coordinating discharge services: Time spent: Less than 30 minutes EXAM Constitutional Vitals: Temp Pulse Resp BP Pulse Ox 36.4 C 84 20 117/89 100 05/09/22 07:51 05/09/22 07:51 05/09/22 07:51 05/09/22 07:51 05/09/22 07:51 General appearance: cooperative and no acute distress Head Head exam: Present atraumatic and normocephalic Eye Eye exam: Present EOMI and PERRL ENT ENT exam: Present mucous membranes moist, normal exam and normal external ear exam Neck Neck exam: Present normal inspection; Absent lymphadenopathy, tenderness or thyromegaly Respiratory Respiratory exam: Absent accessory muscle use, respiratory distress or wheezes Cardiovascular Cardiovascular exam: Present normal rate and rhythm; Absent JVD GI/Abdominal GI/Abdominal exam: Present normal bowel sounds and soft; Absent organomegaly or tenderness Extremities Exam Extremities exam: Present normal capillary refill and normal inspection; Absent full ROM or tenderness Additional comments: legs movement limited by pain Neurological Exam Neurological exam: Present alert, CN II-XII intact and oriented X3; Absent motor sensory deficit Psychiatric Psychiatric exam: Present normal affect and normal mood; Absent anxious or depressed Skin Skin exam: Present dry and intact Discharge Data Data Completed and Pending Labs on day of discharge: Labs from last 24 hours 05/09/22 05/09/22 05:43 05:43 WBC 2.0 L RBC 3.17 L Hgb 10.1 L Hct 32.9 L MCV 103.8 H MCH 31.9 MCHC 30.7 L RDW 14.5 Plt Count 70 L MPV 10.0 Neut % (Auto) 56.5 Lymph % (Auto) 36.0 [place] % (Auto) 6.5 Eos % (Auto) 0.5 Baso % (Auto) 0.5 Lymph # (Auto) 0.72 L [place] # (Auto) 0.13 Eos # (Auto) 0.01 Baso # (Auto) 0.01 Absolute Neutrophils 1.13 L Sodium 137 Potassium 3.8 Chloride 108 Carbon Dioxide 20 L Anion Gap 9.0 BUN 6 Creatinine 0.4 L GFR Calculation 122 Glucose 97 Calcium 8.4 L Magnesium 1.6 Total Bilirubin 0.8 AST 23 ALT 16 Alkaline Phosphatase 186 H Total Protein 6.0 Albumin 2.4 L Globulin 3.6 Albumin/Globulin Ratio 0.7 L Discharge Plan Patient/Caregiver Discharge Instructions Activity: increase activity as tolerated Diet: Regular Diet Prescriptions: New hydromorphone 2 mg Tablet 2 mg PO Q4HP PRN (Reason: Per Pain Protocol) Qty: 10 0RF potassium chloride [Klor-Con M20] 20 mEq Tablet,Er Particles/Crystals 40 meq PO BIDCC Qty: 14 0RF diphenhydramine HCl 25 mg Capsule 50 mg PO Q4-6HP PRN (Reason: Allergic Symptoms) Qty: 10 0RF nicotine 21 mg/24 hr Patch 24 Hour 21 mg topical DAILY@1000 Qty: 10 0RF ibuprofen 600 mg Tablet 600 mg PO QIDP PRN (Reason: Per Pain Protocol/Fever > 101) Qty: 10 0RF Continued levetiracetam 500 mg Tablet See Rx Instructions .ROUTE .COMPLEX 0RF Rx Instructions: take 1 tablet PO QAM, 1.5 tablets po HS ziprasidone HCl 80 mg capsule 160 mg PO HS 0RF melatonin 3 mg Tablet 9 mg PO HSP PRN (Reason: insomnia) Qty: 60 3RF folic acid 1 mg Tablet 1 mg PO DAILY Qty: 60 2RF benztropine 0.5 mg tablet 1 tab PO BID 0RF venlafaxine 150 mg capsule,extended release 24hr 1 cap PO QDAY 0RF Follow Up Plan Follow up with: Sascha Castrejon ARNP [Primary Care Provider] - Patient Disposition: Home, Self-Care Plan of Treatment: The patient will be hospitalized for pain control with a multimodal approach. She will be placed on p.o. Tylenol, ibuprofen, p.o. Dilaudid and IV Toradol as needed. Social work and case management will work on disposition. Her medication reconciliation is pending. 05/08: Pelvic precautions per orthopedic surgery. Continue pain control. Social work to discuss CD counseling. Case management will continue to work on disposition. I will review her medication reconciliation today. Rehab Potential: Good I certify that the patient requires SNF services: No Overall status at discharge: patient is progressing back to baseline Discharge Orders: Discharge Order (Routine); Ordered 05/09/22 Ordered By: Roger STEPHENS VTE Deep Vein Thrombosis/Pulmonary Embolism Present on Admission: No
[2022-05-09] MEDS ORDERED: LORazepam 2 MG/ML VIAL IV PRN (14:44)
== END 2022-05-09 15:25 | disposition home or self-care (01) ==
LOC: ED 18:16 → ICU 23:27 → INTOOBSV 23:27
PROVIDERS: ADMIT Student in an Organized Health Care Education/Training Program; ATTEND Internal Medicine

== ENCOUNTER 2024-10-30 13:35 | Observation (INO) ==
[2024-10-16 14:07] LABS: Basophils # (Auto) 0.01 K/mcL (0.00-0.30); Basophils % (Auto) 0.3 % (0.0-2.0); Eosinophils # (Auto) 0.03 K/mcL (0.00-0.70); Hematocrit 38.2 % (34.1-44.9); Hemoglobin 12.8 g/dL (11.2-15.7); Lymphocytes # (Auto) 1.06 K/mcL (1.50-4.80); Lymphocytes % (Auto) 35.1 % (15.5-49.0); Mean Cell Volume 99.5 fL (80.0-100.0); Mean Corpuscular HGB Conc 33.5 g/dL (31.0-36.0); Mean Platelet Volume 9.7 fL (8.8-12.5); Monocytes # (Auto) 0.19 K/mcL (0.10-0.90); Monocytes % (Auto) 6.3 % (1.0-12.0); Neutrophils % (Auto) 57.3 % (38.0-78.0); Platelet Count 55 K/mcL (140-440); RBC 3.84 M/mcL (3.59-5.38); Red Cell Distribution Width 12.4 % (11.5-14.5)
[2024-10-16 14:26] LABS: ALT/SGPT 51 U/L (<40); AST/SGOT 52 U/L (<32); Albumin 4.3 gm/dL (3.2-5.2); Albumin/Globulin Ratio 1.8 (1.0-2.3); Alkaline Phosphatase 179 U/L (39-117); Bilirubin,Total 0.5 mg/dL (0.1-1.0); Blood Urea Nitrogen 8 mg/dL (6-20); Calcium 9.4 mg/dL (8.6-10.4); Carbon Dioxide 24 mmol/L (22-30); Chloride 108 mmol/L (96-108); Globulin 2.4 gm/dL (2.2-3.7); Glomerular Filtration Rate 111; Glucose 124 mg/dL (70-105); Sodium 142 mmol/L (133-145)
[2024-10-30] MEDS ORDERED: IPRATROPIUM/ALBUTEROL 3 ML AMPUL.NEB NEB PRN (14:21)
[2024-10-30] MEDS ORDERED: SENNOSIDES 1 TABLET PO PRN (14:21)
[2024-10-30] MEDS ORDERED: ACETAMINOPHEN 325 MG TABLET PO PRN (14:21)
[2024-10-30] MEDS ORDERED: METOCLOPRAMIDE 10 MG/2 ML VIAL IV PRN (14:21)
[2024-10-30] MEDS ORDERED: LACTULOSE 20 GM/30 ML ORAL.SOL PO PRN (14:21)
[2024-10-30] MEDS ORDERED: POTASSIUM CHLORIDE 40 MEQ in DEXTROSE 5% IN WATER 500 ML IV PRN (14:21)
[2024-10-30] MEDS ORDERED: MAGNESIUM SULFATE 2 GM/50 ML BAG IV PRN (14:21)
[2024-10-30] MEDS ORDERED: POTASSIUM CHLORIDE 20 MEQ TABLET PO PRN ×2 (14:21)
[2024-10-30] MEDS: HYDROcodone/APAP 5/325MG TABLET PO PRN (15:41)
[2024-10-30] MEDS: 0.9 % SODIUM CHLORIDE 250 ML IV SCH (19:21)
[2024-10-30] MEDS: morphine 4 MG/ML VIAL IV PRN (19:46)
[2024-10-30] MEDS ORDERED: levETIRAcetam 500 MG TABLET PO SCH (20:15)
[2024-10-30] MEDS: 0.9 % SODIUM CHLORIDE 10 ML SYRINGE IV SCH (20:34)
[2024-10-30] MEDS: levETIRAcetam 500 MG TABLET PO SCH (20:35)
[2024-10-30] MEDS: GABAPENTIN 300 MG CAPSULE PO SCH (20:36)
[2024-10-30] MEDS: DOCUSATE SODIUM 100 MG CAPSULE PO SCH (20:36)
[2024-10-30] MEDS: HEPARIN 5,000 UNIT/ML VIAL SQ SCH (20:36)
[2024-10-30] MEDS: oxyCODONE/APAP 5/325MG TABLET PO PRN (21:34)
[2024-10-30] MEDS: LACTULOSE 20 GM/30 ML ORAL.SOL PO SCH (21:34)
[2024-10-30] MEDS: VENLAFAXINE 75 MG TABLET PO SCH (21:35)
[2024-10-30] MEDS: clonazePAM 0.5 MG TABLET PO SCH (21:35)
[2024-10-30] MEDS ORDERED: diphenhydrAMINE 25 MG CAPSULE PO PRN (22:15)
[2024-10-30] MEDS: diphenhydrAMINE 25 MG CAPSULE ONE (23:08)
[2024-10-31] MEDS: ceFAZolin 2 GM in DEXTROSE 5% IN WATER 50 ML IV SCH (06:41)
[2024-10-31] MEDS ORDERED: MIDAZOLAM 2 MG/2 ML VIAL ONE (06:57)
[2024-10-31] MEDS ORDERED: fentaNYL 100 MCG/2 ML VIAL ONE ×2 (06:57→12:04)
[2024-10-31] MEDS ORDERED: PROPOFOL 200 MG/20 ML VIAL IV ONE (06:57)
[2024-10-31] MEDS ORDERED: KETAMINE 50 MG/ML ML ONE (06:58)
[2024-10-31] MEDS ORDERED: GLYCOPYRROLATE 0.2 MG/ML VIAL IV ONE (06:59)
[2024-10-31] MEDS ORDERED: DEXAMETHASONE 10 MG/ML VIAL ONE (06:59)
[2024-10-31] MEDS ORDERED: LIDOCAINE 2% PF 5 ML VIAL ONE (06:59)
[2024-10-31] MEDS ORDERED: ONDANSETRON 4 MG/2 ML VIAL ONE (06:59)
[2024-10-31] MEDS ORDERED: FAMOTIDINE/PF 20 MG/2 ML VIAL IV ONE (06:59)
[2024-10-31] MEDS ORDERED: MAGNESIUM SULFATE 2 GM/50 ML BAG IV ONE (07:13)
[2024-10-31] MEDS ORDERED: ePHEDrine 50 MG/5 ML SYRINGE (ANEST) IV ONE (07:16)
[2024-10-31] MEDS ORDERED: PHENYLephrine 1 MG/10 ML SYRINGE (ANEST) ONE (07:20)
[2024-10-31] MEDS ORDERED: EPINEPHrine 1 MG/ML VIAL ONE (07:20)
[2024-10-31] MEDS ORDERED: TRANEXAMIC ACID 1,000 MG/10 ML VIAL ONE ×2 (07:22→13:30)
[2024-10-31] MEDS: HEPARIN 5,000 UNIT/ML VIAL SQ ONE (07:30)
[2024-10-31] MEDS ORDERED: ROPIVACAINE HCL/PF 30 ML VIAL IJ ONE (07:38)
[2024-10-31] MEDS: GELATIN SPONGE,ABSORBABLE 1 EACH SPONGE TOPICAL ONE (08:10)
[2024-10-31 09:59] LABS: ALT/SGPT 64 U/L (<40); AST/SGOT 76 U/L (<32); Albumin 4.5 gm/dL (3.2-5.2); Albumin/Globulin Ratio 1.7 (1.0-2.3); Alkaline Phosphatase 217 U/L (39-117); Bilirubin,Direct < 0.2 mg/dL (0-0.3); Bilirubin,Total 0.4 mg/dL (0.1-1.0); Blood Urea Nitrogen 9 mg/dL (6-20); Calcium 9.5 mg/dL (8.6-10.4); Carbon Dioxide 28 mmol/L (22-30); Chloride 104 mmol/L (96-108); Globulin 2.6 gm/dL (2.2-3.7); Glomerular Filtration Rate 100; Glucose 101 mg/dL (70-105); Lactate Dehydrogenase 301 U/L (135-225); Phosphorous 3.9 mg/dL (2.5-4.5); Potassium 4.3 mmol/L (3.3-5.1); Sodium 142 mmol/L (133-145); Triglycerides 115 mg/dL (<150); Uric Acid 4.8 mg/dL (2.5-8.0)
[2024-10-31] MEDS ORDERED: HYDROmorphone 0.5 MG/0.5 ML SYRINGE ONE ×2 (10:34→10:55)
[2024-10-31] MEDS ORDERED: KETOROLAC 30 MG/ML VIAL ONE (10:56)
[2024-10-31] MEDS ORDERED: ceFAZolin 1 GM VIAL ONE (13:24)
[2024-10-31] MEDS ORDERED: NALOXONE HCL 0.4 MG/ML VIAL IV PRN (14:14)
[2024-10-31] MEDS ORDERED: METHOCARBAMOL 1,000 MG/10 ML VIAL IV PRN (14:14)
[2024-10-31] MEDS ORDERED: BENZOCAINE/MENTHOL 1 LOZENGE PO PRN (14:14)
[2024-10-31] MEDS ORDERED: HYDROmorphone 0.5 MG/0.5 ML SYRINGE IV PRN (14:14)
[2024-10-31] MEDS ORDERED: IPRATROPIUM/ALBUTEROL 3 ML AMPUL.NEB NEB PRN (14:14)
[2024-10-31] MEDS ORDERED: ONDANSETRON 4 MG/2 ML VIAL IV PRN (14:14)
[2024-10-31] MEDS ORDERED: LACTATED RINGERS 250 ML IV PRN (14:14)
[2024-10-31] MEDS: VANCOMYCIN 1 GM VIAL TOPICAL SCH (14:47)
[2024-10-31] MEDS: VENLAFAXINE 37.5 MG TABLET PO SCH ×2 (14:50→14:54)
[2024-10-31] MEDS: clonazePAM 0.5 MG TABLET PO SCH (14:50)
[2024-10-31] MEDS: levETIRAcetam 500 MG TABLET PO SCH (14:52)
[2024-10-31] MEDS: ACETAMINOPHEN 1,000 MG/100 ML BAG IV ONE (15:39)
[2024-10-31] MEDS: fentaNYL 100 MCG/2 ML VIAL IV PRN (15:44)
[2024-10-31 15:53] LABS: Basophils # (Auto) 0.01 K/mcL (0.00-0.30); Basophils % (Auto) 0.2 % (0.0-2.0); Eosinophils # (Auto) 0.01 K/mcL (0.00-0.70); Eosinophils % (Auto) 0.2 % (0.0-7.0); Hematocrit 39.9 % (34.1-44.9); Hemoglobin 13.3 g/dL (11.2-15.7); Lymphocytes # (Auto) 0.69 K/mcL (1.50-4.80); Lymphocytes % (Auto) 12.6 % (15.5-49.0); Mean Cell Volume 97.8 fL (80.0-100.0); Mean Corpuscular HGB Conc 33.3 g/dL (31.0-36.0); Mean Platelet Volume 9.4 fL (8.8-12.5); Monocytes # (Auto) 0.04 K/mcL (0.10-0.90); Monocytes % (Auto) 0.7 % (1.0-12.0); Neutrophils % (Auto) 85.4 % (38.0-78.0); Platelet Count 76 K/mcL (140-440); RBC 4.08 M/mcL (3.59-5.38); Red Cell Distribution Width 12.6 % (11.5-14.5); WBC 5.5 K/mcL (4.5-11.0)
[2024-10-31] MEDS: 0.9 % SODIUM CHLORIDE 1,000 ML IV ONE (16:31)
[2024-10-31] MEDS: LACTATED RINGERS 1,000 ML IV SCH (16:33)
[2024-10-31] MEDS: oxyCODONE IR 5 MG TABLET PO PRN (17:50)
[2024-10-31] MEDS: diphenhydrAMINE 25 MG CAPSULE PO SCH (18:33)
[2024-11-01] MEDS: ceFAZolin 1 GM VIAL IV ONE (09:13)
[2024-11-01] MEDS: ONDANSETRON 4 MG/2 ML VIAL IV PRN (11:06)
== END 2024-11-01 11:48 | disposition home or self-care (01) ==
LOC: MEDSUR → PREINTOOBSV 14:01 → EDSTATUS 10-31 07:30
PROVIDERS: ADMIT Internal Medicine; ATTEND Internal Medicine